=== PATIENT | female | born 1945 ===

== ENCOUNTER 2020-02-02 | Outpatient (REF) | payer MEDICARE, SELFPAY ==
[2020-02-05 09:29] LABS: OBS1 NEG (NEG); OBS2 NEG (NEG); OBS3 NEG (NEG)
[2020-02-05 09:30] LABS: OBS Int Ctl Valid YES
== END 2020-02-02 00:01 | disposition home or self-care (01) ==
LOC: HO.LNP
DX: D64.9 Anemia, unspecified (principal)
CPT/HCPCS: 82270

== ENCOUNTER 2020-05-31 14:15 | Outpatient (REF) | payer MEDICARE, SELFPAY | END 2020-05-31 14:16 | disposition home or self-care (01) | LOC: HO.LAB 14:15 | PROVIDERS: Visit Provider Internal Medicine | DX: Z20.822 Contact with and (suspected) exposure to COVID-19 (principal) | CPT/HCPCS: 36415; C9803; U0003 ==

== ENCOUNTER 2020-06-26 15:20 | Outpatient (REF) | payer MEDICARE, SELFPAY | END 2020-06-26 15:21 | disposition home or self-care (01) | LOC: HO.LAB 15:20 | PROVIDERS: PCP Internal Medicine; Visit Provider Internal Medicine | DX: Z20.822 Contact with and (suspected) exposure to COVID-19 (principal) | CPT/HCPCS: 36415; C9803; U0003; U0005 ==

== ENCOUNTER 2020-07-17 13:27 | Outpatient (REF) | payer MEDICARE, SELFPAY ==
--- NOTE | ~2020-07-17 | XR_ITS ---
EXAMINATION: XR CHEST CLINICAL INFORMATION: R22.2 - Localized swelling, mass and lump, trunk COMPARISON: Chest radiographs 10/26/2017, 03/14/2013 TECHNIQUE: 2 views of the chest were obtained. FINDINGS: The lungs are clear. There is no airspace consolidation or effusion. The vascularity is normal. The heart is normal in size. Diaphragmatic contours are similar to prior studies. There is mild mamillation posterior left diaphragm versus small smooth Bochdalek hernia. The hilar and mediastinal contours are normal. There are mild degenerative changes thoracic spine. XR/XR chest 2V IMPRESSION: No acute intrathoracic disease.
== END 2020-07-17 13:28 | disposition home or self-care (01) ==
LOC: HO.XRAY 13:27
PROVIDERS: PCP Internal Medicine; Visit Provider Internal Medicine
DX: R22.2 Localized swelling, mass and lump, trunk (principal)
CPT/HCPCS: 71046

== ENCOUNTER 2020-07-18 08:58 | Emergency (ER) | payer MEDICARE, SELFPAY ==
--- NOTE | ~2020-07-18 | CT_ITS ---
EXAMINATION: CT CHEST WITHOUT CONTRAST AND CT CERVICAL SPINE WITHOUT CONTRAST. CLINICAL INFORMATION: Left neck pain/swelling in the left anterior chest. COMPARISON: None TECHNIQUE: 3 mm thin axial and reformatted 2 mm thin sagittal and coronal images of cervical spine were obtained. Axial 5 mm thin and reformatted 3 mm thin sagittal and coronal images of chest were obtained without contrast. DLP 964. FINDINGS: Cervical spine: There is mild straightening of cervical lordosis. The vertebral heights and alignment is normal. There is loss of C6-C7 disc height with mild ventral and posterior spondylosis. Rest the disc heights are normal. There are hypertrophic bony changes at the C1-C2 disc level. There is no visible acute fracture, dislocation or subluxation. There is mild spondylosis/bulge complex at C2-C3, C3-C4 disc levels. There is mild left C3-C4, moderate C4-C5 and C5-C6 facet joint arthropathy and hypertrophy. There is no spinal canal stenosis. The neural foramina appear patent bilaterally at all disc levels the prevertebral and paravertebral soft tissues are normal. The airway is widely patent. Lung apices are clear. No abnormal neck mass or lymphadenopathy seen. CHEST: Both lungs are well-expanded and clear of acute pneumonic process. There is a 1 mm calcified nodule right upper lobe axial image 99/17, 1 mm calcified nodule left lower lobe superior segment subpleural location axial image 148/0 17, noncalcified 5 minute nodule right upper lobe axial image 187/17, a few calcified nodules in the left lower lobe largest measuring 5 mm axial image 186/17 The thyroid lobes are symmetrical. The central trachea and bronchi are widely patent. Heart size and the great vessels are normal caliber. There are coronary artery calcifications present. There is no pericardial effusion. No abnormal mediastinal hilar lymph nodes seen. There is no pleural effusion or pleural thickening. Imaging through the axilla reveals small shotty lymph nodes in the left axilla with central lucency the largest benign-appearing lymph node is 1. Measures 1.3 cm. There is no pleural effusion or pleural thickening. Visualized liver, spleen, pancreas and adrenal glands and kidneys is unremarkable. Bone windows reveal mild ventral spondylosis dorsal spine. No lytic or sclerotic process. CT/CT cervical spine wo con IMPRESSION: Mild straightening of cervical lordosis likely spasm. There is disc bulge/osteophyte complex at C2-C3 and C3-C4 disc level. There are hypertrophic bony changes at the C1-C2 alignment. No visible acute fracture, dislocation subluxation seen. There is no acute intrathoracic abnormality. There are several calcified and noncalcified pulmonary nodules. Based on clinical risk factors a follow-up in one year can be performed. There is no neck mass or abnormal appearing thyroid gland at this time.
[2020-07-18 09:15] VITALS: BP 185/77; PULSE 95; RESP 16; TEMP 36.2; O2SAT 97; BMI 31.8
[2020-07-18] MEDS: Ibuprofen 600 MG TABLET PO (10:15)
[2020-07-18] MEDS: Cyclobenzaprine HCl 10 MG TABLET PO (10:16)
--- NOTE | 2020-07-18 10:56 | ED.NECK ---
HPI - Neck Pain/Injury General Chief Complaint: Neck Pain/Injury Stated Complaint: neck pain Time Seen by Provider: 07/18/20 09:18 Source: patient Mode of arrival: ambulatory Limitations: no limitations History of Present Illness HPI Narrative: 74-year-old female with a past medical history of diabetes, hypertension hyperlipidemia presenting to the ED with complaints of atraumatic left-sided lateral/anterior neck pain with soft tissue swelling for the past 2-3 days worse today. She reports it is worse when she moves her neck to the left side although no pain with movement to the right side/looking toward the ceiling or touching her chin to her chest. She reports she was seen by her PCP yesterday and had a chest x-ray was negative for any acute processes per patient. She denies any fevers, chills, headaches, dizziness, sore throat, ear pain, nausea/vomiting, chest pain, shortness of breath, paresthesias, extremity edema, any symptoms or any other symptoms complaints or concerns at this time. MD complaint: neck pain Onset (ago): day(s) (2-3 days worse today) Place: home (While watching TV on the couch she notices started) Radiation: left lateral (/anterior) Severity: moderate and constant Quality: aching and spasming Duration: constant Relieving factors: none Exacerbating factors: movement of neck Associated symptoms: none Treatments prior to arrival: other (She reports she took [id number] medication no symptomatic relief) Related Data Home Medications Medication Instructions Recorded Confirmed blood sugar diagnostic #10 ea 06/19/20 06/19/20 glipizide 5 mg tablet 10 mg PO BID 06/19/20 06/19/20 lancets 30 gauge #100 ea 06/19/20 06/19/20 losartan 100 mg tablet 100 mg PO DAILY 06/19/20 06/19/20 montelukast 10 mg tablet 10 mg PO DAILY 06/19/20 06/19/20 naproxen 500 mg tablet mg PO 06/19/20 06/19/20 omeprazole 20 mg capsule,delayed 20 mg PO BID 06/19/20 06/19/20 release Previous Rx's Medication Instructions Recorded ezetimibe 10 mg tablet 10 mg PO DAILY #30 tab 06/27/20 meclizine 25 mg tablet 25 mg PO TID #90 tab 06/27/20 cyclobenzaprine 10 mg PO Q8H #10 tab 07/18/20 ibuprofen 400 mg PO Q6H PRN #10 tab 07/18/20 lidocaine HCl [Aspercreme 1 appl TOPICAL BID PRN #120 g 07/18/20 (lidocaine HCl)] oxycodone 5 mg PO BID PRN #10 tab 07/18/20 Allergies Allergy/AdvReac Type Severity Reaction Status Date / Time aspirin [ASPIRIN] Allergy Intermediate chest Verified 07/17/20 13:04 tightness codeine [CODEINE] Allergy Unknown SWELLING Verified 07/17/20 13:04 Erythromycin Allergy Unknown Unknown Verified 07/17/20 13:04 erythromycin base Allergy Unknown SWELLING Verified 07/17/20 13:04 [ERYTHROMYCIN BASE] lisinopril [LISINOPRIL] Allergy Unknown COUGH Verified 07/17/20 13:04 morphine [MORPHINE] Allergy Unknown ANAPHYLAXIS Verified 07/17/20 13:04 penicillin V Allergy Unknown Unknown Verified 07/17/20 13:04 simvastatin Allergy Unknown Unknown Verified 07/17/20 13:04 [employer] Saline Allergy Unknown Unknown Uncoded 06/19/20 13:36 Codeine Phosphate Allergy Unknown Unknown Uncoded 06/19/20 13:36 ZYVA Allergy Unknown NERVE Uncoded 01/18/20 15:04 INFLAMMATION Review of Systems Review of Systems: Constitutional : No trauma, No Weight loss, No Fever, No Chills, ENT/Mouth : No Hearing loss, No Ear Pain, No Nasal Congestion, No Sinus Pain, No Hoarseness, No sore throat, No Rhinorrhea, No Swallowing Difficulty Cardiovascular : No Chest Pain, No SOB Respiratory : No Cough, No Dyspnea Gastrointestinal : No Nausea, No Vomiting, No Diarrhea, No abdominal Pain, No Hematochezia, No Melena Genitourinary : No Dysuria, No Urinary Frequency, No Hematuria, No Urinary or Bowel Incontinence/retention Musculoskeletal : + Neck pain, No Back pain, No joint stiffness, No joint swelling Skin : No Skin Lesions, No rash or signs of infection Neuro : + Tingling to b/l arms, No Weakness, No radiation, No Numbness, No headache, no loss of bowel or bladder incontinence, no saddle anesthesia Denies history of IV drug usage. Yes all other systems are reviewed and are negative PMFSH Past Medical History Attestation statement: The following information was validated with the patient. Medical History Diabetes mellitus High cholesterol HTN (hypertension) Surgical History History of tonsillectomy History of tubal ligation History of umbilical hernia repair Family History Family History Father No problems noted. Mother No problems noted. Social History Social History Alcohol intake: current Alcohol intake frequency: holidays/special occasions only Smoking Status: Never smoker Smoked in Last 30 Days: No Use of substances other than those prescribed or required for medical reasons: No Advance Directives: No Advance Directives Information Provided: No Physical Exam Vital Signs: Vital Signs: Last Vital Signs Temp 97.1 F 07/18/20 09:15 Pulse 95 07/18/20 09:15 Resp 16 07/18/20 09:15 BP 185/77 H 07/18/20 09:15 Pulse Ox 97 07/18/20 09:15 Body Mass Index 31.8 vital signs have been reviewed as normal and appeared to be correct. Blood pressure hypertensive. Heart rate normal. Respiration rate normal. Temperature normal. Oxygen saturation normal. Appearance: Alert. Oriented X3. No acute distress. Head: Normal external exam. Normocephalic. Atraumatic. Eyes: PERRLA. EOMI. Conjunctiva and sclera normal. Eyelids normal. ENT: Pharynx normal. Uvula midline. Moist mucous membranes. No trismus noted. No drooling noted. No muffled voice noted. Neck: Normal inspection. Neck supple. FROM. No adenopathy. Thyroid Normal. Trachea midline. No meningeal signs. No neck mass noted. Tender to palpation of left lateral/anterior cervical musculature with muscle spasm noted. No mid spinal cervical tenderness noted. No step-offs or deformities noted. Patient neuro intact bilaterally and distally on all 4 extremities. Reflexes intact bilaterally and distally in all 4 extremities. No rashes/lesion/induration/fluctuance or signs of infection noted. No edema noted. CVS: Normal heart rate and rhythm. Heart sound normal. No murmurs noted. Pulses normal throughout. Respiratory: No respiratory distress. Painless inspiration. Breath sounds normal. No wheezes/rales/rhonchi noted. Chest nontender. No accessory muscle usage noted or decreased air movement noted. Back: Full range of motion noted. No obvious deformities, or edema. Full ROM in back and lower extremities. Skin: Skin warm and dry. Normal skin color. Normal skin turgor. No rashes/lesions/lacerations noted. Extremities: Extremities exhibit normal range of motion. Extremities nontender. Neuro: Oriented X 3. No motor deficit. No sensory deficit. Reflexes normal. Normal steady gait. Course Course Course Narrative: Pt c likely muscular pain, but could be herniated disc. Neuro exam shows no deficits. Not c/w vascular etiology, perivertebral / other soft tissue neck / airway infection, or spinal fx / process. CT scan of cervical spine and of chest obtained and revealed chronic changes and pulmonary nodules therefore I printed out the results and given to the patient instructed her that she needs to have repeat imaging within a year for her pulmonary nodules by her PCP otherwise no other acute processes. Will DC c meds and f/u patient understands agrees with this plan. MDM - Neck Pain/Injury Differential Diagnosis Differential diagnosis: Likely disc disorder of cervical region, closed subluxation of cervical spine, fracture of cervical spine without lesion of spinal cord, cervical radiculopathy, torticollis, cervical spondylosis and strain of neck muscle Medical Records Attestation: I reviewed the patient's medical records. Imaging Data CT scan cervical spine without contrast and CT scan chest without contrast: Attestation: I personally reviewed and interpreted this imaging study as follows: Radiologist's impression: FINDINGS: Cervical spine: There is mild straightening of cervical lordosis. The vertebral heights and alignment is normal. There is loss of C6-C7 disc height with mild ventral and posterior spondylosis. Rest the disc heights are normal. There are hypertrophic bony changes at the C1-C2 disc level. There is no visible acute fracture, dislocation or subluxation. There is mild spondylosis/bulge complex at C2-C3, C3-C4 disc levels. There is mild left C3-C4, moderate C4-C5 and C5-C6 facet joint arthropathy and hypertrophy. There is no spinal canal stenosis. The neural foramina appear patent bilaterally at all disc levels the prevertebral and paravertebral soft tissues are normal. The airway is widely patent. Lung apices are clear. No abnormal neck mass or lymphadenopathy seen. CHEST: Both lungs are well-expanded and clear of acute pneumonic process. There is a 1 mm calcified nodule right upper lobe axial image 99/17, 1 mm calcified nodule left lower lobe superior segment subpleural location axial image 148/0 17, noncalcified 5 minute nodule right upper lobe axial image 187/17, a few calcified nodules in the left lower lobe largest measuring 5 mm axial image 186/17 The thyroid lobes are symmetrical. The central trachea and bronchi are widely patent. Heart size and the great vessels are normal caliber. There are coronary artery calcifications present. There is no pericardial effusion. No abnormal mediastinal hilar lymph nodes seen. There is no pleural effusion or pleural thickening. Imaging through the axilla reveals small shotty lymph nodes in the left axilla with central lucency the largest benign-appearing lymph node is 1. Measures 1.3 cm. There is no pleural effusion or pleural thickening. Visualized liver, spleen, pancreas and adrenal glands and kidneys is unremarkable. Bone windows reveal mild ventral spondylosis dorsal spine. No lytic or sclerotic process. CT/CT cervical spine wo con IMPRESSION: Mild straightening of cervical lordosis likely spasm. There is disc bulge/osteophyte complex at C2-C3 and C3-C4 disc level. There are hypertrophic bony changes at the C1-C2 alignment. No visible acute fracture, dislocation subluxation seen. There is no acute intrathoracic abnormality. There are several calcified and noncalcified pulmonary nodules. Based on clinical risk factors a follow-up in one year can be performed. There is no neck mass or abnormal appearing thyroid gland at this time. Discharge Plan Discharge Clinical Impression: Neck muscle spasm, Incidental pulmonary nodule Patient Disposition: Home, Self-Care Instructions: Spasmodic Torticollis (ED), Muscle Spasm (ED) Prescriptions: New lidocaine HCl [Aspercreme (lidocaine HCl)] 4 % cream 1 appl topical BID PRN (Reason: pain) Qty: 120 RF: 0 cyclobenzaprine 10 mg tablet 10 mg PO Q8H Qty: 10 RF: 0 ibuprofen 400 mg tablet 400 mg PO Q6H PRN (Reason: pain) Qty: 10 RF: 0 oxycodone 5 mg tablet 5 mg PO BID PRN (Reason: pain) Qty: 10 RF: 0 No Action ezetimibe 10 mg tablet 10 mg PO DAILY Qty: 30 RF: 1 meclizine 25 mg tablet 25 mg PO TID Qty: 90 RF: 0 naproxen 500 mg tablet PO RF: 0 losartan 100 mg tablet 100 mg PO DAILY RF: 0 montelukast 10 mg tablet 10 mg PO DAILY RF: 0 glipizide 5 mg tablet 10 mg PO BID RF: 0 omeprazole 20 mg capsule,delayed release(DR/EC) 20 mg PO BID RF: 0 (DME) OneTouch Verio test strips Strip See Rx Instructions ea Not Applicable DAILY Qty: 10 RF: 0 (DME) lancets 30 gauge misc See Rx Instructions ea .ROUTE DAILY Qty: 100 RF: 0 Referrals: Hans Oswald MD [Primary Care Provider] - 2 days Stand Alone Forms: Work/School Release Interventions: ED Discharge Assessment Last Done: 07/18/20 11:30 Discharge Date/Time: 07/18/20 11:31 Print Language: Danish
--- NOTE | 2020-07-18 11:30 | PC.NURSE ---
pain 5/10 at time of dc
== END 2020-07-18 11:31 | disposition home or self-care (01) ==
PROVIDERS: Emergency Provider Emergency Medicine Emergency Medical Services; PCP Internal Medicine
DX: G24.3 Spasmodic torticollis (principal); R91.8 Other nonspecific abnormal finding of lung field; E11.9 Type 2 diabetes mellitus without complications; I10 Essential (primary) hypertension; Z79.899 Other long term (current) drug therapy
CPT/HCPCS: 71250; 72125; 99283; 99284

== ENCOUNTER → 2020-08-02 09:20 | Outpatient (BNVA) | payer MEDICARE, SELFPAY | PROVIDERS: PCP Internal Medicine; Visit Provider Hospitalist | DX: R91.1 Solitary pulmonary nodule (principal); J45.20 Mild intermittent asthma, uncomplicated; R59.1 Generalized enlarged lymph nodes | CPT/HCPCS: 99202 ==

== ENCOUNTER 2020-08-15 10:51 | Outpatient (REF) | payer MEDICARE, SELFPAY ==
[2020-08-15 11:27] LABS: COVID-19 Test Negative (Negative)
== END 2020-08-15 10:52 | disposition home or self-care (01) ==
LOC: HO.LAB 10:51
PROVIDERS: Visit Provider Internal Medicine
DX: Z20.822 Contact with and (suspected) exposure to COVID-19 (principal)
CPT/HCPCS: 36415; 87635; C9803

== ENCOUNTER 2020-08-28 15:00 | Outpatient (RCR) | payer MEDICARE, SELFPAY ==
[2020-08-06 14:13] VITALS: BP 132/78
--- NOTE | 2020-08-07 11:23 | MHC.PT.EP ---
[facility] [place] Office [place] Office [place] Office [address] Janice Cox [address] [phone] F: [phone] F: [phone] F: [phone] F: [phone] Physical Therapy Plan of Care Date of Evaluation: 08/06/20 Date of Surgery: N/A Diagnosis: Cervicalgia Assessment: Jocelyn is a 74-year-old female presenting to physical therapy with a diagnosis of cervicalgia. She presents with deficits in global cervical ROM and strength, impaired UE strength and impaired posture. She would benefit from skilled physical therapy to address the aforementioned impairments and increase her tolerance to lifting and carrying items, rotating her head side to side, and reaching overhead as needed for ADLs and work duties. Jocelyn is motivated to participate in physical therapy so she can continue working without being limited by pain and return to her PLOF. Frequency and Duration: The patient will be seen 2 visits per week for 5 weeks. Short Term Goals: -Pt will report <2/10 pain at rest to allow her to be able sleep comfortably through the night within 3 weeks. -Pt will demonstrate cervical rotation ROM WNL in order to be able to safely check blind spots when driving within 3 weeks. Usp Goals: -Pt will be independent with HEP for symptom management and maintenance following discharge within 5 weeks. -Pt will be able to work her usual 5 -hour shift with <2/10 pain within 5 weeks. Treatment Plan: Modalities to reduce pain, spasms and effusion. Manual therapy to restore motion and function. Therapeutic exercise to improve strength and flexibility. Neuromuscular re-education for posture and balance. Therapeutic activities to return to functional activities of daily living. Electronically signed by: Roopa Berg, PT, DPT Please sign and return to therapist. Thank you for your referral.
--- NOTE | 2020-09-25 15:28 | MHC.PT.DC ---
[facility] [place] Office [place] Office [place] Office [address] Janice Cox [address] [phone] F: [phone] F: [phone] F: [phone] F: [phone] Physical Therapy Discharge Report Diagnosis: Cervicalgia Date of Surgery: N/A Date of Evaluation: 08/06/20 Date of Discharge: 08/30/20 Treatments to Date: 4 Cancellations to Date: 6 No Shows to Date: 0 Discharge Status: Visit Non-compliance Discharge Summary: Pt has been discharged from therapy for non compliance. She has missed 6 PT appointments. Electronically signed by: Roopa Berg PT, DPT Please sign and return to therapist. Thank you for your referral.
== END 2020-09-25 15:28 | disposition other institution (70) ==
LOC: HO.PT 15:00
PROVIDERS: PCP Internal Medicine; Visit Provider Internal Medicine
DX: M54.2 Cervicalgia (principal)
CPT/HCPCS: 97110; 97140; 97161

== ENCOUNTER 2020-09-02 15:41 | Outpatient (REF) | payer MEDICARE, SELFPAY | END 2020-09-02 15:42 | disposition home or self-care (01) | LOC: HO.LAB 15:41 | PROVIDERS: Visit Provider Internal Medicine | DX: Z20.822 Contact with and (suspected) exposure to COVID-19 (principal) | CPT/HCPCS: C9803; U0003; U0005 ==

== ENCOUNTER 2020-09-04 10:49 | Outpatient (REF) | payer MEDICARE, SELFPAY ==
--- NOTE | ~2020-09-04 | MM_ITS ---
EXAMINATION: MM DIAGNOSTIC DIGITAL BREAST TOMOSYNTHESIS, BILATERAL US DIAGNOSTIC ULTRASOUND BREAST, LEFT CLINICAL INFORMATION: 74-year-old with recent palpable concern 1:00 left breast and left axilla, subsequently resolved. No discharge. No known family history breast cancer. The lifetime risk of breast cancer based on the Tyrer-Cuzick Model is 3%. COMPARISON: Mammography: 10/08/2015; CT cervical spine and chest noncontrast 07/18/2020. TECHNIQUE: Digital breast tomosynthesis is performed in both the craniocaudal and mediolateral oblique views along with computer-aided detection (CAD). Synthesized 2D images are generated from the tomosynthesis. Additional exaggerated left CC view is provided. Ultrasound left breast is targeted to the upper breast in area of recent symptoms as well as the left axilla. Grayscale imaging and color Doppler are performed without and with harmonics. FINDINGS: There are scattered areas of fibroglandular density (ACR BI-RADS breast composition Category b). Parenchymal pattern is similar to prior exam 2016. There is no interval mass or architectural abnormality or abnormal calcifications. The axillary nodes are stable. The skin contours are smooth. There is no coarsening of the Scooby's ligaments. No significant changes. Ultrasound demonstrates no cystic or solid mass or architectural abnormality. No focal duct ectasia. No lymphadenopathy. No skin thickening or edema tracking in the soft tissue planes. Results are discussed with the patient at time of visit. MM/MM tomosynthesis diagnostic BI IMPRESSION: No mammographic evidence of malignancy. No significant changes from prior exam 2016. Unremarkable targeted left breast/axillary ultrasound. ASSESSMENT: BI-RADS 1: Negative RECOMMENDATION: 1. Patient should be managed based on the clinical impression. If clinically indicated, further evaluation may be considered with surgical consult. Decision to proceed with biopsy should be based on clinical grounds and degree of clinical concern. 2. Otherwise, routine annual screening mammography. This patient's information was entered into a reminder system with a target due date for their next mammogram.
== END 2020-09-04 10:50 | disposition home or self-care (01) ==
LOC: HO.MAMMO 10:49
PROVIDERS: Visit Provider Internal Medicine
DX: N63.21 Unspecified lump in the left breast, upper outer quadrant (principal); R59.0 Localized enlarged lymph nodes
CPT/HCPCS: 76642; 77062; 77066

== ENCOUNTER 2020-09-23 08:43 | Outpatient (REF) | payer MEDICARE, SELFPAY ==
[2020-09-23 09:07] LABS: MANUAL DIFF FLAG NO
[2020-09-23 09:20] LABS: Basophils Percent Auto 0.4 % (0-2); Eosinophils Absolute Auto 0.6 X10*3/uL (0.0-0.4); Eosinophils Percent Auto 7.7 % (0-4); Hematocrit 31.7 % (37-47); Hemoglobin 10.1 g/dl (12.0-16.0); Imm Gran Abs Auto 0.03 X10*3/uL (0.00-0.03); Imm Gran Pct Auto 0.4 % (0.0-0.4); Lymphocytes Absolute Auto 2.4 X10*3/uL (1.2-4.9); Lymphocytes Percent Auto 32.7 % (20-40); Mean Corpuscular HGB Conc 31.9 g/dl (31.0-35.0); Mean Corpuscular Hemoglobin 29.2 pg (27.0-33.0); Mean Corpuscular Volume 91.6 fL (80-98); Mean Platelet Volume 9.5 fL (9.4-12.3); Monocytes Absolute Auto 0.5 X10*3/uL (0.1-1.2); Neutrophils Absolute Auto 3.9 X10*3/uL (2.0-8.3); Neutrophils Percent Auto 51.8 % (45-73); Platelet Count 187 X10*3/uL (160-400); Red Blood Count 3.46 X10*6/uL (4.20-5.50); Red Cell Distribution Width 12.8 % (11.0-16.0); White Blood Count 7.4 X10*3/uL (4.8-10.8)
[2020-09-23 09:36] LABS: Alanine Aminotransferase 21 U/L (0-31); Alkaline Phosphatase 77 U/L (39-117); Anion Gap 11 (12-20); Aspartate Amino Transferase 22 U/L (5-31); Bilirubin Total 0.8 mg/dL (0.0-1.0); Blood Urea Nitrogen 21 mg/dL (9-16); Calcium 8.8 mg/dL (8.4-10.2); Carbon Dioxide 25 mmol/L (22-29); Chloride 108 mmol/L (96-108); Cholesterol 162 mg/dL; Estimated Glomerular Filt Rate > 60; Glucose Fasting 167 mg/dL (60-99); HDL Cholesterol 50 mg/dL; LDL Cholesterol Calculated 95 mg/dl; Potassium 4.1 mmol/L (3.3-5.1); Sodium 140 mmol/L (135-145); Total Protein 6.4 g/dL (6.5-8.0); Triglycerides 85 mg/dL
[2020-09-23 09:56] LABS: Thyroid Stimulating Hormone 1.19 uIU/mL (0.32-4.0)
[2020-09-23 15:53] LABS: Creatinine Urine 109.12 mg/dL; Microalbum/Creatinine Ratio Ur 26.5 ug/mg cr
[2020-09-27 14:02] LABS: Vitamin D 25-OH, D2 <4 ng/mL; Vitamin D 25-OH, D3 14 ng/mL; Vitamin D 25-OH, Total 14 ng/mL (30-100)
== END 2020-09-23 08:44 | disposition home or self-care (01) ==
LOC: HO.LAB 08:43
PROVIDERS: Internal Medicine; PCP Internal Medicine; Visit Provider Internal Medicine
DX: Z00.00 Encounter for general adult medical examination without abnormal findings (principal); E11.9 Type 2 diabetes mellitus without complications; E03.9 Hypothyroidism, unspecified; E55.9 Vitamin D deficiency, unspecified
CPT/HCPCS: 36415; 80053; 80061; 82043; 82306; 84443; 85025

== ENCOUNTER 2020-11-14 10:45 | Emergency (ER) | payer OTHER, MEDICARE, SELFPAY ==
[2020-11-14 10:47] VITALS: BP 193/71; PULSE 90; RESP 16; TEMP 36.8; O2SAT 99
--- NOTE | 2020-11-14 11:33 | PC.NURSE ---
Cleaned and applied dressing to pts forearm per PA order.
--- NOTE | 2020-11-14 11:37 | ED_ITS ---
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 Small abrasion to the left forearm. Patient has a longstanding history of hypertension. Patient has been fully vaccinated for COVID-19. Patient also complaining of left lateral neck pain. Patient has a chronic history of left lateral neck pain. Patient denies headache loss of consciousness or other complaints at this time. Symptoms are mild to moderate. Pain 10/10. Related Data Home Medications Medication Instructions Recorded Confirmed blood sugar diagnostic #10 ea 06/19/20 10/15/20 lancets 30 gauge #100 ea 06/19/20 10/15/20 omeprazole 20 mg capsule,delayed 20 mg PO BID 06/19/20 10/15/20 release Previous Rx's Medication Instructions Recorded ibuprofen 400 mg PO Q6H PRN #10 tab 07/18/20 lidocaine HCl [Aspercreme 1 appl TOPICAL BID PRN #120 g 07/18/20 (lidocaine HCl)] albuterol sulfate 90 mcg/actuation 2 inh INHALATION Q6H PRN 30 Days 08/02/20 aerosol inhaler #18 g meclizine 25 mg tablet 25 mg PO TID #90 tab 08/14/20 ezetimibe 10 mg tablet 10 mg PO DAILY #30 tab 08/20/20 losartan 100 mg tablet 100 mg PO DAILY 90 Days #90 tab 09/04/20 metformin 500 mg tablet 500 mg PO BID 90 Days #180 tab 09/25/20 glipizide 5 mg tablet 10 mg PO BID #120 tab 10/21/20 naproxen 500 mg tablet 500 mg PO DAILY #30 tab 10/27/20 montelukast 10 mg tablet 10 mg PO DAILY #90 tab 11/07/20 methocarbamol 750 mg PO TID PRN #30 tab 11/14/20 Allergies Allergy/AdvReac Type Severity Reaction Status Date / Time codeine [CODEINE] Allergy Severe SWELLING Verified 09/25/20 15:47 erythromycin base Allergy Severe SWELLING Verified 09/25/20 15:47 [ERYTHROMYCIN BASE] morphine [MORPHINE] Allergy Severe ANAPHYLAXIS Verified 09/25/20 15:47 penicillin V Allergy Severe Swelling Verified 09/25/20 15:47 Eyes simvastatin Allergy Severe Nerve Verified 09/25/20 15:47 Inflammation aspirin [ASPIRIN] Allergy Intermediate chest Verified 09/25/20 15:47 tightness lisinopril [LISINOPRIL] Allergy Intermediate COUGH Verified 09/25/20 15:47 cyclobenzaprine AdvReac Intermediate SOB, dry Verified 09/25/20 15:47 mouth/ throat [employer] Saline Allergy Severe Redness Uncoded 09/25/20 15:47 ZYVA Allergy Severe NERVE Uncoded 09/25/20 15:47 INFLAMMATION Review of Systems Constitutional: Constitutional: Denies chills, Denies fever(s) and Denies headache(s) Eyes: Eyes: Denies blurry vision and Denies loss of vision ENT: Denies headache(s) Cardiovascular: Cardiovascular: Denies chest pain and Denies dyspnea Respiratory: Respiratory: Denies cough and Denies dyspnea Gastrointestinal: Gastrointestinal: Denies diarrhea, Denies nausea and Denies vomiting Musculoskeletal: Comments: Left forearm pain left lateral neck pain Neurologic: Denies headache(s), Denies loss of vision and Denies paresthesias Endocrine: Endocrine: Reports no additional endocrine complaints Hematologic/Lymphatic: Hematologic/Lymphatic: Reports no additional hematologic/lymphatic complaints [facility] Past Medical History Attestation statement: The following information was validated with the patient. Medical History Anemia Asthma Axillary lymphadenopathy Breast mass Diabetes mellitus Dyslipidemia Essential hypertension High cholesterol HTN (hypertension) Lymphadenopathy Surgical History History of tonsillectomy History of tubal ligation History of umbilical hernia repair Family History Family History Father No problems noted. Mother No problems noted. Social History Social History Alcohol intake: current Alcohol intake frequency: holidays/special occasions only Alcohol type: hard liquor Patient Tobacco Use Status: Never used Tobacco Second Hand Smoke Exposure: No Advance Directives: No Advance Directives Information Provided: No Physical Exam Vital Signs: Vital Signs: Last Vital Signs Temp 98.3 F 11/14/20 10:47 Pulse 90 11/14/20 10:47 Resp 16 11/14/20 10:47 BP 193/71 H 11/14/20 10:47 Pulse Ox 99 11/14/20 10:47 Body Mass Index 2.7 vital signs have been reviewed as normal and appeared to be correct. Blood pressure normal. Heart rate normal. Respiration rate normal. Temperature normal. Oxygen saturation normal. Appearance: Alert. Oriented X3. No acute distress. Head: Normal external exam. Normocephalic. Atraumatic. No Burden signs noted. No raccoon eyes noted Eyes: PERRLA. EOMI. ENT: Pharynx normal. Uvula midline. Moist mucous membranes. No trismus noted. No drooling noted. No muffled voice noted. Neck: Soft full range of motion, left lateral paraspinal muscle tenderness no midline tenderness CVS: Heart regular rate and rhythm no murmurs and rubs Respiratory: Breath sounds are clear to auscultation bilaterally. No accessory muscle use noted. Back: No CVA tenderness. Full range of motion noted. Skin: abrasion noted to the left forearm well-approximated Extremities: left elbow medial lateral epicondyle nontender full range of motion. Neuro: Oriented X 3. No motor deficit. No sensory deficit. No ataxia ambulatory Course Course Course Narrative: Left-sided cervical strain Left forearm abrasion Left forearm contusion left forearm wound dressed 50 mg tramadol p.o. 0.5 mL Tdap IM symptoms consistent with musculoskeletal pain no midline tenderness of the cervical spine and no x-ray at this time. Discharge Plan Discharge Clinical Impression: Cervical strain, Abrasion Patient Disposition: Home, Self-Care Instructions: Cervical Strain (ED) Additional Instructions: rest ice medications as directed Prescriptions: New methocarbamol 750 mg tablet 750 mg PO TID PRN (Reason: muscle spasm) Qty: 30 RF: 0 No Action meclizine 25 mg tablet 25 mg PO TID Qty: 90 RF: 8 ezetimibe 10 mg tablet 10 mg PO DAILY Qty: 30 RF: 8 losartan 100 mg tablet 100 mg PO DAILY 90 Days Qty: 90 RF: 3 glipizide 5 mg tablet 10 mg PO BID Qty: 120 RF: 6 naproxen 500 mg tablet 500 mg PO DAILY Qty: 30 RF: 1 montelukast 10 mg tablet 10 mg PO DAILY Qty: 90 RF: 8 lidocaine HCl [Aspercreme (lidocaine HCl)] 4 % cream 1 appl topical BID PRN (Reason: pain) Qty: 120 RF: 0 ibuprofen 400 mg tablet 400 mg PO Q6H PRN (Reason: pain) Qty: 10 RF: 0 omeprazole 20 mg capsule,delayed release(DR/EC) 20 mg PO BID RF: 0 (DME) OneTouch Verio test strips Strip See Rx Instructions ea Not Applicable DAILY Qty: 10 RF: 0 (DME) lancets 30 gauge misc See Rx Instructions ea .ROUTE DAILY Qty: 100 RF: 0 metformin 500 mg tablet 500 mg PO BID 90 Days Qty: 180 RF: 1 albuterol sulfate 90 mcg/actuation HFA aerosol inhaler 2 inh inhalation Q6H PRN (Reason: shortness of breath or wheezing) 30 Days Qty: 18 RF: 12 Stand Alone Forms: Work/School Release
[2020-11-14] MEDS: traMADoL HCL 50 MG TABLET PO (11:39)
[2020-11-14] MEDS: Diphth,Pertus(ACell),Tet Adult 0.5 ML SYRINGE IM (11:40)
== END 2020-11-14 12:08 | disposition home or self-care (01) ==
PROVIDERS: Emergency Provider Emergency Medicine; PCP Internal Medicine
DX: S16.1XXA Strain of muscle, fascia and tendon at neck level, initial encounter (principal); S50.812A Abrasion of left forearm, initial encounter; I10 Essential (primary) hypertension; E11.9 Type 2 diabetes mellitus without complications; Z79.84 Long term (current) use of oral hypoglycemic drugs; Z79.899 Other long term (current) drug therapy; W03.XXXA Other fall on same level due to collision with another person, initial encounter; Y93.9 Activity, unspecified; Y92.210 Daycare center as the place of occurrence of the external cause; Y99.0 Civilian activity done for income or pay
CPT/HCPCS: 90471; 90715; 99283; 99284

== ENCOUNTER 2020-12-04 14:26 | Outpatient (REF) | payer MEDICARE, SELFPAY | END 2020-12-04 14:27 | disposition home or self-care (01) | LOC: HO.LAB 14:26 | PROVIDERS: PCP Internal Medicine; Visit Provider Internal Medicine | DX: Z20.822 Contact with and (suspected) exposure to COVID-19 (principal) | CPT/HCPCS: C9803; U0003; U0005 ==

== ENCOUNTER 2020-12-10 10:10 | Outpatient (REF) | payer MEDICARE, SELFPAY ==
[2020-12-10 12:01] LABS: Alanine Aminotransferase 17 U/L (0-31); Alkaline Phosphatase 69 U/L (39-117); Anion Gap 12 (12-20); Aspartate Amino Transferase 18 U/L (5-31); Bilirubin Total 0.3 mg/dL (0.0-1.0); Blood Urea Nitrogen 20 mg/dL (9-16); Calcium 9.1 mg/dL (8.4-10.2); Carbon Dioxide 26 mmol/L (22-29); Chloride 108 mmol/L (96-108); Cholesterol 173 mg/dL; Estimated Glomerular Filt Rate 53; Glucose Fasting 122 mg/dL (60-99); HDL Cholesterol 44 mg/dL; Iron 72 mcg/dL (30-160); LDL Cholesterol Calculated 108 mg/dl; Percent Iron Saturation 26 % (15-50); Potassium 4.6 mmol/L (3.3-5.1); Sodium 141 mmol/L (135-145); Total Iron Binding Capacity 280 mcg/dL (228-428); Total Protein 6.4 g/dL (6.5-8.0); Triglycerides 106 mg/dL; Unsaturated Iron Binding 208 ug/dL
[2020-12-10 12:20] LABS: Folate 11.7 ng/mL (> or = 4.0); Vitamin B12 292 pg/mL (200-900)
[2020-12-10 13:07] LABS: Creatinine Urine 181.61 mg/dL; Microalbum/Creatinine Ratio Ur 20.9 ug/mg cr
[2020-12-14 14:51] LABS: Vitamin D 25-OH, D2 <4 ng/mL; Vitamin D 25-OH, D3 11 ng/mL; Vitamin D 25-OH, Total 11 ng/mL (30-100)
== END 2020-12-10 10:11 | disposition home or self-care (01) ==
LOC: HO.LAB 10:10
PROVIDERS: PCP Internal Medicine; Visit Provider Internal Medicine
DX: E55.9 Vitamin D deficiency, unspecified (principal); E11.65 Type 2 diabetes mellitus with hyperglycemia; D64.9 Anemia, unspecified; E78.5 Hyperlipidemia, unspecified
CPT/HCPCS: 36415; 80053; 80061; 82043; 82306; 82607; 82746; 83540

== ENCOUNTER 2020-12-10 10:12 | Outpatient (REF) | payer MEDICARE, SELFPAY | END 2020-12-10 10:13 | disposition home or self-care (01) | LOC: HO.LAB 10:12 | PROVIDERS: PCP Internal Medicine; Visit Provider Internal Medicine | DX: Z20.822 Contact with and (suspected) exposure to COVID-19 (principal) | CPT/HCPCS: C9803; U0003; U0005 ==

== ENCOUNTER 2021-01-23 13:04 | Outpatient (REF) | payer MEDICARE, SELFPAY | END 2021-01-23 13:05 | disposition home or self-care (01) | LOC: HO.LAB 13:04 | PROVIDERS: PCP Internal Medicine; Visit Provider Internal Medicine | DX: Z20.822 Contact with and (suspected) exposure to COVID-19 (principal) | CPT/HCPCS: C9803; U0003; U0005 ==

== ENCOUNTER 2021-01-29 08:57 | Outpatient (REF) | payer MEDICARE, SELFPAY ==
--- NOTE | ~2021-01-29 | CT_ITS ---
EXAMINATION: CT CHEST WITHOUT CONTRAST CLINICAL INFORMATION: Follow-up pulmonary nodules COMPARISON: Previous chest CT July 2020 TECHNIQUE: Multidetector volumetric CT imaging of the chest was done. Axial MIP volume rendering provided. Sagittal and coronal reformatted images were obtained. This CT examination was performed using dose optimization techniques as appropriate, variously including the following: *Automated exposure control *Adjustment of mA and/or kV according to patient size (this includes techniques or standardized protocols for targeted exams where dose is matched to indication/reason for exam; i.e. extremities or head) *Use of iterative reconstruction technique DLP: 91 mGy-cm FINDINGS: LUNGS: There is biapical pleural parenchymal scarring that is stable. The small predominantly calcified pulmonary nodules are stable. Largest pulmonary nodule is a 5 mm calcified left lower lobe nodule axial image 205 series 4. MEDIASTINUM: There is mild coronary artery calcification. The mediastinum is otherwise normal. PLEURA: There is no pleural effusion. No pleural mass or thickening. There is a small right posterior diaphragmatic hernia containing fat. There is a eventration of the posterior left hemidiaphragm. AXILLA: There are small bilateral axillary lymph nodes. No enlarged axillary lymph nodes are seen. No chest wall mass is seen.. UPPER ABDOMEN: The gallbladder has been removed. OSSEOUS STRUCTURES: There are degenerative changes of the spine and left shoulder. There are degenerative changes at the sternum manubrial joints. CT/CT chest wo con IMPRESSION: Stable pulmonary nodules.
--- NOTE | ~2021-01-29 | XR_ITS ---
EXAMINATION: XR KNEE, RIGHT CLINICAL INFORMATION: Pain COMPARISON: Previous x-ray May 2016. TECHNIQUE: Three views of the right knee. FINDINGS: Bone alignment is normal. No fracture or dislocation is seen. There is medial and lateral degenerative meniscal calcification. There is mild arthritis at the medial femoral tibial and patellofemoral joints with small osteophytes. There is a small joint effusion. There is posterior soft tissue calcification or ossification that is increased. XR/XR knee RT 3V IMPRESSION: Arthritis, joint effusion and soft tissue calcification or ossification increased from May 2016.
== END 2021-01-29 08:58 | disposition home or self-care (01) ==
LOC: HO.CT 08:57
PROVIDERS: Absent Provider Internal Medicine; PCP Internal Medicine; Visit Provider Hospitalist
DX: R91.1 Solitary pulmonary nodule (principal); R59.1 Generalized enlarged lymph nodes; M25.561 Pain in right knee
CPT/HCPCS: 71250; 73562

== ENCOUNTER → 2021-02-04 13:59 | Outpatient (BNVA) | payer MEDICARE, MEDICAID, SELFPAY | PROVIDERS: PCP Internal Medicine; Visit Provider Hospitalist | DX: R91.1 Solitary pulmonary nodule (principal); J45.20 Mild intermittent asthma, uncomplicated; R09.89 Other specified symptoms and signs involving the circulatory and respiratory systems | CPT/HCPCS: 99212 ==

== ENCOUNTER → 2021-02-25 09:57 | Outpatient (BNVA) | payer MEDICARE, MEDICAID, SELFPAY | PROVIDERS: PCP Internal Medicine; Visit Provider Physician Assistant | DX: M17.11 Unilateral primary osteoarthritis, right knee (principal) | CPT/HCPCS: 20610; 99202; J1040 ==

== ENCOUNTER 2021-05-07 14:30 | Outpatient (REF) | payer MEDICARE, MEDICAID, SELFPAY ==
--- NOTE | ~2021-05-07 | US_ITS ---
EXAMINATION: US EXTRACRANIAL CAROTID DUPLEX, BILATERAL CLINICAL INFORMATION: Carotid bruit COMPARISON: None TECHNIQUE: Real-time ultrasound and Doppler techniques (integrating B-mode 2-D vascular images, Doppler spectral analysis and color-flow Doppler imaging) were utilized to interrogate the extracranial carotid arteries, the vertebral arteries and proximal subclavian arteries bilaterally. The degree of stenosis is determined by criteria similar to NASCET. FINDINGS: Right Side: 1. There is mild atherosclerotic plaque seen in the bifurcation/proximal ICA region. 2. The common carotid artery PSV proximally is 99 cm/s and distally 90 cm/s. 3. The proximal internal carotid artery velocities are 67 cm/s systolic and 15 cm/s diastolic. 4. The proximal external carotid artery PSV is 55 cm/s. 5. The vertebral artery shows antegrade flow. 6. The subclavian artery waveforms are normal. Left Side: 1. There is no atherosclerotic plaque seen in the bifurcation/proximal ICA region. 2. The common carotid artery PSV proximally is 82 cm/s and distally 61 cm/s. 3. The proximal internal carotid artery velocities are 75 cm/s systolic and 15 cm/s diastolic. 4. The proximal external carotid artery PSV is 73 cm/s. 5. The vertebral artery shows antegrade flow. 6. The subclavian artery waveforms are normal. US/US carotid duplex BI IMPRESSION: 1. RIGHT: Minimal, non-hemodynamically significant stenosis of the proximal right internal carotid artery corresponding to a 0-49% stenosis by velocity criteria. 2. LEFT: Normal left internal carotid artery without atherosclerotic plaque or hemodynamically significant stenosis.
== END 2021-05-07 14:31 | disposition home or self-care (01) ==
LOC: HO.US 14:30
PROVIDERS: Visit Provider Hospitalist
DX: R09.89 Other specified symptoms and signs involving the circulatory and respiratory systems (principal)
CPT/HCPCS: 93880

== ENCOUNTER 2021-09-04 09:47 | Outpatient (REF) | payer OTHER, SELFPAY ==
[2021-09-04 10:10] LABS: MANUAL DIFF FLAG NO
[2021-09-04 10:25] LABS: Basophils Percent Auto 0.3 % (0-2); Eosinophils Absolute Auto 0.5 X10*3/uL (0.0-0.4); Eosinophils Percent Auto 5.8 % (0-4); Hematocrit 31.9 % (37.0-47.0); Hemoglobin 10.2 g/dl (12.0-16.0); Imm Gran Abs Auto 0.03 X10*3/uL (0.00-0.03); Imm Gran Pct Auto 0.4 % (0.0-0.4); Lymphocytes Absolute Auto 2.3 X10*3/uL (1.2-4.9); Lymphocytes Percent Auto 30.1 % (20-40); Mean Corpuscular Volume 90.6 fL (80.0-98.0); Mean Platelet Volume 9.6 fL (9.4-12.3); Monocytes Absolute Auto 0.6 X10*3/uL (0.1-1.2); Monocytes Percent Auto 7.4 % (2-11); Neutrophils Absolute Auto 4.3 x10*3/uL (2.0-8.3); Platelet Count 191 X10*3/uL (160-400); Red Blood Count 3.52 X10*6/uL (4.20-5.50); Red Cell Distribution Width 12.5 % (11.0-16.0); White Blood Count 7.7 X10*3/uL (4.8-10.8)
[2021-09-04 10:54] LABS: Alanine Aminotransferase 15 U/L (0-31); Albumin Level 4.1 g/dL (3.5-5.0); Alkaline Phosphatase 74 U/L (39-117); Anion Gap 13 (12-20); Aspartate Amino Transferase 18 U/L (5-31); Bilirubin Total 0.4 mg/dL (0.0-1.0); Blood Urea Nitrogen 15 mg/dL (9-16); Calcium 9.5 mg/dL (8.4-10.2); Carbon Dioxide 27 mmol/L (22-29); Chloride 105 mmol/L (96-108); Cholesterol 191 mg/dL; Estimated Glomerular Filt Rate 53; Glucose Random 170 mg/dL (60-115); HDL Cholesterol 54 mg/dL; Iron 63 mcg/dL (30-160); LDL Cholesterol Calculated 115 mg/dl; Percent Iron Saturation 21 % (15-50); Potassium 4.6 mmol/L (3.3-5.1); Sodium 140 mmol/L (135-145); Total Iron Binding Capacity 300 mcg/dL (228-428); Total Protein 6.7 g/dL (6.5-8.0); Triglycerides 111 mg/dL; Unsaturated Iron Binding 237 ug/dL
[2021-09-04 11:48] LABS: Creatinine Urine 141.61 mg/dL
[2021-09-12 16:32] LABS: Vitamin D 25-OH, D2 22 ng/mL; Vitamin D 25-OH, D3 6 ng/mL; Vitamin D 25-OH, Total 28 ng/mL (30-100)
== END 2021-09-04 09:48 | disposition home or self-care (01) ==
LOC: HO.LAB 09:47
PROVIDERS: PCP Internal Medicine; Visit Provider Internal Medicine
DX: E55.9 Vitamin D deficiency, unspecified (principal); E11.9 Type 2 diabetes mellitus without complications; E78.5 Hyperlipidemia, unspecified; D64.9 Anemia, unspecified; M17.11 Unilateral primary osteoarthritis, right knee
CPT/HCPCS: 36415; 80053; 80061; 82043; 82306; 83540; 85025

== ENCOUNTER 2021-09-08 12:03 | Outpatient (REF) | payer MEDICARE, MEDICAID, SELFPAY ==
--- NOTE | ~2021-09-08 | MM_ITS ---
EXAMINATION: MM SCREENING DIGITAL BREAST TOMOSYNTHESIS, BILATERAL CLINICAL INFORMATION: Screening. Asymptomatic. The lifetime risk of breast cancer based on the Tyrer-Cuzick Model is 3%. COMPARISON: Mammography: 09/04/2020, 10/08/2015 TECHNIQUE: Digital breast tomosynthesis is performed in both the craniocaudal and mediolateral oblique views along with computer-aided detection (CAD). Synthesized 2D images are generated from the tomosynthesis. Additional exaggerated left CC view is provided. FINDINGS: There are scattered areas of fibroglandular density (ACR BI-RADS breast composition Category b). There are no significant masses, abnormal calcifications, or other abnormalities. Parenchymal pattern is similar to prior studies. No developing density or architectural abnormality. Axillary nodes are stable. Skin contours are smooth. MM/MM tomosynthesis screening BI IMPRESSION: No mammographic evidence of malignancy. ASSESSMENT: BI-RADS 2: Benign RECOMMENDATION: Routine annual mammography screening. This patient's information was entered into a reminder system with a target due date for their next mammogram.
== END 2021-09-08 12:04 | disposition home or self-care (01) ==
LOC: HO.MAMMO 12:03
PROVIDERS: PCP Internal Medicine; Visit Provider Internal Medicine
DX: Z12.31 Encounter for screening mammogram for malignant neoplasm of breast (principal)
CPT/HCPCS: 77063; 77067

== ENCOUNTER 2021-09-17 10:21 | Outpatient (REF) | payer MEDICARE, MEDICAID, SELFPAY ==
[2021-09-17 11:35] LABS: Alanine Aminotransferase 21 U/L (0-31); Albumin Level 4.1 g/dL (3.5-5.0); Alkaline Phosphatase 72 U/L (39-117); Anion Gap 12 (12-20); Aspartate Amino Transferase 21 U/L (5-31); Bilirubin Total 0.6 mg/dL (0.0-1.0); Blood Urea Nitrogen 18 mg/dL (9-16); Calcium 9.2 mg/dL (8.4-10.2); Carbon Dioxide 26 mmol/L (22-29); Chloride 106 mmol/L (96-108); Cholesterol 178 mg/dL; Estimated Glomerular Filt Rate 51; Glucose Fasting 168 mg/dL (60-99); HDL Cholesterol 50 mg/dL; LDL Cholesterol Calculated 111 mg/dl; Potassium 4.6 mmol/L (3.3-5.1); Sodium 139 mmol/L (135-145); Total Protein 6.7 g/dL (6.5-8.0); Triglycerides 89 mg/dL
[2021-09-21 12:12] LABS: Vitamin D 25-OH, D2 20 ng/mL; Vitamin D 25-OH, D3 8 ng/mL; Vitamin D 25-OH, Total 28 ng/mL (30-100)
== END 2021-09-17 10:22 | disposition home or self-care (01) ==
LOC: HO.LAB 10:21
PROVIDERS: PCP Internal Medicine; Visit Provider Internal Medicine
DX: I10 Essential (primary) hypertension (principal); E78.5 Hyperlipidemia, unspecified; E55.9 Vitamin D deficiency, unspecified
CPT/HCPCS: 36415; 80053; 80061; 82306

== ENCOUNTER 2021-09-22 10:04 | Outpatient (REF) | payer MEDICARE, MEDICAID, SELFPAY ==
[2021-09-22 10:39] LABS: COVID-19 Test Negative (Negative)
== END 2021-09-22 10:05 | disposition home or self-care (01) ==
LOC: HO.LAB 10:04
PROVIDERS: Visit Provider Internal Medicine
DX: Z20.822 Contact with and (suspected) exposure to COVID-19 (principal)
CPT/HCPCS: 87635; C9803

== ENCOUNTER 2021-10-21 10:07 | Outpatient (REF) | payer MEDICARE, MEDICAID, SELFPAY ==
--- NOTE | ~2021-10-21 | MM_ITS ---
EXAMINATION: BONE DENSITOMETRY CLINICAL INDICATION: Asymptomatic menopausal state. COMPARISON: Previous BD dated 10/08/2015 and baseline BD dated 07/10/2008. TECHNIQUE: Using a [employer] DXA System (software version: 13.1) manufactured by [employer], dual-energy x-ray absorptiometry was performed of the lumbar spine and left hip. The images are of good technical quality. Summary results are attached. FINDINGS: AP SPINE L1-L4: Current: BMD 1.058 g/cm2, Z-score 0.4, T-score -1.0, normal, 1.3% increase from previous, 2.8% decrease from baseline (<5% change is not significant). Prior: BMD 1.044 g/cm2. Baseline: BMD 1.089 g/cm2. LEFT FEMUR, NECK: Current: BMD 0.873 g/cm2, Z-score 0.6, T-score -1.2, osteopenia. Prior: BMD 0.927 g/cm2. Baseline: BMD 1.025 g/cm2. LEFT FEMUR, TOTAL: Current: BMD 1.066 g/cm2, Z-score 2.0, T-score 0.5, normal, 0.4% decrease from previous, 9.9% decrease from baseline (<5% change is not significant). Prior: BMD 1.070 g/cm2. Baseline: BMD 1.183 g/cm2. IDENTIFIED RISK FACTORS: Menopause, glucocorticoids (chronic). HISTORY OF FRACTURE: None listed. MEDICATIONS: Calcium supplements or multivitamin, vitamin D. MM/XR DEXA axial skeleton IMPRESSION: 1. DIAGNOSIS: Osteopenia based on the lowest T-score value of -1.2 in the femoral neck applying World Health Organization criteria. 2. 10-YEAR FRACTURE RISK PREDICTION, FRAX: Major osteoporotic fracture (clinical spine, forearm, hip or shoulder) 8.9%. Hip fracture 1.7%. 3. Treatment Recommendations: NOF guidelines recommend consideration for treatment in postmenopausal women and men age 50 and older presenting with the following: -A hip or vertebral (clinical or morphometric) fracture. -T-score less than or equal to -2.5 at the femoral neck or spine after appropriate evaluation to exclude secondary causes. -Low bone mass at the hip or spine and a 10-year fracture probability by FRAX of greater than or equal to 3% for hip fracture or greater than or equal to 20% for major osteoporotic fracture based on the [place] adapted WHO algorithm. 4. Other Recommendations: All treatment decisions require clinical judgment and consideration of individual patient factors, including patient preferences, comorbidities, previous drug use, risk factors not captured in the FRAX model (e.g. frailty, falls, vitamin D deficiency, increased bone turnover, interval significant decline in bone density) and possible under or overestimation of fracture risk by FRAX. Additional medical evaluation for secondary cause of low bone mineral density may be appropriate. FUTURE SCAN RECOMMENDATION: People with diagnosed cases of osteoporosis or at high risk for fracture should have regular bone mineral density tests. For patients eligible for Medicare, routine testing is allowed once every 2 years. The testing frequency can be increased to one year for patients who have rapidly progressing disease, those who are receiving or discontinuing medical therapy to restore bone mass, or have additional risk factors.
== END 2021-10-21 10:08 | disposition home or self-care (01) ==
LOC: HO.MAMMO 10:07
PROVIDERS: PCP Internal Medicine; Visit Provider Internal Medicine
DX: Z13.820 Encounter for screening for osteoporosis (principal); Z78.0 Asymptomatic menopausal state; M85.80 Other specified disorders of bone density and structure, unspecified site
CPT/HCPCS: 77080

== ENCOUNTER 2022-02-12 11:11 | Outpatient (REF) | payer MEDICARE, MEDICAID, SELFPAY ==
--- NOTE | ~2022-02-12 | XR_ITS ---
EXAMINATION: XR SHOULDER, RIGHT CLINICAL INFORMATION: M25.511 - Pain in right shoulder COMPARISON: None TECHNIQUE: Right shoulder is imaged in 4 views. FINDINGS: No fracture, dislocation, destructive process. There is extensive chondrocalcinosis superior rotator cuff at least 2 cm in length with mineralization also seen along the mid to inferior glenoid rim. No erosive change. The acromioclavicular alignment is normal. There are degenerative changes acromioclavicular joint with mineralization/ossification superior side. XR/XR shoulder RT min 2V IMPRESSION: 1. Extensive chondrocalcinosis superior rotator cuff and mineralization glenoid rim. 2. Degenerative changes acromioclavicular joint. 3. No fracture, dislocation, or erosive changes.
== END 2022-02-12 11:12 | disposition home or self-care (01) ==
LOC: HO.XRAY 11:11
PROVIDERS: PCP Internal Medicine; Visit Provider Internal Medicine
DX: M25.511 Pain in right shoulder (principal)
CPT/HCPCS: 73030

== ENCOUNTER 2022-02-24 09:08 | Outpatient (REF) | payer MEDICARE, MEDICAID, SELFPAY ==
[2022-02-24 09:30] LABS: MANUAL DIFF FLAG NO
[2022-02-24 09:50] LABS: Basophils Percent Auto 0.3 % (0-2); Eosinophils Absolute Auto 0.5 X10*3/uL (0.0-0.4); Eosinophils Percent Auto 7.1 % (0-4); Hematocrit 30.3 % (37.0-47.0); Hemoglobin 10.2 g/dl (12.0-16.0); Imm Gran Abs Auto 0.02 X10*3/uL (0.00-0.03); Imm Gran Pct Auto 0.3 % (0.0-0.4); Lymphocytes Absolute Auto 2.4 X10*3/uL (1.2-4.9); Lymphocytes Percent Auto 33.6 % (20-40); Mean Corpuscular HGB Conc 33.7 g/dl (31.0-35.0); Mean Corpuscular Hemoglobin 31.1 pg (27.0-33.0); Mean Corpuscular Volume 92.4 fL (80.0-98.0); Mean Platelet Volume 9.6 fL (9.4-12.3); Monocytes Absolute Auto 0.5 X10*3/uL (0.1-1.2); Monocytes Percent Auto 6.8 % (2-11); Neutrophils Absolute Auto 3.7 x10*3/uL (2.0-8.3); Neutrophils Percent Auto 51.9 % (45-73); Platelet Count 177 X10*3/uL (160-400); Red Blood Count 3.28 X10*6/uL (4.20-5.50); Red Cell Distribution Width 12.6 % (11.0-16.0); White Blood Count 7.2 X10*3/uL (4.8-10.8)
[2022-02-24 10:15] LABS: Albumin Level 4.1 g/dL (3.5-5.0); Anion Gap 15 (12-20); Blood Urea Nitrogen 15 mg/dL (9-16); Calcium 9.4 mg/dL (8.4-10.2); Carbon Dioxide 26 mmol/L (22-29); Chloride 106 mmol/L (96-108); Estimated Glomerular Filt Rate 53; Phosphorus 4.2 mg/dL (2.7-4.5); Potassium 4.4 mmol/L (3.3-5.1); Sodium 143 mmol/L (135-145)
[2022-02-24 10:21] LABS: Alanine Aminotransferase 16 U/L (0-31); Albumin Level 4.2 g/dL (3.5-5.0); Alkaline Phosphatase 64 U/L (39-117); Anion Gap 14 (12-20); Aspartate Amino Transferase 19 U/L (5-31); Bilirubin Total 0.5 mg/dL (0.0-1.0); Blood Urea Nitrogen 15 mg/dL (9-16); Calcium 9.2 mg/dL (8.4-10.2); Carbon Dioxide 26 mmol/L (22-29); Chloride 106 mmol/L (96-108); Cholesterol 194 mg/dL; Estimated Glomerular Filt Rate 52; Glucose Fasting 157 mg/dL (60-99); HDL Cholesterol 46 mg/dL; LDL Cholesterol Calculated 122 mg/dl; Potassium 4.3 mmol/L (3.3-5.1); Sodium 142 mmol/L (135-145); Total Protein 6.7 g/dL (6.5-8.0); Triglycerides 130 mg/dL
[2022-02-24 10:40] LABS: Vitamin D 25-OH Total 11.8 ng/mL (>30)
[2022-02-24 10:42] LABS: Vitamin D 25-OH Total 12.1 ng/mL (>30)
[2022-02-26 14:27] LABS: Calcium (PTHI) 9.2 mg/dL (8.6-10.4); PTHI 53 pg/mL (16-77)
== END 2022-02-24 09:09 | disposition home or self-care (01) ==
LOC: HO.LAB 09:08
PROVIDERS: PCP Internal Medicine; Visit Provider Internal Medicine Nephrology
DX: I12.9 Hypertensive chronic kidney disease with stage 1 through stage 4 chronic kidney disease, or unspecified chronic kidney disease (principal); E11.22 Type 2 diabetes mellitus with diabetic chronic kidney disease; N18.31 Chronic kidney disease, stage 3a; E78.5 Hyperlipidemia, unspecified; E55.9 Vitamin D deficiency, unspecified
CPT/HCPCS: 36415; 80051; 80053; 80061; 82040; 82306; 82310; 82565; 83735; 83970; 84100; 84520; 85025

== ENCOUNTER 2022-02-26 11:21 | Outpatient (REF) | payer MEDICARE, MEDICAID, SELFPAY ==
[2022-02-26 13:08] LABS: Creatinine Urine 40.26 mg/dL; Microalbum/Creatinine Ratio Ur 19.8 ug/mg cr
== END 2022-02-26 11:22 | disposition home or self-care (01) ==
LOC: HO.LNP 11:21
PROVIDERS: Visit Provider Internal Medicine
DX: E11.9 Type 2 diabetes mellitus without complications (principal)
CPT/HCPCS: 82043

== ENCOUNTER 2022-04-17 08:24 | Emergency (ER) | payer OTHER, MEDICAID, SELFPAY ==
--- NOTE | ~2022-04-17 | XR_ITS ---
EXAMINATION: XR CHEST CLINICAL INFORMATION: Chest pain. COMPARISON: July 17, 2020. TECHNIQUE: 2 views of the chest were obtained. FINDINGS: No significant abnormality is noted involving the heart, lungs, mediastinum, bony thorax or soft tissues. Mild mamillation of the left hemidiaphragm posteriorly. Mildly atherosclerotic aorta. Mild degenerative changes of the spine. Calcified left upper lobe granuloma, unchanged. Status post cholecystectomy. XR/XR chest 2V IMPRESSION: Unremarkable examination.
--- NOTE | 2022-04-17 08:30 | ECG_ITS ---
Test Reason : chest pain Blood Pressure : / mmHG Vent. Rate : 093 BPM Atrial Rate : 093 BPM P-R Int : 120 ms QRS Dur : 082 ms QT Int : 362 ms P-R-T Axes : 078 070 066 degrees QTc Int : 450 ms Normal sinus rhythm Normal ECG When compared with ECG of 26-OCT-2017 08:09, No significant change was found Referred By: Generic ED Physician Electronically Signed By:FRANDY LIM
[2022-04-17 08:35] VITALS: BP 194/74; PULSE 88; RESP 16; TEMP 36.9; O2SAT 98; BMI 29.2
--- NOTE | 2022-04-17 08:42 | ED.ABDPAIN ---
HPI - Abdominal Pain General Chief Complaint: Chest Pain Stated Complaint: Chest Pain Time Seen by Provider: 04/17/22 08:34 Source: patient Mode of arrival: ambulatory Limitations: no limitations History of Present Illness HPI narrative: 76-year-old female presents emergency department with chief complaint of chest pain she states she has pain to her epigastric area it does radiate to her right side as well. She still has her gallbladder. She states she has diabetes and high blood pressure and takes medications for both she denies any falls or injuries she denies fevers or chills denies any cough. For patient states she is healthy she is vaccinated for COVID and flu. She denies any falls or injuries patient has never had a heart attack. MD elicited complaint: abdominal pain Related Data Home Medications Medication Instructions Recorded Confirmed dapagliflozin 10 mg tablet 10 mg PO DAILY 02/12/22 02/12/22 (Farxiga) Previous Rx's Medication Instructions Recorded lidocaine HCl 4 % topical cream 1 appl topical BID PRN pain #120 07/18/20 (Aspercreme (lidocaine HCl)) grams albuterol sulfate 90 mcg/actuation 2 inh inhalation Q6H PRN shortness 08/02/20 aerosol inhaler of breath or wheezing 30 days #18 grams lancets 30 gauge (OneTouch Delica 30 gauge miscellaneous DAILY 90 12/12/20 Plus Lancet) days #100 caps triamcinolone acetonide 0.1 % 1 appl topical DAILY 14 days #15 05/22/21 topical cream grams losartan 100 mg tablet 100 mg PO DAILY 90 days #90 tabs 08/23/21 blood sugar diagnostic (OneTouch 1 strip miscellaneous DAILY 90 10/07/21 Verio test strips) days #100 strips ezetimibe 10 mg tablet 10 mg PO DAILY #30 tabs 10/07/21 cholecalciferol (vitamin D3) 50 50 mcg PO DAILY 90 days #90 caps 01/31/22 mcg (2,000 unit) capsule montelukast 10 mg tablet 10 mg PO DAILY #90 tabs 02/09/22 glipizide 5 mg tablet 10 mg PO BID #120 tabs 03/05/22 guaifenesin 600 mg tablet, 600 mg PO BID 5 days #10 tabs 03/16/22 extended release 12 hr (Mucinex) omeprazole 20 mg capsule,delayed 20 mg PO BID 30 days #60 caps 03/30/22 release rosuvastatin 20 mg tablet 20 mg PO DAILY 90 days #90 tabs 03/30/22 meclizine 25 mg tablet 25 mg PO TID #90 tabs 03/31/22 amlodipine 10 mg tablet 10 mg PO DAILY 90 days #90 tabs 04/03/22 dicyclomine 10 mg capsule 10 mg PO QID PRN abdominal 04/17/22 discomfort #60 caps famotidine 20 mg tablet (Pepcid) 20 mg PO BID PRN abdominal pain 04/17/22 #60 tabs Allergies Allergy/AdvReac Type Severity Reaction Status Date / Time codeine [CODEINE] Allergy Severe SWELLING Verified 02/12/22 10:50 erythromycin base Allergy Severe SWELLING Verified 02/12/22 10:50 [ERYTHROMYCIN BASE] morphine [MORPHINE] Allergy Severe ANAPHYLAXIS Verified 02/12/22 10:50 penicillin V Allergy Severe Swelling Verified 02/12/22 10:50 Eyes simvastatin Allergy Severe Nerve Verified 02/12/22 10:50 Inflammation aspirin [ASPIRIN] Allergy Intermediate chest Verified 02/12/22 10:50 tightness lisinopril [LISINOPRIL] Allergy Intermediate COUGH Verified 02/12/22 10:50 cyclobenzaprine AdvReac Intermediate SOB, dry Verified 02/12/22 10:50 mouth/ throat [employer] Saline Allergy Severe Redness Uncoded 02/12/22 10:50 ZYVA Allergy Severe NERVE Uncoded 02/12/22 10:50 INFLAMMATION Review of Systems Review of Systems Review of systems: General: Patient denies any fever chills recent illness or falls Musculoskeletal: Denies back pain or body aches or other injuries HEENT: denies headache, runny nose, ear pain Respiratory: denies shortness of breath, cough Cardiovascular: no chest pain or palpitations : denies dysuria, frequency Abdomen: no nausea vomiting denies abdominal pain Extremities: no swelling, no pain Skin: no diaphoresis Yes all other systems are reviewed and are negative PMFSH Past Medical History Medical History Anemia Asthma Axillary lymphadenopathy Breast mass Diabetes mellitus Dyslipidemia Effusion, right knee Essential hypertension GERD (gastroesophageal reflux disease) High cholesterol HTN (hypertension) Lymphadenopathy Microalbuminuria Postmenopausal Pure hypercholesterolemia Right knee pain Surgical History History of tonsillectomy History of tubal ligation History of umbilical hernia repair Family History Family History Father No problems noted. Mother No problems noted. Social History Social History Housing: Apartment Alcohol intake: current Alcohol intake frequency: holidays/special occasions only Alcohol type: hard liquor Patient Tobacco Use Status: Never used Tobacco e-Cigarette/Vaping Use: Never Used Second Hand Smoke Exposure: No Advance Directives: No Advance Directives Information Provided: Yes service: No Current occupational status: disabled Cognitive needs: No Hearing needs: No Vision needs: Yes (Glasses) Physical Exam ED Vital Signs: Vital Signs - 24 hr 04/17/22 08:35 04/17/22 09:25 04/17/22 11:26 Temperature 98.4 F 98.2 F Pulse Rate 88 74 79 Respiratory Rate 16 12 14 Blood Pressure 194/74 H 192/72 H 194/72 H Pulse Oximetry 98 99 99 Oxygen Delivery Method Room Air Room Air Room Air 04/17/22 11:34 Temperature Pulse Rate Respiratory Rate Blood Pressure 178/72 H Pulse Oximetry Oxygen Delivery Method BMI result Body Mass Index 29.2 General: Well-appearing well-nourished in no signs of distress HEENT: Normocephalic atraumatic Neck: No signs of JVD, no masses no tenderness or lymphadenopathy Cardiovascular: Regular rate and rhythm Respiratory: Clear to auscultation bilaterally Abdomen: Soft non tender no masses Extremities: Normal pedal pulses no signs of edema Skin: Dry warm no rashes Back: No tenderness full ROM Medical Decision Making Medical Decision Making MDM Narrative: Patient will will check labs again a cardiac workup including troponin but also of these lipase pain appears to be in epigastric area she does not have Huang sign give patient fluids Maalox and Pepcid and reassess. 1035 Pain initially resolved but now coming back 2 hours later I will give some more maalox, sucrulfate, bentyl and liquid benadryl for pain at this time. 1151 Repeat troponin still normal. Patient looks much more comfortable I will send home with pepcid maalox and sucrulfate and bentyl. Differential Diagnosis Differential Diagnoses: The differential diagnosis associated with the presentation includes Coronary disease pancreatitis gastritis cholecystitis less likely pneumonia Lab Data Result Diagrams: 04/17/22 08:47 04/17/22 08:47 Labs: Lab Results 04/17/22 04/17/22 04/17/22 Range/Units 08:47 08:47 08:47 WBC 6.7 (4.8-10.8) X10*3/uL RBC 3.80 L (4.20-5.50) X10*6/uL Hgb 11.4 L (12.0-16.0) g/dl Hct 33.8 L (37.0-47.0) % MCV 88.9 (80.0-98.0) fL MCH 30.0 (27.0-33.0) pg MCHC 33.7 (31.0-35.0) g/dl RDW 11.8 (11.0-16.0) % Plt Count 179 (160-400) X10*3/uL MPV 9.2 L (9.4-12.3) fL Immature Gran % (Auto) 0.1 (0.0-0.4) % Neut % (Auto) 47.8 (45-73) % Lymph % (Auto) 39.8 (20-40) % [place] % (Auto) 5.8 (2-11) % Eos % (Auto) 6.1 H (0-4) % Baso % (Auto) 0.4 (0-2) % Lymph # (Auto) 2.7 (1.2-4.9) X10*3/uL [place] # (Auto) 0.4 (0.1-1.2) X10*3/uL Eos # (Auto) 0.4 (0.0-0.4) X10*3/uL Baso # (Auto) 0.0 (0.0-0.2) X10*3/uL Abs Immat Gran (auto) 0.01 (0.00-0.03) X10*3/uL Absolute Neuts (auto) 3.2 (2.0-8.3) x10*3/uL Absolute Nucleated RBC 0.000 (0.0-0.012) X10*3/uL Nucleated RBC % (auto) 0.0 (0.0-0.2) /100WBC Sodium 139 (135-145) mmol/L Potassium 4.0 (3.3-5.1) mmol/L Chloride 105 (96-108) mmol/L Carbon Dioxide 25 (22-29) mmol/L Anion Gap 13 (12-20) BUN 12 (9-16) mg/dL Creatinine 1.15 (0.5-1.4) mg/dL Estim Creat Clear Calc 34.3 Estimated GFR 46 Random Glucose 263 H (60-115) mg/dL Calcium 9.3 (8.4-10.2) mg/dL Total Bilirubin 0.7 (0.0-1.0) mg/dL Direct Bilirubin 0.3 (0.0-0.5) mg/dL AST 16 (5-31) U/L ALT 13 (0-31) U/L Alkaline Phosphatase 73 (39-117) U/L Troponin I High Sens 4.3 (<3.5-17.0) ng/L Total Protein 6.9 (6.5-8.0) g/dL Albumin 4.4 (3.5-5.0) g/dL Lipase 23 (8-78) U/L 12/16/22 Range/Units 10:45 WBC (4.8-10.8) X10*3/uL RBC (4.20-5.50) X10*6/uL Hgb (12.0-16.0) g/dl Hct (37.0-47.0) % MCV (80.0-98.0) fL MCH (27.0-33.0) pg MCHC (31.0-35.0) g/dl RDW (11.0-16.0) % Plt Count (160-400) X10*3/uL MPV (9.4-12.3) fL Immature Gran % (Auto) (0.0-0.4) % Neut % (Auto) (45-73) % Lymph % (Auto) (20-40) % [place] % (Auto) (2-11) % Eos % (Auto) (0-4) % Baso % (Auto) (0-2) % Lymph # (Auto) (1.2-4.9) X10*3/uL [place] # (Auto) (0.1-1.2) X10*3/uL Eos # (Auto) (0.0-0.4) X10*3/uL Baso # (Auto) (0.0-0.2) X10*3/uL Abs Immat Gran (auto) (0.00-0.03) X10*3/uL Absolute Neuts (auto) (2.0-8.3) x10*3/uL Absolute Nucleated RBC (0.0-0.012) X10*3/uL Nucleated RBC % (auto) (0.0-0.2) /100WBC Sodium (135-145) mmol/L Potassium (3.3-5.1) mmol/L Chloride (96-108) mmol/L Carbon Dioxide (22-29) mmol/L Anion Gap (12-20) BUN (9-16) mg/dL Creatinine (0.5-1.4) mg/dL Estim Creat Clear Calc Estimated GFR Random Glucose (60-115) mg/dL Calcium (8.4-10.2) mg/dL Total Bilirubin (0.0-1.0) mg/dL Direct Bilirubin (0.0-0.5) mg/dL AST (5-31) U/L ALT (0-31) U/L Alkaline Phosphatase (39-117) U/L Troponin I High Sens 4.0 (<3.5-17.0) ng/L Total Protein (6.5-8.0) g/dL Albumin (3.5-5.0) g/dL Lipase (8-78) U/L Independent Interpretation I performed an independent interpretation of an: EKG Interpretation: RAte 93 nsr normal intervals no signs of ischemia Medications Administered Discontinued Medications Generic Name Dose Route Start Last Admin Trade Name Freq PRN Reason Stop Dose Admin Al Hydroxide/Mg Hydroxide 30 ml 04/17/22 08:37 04/17/22 08:54 Magnesium Hydrox/Alum Hydrox 30 Ml Oral.Susp PO 04/17/22 08:38 30 ml ONCE ONE Administration Al Hydroxide/Mg Hydroxide 30 ml 04/17/22 10:33 04/17/22 11:01 Magnesium Hydrox/Alum Hydrox 30 Ml Oral.Susp PO 04/17/22 10:34 30 ml ONCE ONE Administration Dicyclomine HCl 10 mg 04/17/22 10:33 04/17/22 11:01 Dicyclomine Hcl 10 Mg Capsule PO 04/17/22 10:34 10 mg ONCE ONE Administration Diphenhydramine HCl 12.5 mg 04/17/22 10:33 04/17/22 11:00 Diphenhydramine Hcl 12.5 Mg/5 Ml Liquid PO 04/17/22 10:34 12.5 mg ONCE ONE Administration Famotidine 20 mg 04/17/22 08:37 04/17/22 08:54 Famotidine 20 Mg Tablet PO 04/17/22 08:38 20 mg ONCE ONE Administration Sodium Chloride 1,000 mls @ 999 mls/hr 04/17/22 08:45 04/17/22 11:02 Ns IV 04/17/22 09:45 Infused .Q1H1M YANA Infusion Sucralfate 1 gm 04/17/22 10:33 04/17/22 11:00 Sucralfate Oral Suspension 1 Gm/10 Ml Oral.Susp PO 04/17/22 10:34 1 gm ONCE ONE Administration Discharge Plan Discharge Clinical Impression: GERD (gastroesophageal reflux disease), Chest pain Patient Disposition: Home, Self-Care Instructions: Chest Pain (DC), Diet for Stomach Ulcers and Gastritis (ED), Indigestion (ED) Additional Instructions: Please start a bland low fat diet until your symptoms improve. You can try maalox, pepcid and bentyl as needed for pain. If you have any other concerns please return to the ED. Prescriptions: New famotidine [Pepcid] 20 mg tablet 20 mg PO BID PRN (Reason: abdominal pain) Qty: 60 0RF dicyclomine 10 mg capsule 10 mg PO QID PRN (Reason: abdominal discomfort) Qty: 60 0RF No Action lancets [OneTouch Delica Plus Lancet] 30 gauge misc 30 gauge miscellaneous DAILY 90 Days Qty: 100 3RF losartan 100 mg tablet 100 mg PO DAILY 90 Days Qty: 90 3RF ezetimibe 10 mg tablet 10 mg PO DAILY Qty: 30 8RF OneTouch Verio test strips Strip 1 strip miscellaneous DAILY 90 Days Qty: 100 3RF cholecalciferol (vitamin D3) 50 mcg (2,000 unit) capsule 50 mcg PO DAILY 90 Days Qty: 90 1RF montelukast 10 mg tablet 10 mg PO DAILY Qty: 90 3RF glipizide 5 mg tablet 10 mg PO BID Qty: 120 3RF guaifenesin [Mucinex] 600 mg tablet extended release 12hr 600 mg PO BID 5 Days Qty: 10 0RF omeprazole 20 mg capsule,delayed release(DR/EC) 20 mg PO BID 30 Days Qty: 60 3RF rosuvastatin 20 mg tablet 20 mg PO DAILY 90 Days Qty: 90 1RF meclizine 25 mg tablet 25 mg PO TID Qty: 90 8RF amlodipine 10 mg tablet 10 mg PO DAILY 90 Days Qty: 90 1RF lidocaine HCl [Aspercreme (lidocaine HCl)] 4 % cream 1 appl topical BID PRN (Reason: pain) Qty: 120 0RF Farxiga 10 mg tablet 10 mg PO DAILY triamcinolone acetonide 0.1 % cream 1 appl topical DAILY 14 Days Qty: 15 0RF albuterol sulfate 90 mcg/actuation HFA aerosol inhaler 2 inh inhalation Q6H PRN (Reason: shortness of breath or wheezing) 30 Days Qty: 18 12RF
[2022-04-17 08:53] LABS: MANUAL DIFF FLAG NO
[2022-04-17 08:54] LABS: Basophils Percent Auto 0.4 % (0-2); Eosinophils Absolute Auto 0.4 X10*3/uL (0.0-0.4); Eosinophils Percent Auto 6.1 % (0-4); Hematocrit 33.8 % (37.0-47.0); Hemoglobin 11.4 g/dl (12.0-16.0); Imm Gran Abs Auto 0.01 X10*3/uL (0.00-0.03); Imm Gran Pct Auto 0.1 % (0.0-0.4); Lymphocytes Absolute Auto 2.7 X10*3/uL (1.2-4.9); Lymphocytes Percent Auto 39.8 % (20-40); Mean Corpuscular HGB Conc 33.7 g/dl (31.0-35.0); Mean Corpuscular Volume 88.9 fL (80.0-98.0); Mean Platelet Volume 9.2 fL (9.4-12.3); Monocytes Absolute Auto 0.4 X10*3/uL (0.1-1.2); Monocytes Percent Auto 5.8 % (2-11); Neutrophils Absolute Auto 3.2 x10*3/uL (2.0-8.3); Neutrophils Percent Auto 47.8 % (45-73); Platelet Count 179 X10*3/uL (160-400); Red Cell Distribution Width 11.8 % (11.0-16.0); White Blood Count 6.7 X10*3/uL (4.8-10.8)
[2022-04-17] MEDS: Magnesium Hydrox/Alum Hydrox 30 ML ORAL.SUSP PO ×2 (08:54→11:01)
[2022-04-17] MEDS: Famotidine 20 MG TABLET PO (08:54)
[2022-04-17] MEDS: 0.9 % Sodium Chloride 1,000 ML 999 ML IV (08:54)
[2022-04-17 09:09] LABS: Alanine Aminotransferase 13 U/L (0-31); Albumin Level 4.4 g/dL (3.5-5.0); Alkaline Phosphatase 73 U/L (39-117); Anion Gap 13 (12-20); Aspartate Amino Transferase 16 U/L (5-31); Bilirubin Direct 0.3 mg/dL (0.0-0.5); Bilirubin Total 0.7 mg/dL (0.0-1.0); Blood Urea Nitrogen 12 mg/dL (9-16); Calcium 9.3 mg/dL (8.4-10.2); Carbon Dioxide 25 mmol/L (22-29); Chloride 105 mmol/L (96-108); Creatinine Clr Calc Pharmacy 34.3; Estimated Glomerular Filt Rate 46; Glucose Random 263 mg/dL (60-115); Lipase 23 U/L (8-78); Sodium 139 mmol/L (135-145); Total Protein 6.9 g/dL (6.5-8.0)
[2022-04-17 09:16] LABS: Troponin-I High Sensitivity 4.3 ng/L (<3.5-17.0)
[2022-04-17 09:25] VITALS: BP 192/72; PULSE 74; RESP 12; TEMP 36.8; O2SAT 99
[2022-04-17] MEDS: Sucralfate Oral Suspension 1 GM/10 ML ORAL.SUSP PO (11:00)
[2022-04-17] MEDS: diphenhydrAMINE HCl 12.5 MG/5 ML LIQUID PO (11:00)
[2022-04-17] MEDS: Dicyclomine HCl 10 MG CAPSULE PO (11:01)
[2022-04-17 11:26] VITALS: BP 194/72; PULSE 79; RESP 14; O2SAT 99
[2022-04-17 11:34] VITALS: BP 178/72
== END 2022-04-17 12:14 | disposition home or self-care (01) ==
PROVIDERS: Emergency Provider Student in an Organized Health Care Education/Training Program; PCP Internal Medicine
DX: R07.9 Chest pain, unspecified (principal); K21.9 Gastro-esophageal reflux disease without esophagitis; R10.13 Epigastric pain; E11.9 Type 2 diabetes mellitus without complications; I10 Essential (primary) hypertension; E78.5 Hyperlipidemia, unspecified; Z79.899 Other long term (current) drug therapy; Z79.02 Long term (current) use of antithrombotics/antiplatelets
CPT/HCPCS: 36415; 71046; 80048; 80076; 83690; 84484; 85025; 93005; 96360; 96361; 99285

== ENCOUNTER 2022-04-23 11:32 | Emergency (ER) | payer OTHER, MEDICAID, SELFPAY ==
--- NOTE | ~2022-04-23 | XR_ITS ---
EXAMINATION: XR ANKLE, LEFT XR FOOT, LEFT XR ANKLE, RIGHT XR FOOT, RIGHT CLINICAL INFORMATION: Fracture. Ankle pain. Foot pain. COMPARISON: None TECHNIQUE: 3 views of each foot. 2 additional views of each ankle. FINDINGS: Left ankle: No fracture or dislocation. The ankle mortise is congruent. Mild circumferential soft tissue swelling. Ankle joint effusion noted. Prominent calcifications along the Achilles tendon. Left foot: No fracture or dislocation. Alignment maintained. Small osteophytes at the first metatarsophalangeal joint. The soft tissues are unremarkable. Right ankle: No fracture or dislocation. The ankle mortise is congruent. Medial soft tissue swelling. No ankle joint effusion. Achilles heel spur. Right foot: No fracture or dislocation. There is a short fourth metatarsal, not acute. The soft tissues are unremarkable. XR/XR foot LT 2V IMPRESSION: 1. Soft tissue swelling at both ankles. No acute fracture or malalignment. 2. Mild degenerative change at the left first metatarsophalangeal joint. 3. Achilles heel spur on the right.
--- NOTE | ~2022-04-23 | XR_ITS ---
EXAMINATION: XR ANKLE, LEFT XR FOOT, LEFT XR ANKLE, RIGHT XR FOOT, RIGHT CLINICAL INFORMATION: Fracture. Ankle pain. Foot pain. COMPARISON: None TECHNIQUE: 3 views of each foot. 2 additional views of each ankle. FINDINGS: Left ankle: No fracture or dislocation. The ankle mortise is congruent. Mild circumferential soft tissue swelling. Ankle joint effusion noted. Prominent calcifications along the Achilles tendon. Left foot: No fracture or dislocation. Alignment maintained. Small osteophytes at the first metatarsophalangeal joint. The soft tissues are unremarkable. Right ankle: No fracture or dislocation. The ankle mortise is congruent. Medial soft tissue swelling. No ankle joint effusion. Achilles heel spur. Right foot: No fracture or dislocation. There is a short fourth metatarsal, not acute. The soft tissues are unremarkable. XR/XR foot RT 2V IMPRESSION: 1. Soft tissue swelling at both ankles. No acute fracture or malalignment. 2. Mild degenerative change at the left first metatarsophalangeal joint. 3. Achilles heel spur on the right.
--- NOTE | ~2022-04-23 | XR_ITS ---
EXAMINATION: XR CHEST CLINICAL INFORMATION: Chest pain COMPARISON: 04/17/2022 TECHNIQUE: 2 views of the chest were obtained. FINDINGS: The lungs are well expanded. There is no focal consolidation, edema, or effusion. No pneumothorax. The cardiomediastinal silhouette is within normal limits. No acute osseous abnormality. Mild degenerative changes in the spine. XR/XR chest 2V IMPRESSION: Clear lungs.
--- NOTE | ~2022-04-23 | XR_ITS ---
EXAMINATION: XR ANKLE, LEFT XR FOOT, LEFT XR ANKLE, RIGHT XR FOOT, RIGHT CLINICAL INFORMATION: Fracture. Ankle pain. Foot pain. COMPARISON: None TECHNIQUE: 3 views of each foot. 2 additional views of each ankle. FINDINGS: Left ankle: No fracture or dislocation. The ankle mortise is congruent. Mild circumferential soft tissue swelling. Ankle joint effusion noted. Prominent calcifications along the Achilles tendon. Left foot: No fracture or dislocation. Alignment maintained. Small osteophytes at the first metatarsophalangeal joint. The soft tissues are unremarkable. Right ankle: No fracture or dislocation. The ankle mortise is congruent. Medial soft tissue swelling. No ankle joint effusion. Achilles heel spur. Right foot: No fracture or dislocation. There is a short fourth metatarsal, not acute. The soft tissues are unremarkable. XR/XR ankle RT min 3V IMPRESSION: 1. Soft tissue swelling at both ankles. No acute fracture or malalignment. 2. Mild degenerative change at the left first metatarsophalangeal joint. 3. Achilles heel spur on the right.
--- NOTE | ~2022-04-23 | XR_ITS ---
EXAMINATION: XR ANKLE, LEFT XR FOOT, LEFT XR ANKLE, RIGHT XR FOOT, RIGHT CLINICAL INFORMATION: Fracture. Ankle pain. Foot pain. COMPARISON: None TECHNIQUE: 3 views of each foot. 2 additional views of each ankle. FINDINGS: Left ankle: No fracture or dislocation. The ankle mortise is congruent. Mild circumferential soft tissue swelling. Ankle joint effusion noted. Prominent calcifications along the Achilles tendon. Left foot: No fracture or dislocation. Alignment maintained. Small osteophytes at the first metatarsophalangeal joint. The soft tissues are unremarkable. Right ankle: No fracture or dislocation. The ankle mortise is congruent. Medial soft tissue swelling. No ankle joint effusion. Achilles heel spur. Right foot: No fracture or dislocation. There is a short fourth metatarsal, not acute. The soft tissues are unremarkable. XR/XR ankle LT min 3V IMPRESSION: 1. Soft tissue swelling at both ankles. No acute fracture or malalignment. 2. Mild degenerative change at the left first metatarsophalangeal joint. 3. Achilles heel spur on the right.
[2022-04-23 11:54] VITALS: BP 156/53; PULSE 78; RESP 20; TEMP 36.7; O2SAT 99; BMI 29.5
--- NOTE | 2022-04-23 12:00 | ED_ITS ---
HPI - General Adult General Chief complaint: Extremity Problem <LAWRENCE Tobin Last Filed: 04/27/22 11:55> Stated complaint: cant move, pain in both ankles going up legs <LAWRENCE Tobin Last Filed: 04/27/22 11:55> Time Seen by Provider: 04/23/22 12:25 <LAWRENCE Tobin - Last Filed: 04/27/22 11:55> Source: patient <LAWRENCE Medina Last Filed: 04/23/22 18:15> Mode of arrival: ambulatory <LAWRENCE Medina Last Filed: 04/23/22 18:15> Limitations: no limitations <LAWRENCE Medina Last Filed: 04/23/22 18:15> History of Present Illness HPI narrative: 76-year-old female with a past medical history of HTN, HLD, diabetes type 2, GERD, asthma and anemia who is presenting to the ED with complaints of a few days of right ankle at the medial aspect/foot pain with redness atraumatic. Although when I went into examine the patient she reports that she developed some chest pain that was radiating to her right arm and she reported the pain as tightness in sensation not actual pain. Otherwise she denied any dizziness, changes in vision, headaches, jaw pain, nausea / vomiting, dyspnea on exertion, orthopnea, palpitations, paresthesias, cough, sore throat, nasal congestion, abdominal pain, diarrhea, lower extremity edema or calf tenderness, recent travel or sick contacts, recent immobilization surgery, history of DVT or PE, any estrogen usage, history of gout, IV drug use, recent falls or trauma or any other symptoms complaints or concerns at this time. <LAWRENCE Medina - Last Filed: 04/23/22 18:15> MD complaint: right ankle & foot pain/redness <LAWRENCE Medina Last Filed: 04/23/22 18:15> Onset (ago): day(s) ( for the past few days worse today) <LAWRENCE Medina Last Filed: 04/23/22 18:15> Related Data Home medications: Home Medications Medication Instructions Recorded Confirmed dapagliflozin 10 mg tablet 10 mg PO DAILY 02/12/22 04/21/22 ([facility]) Previous Rx's Medication Instructions Recorded lidocaine HCl 4 % topical cream 1 appl topical BID PRN pain #120 07/18/20 (Aspercreme (lidocaine HCl)) grams albuterol sulfate 90 mcg/actuation 2 inh inhalation Q6H PRN shortness 08/02/20 aerosol inhaler of breath or wheezing 30 days #18 grams lancets 30 gauge (OneTouch Delica 30 gauge miscellaneous DAILY 90 12/12/20 Plus Lancet) days #100 caps triamcinolone acetonide 0.1 % 1 appl topical DAILY 14 days #15 05/22/21 topical cream grams losartan 100 mg tablet 100 mg PO DAILY 90 days #90 tabs 08/23/21 blood sugar diagnostic (OneTouch 1 strip miscellaneous DAILY 90 10/07/21 Verio test strips) days #100 strips ezetimibe 10 mg tablet 10 mg PO DAILY #30 tabs 10/07/21 cholecalciferol (vitamin D3) 50 50 mcg PO DAILY 90 days #90 caps 01/31/22 mcg (2,000 unit) capsule montelukast 10 mg tablet 10 mg PO DAILY #90 tabs 02/09/22 glipizide 5 mg tablet 10 mg PO BID #120 tabs 03/05/22 omeprazole 20 mg capsule,delayed 20 mg PO BID 30 days #60 caps 03/30/22 release rosuvastatin 20 mg tablet 20 mg PO DAILY 90 days #90 tabs 03/30/22 meclizine 25 mg tablet 25 mg PO TID #90 tabs 03/31/22 amlodipine 10 mg tablet 10 mg PO DAILY 90 days #90 tabs 04/03/22 dicyclomine 10 mg capsule 10 mg PO QID PRN abdominal 04/17/22 discomfort #60 caps famotidine 20 mg tablet (Pepcid) 20 mg PO BID PRN abdominal pain 04/17/22 #60 tabs hydralazine 10 mg tablet 10 mg PO TID 30 days #90 tabs 04/21/22 cephalexin 500 mg capsule 500 mg PO Q6H 10 days #40 caps 04/23/22 doxycycline monohydrate 100 mg 100 mg PO BID 10 days #20 tabs 04/23/22 tablet oxycodone 5 mg tablet 5 mg PO Q6H PRN pain #14 tabs 04/23/22 gabapentin 300 mg capsule 300 mg PO BID #20 caps 04/24/22 prednisone 20 mg tablet 40 mg PO DAILY #10 tabs 04/24/22 valacyclovir 1 gram tablet 1,000 mg PO TID #20 tabs 04/24/22 (Valtrex) <LAWRENCE Tobin - Last Filed: 04/27/22 11:55> Allergies/adverse reactions: Allergies Allergy/AdvReac Type Severity Reaction Status Date / Time codeine [CODEINE] Allergy Severe SWELLING Verified 04/21/22 09:21 erythromycin base Allergy Severe SWELLING Verified 04/21/22 09:21 [ERYTHROMYCIN BASE] morphine [MORPHINE] Allergy Severe ANAPHYLAXIS Verified 04/21/22 09:21 penicillin V Allergy Severe Swelling Verified 04/21/22 09:21 Eyes simvastatin Allergy Severe Nerve Verified 04/21/22 09:21 Inflammation aspirin [ASPIRIN] Allergy Intermediate chest Verified 04/21/22 09:21 tightness lisinopril [LISINOPRIL] Allergy Intermediate COUGH Verified 04/21/22 09:21 cyclobenzaprine AdvReac Intermediate SOB, dry Verified 04/21/22 09:21 mouth/ throat [employer] Saline Allergy Severe Redness Uncoded 04/21/22 09:21 ZYVA Allergy Severe NERVE Uncoded 04/21/22 09:21 INFLAMMATION <LAWRENCE Tobin - Last Filed: 04/27/22 11:55> Review of Systems Review of Systems: Constitutional : No Weight loss, No Fever, No Chills, No Night Sweats, No Fatigue, No Malaise ENT/Mouth : No Hearing loss, No Ear Pain, No Nasal Congestion, No Sinus Pain, No Hoarseness, No sore throat, No Rhinorrhea, No Swallowing Difficulty Eyes: No Eye Pain, No Swelling, No Redness, No Foreign Body, No Discharge, No Vision Changes Cardiovascular : + Chest Pain, No SOB, No Dyspnea on Exertion, No Orthopnea, No Edema, No Palpitations Respiratory : No Cough, No Sputum, No Wheezing, No Smoke Exposure, No Dyspnea Gastrointestinal : No Nausea, No Vomiting, No Diarrhea, No Constipation, No abdominal Pain, No Hematochezia, No Melena Genitourinary : no irregular bleeding, No Dysuria, No Urinary Frequency, No Hematuria, No Urinary Incontinence, No Urgency, No Flank Pain, No Urinary Flow Changes, No Hesitancy Musculoskeletal : + right medial aspect foot/ankle pain/redness and joint pain, No Myalgias, No Joint Swelling Skin : No Skin Lesions, No rash Neuro : No Weakness, No Numbness, No Paresthesias, No Loss of Consciousness, No Dizziness, No Headache Psych : No Anxiety/Panic, No Depression, No SI/HI/AH/VH, No Social Issues, Heme/Lymph: No Bruising, No Bleeding,No Lymphadenopathy Endocrine : No Polyuria, No Polydipsia, No Temperature Intolerance <LAWRENCE Medina - Last Filed: 04/23/22 18:15> Yes all other systems are reviewed and are negative <LAWRENCE Medina - Last Filed: 04/23/22 18:15> [facility]LY [facility] Past Medical History Attestation statement: The following information was validated with the patient. <LAWRENCE Medina - Last Filed: 04/23/22 18:15> Source: old records reviewed and nursing notes reviewed <LAWRENCE Medina - Last Filed: 04/23/22 18:15> Medical History: Medical History Anemia Asthma Axillary lymphadenopathy Breast mass Diabetes mellitus Dyslipidemia Effusion, right knee Essential hypertension GERD (gastroesophageal reflux disease) High cholesterol HTN (hypertension) Lymphadenopathy Microalbuminuria Postmenopausal Pure hypercholesterolemia Right knee pain <LAWRENCE Tobin - Last Filed: 04/27/22 11:55> Surgical History: Surgical History History of tonsillectomy History of tubal ligation History of umbilical hernia repair <LAWRENCE Tobin - Last Filed: 04/27/22 11:55> Family History Family History: Family History Father No problems noted. Mother No problems noted. <LAWRENCE Tobin - Last Filed: 04/27/22 11:55> Social History Social History: Social History Housing: Apartment Alcohol intake: current Alcohol intake frequency: holidays/special occasions only Alcohol type: hard liquor Patient Tobacco Use Status: Never used Tobacco e-Cigarette/Vaping Use: Never Used Second Hand Smoke Exposure: No service: No Current occupational status: disabled Cognitive needs: No Hearing needs: No Vision needs: Yes (Glasses) <LAWRENCE Tobin - Last Filed: 04/27/22 11:55> Physical Exam ED Vital Signs: Vital Signs - 24 hr 04/23/22 11:54 04/23/22 14:00 04/23/22 14:13 Temperature 98.0 F Pulse Rate 78 81 77 Respiratory Rate 20 16 15 Blood Pressure 156/53 H 180/69 H 149/56 H Pulse Oximetry 99 100 99 Oxygen Delivery Method Room Air Room Air Room Air BMI result Body Mass Index 29.5 <LAWRENCE Tobin - Last Filed: 04/27/22 11:55> Vital Signs - 24 hr 04/23/22 11:54 04/23/22 14:00 04/23/22 14:13 Temperature 98.0 F Pulse Rate 78 81 77 Respiratory Rate 20 16 15 Blood Pressure 156/53 H 180/69 H 149/56 H Pulse Oximetry 99 100 99 Oxygen Delivery Method Room Air Room Air Room Air BMI result Body Mass Index 29.5 vital signs have been reviewed as normal and appeared to be correct. Blood pressure 156/53. Heart rate normal. Respiration rate normal. Temperature normal. Oxygen saturation normal. <LAWRENCE Medina - Last Filed: 04/23/22 18:15> Appearance: Alert. Oriented X3. No acute distress. Head: Normal external exam. Normocephalic. Atraumatic. Eyes: PERRLA. EOMI. Conjunctiva and sclera normal. Eyelids normal. ENT: Pharynx normal. Uvula midline. Moist mucous membranes. Normal voice. No trismus noted. No drooling noted. No muffled voice noted. Neck: Normal inspection. Neck supple. FROM. No adenopathy. Thyroid Normal. No tracheal deviation noted. No crepitus is noted. No meningeal signs. CVS: Normal heart rate and rhythm. Heart sound normal. Pulses normal throughout. No murmurs/rales/gallops. Respiratory: No respiratory distress. Painless inspiration. Breath sounds normal. No wheezes/rales/rhonchi noted. Chest nontender. No accessory muscle usage noted or decreased air movement noted. Abdomen: Soft and nontender. Bowel sounds normal in all 4 quadrants. No distention noted. No organomegaly noted. No visible injury noted. Back: No CVA tenderness. Full range of motion noted. Nontender. No signs of trauma. Patient neuro intact bilaterally and distally on all 4 extremities. Patient's reflexes intact bilaterally and distally on all 4 extremities. No rashes/lesion/induration/fluctuance or signs of infection noted. Skin: Skin warm and dry. Normal skin color. Normal skin turgor. No rashes/lesions/lacerations noted. Extremities: patient with moderate tenderness palpation with light touch to the right ankle at the medial aspect with mild erythema. No streaking is noted. She has full range of motion of all toes/right foot and ankle joint no obvious ligamentous or tendon injury noted. No calf tenderness noted. No lower extremity edema noted. Not consistent with septic joint. otherwise all other extremities are nontender with full range of motion. Neuro: Oriented X 3. No motor deficit. No sensory deficit. Reflexes normal. Normal steady gait. No focal neuro deficits noted. CN's II-XII intact bilaterally? Vascular: + radial pulses/+ 2 distal pedal pulses/+2 dorsalis pedis b/l. Normal cap refill. No cyanosis noted to upper extremity nails and lower extremity toes nails. <LAWRENCE Medina - Last Filed: 04/23/22 18:15> Course Course Course Narrative: RME: Patient presents to the ED for right ankle/foot pain without and trauma. Bilateral lower extremity negative for swelling, pain edema, calf t enderness, erythema, ulcers, open wounds, ecchymosis, or deformity. Positive for right ankle/foot tenderness on palpation. Physical exam does not indicate DVT, artery blood clot, cellulitis, necrotizing fasciitis, or compartment syndrome <LAWRENCE Tobin - Last Filed: 04/27/22 11:55> Reevaluation(s) Reevaluation #1: Patient presenting with right ankle pain /foot pain and redness for the past few days worse today. She also developed chest pain while she was in emergency department. Otherwise she denied any other symptoms complaints or concerns. She denies recent falls or trauma. She does not have any lower extremity edema or calf tenderness. No shortness of breath. Therefore patient had labs and appear that the patient noted to be anemia with an H&H of 9.8/29.8 which is decreased when compared to prior a few days ago she reports she is on iron supplements. Stool occult was negative. Platelet count 157. BUN 17. Random glucose 204. She had 2 negative troponins. Chest x-ray normal. EKG was normal sinus rhythm no acute ischemic changes were noted. Bi lateral foot and ankle x-rays reveal soft tissue swelling at both ankles no fractures. Mild degenerative changes. Achilles heel spur on the right. I did also obtain a uric acid for possible gout although was negative. I explained to the patient she develops any streaking or lower extremity more calf tenderness she will need to return otherwise will DC home with antibiotics and symptomatic treatment instructions return if any new or worsening symptoms to follow up with primary care provider. Patient and daughter over the phone understand and agree with this plan. <LAWRENCE Medina - Last Filed: 04/23/22 18:15> Time: 18:12 <LAWRENCE Medina - Last Filed: 04/23/22 18:15> Medications Administered Discontinued Medications Generic Name Dose Route Start Last Admin Trade Name Freq PRN Reason Stop Dose Admin Aspirin 324 mg 04/23/22 13:50 04/23/22 13:57 Aspirin 81 Mg Tab.Chew PO 04/23/22 13:51 324 mg ONCE ONE Administration <LAWRENCE Tobin - Last Filed: 04/27/22 11:55> Medications Administered Discontinued Medications Generic Name Dose Route Start Last Admin Trade Name Freq PRN Reason Stop Dose Admin Aspirin 324 mg 04/23/22 13:50 04/23/22 13:57 Aspirin 81 Mg Tab.Chew PO 04/23/22 13:51 324 mg ONCE ONE Administration <LAWRENCE Medina - Last Filed: 04/23/22 18:15> Medical Decision Making Lab Data [facility] Lab Attestation statement: I reviewed the patient's lab results. <LAWRENCE Medina - Last Filed: 04/23/22 18:15> Result Diagrams: : 04/23/22 13:50 04/23/22 13:50 <LAWRENCE Tobin - Last Filed: 04/27/22 11:55> Labs: Lab Results 04/23/22 04/23/22 04/23/22 Range/Units 13:50 13:50 13:50 WBC 7.4 (4.8-10.8) X10*3/uL RBC 3.28 L (4.20-5.50) X10*6/uL Hgb 9.8 L (12.0-16.0) g/dl Hct 29.8 L (37.0-47.0) % MCV 90.9 (80.0-98.0) fL MCH 29.9 (27.0-33.0) pg MCHC 32.9 (31.0-35.0) g/dl RDW 11.8 (11.0-16.0) % Plt Count 157 L (160-400) X10*3/uL MPV 9.7 (9.4-12.3) fL Immature Gran % (Auto) 0.3 (0.0-0.4) % Neut % (Auto) 65.7 (45-73) % Lymph % (Auto) 21.3 (20-40) % [place] % (Auto) 8.2 (2-11) % Eos % (Auto) 4.2 H (0-4) % Baso % (Auto) 0.3 (0-2) % Lymph # (Auto) 1.6 (1.2-4.9) X10*3/uL [place] # (Auto) 0.6 (0.1-1.2) X10*3/uL Eos # (Auto) 0.3 (0.0-0.4) X10*3/uL Baso # (Auto) 0.0 (0.0-0.2) X10*3/uL Abs Immat Gran (auto) 0.02 (0.00-0.03) X10*3/uL Absolute Neuts (auto) 4.9 (2.0-8.3) x10*3/uL Absolute Nucleated RBC 0.000 (0.0-0.012) X10*3/uL Nucleated RBC % (auto) 0.0 (0.0-0.2) /100WBC PT 13.8 H (10.0-13.1) SEC INR 1.2 H (0.9-1.1) Sodium 141 (135-145) mmol/L Potassium 4.5 (3.3-5.1) mmol/L Chloride 106 (96-108) mmol/L Carbon Dioxide 27 (22-29) mmol/L Anion Gap 13 (12-20) BUN 17 H (9-16) mg/dL Creatinine 1.13 (0.5-1.4) mg/dL Estim Creat Clear Calc 35.0 Estimated GFR 47 Random Glucose 204 H (60-115) mg/dL Uric Acid (2.4-5.7) mg/dL Calcium 9.1 (8.4-10.2) mg/dL Magnesium 2.0 (1.6-2.6) mg/dL Total Bilirubin 0.6 (0.0-1.0) mg/dL AST 17 (5-31) U/L ALT 13 (0-31) U/L Alkaline Phosphatase 65 (39-117) U/L Troponin I High Sens (<3.5-17.0) ng/L Total Protein 6.4 L (6.5-8.0) g/dL Albumin 3.9 (3.5-5.0) g/dL Lipase 15 (8-78) U/L Stool Occult Blood (NEGATIVE) 04/23/22 04/23/22 04/23/22 Range/Units 13:50 13:50 15:29 WBC (4.8-10.8) X10*3/uL RBC (4.20-5.50) X10*6/uL Hgb (12.0-16.0) g/dl Hct (37.0-47.0) % MCV (80.0-98.0) fL MCH (27.0-33.0) pg MCHC (31.0-35.0) g/dl RDW (11.0-16.0) % Plt Count (160-400) X10*3/uL MPV (9.4-12.3) fL Immature Gran % (Auto) (0.0-0.4) % Neut % (Auto) (45-73) % Lymph % (Auto) (20-40) % [place] % (Auto) (2-11) % Eos % (Auto) (0-4) % Baso % (Auto) (0-2) % Lymph # (Auto) (1.2-4.9) X10*3/uL [place] # (Auto) (0.1-1.2) X10*3/uL Eos # (Auto) (0.0-0.4) X10*3/uL Baso # (Auto) (0.0-0.2) X10*3/uL Abs Immat Gran (auto) (0.00-0.03) X10*3/uL Absolute Neuts (auto) (2.0-8.3) x10*3/uL Absolute Nucleated RBC (0.0-0.012) X10*3/uL Nucleated RBC % (auto) (0.0-0.2) /100WBC PT (10.0-13.1) SEC INR (0.9-1.1) Sodium (135-145) mmol/L Potassium (3.3-5.1) mmol/L Chloride (96-108) mmol/L Carbon Dioxide (22-29) mmol/L Anion Gap (12-20) BUN (9-16) mg/dL Creatinine (0.5-1.4) mg/dL Estim Creat Clear Calc Estimated GFR Random Glucose (60-115) mg/dL Uric Acid 3.5 (2.4-5.7) mg/dL Calcium (8.4-10.2) mg/dL Magnesium (1.6-2.6) mg/dL Total Bilirubin (0.0-1.0) mg/dL AST (5-31) U/L ALT (0-31) U/L Alkaline Phosphatase (39-117) U/L Troponin I High Sens 3.8 4.0 (<3.5-17.0) ng/L Total Protein (6.5-8.0) g/dL Albumin (3.5-5.0) g/dL Lipase (8-78) U/L Stool Occult Blood (NEGATIVE) 04/23/22 Range/Units 16:52 WBC (4.8-10.8) X10*3/uL RBC (4.20-5.50) X10*6/uL Hgb (12.0-16.0) g/dl Hct (37.0-47.0) % MCV (80.0-98.0) fL MCH (27.0-33.0) pg MCHC (31.0-35.0) g/dl RDW (11.0-16.0) % Plt Count (160-400) X10*3/uL MPV (9.4-12.3) fL Immature Gran % (Auto) (0.0-0.4) % Neut % (Auto) (45-73) % Lymph % (Auto) (20-40) % [place] % (Auto) (2-11) % Eos % (Auto) (0-4) % Baso % (Auto) (0-2) % Lymph # (Auto) (1.2-4.9) X10*3/uL [place] # (Auto) (0.1-1.2) X10*3/uL Eos # (Auto) (0.0-0.4) X10*3/uL Baso # (Auto) (0.0-0.2) X10*3/uL Abs Immat Gran (auto) (0.00-0.03) X10*3/uL Absolute Neuts (auto) (2.0-8.3) x10*3/uL Absolute Nucleated RBC (0.0-0.012) X10*3/uL Nucleated RBC % (auto) (0.0-0.2) /100WBC PT (10.0-13.1) SEC INR (0.9-1.1) Sodium (135-145) mmol/L Potassium (3.3-5.1) mmol/L Chloride (96-108) mmol/L Carbon Dioxide (22-29) mmol/L Anion Gap (12-20) BUN (9-16) mg/dL Creatinine (0.5-1.4) mg/dL Estim Creat Clear Calc Estimated GFR Random Glucose (60-115) mg/dL Uric Acid (2.4-5.7) mg/dL Calcium (8.4-10.2) mg/dL Magnesium (1.6-2.6) mg/dL Total Bilirubin (0.0-1.0) mg/dL AST (5-31) U/L ALT (0-31) U/L Alkaline Phosphatase (39-117) U/L Troponin I High Sens (<3.5-17.0) ng/L Total Protein (6.5-8.0) g/dL Albumin (3.5-5.0) g/dL Lipase (8-78) U/L Stool Occult Blood NEGATIVE (NEGATIVE) <LAWRENCE Tobin - Last Filed: 04/27/22 11:55> Lab Results 04/23/22 04/23/22 04/23/22 Range/Units 13:50 13:50 13:50 WBC 7.4 (4.8-10.8) X10*3/uL RBC 3.28 L (4.20-5.50) X10*6/uL Hgb 9.8 L (12.0-16.0) g/dl Hct 29.8 L (37.0-47.0) % MCV 90.9 (80.0-98.0) fL MCH 29.9 (27.0-33.0) pg MCHC 32.9 (31.0-35.0) g/dl RDW 11.8 (11.0-16.0) % Plt Count 157 L (160-400) X10*3/uL MPV 9.7 (9.4-12.3) fL Immature Gran % (Auto) 0.3 (0.0-0.4) % Neut % (Auto) 65.7 (45-73) % Lymph % (Auto) 21.3 (20-40) % [place] % (Auto) 8.2 (2-11) % Eos % (Auto) 4.2 H (0-4) % Baso % (Auto) 0.3 (0-2) % Lymph # (Auto) 1.6 (1.2-4.9) X10*3/uL [place] # (Auto) 0.6 (0.1-1.2) X10*3/uL Eos # (Auto) 0.3 (0.0-0.4) X10*3/uL Baso # (Auto) 0.0 (0.0-0.2) X10*3/uL Abs Immat Gran (auto) 0.02 (0.00-0.03) X10*3/uL Absolute Neuts (auto) 4.9 (2.0-8.3) x10*3/uL Absolute Nucleated RBC 0.000 (0.0-0.012) X10*3/uL Nucleated RBC % (auto) 0.0 (0.0-0.2) /100WBC PT 13.8 H (10.0-13.1) SEC INR 1.2 H (0.9-1.1) Sodium 141 (135-145) mmol/L Potassium 4.5 (3.3-5.1) mmol/L Chloride 106 (96-108) mmol/L Carbon Dioxide 27 (22-29) mmol/L Anion Gap 13 (12-20) BUN 17 H (9-16) mg/dL Creatinine 1.13 (0.5-1.4) mg/dL Estim Creat Clear Calc 35.0 Estimated GFR 47 Random Glucose 204 H (60-115) mg/dL Uric Acid (2.4-5.7) mg/dL Calcium 9.1 (8.4-10.2) mg/dL Magnesium 2.0 (1.6-2.6) mg/dL Total Bilirubin 0.6 (0.0-1.0) mg/dL AST 17 (5-31) U/L ALT 13 (0-31) U/L Alkaline Phosphatase 65 (39-117) U/L Troponin I High Sens (<3.5-17.0) ng/L Total Protein 6.4 L (6.5-8.0) g/dL Albumin 3.9 (3.5-5.0) g/dL Lipase 15 (8-78) U/L Stool Occult Blood (NEGATIVE) 04/23/22 04/23/22 04/23/22 Range/Units 13:50 13:50 15:29 WBC (4.8-10.8) X10*3/uL RBC (4.20-5.50) X10*6/uL Hgb (12.0-16.0) g/dl Hct (37.0-47.0) % MCV (80.0-98.0) fL MCH (27.0-33.0) pg MCHC (31.0-35.0) g/dl RDW (11.0-16.0) % Plt Count (160-400) X10*3/uL MPV (9.4-12.3) fL Immature Gran % (Auto) (0.0-0.4) % Neut % (Auto) (45-73) % Lymph % (Auto) (20-40) % [place] % (Auto) (2-11) % Eos % (Auto) (0-4) % Baso % (Auto) (0-2) % Lymph # (Auto) (1.2-4.9) X10*3/uL [place] # (Auto) (0.1-1.2) X10*3/uL Eos # (Auto) (0.0-0.4) X10*3/uL Baso # (Auto) (0.0-0.2) X10*3/uL Abs Immat Gran (auto) (0.00-0.03) X10*3/uL Absolute Neuts (auto) (2.0-8.3) x10*3/uL Absolute Nucleated RBC (0.0-0.012) X10*3/uL Nucleated RBC % (auto) (0.0-0.2) /100WBC PT (10.0-13.1) SEC INR (0.9-1.1) Sodium (135-145) mmol/L Potassium (3.3-5.1) mmol/L Chloride (96-108) mmol/L Carbon Dioxide (22-29) mmol/L Anion Gap (12-20) BUN (9-16) mg/dL Creatinine (0.5-1.4) mg/dL Estim Creat Clear Calc Estimated GFR Random Glucose (60-115) mg/dL Uric Acid 3.5 (2.4-5.7) mg/dL Calcium (8.4-10.2) mg/dL Magnesium (1.6-2.6) mg/dL Total Bilirubin (0.0-1.0) mg/dL AST (5-31) U/L ALT (0-31) U/L Alkaline Phosphatase (39-117) U/L Troponin I High Sens 3.8 4.0 (<3.5-17.0) ng/L Total Protein (6.5-8.0) g/dL Albumin (3.5-5.0) g/dL Lipase (8-78) U/L Stool Occult Blood (NEGATIVE) 04/23/22 Range/Units 16:52 WBC (4.8-10.8) X10*3/uL RBC (4.20-5.50) X10*6/uL Hgb (12.0-16.0) g/dl Hct (37.0-47.0) % MCV (80.0-98.0) fL MCH (27.0-33.0) pg MCHC (31.0-35.0) g/dl RDW (11.0-16.0) % Plt Count (160-400) X10*3/uL MPV (9.4-12.3) fL Immature Gran % (Auto) (0.0-0.4) % Neut % (Auto) (45-73) % Lymph % (Auto) (20-40) % [place] % (Auto) (2-11) % Eos % (Auto) (0-4) % Baso % (Auto) (0-2) % Lymph # (Auto) (1.2-4.9) X10*3/uL [place] # (Auto) (0.1-1.2) X10*3/uL Eos # (Auto) (0.0-0.4) X10*3/uL Baso # (Auto) (0.0-0.2) X10*3/uL Abs Immat Gran (auto) (0.00-0.03) X10*3/uL Absolute Neuts (auto) (2.0-8.3) x10*3/uL Absolute Nucleated RBC (0.0-0.012) X10*3/uL Nucleated RBC % (auto) (0.0-0.2) /100WBC PT (10.0-13.1) SEC INR (0.9-1.1) Sodium (135-145) mmol/L Potassium (3.3-5.1) mmol/L Chloride (96-108) mmol/L Carbon Dioxide (22-29) mmol/L Anion Gap (12-20) BUN (9-16) mg/dL Creatinine (0.5-1.4) mg/dL Estim Creat Clear Calc Estimated GFR Random Glucose (60-115) mg/dL Uric Acid (2.4-5.7) mg/dL Calcium (8.4-10.2) mg/dL Magnesium (1.6-2.6) mg/dL Total Bilirubin (0.0-1.0) mg/dL AST (5-31) U/L ALT (0-31) U/L Alkaline Phosphatase (39-117) U/L Troponin I High Sens (<3.5-17.0) ng/L Total Protein (6.5-8.0) g/dL Albumin (3.5-5.0) g/dL Lipase (8-78) U/L Stool Occult Blood NEGATIVE (NEGATIVE) <LAWRENCE Medina Last Filed: 04/23/22 18:15> Independent Interpretation I performed an independent interpretation of an: EKG and Plain X-Ray <LAWRENCE Medina - Last Filed: 04/23/22 18:15> Radiology Impression Discussion of test interpretation with radiology: I have reviewed the radiologist's reading. <LAWRENCE Medina - Last Filed: 04/23/22 18:15> Independent Historian Clinical information obtained from an independent historian. 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) <LAWRENCE Medina Last Filed: 04/23/22 18:15> External Record Review External record reviewed: Inpatient record, Office record, Outpatient record, Prior outpatient labs, Prior outpatient radiology, Primary care record and Outside ED record <LAWRENCE Medina - Last Filed: 04/23/22 18:15> Critical Care Time Critical Care Time Critical Care Time: Yes <LAWRENCE Medina - Last Filed: 04/23/22 18:15> Total Critical Care Time: 60 <LAWRENCE Medina - Last Filed: 04/23/22 18:15> Attestation: I personally attest to this time spent taking care of the patient <LAWRENCE Medina - Last Filed: 04/23/22 18:15> Discharge Plan Discharge Clinical Impression: Cellulitis, Anemia, Atypical chest pain, Arthritis of foot, Bone spur <LAWRENCE Tobin Last Filed: 04/27/22 11:55> Patient Disposition: Home, Self-Care <LAWRENCE Tobin Last Filed: 04/27/22 11:55> Instructions: Cellulitis (ED), Anemia (ED) <LAWRENCE Tobin Last Filed: 04/27/22 11:55> Prescriptions: New doxycycline monohydrate 100 mg tablet 100 mg PO BID 10 Days Qty: 20 0RF cephalexin 500 mg capsule 500 mg PO Q6H 10 Days Qty: 40 0RF oxycodone 5 mg tablet 5 mg PO Q6H PRN (Reason: pain) Qty: 14 0RF Rx Instructions: Partial Fill upon patient request. No Action lancets [OneTouch Delica Plus Lancet] 30 gauge misc 30 gauge miscellaneous DAILY 90 Days Qty: 100 3RF losartan 100 mg tablet 100 mg PO DAILY 90 Days Qty: 90 3RF ezetimibe 10 mg tablet 10 mg PO DAILY Qty: 30 8RF OneTouch Verio test strips Strip 1 strip miscellaneous DAILY 90 Days Qty: 100 3RF cholecalciferol (vitamin D3) 50 mcg (2,000 unit) capsule 50 mcg PO DAILY 90 Days Qty: 90 1RF montelukast 10 mg tablet 10 mg PO DAILY Qty: 90 3RF glipizide 5 mg tablet 10 mg PO BID Qty: 120 3RF omeprazole 20 mg capsule,delayed release(DR/EC) 20 mg PO BID 30 Days Qty: 60 3RF rosuvastatin 20 mg tablet 20 mg PO DAILY 90 Days Qty: 90 1RF meclizine 25 mg tablet 25 mg PO TID Qty: 90 8RF amlodipine 10 mg tablet 10 mg PO DAILY 90 Days Qty: 90 1RF lidocaine HCl [Aspercreme (lidocaine HCl)] 4 % cream 1 appl topical BID PRN (Reason: pain) Qty: 120 0RF famotidine [Pepcid] 20 mg tablet 20 mg PO BID PRN (Reason: abdominal pain) Qty: 60 0RF dicyclomine 10 mg capsule 10 mg PO QID PRN (Reason: abdominal discomfort) Qty: 60 0RF valacyclovir [Valtrex] 1 gram tablet 1,000 mg PO TID Qty: 20 0RF prednisone 20 mg tablet 40 mg PO DAILY Qty: 10 0RF gabapentin 300 mg capsule 300 mg PO BID Qty: 20 0RF Farxiga 10 mg tablet 10 mg PO DAILY hydralazine 10 mg tablet 10 mg PO TID 30 Days Qty: 90 0RF triamcinolone acetonide 0.1 % cream 1 appl topical DAILY 14 Days Qty: 15 0RF albuterol sulfate 90 mcg/actuation HFA aerosol inhaler 2 inh inhalation Q6H PRN (Reason: shortness of breath or wheezing) 30 Days Qty: 18 12RF <LAWRENCE Tobin - Last Filed: 04/27/22 11:55> Referrals: Lita Ahmadi MD [Primary Care Provider] - 1 day <LAWRENCE Tobin - Last Filed: 04/27/22 11:55> Interventions: ED Discharge Assessment Last Done: 04/23/22 17:20 <LAWRENCE Tobin - Last Filed: 04/27/22 11:55> Discharge Date/Time: 04/23/22 17:21 <LAWRENCE Tobin - Last Filed: 04/27/22 11:55>
--- NOTE | 2022-04-23 13:21 | ECG_ITS ---
Test Reason : cp Blood Pressure : / mmHG Vent. Rate : 081 BPM Atrial Rate : 081 BPM P-R Int : 116 ms QRS Dur : 086 ms QT Int : 374 ms P-R-T Axes : 066 058 058 degrees QTc Int : 434 ms Normal sinus rhythm Normal ECG When compared with ECG of 17-APR-2022 08:27, No significant change was found Referred By: Anne Starks Electronically Signed By:Tal Cuellar
[2022-04-23 13:55] LABS: MANUAL DIFF FLAG NO
[2022-04-23] MEDS: Aspirin 81 MG TAB.CHEW 324 MG PO (13:57)
[2022-04-23 13:59] LABS: Basophils Percent Auto 0.3 % (0-2); Eosinophils Absolute Auto 0.3 X10*3/uL (0.0-0.4); Eosinophils Percent Auto 4.2 % (0-4); Hematocrit 29.8 % (37.0-47.0); Hemoglobin 9.8 g/dl (12.0-16.0); Imm Gran Abs Auto 0.02 X10*3/uL (0.00-0.03); Imm Gran Pct Auto 0.3 % (0.0-0.4); Lymphocytes Absolute Auto 1.6 X10*3/uL (1.2-4.9); Lymphocytes Percent Auto 21.3 % (20-40); Mean Corpuscular HGB Conc 32.9 g/dl (31.0-35.0); Mean Corpuscular Hemoglobin 29.9 pg (27.0-33.0); Mean Corpuscular Volume 90.9 fL (80.0-98.0); Mean Platelet Volume 9.7 fL (9.4-12.3); Monocytes Absolute Auto 0.6 X10*3/uL (0.1-1.2); Monocytes Percent Auto 8.2 % (2-11); Neutrophils Absolute Auto 4.9 x10*3/uL (2.0-8.3); Neutrophils Percent Auto 65.7 % (45-73); Platelet Count 157 X10*3/uL (160-400); Red Blood Count 3.28 X10*6/uL (4.20-5.50); Red Cell Distribution Width 11.8 % (11.0-16.0); White Blood Count 7.4 X10*3/uL (4.8-10.8)
[2022-04-23 14:00] VITALS: BP 180/69; PULSE 81; RESP 16; O2SAT 100
[2022-04-23 14:02] LABS: INTERNATIONAL NORM RATIO 1.2 (0.9-1.1); Prothrombin Time 13.8 SEC (10.0-13.1)
[2022-04-23 14:12] LABS: Alanine Aminotransferase 13 U/L (0-31); Albumin Level 3.9 g/dL (3.5-5.0); Alkaline Phosphatase 65 U/L (39-117); Anion Gap 13 (12-20); Aspartate Amino Transferase 17 U/L (5-31); Bilirubin Total 0.6 mg/dL (0.0-1.0); Blood Urea Nitrogen 17 mg/dL (9-16); Calcium 9.1 mg/dL (8.4-10.2); Carbon Dioxide 27 mmol/L (22-29); Chloride 106 mmol/L (96-108); Estimated Glomerular Filt Rate 47; Glucose Random 204 mg/dL (60-115); Lipase 15 U/L (8-78); Potassium 4.5 mmol/L (3.3-5.1); Sodium 141 mmol/L (135-145); Total Protein 6.4 g/dL (6.5-8.0)
[2022-04-23 14:13] VITALS: BP 149/56; PULSE 77; RESP 15; O2SAT 99
[2022-04-23 14:13] LABS: Uric Acid 3.5 mg/dL (2.4-5.7)
[2022-04-23 14:19] LABS: Troponin-I High Sensitivity 3.8 ng/L (<3.5-17.0)
[2022-04-23 17:00] LABS: OBS Int Ctl Valid YES; OBS1 NEGATIVE (NEGATIVE)
== END 2022-04-23 17:21 | disposition home or self-care (01) ==
PROVIDERS: Physician Assistant Medical; Emergency Provider Emergency Medicine Emergency Medical Services; PCP Internal Medicine
DX: R07.89 Other chest pain (principal); L03.115 Cellulitis of right lower limb; L03.116 Cellulitis of left lower limb; M77.51 Other enthesopathy of right foot and ankle; M19.071 Primary osteoarthritis, right ankle and foot; D64.9 Anemia, unspecified; M25.571 Pain in right ankle and joints of right foot; E11.9 Type 2 diabetes mellitus without complications; I10 Essential (primary) hypertension; E78.5 Hyperlipidemia, unspecified; Z79.02 Long term (current) use of antithrombotics/antiplatelets; Z79.899 Other long term (current) drug therapy
CPT/HCPCS: 36415; 71046; 73610; 73620; 80053; 82272; 83690; 83735; 84484; 84550; 85025; 85610; 93005; 99284

== ENCOUNTER 2022-04-23 20:53 | Emergency (ER) | payer OTHER, MEDICAID, SELFPAY ==
[2022-04-23 21:17] VITALS: BP 167/53; PULSE 83; RESP 16; TEMP 36.9; O2SAT 97; BMI 29.5
--- NOTE | 2022-04-24 01:12 | ED.ALLEREA ---
HPI - Allergic Reaction General Chief complaint: Allergic Reaction Stated complaint: seen here today now states rash on abd Time Seen by Provider: 04/24/22 01:03 Source: patient Mode of arrival: ambulatory Limitations: no limitations History of Present Illness HPI narrative: Patient was seen here earlier for right ankle pain diagnosed as cellulitis went home noticed a rash on the right lower thorax area starting from the back to the front. Patient did complain of pain without rash for last few days now she has a burning sensation in that area no history of shingles in the past no history of chickenpox Related Data Home Medications Medication Instructions Recorded Confirmed dapagliflozin 10 mg tablet 10 mg PO DAILY 02/12/22 04/21/22 (Farxiga) Previous Rx's Medication Instructions Recorded lidocaine HCl 4 % topical cream 1 appl topical BID PRN pain #120 07/18/20 (Aspercreme (lidocaine HCl)) grams albuterol sulfate 90 mcg/actuation 2 inh inhalation Q6H PRN shortness 08/02/20 aerosol inhaler of breath or wheezing 30 days #18 grams lancets 30 gauge (OneTouch Delica 30 gauge miscellaneous DAILY 90 12/12/20 Plus Lancet) days #100 caps triamcinolone acetonide 0.1 % 1 appl topical DAILY 14 days #15 05/22/21 topical cream grams losartan 100 mg tablet 100 mg PO DAILY 90 days #90 tabs 08/23/21 blood sugar diagnostic (OneTouch 1 strip miscellaneous DAILY 90 10/07/21 Verio test strips) days #100 strips ezetimibe 10 mg tablet 10 mg PO DAILY #30 tabs 10/07/21 cholecalciferol (vitamin D3) 50 50 mcg PO DAILY 90 days #90 caps 01/31/22 mcg (2,000 unit) capsule montelukast 10 mg tablet 10 mg PO DAILY #90 tabs 02/09/22 glipizide 5 mg tablet 10 mg PO BID #120 tabs 03/05/22 omeprazole 20 mg capsule,delayed 20 mg PO BID 30 days #60 caps 03/30/22 release rosuvastatin 20 mg tablet 20 mg PO DAILY 90 days #90 tabs 03/30/22 meclizine 25 mg tablet 25 mg PO TID #90 tabs 03/31/22 amlodipine 10 mg tablet 10 mg PO DAILY 90 days #90 tabs 04/03/22 dicyclomine 10 mg capsule 10 mg PO QID PRN abdominal 04/17/22 discomfort #60 caps famotidine 20 mg tablet (Pepcid) 20 mg PO BID PRN abdominal pain 04/17/22 #60 tabs hydralazine 10 mg tablet 10 mg PO TID 30 days #90 tabs 04/21/22 cephalexin 500 mg capsule 500 mg PO Q6H 10 days #40 caps 04/23/22 doxycycline monohydrate 100 mg 100 mg PO BID 10 days #20 tabs 04/23/22 tablet oxycodone 5 mg tablet 5 mg PO Q6H PRN pain #14 tabs 04/23/22 gabapentin 300 mg capsule 300 mg PO BID #20 caps 04/24/22 prednisone 20 mg tablet 40 mg PO DAILY #10 tabs 04/24/22 valacyclovir 1 gram tablet 1,000 mg PO TID #20 tabs 04/24/22 (Valtrex) Allergies Allergy/AdvReac Type Severity Reaction Status Date / Time codeine [CODEINE] Allergy Severe SWELLING Verified 04/21/22 09:21 erythromycin base Allergy Severe SWELLING Verified 04/21/22 09:21 [ERYTHROMYCIN BASE] morphine [MORPHINE] Allergy Severe ANAPHYLAXIS Verified 04/21/22 09:21 penicillin V Allergy Severe Swelling Verified 04/21/22 09:21 Eyes simvastatin Allergy Severe Nerve Verified 04/21/22 09:21 Inflammation aspirin [ASPIRIN] Allergy Intermediate chest Verified 04/21/22 09:21 tightness lisinopril [LISINOPRIL] Allergy Intermediate COUGH Verified 04/21/22 09:21 cyclobenzaprine AdvReac Intermediate SOB, dry Verified 04/21/22 09:21 mouth/ throat [employer] Saline Allergy Severe Redness Uncoded 04/21/22 09:21 ZYVA Allergy Severe NERVE Uncoded 04/21/22 09:21 INFLAMMATION Review of Systems Review of Systems: Yes all other systems are reviewed and are negative PMF Past Medical History Medical History Anemia Asthma Axillary lymphadenopathy Breast mass Diabetes mellitus Dyslipidemia Effusion, right knee Essential hypertension GERD (gastroesophageal reflux disease) High cholesterol HTN (hypertension) Lymphadenopathy Microalbuminuria Postmenopausal Pure hypercholesterolemia Right knee pain Surgical History History of tonsillectomy History of tubal ligation History of umbilical hernia repair Family History Family History Father No problems noted. Mother No problems noted. Social History Social History Housing: Apartment Alcohol intake: current Alcohol intake frequency: holidays/special occasions only Alcohol type: hard liquor Patient Tobacco Use Status: Never used Tobacco e-Cigarette/Vaping Use: Never Used Second Hand Smoke Exposure: No Advance Directives: No Advance Directives Information Provided: Yes service: No Current occupational status: disabled Cognitive needs: No Hearing needs: No Vision needs: Yes (Glasses) Physical Exam ED Vital Signs: Vital Signs - 24 hr 04/23/22 21:17 04/24/22 01:41 04/24/22 01:42 Temperature 98.4 F 98.0 F Pulse Rate 83 91 83 Respiratory Rate 16 Blood Pressure 167/53 H 196/66 H 182/64 H Pulse Oximetry 97 99 98 Oxygen Delivery Method Room Air Room Air Room Air 04/24/22 02:08 Temperature Pulse Rate 78 Respiratory Rate Blood Pressure 176/69 H Pulse Oximetry 97 Oxygen Delivery Method Room Air BMI result Body Mass Index 29.5 Appearance: Alert. Oriented X3. No acute distress. ENT: Pharynx normal. Oral Mucosa moist Neck: Normal inspection. Neck supple. CVS: Normal heart rate and rhythm. Pulses normal. Respiratory: No respiratory distress. Equal air entry bilateral, no wheezing/rales/rhonchi Abdomen: Soft and nontender. Bowel sounds are present, no mass palpable, no CVA tenderness Skin: Skin warm and dry. Herpetic rash right T10-T11 dermatome starting from the spine to the mid abdomen on the right side Extremities: No lower extremity edema. No calf tenderness right ankles erythema, with warmth without any skin breakdown Neuro: Oriented X 3. Medications Administered Discontinued Medications Generic Name Dose Route Start Last Admin Trade Name Freq PRN Reason Stop Dose Admin Gabapentin 300 mg 04/24/22 01:12 04/24/22 01:32 Gabapentin 300 Mg Capsule PO 04/24/22 01:13 300 mg ONCE ONE Administration Prednisone 60 mg 04/24/22 01:16 04/24/22 01:32 Prednisone 20 Mg Tablet PO 04/24/22 01:17 60 mg ONCE ONE Administration Valacyclovir HCl 1,000 mg 04/24/22 01:12 04/24/22 01:32 Valacyclovir Hcl 1,000 Mg Tablet PO 04/24/22 01:13 1,000 mg ONCE ONE Administration Medical Decision Making Medical Decision Making [facility] Narrative: Patient has shingles rash on the right the 10 T11 dermatomal area. Patient also has right ankle pain clinically gout although uric acid level is normal but it is during the acute flare up. Patient received prednisone and felt much better in the pain will discharge patient home on prednisone Valtrex and gabapentin. Patient advised to continue doxycycline as prescribed earlier Discharge Plan Discharge Clinical Impression: Herpes zoster, Gouty arthritis of right ankle Patient Disposition: Home, Self-Care Instructions: Shingles (ED), Gout (ED) Additional Instructions: Take medication as prescribed for shingles Course of prednisone for possible gout Follow with PCP Prescriptions: New valacyclovir [Valtrex] 1 gram tablet 1,000 mg PO TID Qty: 20 0RF prednisone 20 mg tablet 40 mg PO DAILY Qty: 10 0RF gabapentin 300 mg capsule 300 mg PO BID Qty: 20 0RF No Action lancets [OneTouch Delica Plus Lancet] 30 gauge misc 30 gauge miscellaneous DAILY 90 Days Qty: 100 3RF losartan 100 mg tablet 100 mg PO DAILY 90 Days Qty: 90 3RF ezetimibe 10 mg tablet 10 mg PO DAILY Qty: 30 8RF OneTouch Verio test strips Strip 1 strip miscellaneous DAILY 90 Days Qty: 100 3RF cholecalciferol (vitamin D3) 50 mcg (2,000 unit) capsule 50 mcg PO DAILY 90 Days Qty: 90 1RF montelukast 10 mg tablet 10 mg PO DAILY Qty: 90 3RF glipizide 5 mg tablet 10 mg PO BID Qty: 120 3RF omeprazole 20 mg capsule,delayed release(DR/EC) 20 mg PO BID 30 Days Qty: 60 3RF rosuvastatin 20 mg tablet 20 mg PO DAILY 90 Days Qty: 90 1RF meclizine 25 mg tablet 25 mg PO TID Qty: 90 8RF amlodipine 10 mg tablet 10 mg PO DAILY 90 Days Qty: 90 1RF lidocaine HCl [Aspercreme (lidocaine HCl)] 4 % cream 1 appl topical BID PRN (Reason: pain) Qty: 120 0RF famotidine [Pepcid] 20 mg tablet 20 mg PO BID PRN (Reason: abdominal pain) Qty: 60 0RF dicyclomine 10 mg capsule 10 mg PO QID PRN (Reason: abdominal discomfort) Qty: 60 0RF doxycycline monohydrate 100 mg tablet 100 mg PO BID 10 Days Qty: 20 0RF cephalexin 500 mg capsule 500 mg PO Q6H 10 Days Qty: 40 0RF oxycodone 5 mg tablet 5 mg PO Q6H PRN (Reason: pain) Qty: 14 0RF Rx Instructions: Partial Fill upon patient request. Farxiga 10 mg tablet 10 mg PO DAILY hydralazine 10 mg tablet 10 mg PO TID 30 Days Qty: 90 0RF triamcinolone acetonide 0.1 % cream 1 appl topical DAILY 14 Days Qty: 15 0RF albuterol sulfate 90 mcg/actuation HFA aerosol inhaler 2 inh inhalation Q6H PRN (Reason: shortness of breath or wheezing) 30 Days Qty: 18 12RF
[2022-04-24] MEDS: predniSONE 20 MG TABLET 60 MG PO (01:32)
[2022-04-24] MEDS: valACYclovir HCL 1,000 MG TABLET 1000 MG PO (01:32)
[2022-04-24] MEDS: Gabapentin 300 MG CAPSULE PO (01:32)
[2022-04-24 01:41] VITALS: BP 196/66; PULSE 91; TEMP 36.7; O2SAT 99
[2022-04-24 01:42] VITALS: BP 182/64; PULSE 83; O2SAT 98
[2022-04-24 02:08] VITALS: BP 176/69; PULSE 78; O2SAT 97
== END 2022-04-24 02:52 | disposition home or self-care (01) ==
PROVIDERS: Emergency Provider Internal Medicine; PCP Internal Medicine
DX: B02.9 Zoster without complications (principal); M1A.0710 Idiopathic chronic gout, right ankle and foot, without tophus (tophi); Z79.899 Other long term (current) drug therapy
CPT/HCPCS: 99283

== ENCOUNTER → 2022-05-19 09:45 | Outpatient (REF) | payer OTHER, MEDICAID, SELFPAY ==
--- NOTE | ~2022-05-19 | NM_ITS ---
Lexiscan Myocardial perfusion study Indication: Chest pain, assess for coronary disease and ischemia Technique: The patient was brought in for a Lexiscan perfusion study on 05/19/2022 and was injected 0.4 mg of Lexiscan intravenously. Within a minute of this injection 25 mCi of sestamibi was given intravenously. Images were obtained using the SPECT gamma camera interlaced with the gating device. Images were obtained in supine position. Resting perfusion study was performed on 05/20/2022. Patient was administered 25 mCi of sestamibi intravenously at rest. Images were then obtained in supine position. Total DLP 83mGy-cm. Images were processed with the software and compared side to side in short axis, horizontal long axis and vertical long axis views. Findings: Raw acquisition reviewed. The stress perfusion study showed no significant perfusion abnormality. Both uncorrected as well as CT attenuation corrected images were reviewed. The gated study shows normal LV systolic function with calculated LVEF of 58%. LV cavity is normal in size. The gated study shows normal wall thickening and contraction of segments. Resting study shows no significant perfusion abnormality. Gating at rest reveals normal wall motion with ejection fraction at 58%. The findings are consistent with no reversible or fixed perfusion abnormality. NM/NM cardiolite stress test Impression: 1. Myocardial perfusion imaging study shows normal myocardial perfusion. 2. Gated LVEF is 58% during stress and rest. 3. Transient ischemic dilatation not present. EKG component of the test reported separately.
--- NOTE | 2022-05-19 09:51 | CA_ITS ---
Acquisition Time: 2022-05-19 10:26:54 Total Exercise Time: 00:02:00 Test Indications: CHEST PAIN Medications: LISINOPRIL ASA SIMVASTATIN Protocol: LEXISCAN Max HR: 108 BPM 75% of Pred: 144 BPM Max BP: 140/080 mmHG Max Work Load: 1.0 METS Pharmacological stress test with Lexiscan injection, while sitting and kicking her legs, with report of mild chest tightness in recovery, without arrythmia, with normotensive response to injection, with nondiagnostic EKG for ischemia. In recovery she was treated with with Aminophylline 75mg IVP to reverse Lexiscan. Nuclear images pending. Test reviewed with Dr Ruelas Referred By: Lita Flores Overread By: OCTAVIO VILLALOBOS
== END ==
LOC: HO.CARD 09:45
PROVIDERS: PCP Internal Medicine; Visit Provider Internal Medicine
DX: R07.9 Chest pain, unspecified (principal)
CPT/HCPCS: 78452; 93017; A9500; J0280; J2785

== ENCOUNTER 2022-06-15 08:47 | Outpatient (REF) | payer OTHER, MEDICAID, SELFPAY ==
--- NOTE | ~2022-06-15 | FL_ITS ---
EXAMINATION: FL GI SERIES CLINICAL INFORMATION: Gastroesophageal reflux disease. COMPARISON: None TECHNIQUE: Upper GI was performed using thin and thick barium and effervescent granules. FINDINGS: Esophageal motility appears normal with the patient upright. There is abnormal esophageal motility seen with the patient in the prone/WELDON drinking position. There is gastroesophageal reflux. There is a small sliding-type hiatal hernia. The stomach and duodenum are normal-appearing. No fold thickening, mass, ulcer or stricture. FLUOROSCOPY TIME: 0.9 minutes DOSE AREA PRODUCT: 5.7 Gy-cm2 FLUOROSCOPIC IMAGES: 32 saved fluoroscopic images. FL/FL upper GI series IMPRESSION: Abnormal esophageal motility with the patient in the prone/WELDON position. Gastroesophageal reflux. Small sliding-type hiatal hernia.
== END 2022-06-15 08:48 | disposition home or self-care (01) ==
LOC: HO.XRAY 08:47
PROVIDERS: PCP Internal Medicine; Visit Provider Internal Medicine
DX: K21.9 Gastro-esophageal reflux disease without esophagitis (principal)
CPT/HCPCS: 74240

== ENCOUNTER 2022-06-25 08:31 | Outpatient (REF) | payer OTHER, MEDICAID, SELFPAY ==
[2022-06-25 09:44] LABS: MANUAL DIFF FLAG NO
[2022-06-25 10:30] LABS: Basophils Percent Auto 0.3 % (0-2); Eosinophils Absolute Auto 0.5 X10*3/uL (0.0-0.4); Eosinophils Percent Auto 7.2 % (0-4); Hematocrit 31.6 % (37.0-47.0); Hemoglobin 10.3 g/dl (12.0-16.0); Imm Gran Abs Auto 0.02 X10*3/uL (0.00-0.03); Imm Gran Pct Auto 0.3 % (0.0-0.4); Lymphocytes Absolute Auto 2.2 X10*3/uL (1.2-4.9); Lymphocytes Percent Auto 31.7 % (20-40); Mean Corpuscular HGB Conc 32.6 g/dl (31.0-35.0); Mean Corpuscular Hemoglobin 29.8 pg (27.0-33.0); Mean Corpuscular Volume 91.3 fL (80.0-98.0); Mean Platelet Volume 9.8 fL (9.4-12.3); Monocytes Absolute Auto 0.5 X10*3/uL (0.1-1.2); Monocytes Percent Auto 7.5 % (2-11); Neutrophils Absolute Auto 3.6 x10*3/uL (2.0-8.3); Platelet Count 169 X10*3/uL (160-400); Red Blood Count 3.46 X10*6/uL (4.20-5.50); Red Cell Distribution Width 12.8 % (11.0-16.0); White Blood Count 6.8 X10*3/uL (4.8-10.8)
[2022-06-25 11:07] LABS: Creatinine Urine 111.08 mg/dL; Microalbum/Creatinine Ratio Ur 17.1 ug/mg cr
[2022-06-25 11:10] LABS: Alanine Aminotransferase 11 U/L (0-31); Albumin Level 3.9 g/dL (3.5-5.0); Alkaline Phosphatase 57 U/L (39-117); Anion Gap 14 (12-20); Aspartate Amino Transferase 18 U/L (5-31); Bilirubin Total 0.7 mg/dL (0.0-1.0); Blood Urea Nitrogen 17 mg/dL (9-16); Calcium 9.2 mg/dL (8.4-10.2); Carbon Dioxide 27 mmol/L (22-29); Chloride 106 mmol/L (96-108); Cholesterol 145 mg/dL; Estimated Glomerular Filt Rate 47; Glucose Fasting 274 mg/dL (60-99); HDL Cholesterol 44 mg/dL; Iron 82 mcg/dL (30-160); LDL Cholesterol Calculated 73 mg/dl; Percent Iron Saturation 32 % (15-50); Potassium 4.5 mmol/L (3.3-5.1); Sodium 142 mmol/L (135-145); Total Iron Binding Capacity 258 mcg/dL (228-428); Total Protein 5.9 g/dL (6.5-8.0); Triglycerides 142 mg/dL; Unsaturated Iron Binding 176 ug/dL
[2022-06-25 11:20] LABS: Vitamin D 25-OH Total 28.8 ng/mL (>30)
[2022-06-25 11:40] LABS: Ferritin 116 ng/mL (10-250); Thyroid Stimulating Hormone 1.37 uIU/mL (0.32-4.0); Vitamin B12 303 pg/mL (200-900)
[2022-06-26 21:49] LABS: Transglutaminase IgA <1.0 U/mL
[2022-06-30 14:43] LABS: Endomysial IgA Antibody Negative (Negative)
== END 2022-06-25 08:32 | disposition home or self-care (01) ==
LOC: HO.LAB 08:31
PROVIDERS: PCP Internal Medicine; Visit Provider Physician Assistant
DX: K21.9 Gastro-esophageal reflux disease without esophagitis (principal); K52.9 Noninfective gastroenteritis and colitis, unspecified; E78.00 Pure hypercholesterolemia, unspecified; E78.5 Hyperlipidemia, unspecified; E11.9 Type 2 diabetes mellitus without complications; E55.9 Vitamin D deficiency, unspecified; D64.9 Anemia, unspecified; Z86.010 Personal history of colon polyps; Z79.899 Other long term (current) drug therapy
CPT/HCPCS: 36415; 80053; 80061; 82043; 82306; 82607; 82728; 82746; 83540; 84443; 85025; 86231; 86364; 99202

== ENCOUNTER → 2022-07-23 09:07 | Outpatient (BNVA) | payer OTHER, MEDICAID, SELFPAY | PROVIDERS: PCP Internal Medicine; Referring Provider Internal Medicine; Visit Provider Physician Assistant | DX: K21.9 Gastro-esophageal reflux disease without esophagitis (principal); I10 Essential (primary) hypertension | CPT/HCPCS: 99212 ==

== ENCOUNTER 2022-09-02 09:24 | Day surgery (SDC) | payer OTHER, MEDICAID, SELFPAY ==
[2022-08-31 09:58] VITALS: BMI 28.3
--- NOTE | 2022-09-01 09:03 | P.CONAN_ITS ---
Documented by User: Herlinda South NP 09/01/22 09:05 HPI - Anesthesia Eval Consult details Narrative: 76yo Upper Endoscopy and Colonoscopy PMFSH Active Problems Active Problems: All Active Problems (Updated 08/31/22 @ 11:13 by Monica Jeffries RN) Chest mass (Acute) Pulmonary nodule (Acute) Neck pain (Acute) Carotid bruit (Acute) Osteoarthritis of right knee (Acute) Pre-operative clearance (Acute) Skin tag (Acute) Skin lesion (Acute) Right shoulder pain (Acute) Chest pain (Acute) Acid reflux (Acute) History of adenomatous polyp of colon (Acute) Physical exam (Acute) Uncontrolled hypertension (Acute) Pure hypercholesterolemia (Acute) Postmenopausal (Acute) Microalbuminuria (Acute) Effusion, right knee (Acute) GERD (gastroesophageal reflux disease) (Acute) Right knee pain (Acute) Anemia (Acute) Axillary lymphadenopathy (Acute) Breast mass (Acute) Essential hypertension (Acute) Dyslipidemia (Acute) Lymphadenopathy (Acute) Asthma (Acute) Diabetes mellitus (Acute) Past Medical History Medical History (Updated 08/31/22 @ 11:13 by Monica Jeffries RN) Anemia Asthma Axillary lymphadenopathy Breast mass CKD (chronic kidney disease) Diabetes mellitus Dyslipidemia Effusion, right knee Essential hypertension GERD (gastroesophageal reflux disease) High cholesterol HTN (hypertension) Lymphadenopathy Microalbuminuria Muscle tear Postmenopausal Pure hypercholesterolemia Right knee pain Family History Family History Father No problems noted. Mother No problems noted. Surgical History Surgical History History of tonsillectomy History of tubal ligation History of umbilical hernia repair Social History Social History Housing: Apartment Are you a primary client care coordinator to a significant other at home: No Do you presently have visiting nurse or other home services: No Alcohol intake: never Patient Tobacco Use Status: Never used Tobacco e-Cigarette/Vaping Use: Never Used Second Hand Smoke Exposure: No Use of substances other than those prescribed or required for medical reasons: No Have you been hit, kicked, punched, or otherwise hurt by someone within the past year? If so, by whom?: No Advance Directives: No Advance Directives Information Provided: Yes Advance Directives on File: No Recently lost weight without trying: No Eating poorly because of decreased appetite: No Nutrition Risks: No Nutritional Risk Patient : No : No Poor oral hygiene: No service: No Current occupational status: disabled Cognitive needs: No Hearing needs: No Vision needs: Yes (Glasses) Meds Allergies Allergy/AdvReac Type Severity Reaction Status Date / Time codeine [CODEINE] Allergy Severe SWELLING Verified 07/23/22 09:13 erythromycin base Allergy Severe SWELLING Verified 07/23/22 09:13 [ERYTHROMYCIN BASE] morphine [MORPHINE] Allergy Severe ANAPHYLAXIS Verified 07/23/22 09:13 penicillin V Allergy Severe Swelling Verified 07/23/22 09:13 Eyes simvastatin Allergy Severe Nerve Verified 07/23/22 09:13 Inflammation aspirin [ASPIRIN] Allergy Intermediate chest Verified 07/23/22 09:13 tightness lisinopril [LISINOPRIL] Allergy Intermediate COUGH Verified 07/23/22 09:13 cyclobenzaprine AdvReac Intermediate SOB, dry Verified 07/23/22 09:13 mouth/ throat [employer] Saline Allergy Severe Redness Uncoded 07/07/22 13:05 ZYVA Allergy Severe NERVE Uncoded 07/07/22 13:05 INFLAMMATION Home Medications Medication Instructions Recorded Confirmed Last Taken Type acetaminophen 500 mg tablet 500 mg PO BID PRN Pain 08/31/22 08/31/22 Unknown History famotidine 20 mg tablet 20 mg PO BID PRN abdominal pain 08/31/22 08/31/22 Unknown History meclizine 25 mg tablet 25 mg PO TID PRN Dizziness 08/31/22 08/31/22 Unknown History Exam Exam Date and Time: September 01, 2022902 Height,Weight and Vital Signs: Height 4 ft 11 in Weight 63.503 kg Pertinent Lab Results Pertinent Lab Results: Laboratory Tests 06/25/22 06/25/22 09:43 09:43 WBC 6.8 Hgb 10.3 L Hct 31.6 L Plt Count 169 Sodium 142 Potassium 4.5 Chloride 106 Carbon Dioxide 27 BUN 17 H Creatinine 1.12 Narrative Narrative: EKG 04/2022 Vent. Rate : 081 BPM ? ? Atrial Rate : 081 BPM ?? P-R Int : 116 ms? QRS Dur : 086 ms ? ? QT Int : 374 ms ? ? ? P-R-T Axes : 066 058 058 degrees ?? QTc Int : 434 ms ? Normal sinus rhythm Normal ECG When compared with ECG of 17-APR-2022 08:27, No significant change was found NM cardiolite stress test 04/2022 Impression: ? 1.? Myocardial perfusion imaging study shows normal myocardial perfusion. 2.? Gated LVEF is 58% during stress and rest. 3. Transient ischemic dilatation not present. ? EKG component of the test reported separately. Assessment and Plan Assessment Anesthesia Assessment: Chart Reviewed Documented by User: Mari Goldsmith MD 09/02/22 10:11 [facility] Past Medical History Medical History (Updated 08/31/22 @ 11:13 by Monica Jeffries RN) Anemia Asthma Axillary lymphadenopathy Breast mass CKD (chronic kidney disease) Diabetes mellitus Dyslipidemia Effusion, right knee Essential hypertension GERD (gastroesophageal reflux disease) High cholesterol HTN (hypertension) Lymphadenopathy Microalbuminuria Muscle tear Postmenopausal Pure hypercholesterolemia Right knee pain Family History Family History Father No problems noted. Mother No problems noted. Family history of problems with anesthesia: No Surgical History Surgical History History of tonsillectomy History of tubal ligation History of umbilical hernia repair History of Problems with Anesthesia: No Social History Social History Housing: Apartment Are you a primary client care coordinator to a significant other at home: No Do you presently have visiting nurse or other home services: No Alcohol intake: never Patient Tobacco Use Status: Never used Tobacco e-Cigarette/Vaping Use: Never Used Second Hand Smoke Exposure: No Use of substances other than those prescribed or required for medical reasons: No Have you been hit, kicked, punched, or otherwise hurt by someone within the past year? If so, by whom?: No Advance Directives: No Advance Directives Information Provided: Yes Advance Directives on File: No Recently lost weight without trying: No Eating poorly because of decreased appetite: No Nutrition Risks: No Nutritional Risk Patient : No : No Poor oral hygiene: No service: No Current occupational status: disabled Cognitive needs: No Hearing needs: No Vision needs: Yes (Glasses) Meds Allergies Allergy/AdvReac Type Severity Reaction Status Date / Time codeine [CODEINE] Allergy Severe SWELLING Verified 07/23/22 09:13 erythromycin base Allergy Severe SWELLING Verified 07/23/22 09:13 [ERYTHROMYCIN BASE] morphine [MORPHINE] Allergy Severe ANAPHYLAXIS Verified 07/23/22 09:13 penicillin V Allergy Severe Swelling Verified 07/23/22 09:13 Eyes simvastatin Allergy Severe Nerve Verified 07/23/22 09:13 Inflammation aspirin [ASPIRIN] Allergy Intermediate chest Verified 07/23/22 09:13 tightness lisinopril [LISINOPRIL] Allergy Intermediate COUGH Verified 07/23/22 09:13 cyclobenzaprine AdvReac Intermediate SOB, dry Verified 07/23/22 09:13 mouth/ throat [employer] Saline Allergy Severe Redness Uncoded 07/07/22 13:05 ZYVA Allergy Severe NERVE Uncoded 07/07/22 13:05 INFLAMMATION Home Medications Medication Instructions Recorded Confirmed Last Taken Type acetaminophen 500 mg tablet 500 mg PO BID PRN Pain 08/31/22 08/31/22 Unknown History famotidine 20 mg tablet 20 mg PO BID PRN abdominal pain 08/31/22 08/31/22 Unknown History meclizine 25 mg tablet 25 mg PO TID PRN Dizziness 08/31/22 08/31/22 Unknown History Exam Airway Mallampati Class: II TM Dist: >3cm Neck ROM: Full Heart: rrr Lungs: cta Assessment and Plan Assessment Anesthesia Assessment: Anesthesia Plan Discussed Final Anesthetic Review Family History of Problems with Anesthesia: No History of Problems with Anesthesia: No NPO: Yes ASA Class: III Final Preanesthetic Review: No Changes in Pt Med Stat, Meds/Allgs Chart Reviewed and Consent Obtained/Reviewed Patient Risk: Intermediate Procedure Risk: Intermediate Anesthetic Plan Anesthetic Plan: MAC: Disposition: Standard PACU
[2022-09-02 09:43] LABS: Glucose, Whole Blood 116 mg/dL (60-115)
[2022-09-02 09:47] VITALS: BMI 28.3
[2022-09-02 09:48] VITALS: BP 153/48; PULSE 90; RESP 18; TEMP 36.6; O2SAT 97
--- NOTE | 2022-09-02 09:50 | P.HPSUR_ITS ---
Pre-Procedural Eval Section A Date of Service: 09/02/22 Section B Chief Complaint: Unspecified abdominal pain Details of Present Illness: GERD, polyps in the past Relevant Family History (Specify if Yes): No Relevant Social History: None Present Medications: see Short Stay Collaborative assessment Medical History: Significant History (Anemia Asthma Axillary lymphadenopathy Breast mass CKD (chronic kidney disease) Diabetes mellitus Dyslipidemia Effusion, right knee Essential hypertension GERD (gastroesophageal reflux disease) High cholesterol HTN (hypertension) Lymphadenopathy Microalbuminuria Muscle tear Postmenopausal Pure hyper) History of Previous Operations: Relevant previous surgery/procedure and date(s) (History of tonsillectomy History of tubal ligation History of umbilical hernia repair) Allergies: Allergies Allergy/AdvReac Type Severity Reaction Status Date / Time codeine [CODEINE] Allergy Severe SWELLING Verified 07/23/22 09:13 erythromycin base Allergy Severe SWELLING Verified 07/23/22 09:13 [ERYTHROMYCIN BASE] morphine [MORPHINE] Allergy Severe ANAPHYLAXIS Verified 07/23/22 09:13 penicillin V Allergy Severe Swelling Verified 07/23/22 09:13 Eyes simvastatin Allergy Severe Nerve Verified 07/23/22 09:13 Inflammation aspirin [ASPIRIN] Allergy Intermediate chest Verified 07/23/22 09:13 tightness lisinopril [LISINOPRIL] Allergy Intermediate COUGH Verified 07/23/22 09:13 cyclobenzaprine AdvReac Intermediate SOB, dry Verified 07/23/22 09:13 mouth/ throat [employer] Saline Allergy Severe Redness Uncoded 07/07/22 13:05 ZYVA Allergy Severe NERVE Uncoded 07/07/22 13:05 INFLAMMATION Review of Systems Sugical H&P ROS: Negative: Constitution, Cardiovascular, Respiratory, Neurological, Psychiatric, Hem-Onc, Allergic/Immunologic, Gastrointestinal, Gen itourinary, Musculoskeletal, Integumentary, Endocrine and Eyes/Ears/Nose/Throat Exam Surgical H&P Exam: Normal: HEENT, Normal: Heart, Normal: Lungs, Normal: Extremities, Normal: Abdomen, Normal: Skin and Normal: Neurological Plan Diagnosis/Plan: Unchanged I have reviewed the history and physical and performed a pertinent physical examination on my patient. No changes have occurred unless specified. Time Spent With Patient Time: Total time managing care of this patient today ____ minutes.
[2022-09-02] MEDS: Sodium Phosphate,Mono-Dibasic 133 ML ENEMA PR (10:16)
--- NOTE | 2022-09-02 10:33 | W.PM.OPN ---
Operative Note Operative Note Date of Service: 09/02/22 Narrative: Operative Information Procedure Description: EGD, Colonoscopy Indication: GERD and hx of polyps Anesthesia: MAC FLEXIBLE TRANSORAL UPPER GASTROINTESTINAL ENDOSCOPY AND COLONOSCOPY PROCEDURE NOTE UPPER ENDOSCOPY Consent: Indications for the procedure and potential complications of bleeding, perforation, reaction to medications and missed diagnosis were discussed with the patient and informed consent was obtained. Instrument: Olympus GIF H 190 J mid size upper endoscope Monitoring: Vital signs and clinical assessment, continuous EKG monitoring, Pulse oximetry, Carbon Dioxide monitoring and blood pressure monitoring were done throughout the procedure. Procedure: The patient was placed in the left lateral decubitis position and pre-procedure medications were administered and a bite block was placed. The endoscope was inserted into the mouth and advanced under direct vision to the third part of duodenum. A careful inspection was made as the upper endoscope was withdrawn including a retroflexed examination of the proximal stomach; Findings and interventions are described below. Findings: Larynx:normal Esophagus: GE junction at 35 cm, diaphragm hiatus at 37 cm, consistent with 2 cm sliding hiatal hernia, schatzki ring noted with few small islands of salmon pink tissue, bx taken Stomach: Patchy erythema. Biopsies were obtained. Grade 2 flap valve on retroflexed examination of the cardia. Duodenum: Normal bulb and descending duodenum, Intervention: Biopsies as noted above COLONOSCOPY Instrument: Olympus variable stiffness pediatric scope 190L Colonoscopy Monitoring: Vital signs and clinical assessment, continuous EKG monitoring, Pulse oximetry, Carbon Dioxide monitoring and blood pressure monitoring were done throughout the procedure. Colon withdrawal time was 11 minutes. Procedure: The patient was placed in the left lateral decubitis position and pre-procedure medications were administered. After a digital rectal examination of the ano-rectum, the video colonoscope was inserted into the rectum and advanced through the colon to the cecum/TI. The colonoscope was slowly withdrawn in a retrograde panoramic fashion and the colon mucosa was carefully examined including a retroflexed view of the rectum. Findings and interventions are described below. Procedure Difficulty:medium due to looping Findings: Terminal Ileum-not intubated Cecum: 11-12 mm sessile polyp removed with cold snare Ascending Colon: x 2 sessile polyps 8-10 mm removed with cold snare Transverse Colon -normal Descending Colon:normal Sigmoid Colon: mild to moderate diverticulosis Rectum: Retroflexion with small internal hemorrhoids, grade I Anorectum - normal Colon preparation: [place] Bowel Preparation Scale Right colon; 2 Transverse colon: 2 Left colon; 2 (0 = Unprepared colon segment with mucosa not seen due to solid stool that cannot be cleared. 1 = Portion of mucosa of the colon segment seen, but other areas of the colon segment not well seen due to staining, residual stool and/or opaque liquid. 2 = Minor amount of residual staining, small fragments of stool and/or opaque liquid, but mucosa of colon segment seen well. 3 = Entire mucosa of colon segment seen well with no residual staining, small fragments of stool or opaque liquid) Impression and Post Procedure Diagnosis: Endoscopy Findings: schatzki ring gastritis possible barretts hiatal hernia Colonoscopy Findings: polyps internal hemorrhoids diverticular disease Plan: Await Pathology results Repeat Colonoscopy in 3 years due to polyps or earlier if clinically indicated High fiber diet leaflet avoid straining at stool, epsom salts and sitz bath, anusol supps or cream if h pylori pos treat Above findings were reviewed with the patient and relevant handouts were provided if indicated.
[2022-09-02] MEDS: Lactated Ringers 1,000 ML 100 ML IVCONT (10:39)
[2022-09-02 11:35] VITALS: BP 109/37; PULSE 102; RESP 16; TEMP 36.7; O2SAT 98
[2022-09-02 11:52] VITALS: BP 116/61; PULSE 98; RESP 16; O2SAT 100
--- NOTE | 2022-09-02 11:59 | PC.NURSE ---
POC AT [id number]
[2022-09-02 12:00] LABS: Glucose, Whole Blood 125 mg/dL (60-115)
[2022-09-02 12:32] VITALS: BP 162/51; PULSE 90; RESP 16; TEMP 37.2; O2SAT 82
== END 2022-09-02 13:10 | disposition home or self-care (01) ==
PROVIDERS: PCP Internal Medicine; Visit Provider Internal Medicine Gastroenterology
PROC: (CPT 45385; principal; 2022-09-02 10:50)
DX: Z12.11 Encounter for screening for malignant neoplasm of colon (principal); D12.0 Benign neoplasm of cecum; D12.2 Benign neoplasm of ascending colon; K57.30 Diverticulosis of large intestine without perforation or abscess without bleeding; K64.0 First degree hemorrhoids; K56.2 Volvulus; Z86.010 Personal history of colon polyps; K22.2 Esophageal obstruction; K29.50 Unspecified chronic gastritis without bleeding; B96.81 Helicobacter pylori [H. pylori] as the cause of diseases classified elsewhere; K44.9 Diaphragmatic hernia without obstruction or gangrene; K21.9 Gastro-esophageal reflux disease without esophagitis; D64.9 Anemia, unspecified; E11.9 Type 2 diabetes mellitus without complications; I10 Essential (primary) hypertension; J45.909 Unspecified asthma, uncomplicated; Z79.899 Other long term (current) drug therapy
CPT/HCPCS: 45385; 43239; 82947; 88305; 88342

== ENCOUNTER → 2022-09-17 10:47 | Outpatient (BNVA) | payer OTHER, MEDICAID, SELFPAY | PROVIDERS: PCP Internal Medicine; Referring Provider Internal Medicine; Visit Provider Physician Assistant | DX: A04.8 Other specified bacterial intestinal infections (principal); Z86.010 Personal history of colon polyps | CPT/HCPCS: 99212 ==

== ENCOUNTER 2022-10-20 11:15 | Outpatient (REF) | payer OTHER, SELFPAY ==
--- NOTE | ~2022-10-20 | MM_ITS ---
EXAMINATION: MM SCREENING DIGITAL BREAST TOMOSYNTHESIS, BILATERAL CLINICAL INFORMATION: Screening. Asymptomatic. The lifetime risk of breast cancer based on the Tyrer-Cuzick Model is 2.8%. COMPARISON: Mammography: September 08, 2021 and studies dating back to October 05, 2014 TECHNIQUE: Digital breast tomosynthesis is performed in both the craniocaudal and mediolateral oblique views along with computer-aided detection (CAD). Synthesized 2D images are generated from the tomosynthesis. FINDINGS: There are scattered areas of fibroglandular density (ACR BI-RADS breast composition Category b). There are no significant masses, abnormal calcifications, or other abnormalities. MM/MM tomosynthesis screening BI IMPRESSION: No significant changes from prior exam. ASSESSMENT: BI-RADS 1: Negative RECOMMENDATION: Routine annual mammography screening. This patient's information was entered into a reminder system with a target due date for their next mammogram.
== END 2022-10-20 11:16 | disposition home or self-care (01) ==
LOC: HO.MAMMO 11:15
PROVIDERS: PCP Internal Medicine; Visit Provider Internal Medicine
DX: Z12.31 Encounter for screening mammogram for malignant neoplasm of breast (principal)
CPT/HCPCS: 77063; 77067

== ENCOUNTER 2022-11-16 09:29 | Outpatient (REF) | payer OTHER, SELFPAY ==
[2022-11-16 10:47] LABS: Alanine Aminotransferase 15 U/L (0-31); Alkaline Phosphatase 55 U/L (39-117); Anion Gap 13 (12-20); Aspartate Amino Transferase 19 U/L (5-31); Bilirubin Total 0.6 mg/dL (0.0-1.0); Blood Urea Nitrogen 18 mg/dL (9-16); Calcium 9.3 mg/dL (8.4-10.2); Carbon Dioxide 26 mmol/L (22-29); Chloride 107 mmol/L (96-108); Cholesterol 187 mg/dL; Estimated Glomerular Filt Rate 52; Glucose Fasting 115 mg/dL (60-99); HDL Cholesterol 51 mg/dL; LDL Cholesterol Calculated 114 mg/dl; Potassium 4.4 mmol/L (3.3-5.1); Sodium 142 mmol/L (135-145); Total Protein 6.7 g/dL (6.5-8.0); Triglycerides 113 mg/dL
[2022-11-16 10:51] LABS: Vitamin D 25-OH Total 40.2 ng/mL (>30)
== END 2022-11-16 09:30 | disposition home or self-care (01) ==
LOC: HO.LAB 09:29
PROVIDERS: PCP Internal Medicine; Visit Provider Internal Medicine
DX: Z00.00 Encounter for general adult medical examination without abnormal findings (principal); E78.5 Hyperlipidemia, unspecified; E55.9 Vitamin D deficiency, unspecified
CPT/HCPCS: 36415; 80053; 80061; 82306

== ENCOUNTER 2022-11-17 | Outpatient (REF) | payer OTHER, SELFPAY ==
[2022-11-23 15:46] LABS: Creatinine Urine 96.63 mg/dL; Microalbum/Creatinine Ratio Ur 11.3 ug/mg cr
== END 2022-11-17 00:01 | disposition home or self-care (01) ==
LOC: HO.LNP
PROVIDERS: Visit Provider Internal Medicine
DX: E11.9 Type 2 diabetes mellitus without complications (principal)
CPT/HCPCS: 82043

== ENCOUNTER 2022-11-19 11:05 | Outpatient (AMB) | payer OTHER, MEDICAID, SELFPAY ==
--- NOTE | 2022-11-19 11:14 | MHC.PC.OV ---
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 Accompanied by: Self / Same As Patient Allergies codeine [CODEINE] Allergy (Severe, Verified 11/19/22 11:25) SWELLING doxycycline Allergy (Severe, Verified 11/19/22 11:25) nauseas erythromycin base [ERYTHROMYCIN BASE] Allergy (Severe, Verified 11/19/22 11:25) SWELLING morphine [MORPHINE] Allergy (Severe, Verified 11/19/22 11:25) ANAPHYLAXIS penicillin V Allergy (Severe, Verified 11/19/22 11:25) Swelling Eyes simvastatin Allergy (Severe, Verified 11/19/22 11:25) Nerve Inflammation aspirin [ASPIRIN] Allergy (Intermediate, Verified 11/19/22 11:25) chest tightness lisinopril [LISINOPRIL] Allergy (Intermediate, Verified 11/19/22 11:25) COUGH cyclobenzaprine Adverse Reaction (Intermediate, Verified 11/19/22 11:25) SOB, dry mouth/ throat [employer] Saline Allergy (Severe, Uncoded 11/19/22 11:25) Redness ZYVA Allergy (Severe, Uncoded 11/19/22 11:25) NERVE INFLAMMATION Medication List - Last Reconciled 11/19/22 by Lita Flores MD acetaminophen 500 mg PO BID PRN 30 days albuterol sulfate 90 mcg/actuation 2 inhalations inhalation Q6H PRN 30 days amlodipine 10 mg PO DAILY 90 days blood sugar diagnostic ([facility] Verio test strips) 1 strip miscellaneous DAILY 90 days cholecalciferol (vitamin D3) 50 mcg PO DAILY 90 days ezetimibe 10 mg PO DAILY famotidine 20 mg PO BID PRN gabapentin 300 mg PO BID glipizide 10 mg (2 x 5 mg) PO BID hydralazine 25 mg PO TID 90 days lancets (Integrated [employer] Delica Plus Lancet) 30 gauge miscellaneous DAILY 90 days lidocaine HCl 4% (Aspercreme (lidocaine HCl)) 1 appl topical BID PRN meclizine 25 mg PO TID PRN montelukast 10 mg PO DAILY multivitamin (Daily Multi-Vitamin tablet) 1 tab PO QAM 30 days omeprazole 20 mg PO BID 30 days rosuvastatin 20 mg PO DAILY 90 days Tobacco use date assessed: 07/07/22 Fall risk assessment: No Falls in past year Last assessed Fall Risk: 11/19/22 Dental Screening Dental Screen Date: 11/19/22 Did you have a dental visit in the last 12 months?: No Did you have a dental problem in the last 6 months where you did not have access to dental care?: No Was dental information given to patient?: No HPI HPI Comments History of Present Illness Details This is 76-year-old female with hypertension, diabetes mellitus type 2, dyslipidemia and GERD that comes today for follow-up on her conditions. Blood pressure elevated but she has not been taking amlodipine. I told her to restart amlodipine and blood pressure will be recheck in 3 weeks by nurse navigator. A1c within goal. LDL not on goal and I will increase rosuvastatin from 20 mg to 40 mg. GERD stable with famotidine and PPI. Denies any chest pain or shortness of breath. Complains of vaginal burning like pain and wants to see OBGYN. [facility] Medical History (Updated 11/19/22 @ 11:33 by Lita Flores MD) Anemia Asthma Axillary lymphadenopathy Breast mass CKD (chronic kidney disease) Diabetes mellitus Dyslipidemia Effusion, right knee Essential hypertension GERD (gastroesophageal reflux disease) High cholesterol HTN (hypertension) Lymphadenopathy Microalbuminuria Muscle tear Postmenopausal Pure hypercholesterolemia Right knee pain Surgical History History of esophagogastroduodenoscopy (EGD) History of tonsillectomy History of tubal ligation History of umbilical hernia repair Hx of colonoscopy Family History Father No problems noted. Mother No problems noted. Social History Housing: Apartment Are you a primary healthcare financial analyst to a significant other at home: No Do you presently have visiting nurse or other home services: No Alcohol intake: never Patient Tobacco Use Status: Never used Tobacco e-Cigarette/Vaping Use: Never Used Second Hand Smoke Exposure: No service: No Current occupational status: disabled Cognitive needs: No Hearing needs: No Vision needs: Yes (Glasses) Questionnaire Thrive Questionnaire Date Thrive assessed: 05/11/22 VU-7 AMB Questionnaire VU-7 Date VU - 7 assessed: 07/07/22 Source: Developed by Drs. Ezequiel Diaz, Gaby Hwang, Antoine Guerrero and colleagues, with an educational mildred from [employer]. Review of Systems Const All systems reviewed & are unremarkable except as noted in HPI and below Eyes Reports no additional complaints, Denies change in vision and Denies other visual disturbances Card Denies chest pain at rest, Denies chest pain with activity, Denies edema, Denies irregular heart rhythm, Denies claudication, Denies dyspnea, Denies dyspnea on exertion, Denies orthopnea, Denies paroxysmal nocturnal dyspnea and Denies slow heart rate Resp Denies cough, Denies dyspnea and Denies dyspnea on exertion GI Denies abdominal pain, Denies change in bowel habits, Denies excessive flatus, Denies nausea and Denies vomiting Denies urinary incontinence, Denies urinary hesitancy and Denies urinary urgency Musc Denies abnormal gait, Denies atrophy, Denies deformity and Denies limited range of motion Skin/Breast Denies bleeding lesions, Denies changing lesions and Denies rash Neuro Denies abnormal gait and Denies lack of coordination Physical exam (Primary Care) Vital Signs: Last Vital Signs BP 184/80 H 11/19/22 11:21 BMI result Body Mass Index 29.9 Tobacco/Smoking Status: Tobacco use Status Tobacco use date assessed 07/07/22 11/19/22 11:16 Patient Tobacco Use Status Never used Tobacco 11/19/22 11:16 e-Cigarette/Vaping Use Never Used 11/19/22 11:16 Thrive Assessment: Date of Thrive Assessment Date Thrive assessed 05/11/22 11/19/22 11:16 Const Orientation/consciousness: patient oriented x3 Eyes General: appearance normal, both eyes and all related structures Eyelids: Yes eyelids normal Conjunctivae: conjunctivae normal Neck Neck: Yes normal visual inspection and Yes supple Resp Effort & Inspection: normal respiratory effort Auscultation: clear to auscultation bilaterally Cardio Jugular venous distension: no JVD Rate: regular rate Rhythm: regular rhythm Heart sounds: S1 normal heart sound present and S2 normal heart sound present Neuro General: patient oriented x3 and no focal motor deficits Extrem General: Yes full ROM Results AMB Hemoglobin A1c AMB Hemoglobin A1c 6.3 % Last Edit by CASTRO Oneill on 11/19/22 11:26 Assessment and Plan Assessment & Plan (1) Diabetes mellitus: Code(s): E11.9 - Type 2 diabetes mellitus without complications Qualifiers: Diabetes mellitus type: type 2 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 A1c goal is equal or less than 7%. (2) Essential hypertension: Code(s): I10 - Essential (primary) hypertension Plan: Continue losartan and hydralazine. Start amlodipine. Recheck blood pressure with nurse navigator in 3 weeks. Blood pressure goal is equal or less than 130/80. (3) Dyslipidemia: Code(s): E78.5 - Hyperlipidemia, unspecified Plan: Continue Zetia. Increase rosuvastatin from 20 mg to 40 mg. LDL goal is less than 70. (4) GERD (gastroesophageal reflux disease): Code(s): K21.9 - Gastro-esophageal reflux disease without esophagitis Plan: Continue famotidine and omeprazole. Orders: Orders Complete Blood Count Auto Diff 4 Months D64.9 - Anemia, unspecified IRON PROFILE 4 Months D64.9 - Anemia, unspecified Lipid Panel 4 Months E78.5 - Hyperlipidemia, unspecified Vitamin D 25-OH Total 4 Months E55.9 - Vitamin D deficiency, unspecified Comprehensive [place]. Panel Fast 4 Months E11.65 - Type 2 diabetes mellitus with hyperglycemia AMB Hemoglobin A1c Today E11.9 - Type 2 diabetes mellitus without complications Referrals [facility] Referral R10.2 - Pelvic and perineal pain Medications: New rosuvastatin 40 mg PO DAILY 90 days 90 tabs 0RF Refilled amlodipine 10 mg PO DAILY 90 days 90 tabs 1RF E11.65 - Type 2 diabetes mellitus with hyperglycemia Discontinued rosuvastatin Discontinued Reason: Patient Completed Course 20 mg PO DAILY 90 days 90 tabs 1RF E78.00 - Pure hypercholesterolemia, unspecified meclizine 25 mg PO TID 90 tabs 8RF Coding Level of Care Code Est Pt Level 4 (33084) Diagnoses Diabetes mellitus E11.65 Diabetes mellitus type: type 2 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
[2022-11-19 11:21] VITALS: BP 184/80; BMI 29.9
[2022-11-19 11:54] VITALS: BP 180/80
== END 2022-11-19 11:36 | disposition home or self-care (01) ==
PROVIDERS: Visit Provider Internal Medicine
DX: E11.65 Type 2 diabetes mellitus with hyperglycemia (principal); I10 Essential (primary) hypertension; E78.5 Hyperlipidemia, unspecified; K21.9 Gastro-esophageal reflux disease without esophagitis; E11.9 Type 2 diabetes mellitus without complications
CPT/HCPCS: 83036; 99214

== ENCOUNTER 2023-01-19 10:18 | Outpatient (AMB) | payer OTHER, SELFPAY ==
--- NOTE | 2023-01-19 10:25 | MHC.OFFVIS ---
Intake Vital Signs 01/19/23 10:28 Height 4 ft 11 in Weight 143 lb BMI 28.9 BP 132/60 Blood Pressure Location Lt brachial Position Sitting Pulse 83 Pulse Source Pulse Oximeter Pulse Oximetry (%) 97 Oxygen Delivery Method Room Air Intake Visit Reasons: COPD Bolt Labeler Required: No Allergies codeine [CODEINE] Allergy (Severe, Verified 01/19/23 10:31) SWELLING doxycycline Allergy (Severe, Verified 01/19/23 10:31) nauseas erythromycin base [ERYTHROMYCIN BASE] Allergy (Severe, Verified 01/19/23 10:31) SWELLING morphine [MORPHINE] Allergy (Severe, Verified 01/19/23 10:31) ANAPHYLAXIS penicillin V Allergy (Severe, Verified 01/19/23 10:31) Swelling Eyes simvastatin Allergy (Severe, Verified 01/19/23 10:31) Nerve Inflammation aspirin [ASPIRIN] Allergy (Intermediate, Verified 01/19/23 10:31) chest tightness lisinopril [LISINOPRIL] Allergy (Intermediate, Verified 01/19/23 10:31) COUGH cyclobenzaprine Adverse Reaction (Intermediate, Verified 01/19/23 10:31) SOB, dry mouth/ throat [employer] Saline Allergy (Severe, Uncoded 01/19/23 10:31) Redness ZYVA Allergy (Severe, Uncoded 01/19/23 10:31) NERVE INFLAMMATION HPI HPI Comments History of Present Illness Details The patient is a 77-year-old woman with a known history of asthma who apparently started developing significant neck pain. She initially went to her primary care doctor and ultimately had to go to the ER because the neck pain became so severe. She did undergo a CT scan of the neck while at the ER. Demonstrates significant degenerative disc disease in addition to significant neck spasms. She was given medications and she was set up with physical therapy. In the meantime she also had a CT scan of the chest that demonstrated multiple pulmonary nodules measuring from 1 mm to 5 mm in size. Some are calcified and some noncalcified. In addition to that she did have some axillary lymph nodes. I did ask her about mammograms and she has had abnormalities before requiring ultrasounds of her breast. Never had cancer. She was supposed to have a mammogram sometime back in the spring because of the pandemic it never happened. At this point will try to set her up to get back to her original plan to get a mammogram specially because of the lymphadenopathy. Patient also has asthma. She does take Singulair with good effect. Usually the change of seasons around spring and winter she started developing more symptoms. I will make sure she has a rescue inhaler available. 01/19/2023 the patient is here for a pulmonary follow-up visit. He has been a while since we last spoke. The patient had been under fairly well and that she developed COVID beginning of the year. After that she started developing a cough. The cough is nonproductive in nature moderate severe. Has not improved. Denies any chest tightness or wheezing. She denies any weight loss or night sweats. She denies any hemoptysis. She her allergies seem to be well controlled with Singulair. She also has a rescue inhaler. She has not had to use it. She also has a nebulizer that she has not used. The patient did have a CT scan of the chest back in 2020 demonstrating pulmonary nodules. The patient should indeed have a repeat CT scan to ensure the stability of the pulmonary nodules for least [address] scan does not show any evidence of any progression then she is down with any more serial CT scans. The patient will trial the Tessalon Perles. She understands that the not covered by the insurance but I will give her good Rx card and we did look at different pharmacies that would provide her with a prescription for low cost. She did take a prescription issue [facility]. If the patient's cough is not better she can always call the office for further evaluation. Otherwise follow-up in 6 months. However, her CT scan is abnormal I will call her to come in at earlier time. [facility] Medical History (Updated 01/19/23 @ 22:34 by Manuel Love MD) Chronic cough Muscle tear CKD (chronic kidney disease) Pure hypercholesterolemia Postmenopausal Microalbuminuria Effusion, right knee GERD (gastroesophageal reflux disease) Right knee pain Anemia Axillary lymphadenopathy Breast mass Essential hypertension Dyslipidemia Lymphadenopathy Asthma High cholesterol HTN (hypertension) Diabetes mellitus Surgical History History of esophagogastroduodenoscopy (EGD) Hx of colonoscopy History of tubal ligation History of umbilical hernia repair History of tonsillectomy Family History Father No problems noted. Mother No problems noted. Social History Housing: Apartment Are you a primary career advisor to a significant other at home: No Do you presently have visiting nurse or other home services: No Alcohol intake: never Patient Tobacco Use Status: Never used Tobacco e-Cigarette/Vaping Use: Never Used Second Hand Smoke Exposure: No service: No Current occupational status: disabled Cognitive needs: No Hearing needs: No Vision needs: Yes (Glasses) Review of Systems Const Reports daytime sleepiness and Denies night sweats ENT Denies change in voice, Denies lip swelling, Denies mouth pain, Reports nasal congestion, Reports nasal discharge and Denies tongue swelling Card Denies chest pain Resp Reports cough GI Denies abdominal pain Musc Reports arthralgias, Reports joint swelling and Reports limited range of motion Neuro Denies Neuro-related abnormal movements Psych Denies no additional complaints Gilberto/Lymph Denies easy bleeding and Denies lymphadenopathy Aller/Immun Denies lip swelling and Denies tongue swelling Physical Exam Vital Signs: Last Vital Signs Pulse 83 01/19/23 10:28 BP 132/60 01/19/23 10:28 Pulse Ox 97 01/19/23 10:28 Oxygen Delivery Method Room Air 01/19/23 10:28 BMI result Body Mass Index 28.9 Const General: alert Neck Neck: Yes normal visual inspection, Yes full ROM and Yes no lymphadenopathy Chest Chest palpation & inspection: normal inspection of the chest Resp Auscultation: diminished lung sounds Cardio Rate: regular rate Rhythm: regular rhythm Heart sounds: S1 normal heart sound present and S2 normal heart sound present GI Palpation (GI): Soft to palpation and nontender Auscultation: normal bowel sounds Skin General skin exam: rashes and/or lesions noted Assessment & Plan Assessment & Plan (1) Pulmonary nodule: Code(s): R91.1 - Solitary pulmonary nodule (2) Asthma: Code(s): J45.909 - Unspecified asthma, uncomplicated Qualifiers: Asthma complication type: uncomplicated Asthma persistence: intermittent Asthma severity: mild Qualified Code(s): J45.20 - Mild intermittent asthma, uncomplicated (3) Chronic cough: Comment: Aggravated by covid 19 Code(s): R05.3 - Chronic cough Plan Continue RIAN as needed continue singulair Start Benzonate as needed for cough, provided GoodRx card CT chest F/U 6 months Orders: Orders CT chest wo IV con Today R91.1 - Solitary pulmonary nodule Medications: New benzonatate 200 mg PO BID PRN 30 caps 6RF cough 30 days benzonatate 200 mg PO BID 30 days PRN 30 caps 6RF cough Coding Level of Care Code Est Pt Level 4 (65723) Diagnoses Pulmonary nodule R91.1 Mild intermittent asthma without complication J45.20 Asthma complication type: uncomplicated Asthma persistence: intermittent Asthma severity: mild Chronic cough R05.3 Time Spent (min) 18
[2023-01-19 10:28] VITALS: BP 132/60; PULSE 83; O2SAT 97; BMI 28.9
== END 2023-01-19 10:50 | disposition home or self-care (01) ==
PROVIDERS: PCP Internal Medicine; Visit Provider Hospitalist
DX: R91.1 Solitary pulmonary nodule (principal); J45.20 Mild intermittent asthma, uncomplicated; R05.3 Chronic cough
CPT/HCPCS: 99214

== ENCOUNTER → 2023-01-19 10:18 | Outpatient (BNVA) | payer OTHER, SELFPAY | PROVIDERS: PCP Internal Medicine; Visit Provider Hospitalist | DX: J45.20 Mild intermittent asthma, uncomplicated (principal); R91.1 Solitary pulmonary nodule; R05.3 Chronic cough | CPT/HCPCS: 99212 ==

== ENCOUNTER 2023-01-20 08:50 | Outpatient (AMB) | payer OTHER, MEDICAID, SELFPAY ==
--- NOTE | 2023-01-20 08:56 | MHC.OFFVIS ---
Intake Vital Signs 01/20/23 08:58 Height 4 ft 11 in Weight 141 lb 1.533 oz BMI 28.5 BP 138/72 Intake Visit Reasons: Vulvar burning Intake Note: c/o of vaginal burning Commodity Industry Analyst Required: No Information Interpreted: non-clinical & clinical Digital Sales Executive: Digital Sales Executive Present (Shereen Meng CASTRO) Accompanied by: Self / Same As Patient Allergies codeine [CODEINE] Allergy (Severe, Verified 01/20/23 09:03) SWELLING doxycycline Allergy (Severe, Verified 01/20/23 09:03) nauseas erythromycin base [ERYTHROMYCIN BASE] Allergy (Severe, Verified 01/20/23 09:03) SWELLING morphine [MORPHINE] Allergy (Severe, Verified 01/20/23 09:03) ANAPHYLAXIS penicillin V Allergy (Severe, Verified 01/20/23 09:03) Swelling Eyes simvastatin Allergy (Severe, Verified 01/20/23 09:03) Nerve Inflammation aspirin [ASPIRIN] Allergy (Intermediate, Verified 01/20/23 09:03) chest tightness lisinopril [LISINOPRIL] Allergy (Intermediate, Verified 01/20/23 09:03) COUGH cyclobenzaprine Adverse Reaction (Intermediate, Verified 01/20/23 09:03) SOB, dry mouth/ throat [employer] Saline Allergy (Severe, Uncoded 01/20/23 09:03) Redness ZYVA Allergy (Severe, Uncoded 01/20/23 09:03) NERVE INFLAMMATION Post menopausal: Yes HPI HPI Comments History of Present Illness Details The patient is presenting referred from her PCP regarding bilateral vulvar burning over the last few weeks no associated vaginal discharge or odor PFSH Medical History Chronic cough Muscle tear CKD (chronic kidney disease) Pure hypercholesterolemia Postmenopausal Microalbuminuria Effusion, right knee GERD (gastroesophageal reflux disease) Right knee pain Anemia Axillary lymphadenopathy Breast mass Essential hypertension Dyslipidemia Lymphadenopathy Asthma High cholesterol HTN (hypertension) Diabetes mellitus Surgical History History of esophagogastroduodenoscopy (EGD) Hx of colonoscopy History of tubal ligation History of umbilical hernia repair History of tonsillectomy Family History Father No problems noted. Mother No problems noted. Social History Housing: Apartment Are you a primary pharmacist critical care to a significant other at home: No Do you presently have visiting nurse or other home services: No Alcohol intake: never Patient Tobacco Use Status: Never used Tobacco e-Cigarette/Vaping Use: Never Used Second Hand Smoke Exposure: No service: No Current occupational status: disabled Cognitive needs: No Hearing needs: No Vision needs: Yes (Glasses) Review of Systems Const All systems reviewed & are unremarkable except as noted in HPI and below Physical Exam Vital Signs: Last Vital Signs BP 138/72 01/20/23 08:58 BMI result Body Mass Index 28.5 General: Yes no CVA tenderness External Female Exam: normal external appearance and normal appearance of the urethra Speculum Exam - Vagina: normal appearance of the vagina, normal palpation, no lesions and no masses Speculum Exam - Cervix: normal appearance of the cervix, normal palpation, no lesions, no masses and nontender Bimanual exam- vagina & uterus: normal bimanual exam, normal palpation, uterine size normal, normal palpation, uterine shape normal, No Cervical tenderness present and non-tender Bimanual Exam- Adnexa, other: normal adnexae Back/Spine/Pelvis Back: no CVA tenderness Assessment & Plan Assessment & Plan (1) Burning sensation of vulva: Code(s): N94.89 - Other specified conditions associated with female genital organs and menstrual cycle Plan Discussed with the patient the findings on pelvic exam showing no evidence of vulvar skin changes, atrophic vagina otherwise unremarkable. Differential diagnosis discussed with the patient included but not limited to atrophic vaginitis, candidal vulvovaginitis since the patient is diabetic given the patient's external vulvar skin inspection is within normal with no evidence of leukoplakia or other skin inflammatory or non inflammatory disorders. GC/CT with BV panel collected will treat with Terazol 0.8% q.h.s. for 3 days with Lotrisone cream b.i.d. for 5 days and follow-up in 1 week if the patient does not improve by then will consider counseling the patient regarding estrogen vaginal cream for possible atrophic vaginitis. All questions answered, the patient verbalized understanding and agreed with the plan Orders: Orders CT NG by PCR Today R10.2 - Pelvic and perineal pain Bacterial Vaginosis Panel Today R10.2 - Pelvic and perineal pain Medications: New terconazole 0.8% 1 appful vaginal BEDTIME 20 grams 0RF 3 days clotrimazole-betamethasone 1-0.05 % 1 appl topical BID 45 grams 0RF 5 days Coding Level of Care Code New Pt Level 3 (08310) Diagnoses Burning sensation of vulva N94.89
[2023-01-20 08:58] VITALS: BP 138/72; BMI 28.5
== END 2023-01-20 09:30 | disposition home or self-care (01) ==
PROVIDERS: PCP Internal Medicine; Visit Provider Obstetrics & Gynecology
DX: N94.89 Other specified conditions associated with female genital organs and menstrual cycle (principal)
CPT/HCPCS: 99203

== ENCOUNTER 2023-01-20 08:50 | Outpatient (REF) | payer OTHER, SELFPAY ==
[2023-01-20 16:44] LABS: CT PCR NOT DETECTED (Not Detect.); NG PCR NOT DETECTED (Not Detect.)
[2023-01-21 14:29] LABS: BV Int Neg Control Negative (Negative); BV Int Pos Control Positive (Positive)
== END 2023-01-20 08:51 | disposition home or self-care (01) ==
LOC: HO.LNP 08:50
PROVIDERS: PCP Internal Medicine; Visit Provider Obstetrics & Gynecology
DX: R10.2 Pelvic and perineal pain (principal); N94.89 Other specified conditions associated with female genital organs and menstrual cycle
CPT/HCPCS: 0353U; 87480; 87510; 87660

== ENCOUNTER 2023-01-27 08:39 | Outpatient (AMB) | payer OTHER, SELFPAY ==
--- NOTE | 2023-01-27 08:53 | MHC.OFFVIS ---
Intake Vital Signs 01/27/23 08:54 Height 4 ft 11 in Weight 141 lb BMI 28.5 BP 130/80 Intake Visit Reasons: Follow vaginal itch Mason Apprentice Required: No Information Interpreted: non-clinical & clinical Retail Training Manager: Retail Training Manager Present (Aidyn) Allergies codeine [CODEINE] Allergy (Severe, Verified 01/27/23 08:55) SWELLING doxycycline Allergy (Severe, Verified 01/27/23 08:55) nauseas erythromycin base [ERYTHROMYCIN BASE] Allergy (Severe, Verified 01/27/23 08:55) SWELLING morphine [MORPHINE] Allergy (Severe, Verified 01/27/23 08:55) ANAPHYLAXIS penicillin V Allergy (Severe, Verified 01/27/23 08:55) Swelling Eyes simvastatin Allergy (Severe, Verified 01/27/23 08:55) Nerve Inflammation aspirin [ASPIRIN] Allergy (Intermediate, Verified 01/27/23 08:55) chest tightness lisinopril [LISINOPRIL] Allergy (Intermediate, Verified 01/27/23 08:55) COUGH cyclobenzaprine Adverse Reaction (Intermediate, Verified 01/27/23 08:55) SOB, dry mouth/ throat [employer] Saline Allergy (Severe, Uncoded 01/27/23 08:55) Redness ZYVA Allergy (Severe, Uncoded 01/27/23 08:55) NERVE INFLAMMATION Is last menstrual period known: No Post menopausal: Yes Patient : No HPI HPI Comments History of Present Illness Details Presenting for follow-up vulvovaginal itching of the patient took Terazol 0.8% q.h.s. with Lotrisone cream for 3 days and has improved markedly and all her symptoms has resolved PFSH Medical History Chronic cough Muscle tear CKD (chronic kidney disease) Pure hypercholesterolemia Postmenopausal Microalbuminuria Effusion, right knee GERD (gastroesophageal reflux disease) Right knee pain Anemia Axillary lymphadenopathy Breast mass Essential hypertension Dyslipidemia Lymphadenopathy Asthma High cholesterol HTN (hypertension) Diabetes mellitus Surgical History History of esophagogastroduodenoscopy (EGD) Hx of colonoscopy History of tubal ligation History of umbilical hernia repair History of tonsillectomy Family History Father No problems noted. Mother No problems noted. Social History Housing: Apartment Are you a primary day care assistant to a significant other at home: No Do you presently have visiting nurse or other home services: No Alcohol intake: never Patient Tobacco Use Status: Never used Tobacco e-Cigarette/Vaping Use: Never Used Second Hand Smoke Exposure: No Patient : No service: No Current occupational status: disabled Cognitive needs: No Hearing needs: No Vision needs: Yes (Glasses) Female Reproductive History Menstrual control method: permanent sterilization Review of Systems Const All systems reviewed & are unremarkable except as noted in HPI and below Physical Exam Vital Signs: Last Vital Signs BP 130/80 01/27/23 08:54 BMI result Body Mass Index 28.5 General: Yes no CVA tenderness External Female Exam: normal external appearance and normal appearance of the urethra Speculum Exam - Vagina: normal appearance of the vagina, normal palpation, no lesions and no masses Speculum Exam - Cervix: normal appearance of the cervix, normal palpation, no lesions, no masses and nontender Bimanual exam- vagina & uterus: normal bimanual exam, normal palpation, uterine size normal, normal palpation, uterine shape normal, No Cervical tenderness present and non-tender Bimanual Exam- Adnexa, other: normal adnexae Back/Spine/Pelvis Back: no CVA tenderness Assessment & Plan Assessment & Plan (1) Burning sensation of vulva: Code(s): N94.89 - Other specified conditions associated with female genital organs and menstrual cycle Plan: Resolved Plan Discussed the patient the normal finding on pelvic exam, , the patient was reassured. Instruction given to patient to call in case symptoms recur. All questions answered, the patient verbalized understanding. Coding Level of Care Code Est Pt Level 3 (99150) Diagnoses Burning sensation of vulva N94.89
[2023-01-27 08:54] VITALS: BP 130/80; BMI 28.5
== END 2023-01-27 09:16 | disposition home or self-care (01) ==
PROVIDERS: PCP Internal Medicine; Visit Provider Obstetrics & Gynecology
DX: N94.89 Other specified conditions associated with female genital organs and menstrual cycle (principal)
CPT/HCPCS: 99213

== ENCOUNTER → 2023-01-27 08:39 | Outpatient (BNVA) | payer OTHER, SELFPAY | PROVIDERS: PCP Internal Medicine; Visit Provider Obstetrics & Gynecology | DX: N94.89 Other specified conditions associated with female genital organs and menstrual cycle (principal) | CPT/HCPCS: 99212 ==

== ENCOUNTER 2023-02-16 10:17 | Outpatient (REF) | payer OTHER, SELFPAY ==
--- NOTE | ~2023-02-16 | CT_ITS ---
EXAMINATION: CT CHEST WITHOUT CONTRAST CLINICAL INFORMATION: Solitary pulmonary nodule. COMPARISON: CT chest dated 01/20/2021 and 07/18/2020.. TECHNIQUE: Multidetector volumetric CT imaging of the chest was done. Axial MIP volume rendering provided. Sagittal and coronal reformatted images were obtained. This CT examination was performed using dose optimization techniques as appropriate, variously including the following: *Automated exposure control *Adjustment of mA and/or kV according to patient size (this includes techniques or standardized protocols for targeted exams where dose is matched to indication/reason for exam; i.e. extremities or head) *Use of iterative reconstruction technique DLP: 148 mGy-cm FINDINGS: HAND EDGER: The lungs are symmetrically well-expanded and grossly clear. LUNGS: There are scattered bilateral benign, calcified granulomas. At the medial right apex (5:92 and 150), 2 mm and 3 mm noncalcified nodules are seen. Within the posterior segment of the right upper lobe (5:218), a 4 mm ovoid noncalcified nodule is seen. Within the anterior segment of the right upper lobe (5:54), a 2 mm noncalcified nodule seen. These nodules are all stable from 07/20/2020, and they are considered benign. No new nodule is seen. No mass, infiltrate or groundglass opacity seen. There is no generalized increase in peripheral septal markings. No bleb or bullous formation is seen. There is no small airway thickening. The central airways appear patent. MEDIASTINUM: The thyroid is unremarkable. There is no thoracic aortic aneurysm. There are atherosclerotic calcifications of the great vessel origins and thoracic aorta. No mediastinal or hilar lymphadenopathy is seen. . CORONARY ARTERY CALCIFICATION: Moderate. PLEURA: There is no pleural effusion. No pleural mass or thickening. AXILLA: No lymphadenopathy. UPPER ABDOMEN: The gallbladder is surgically absent. The adrenal glands are unremarkable. OSSEOUS STRUCTURES: There is multi-level mild lower cervical and thoracic spondylosis. No acute or aggressive osseous abnormality is seen CT/CT chest wo IV con IMPRESSION: Benign, stable examination. There are stable noncalcified and calcified pulmonary nodules. No new nodule, mass, infiltrate or groundglass opacity is seen. There is no generalized increase in peripheral interlobular septal markings. No new mediastinal or lymphadenopathy is seen. There are mild degenerative changes of the spine, without aggressive osseous lesion seen. Fleischner guidelines were followed.
== END 2023-02-16 10:18 | disposition home or self-care (01) ==
LOC: HO.CT 10:17
PROVIDERS: PCP Internal Medicine; Visit Provider Hospitalist
DX: R91.1 Solitary pulmonary nodule (principal)
CPT/HCPCS: 71250

== ENCOUNTER 2023-03-22 10:45 | Outpatient (AMB) | payer OTHER, SELFPAY ==
[2023-03-22 10:50] VITALS: BP 146/60; BMI 29.7
--- NOTE | 2023-03-22 10:50 | A.OFFPC_ITS ---
Vital Signs 03/22/23 10:50 03/22/23 11:39 Height 4 ft 11 in Weight 147 lb BMI 29.7 BP 146/60 H 140/60 H Blood Pressure Location Lt brachial Lt brachial Position Sitting Sitting Intake Visit Reasons: dm Intake Note: Patient here for a follow up DM Accreditation Manager Required: No Accompanied by: Self / Same As Patient Allergies codeine [CODEINE] Allergy (Severe, Verified 03/22/23 11:01) SWELLING doxycycline Allergy (Severe, Verified 03/22/23 11:01) nauseas erythromycin base [ERYTHROMYCIN BASE] Allergy (Severe, Verified 03/22/23 11:01) SWELLING morphine [MORPHINE] Allergy (Severe, Verified 03/22/23 11:01) ANAPHYLAXIS penicillin V Allergy (Severe, Verified 03/22/23 11:01) Swelling Eyes simvastatin Allergy (Severe, Verified 03/22/23 11:01) Nerve Inflammation aspirin [ASPIRIN] Allergy (Intermediate, Verified 03/22/23 11:01) chest tightness lisinopril [LISINOPRIL] Allergy (Intermediate, Verified 03/22/23 11:01) COUGH cyclobenzaprine Adverse Reaction (Intermediate, Verified 03/22/23 11:01) SOB, dry mouth/ throat [employer] Saline Allergy (Severe, Uncoded 03/22/23 11:01) Redness ZYVA Allergy (Severe, Uncoded 03/22/23 11:01) NERVE INFLAMMATION Medication List - Last Reconciled 03/22/23 by Lita Flores MD acetaminophen 500 mg PO BID PRN 30 days albuterol sulfate 90 mcg/actuation 2 inhalations inhalation Q6H PRN 30 days amlodipine 10 mg PO DAILY 90 days benzonatate 200 mg PO BID PRN 30 days blood sugar diagnostic ([employer] Verio test strips) 1 strip miscellaneous DAILY 90 days cholecalciferol (vitamin D3) 50 mcg PO DAILY 90 days clotrimazole-betamethasone 1-0.05 % 1 appl topical BID 5 days ezetimibe 10 mg PO DAILY famotidine 20 mg PO BID PRN gabapentin 300 mg PO BID glipizide 10 mg (2 x 5 mg) PO BID hydralazine 25 mg PO TID 90 days lancets ([employer] Delica Plus Lancet) 30 gauge miscellaneous DAILY 90 days lidocaine HCl 4% (Aspercreme (lidocaine HCl)) 1 appl topical BID PRN meclizine 25 mg PO TID PRN montelukast 10 mg PO DAILY multivitamin (Daily Multi-Vitamin tablet) 1 tab PO QAM 30 days omeprazole 20 mg PO BID 30 days rosuvastatin 40 mg PO DAILY 90 days terconazole 0.8% 1 appful vaginal BEDTIME 3 days Tobacco use date assessed: 07/07/22 Fall risk assessment: No Falls in past year Last assessed Fall Risk: 03/22/23 Dental Screening Dental Screen Date: 03/22/23 Did you have a dental visit in the last 12 months?: Yes Did you have a dental problem in the last 6 months where you did not have access to dental care?: No Was dental information given to patient?: Patient has dentist HPI HPI Comments History of Present Illness Details This is a 77-year-old female with diabetes mellitus type 2, hypertension, dyslipidemia and GERD that comes today for follow-up on her condi tions. A1c within goal. Blood pressure borderline normal to elevated. Blood pressure goal is less than 130/80. Last LDL was elevated and dietary changes were advised. GERD stable with PPIs as needed. Complains of macular skin lesions in the right arm and back that started to be itchy 2 months ago. Will be referred to dermatology. [facility] Medical History Chronic cough Muscle tear CKD (chronic kidney disease) Pure hypercholesterolemia Postmenopausal Microalbuminuria Effusion, right knee GERD (gastroesophageal reflux disease) Right knee pain Anemia Axillary lymphadenopathy Breast mass Essential hypertension Dyslipidemia Lymphadenopathy Asthma High cholesterol HTN (hypertension) Diabetes mellitus Surgical History History of esophagogastroduodenoscopy (EGD) Hx of colonoscopy History of tubal ligation History of umbilical hernia repair History of tonsillectomy Family History Father No problems noted. Mother No problems noted. Social History Housing: Apartment Are you a primary senior care specialist to a significant other at home: No Do you presently have visiting nurse or other home services: No Alcohol intake: never Patient Tobacco Use Status: Never used Tobacco e-Cigarette/Vaping Use: Never Used Second Hand Smoke Exposure: No service: No Current occupational status: disabled Cognitive needs: No Hearing needs: No Vision needs: Yes (Glasses) Questionnaire Thrive Questionnaire Date Thrive assessed: 05/11/22 UV-7 AMB Questionnaire VU-7 Date VU - 7 assessed: 07/07/22 Source: Developed by Drs. Ezequiel Diaz, Gaby Hwang, Antoine Guerrero and colleagues, with an educational mildred from [employer]. Review of Systems Const All systems reviewed & are unremarkable except as noted in HPI and below Eyes Reports no additional complaints, Denies change in vision and Denies other visual disturbances Card Denies chest pain at rest, Denies chest pain with activity, Denies edema, Denies irregular heart rhythm, Denies claudication, Denies dyspnea, Denies dyspnea on exertion, Denies orthopnea, Denies paroxysmal nocturnal dyspnea and Denies slow heart rate Resp Denies cough, Denies dyspnea and Denies dyspnea on exertion GI Denies abdominal pain, Denies change in bowel habits, Denies excessive flatus, Denies nausea and Denies vomiting Denies urinary incontinence, Denies urinary hesitancy and Denies urinary urgency Musc Denies atrophy, Denies deformity and Denies limited range of motion Skin/Breast Reports changing lesions and Denies rash Physical exam (Primary Care) Vital Signs: Last Vital Signs BP 146/60 H 03/22/23 10:50 BMI result Body Mass Index 29.7 Tobacco/Smoking Status: Tobacco use Status Tobacco use date assessed 07/07/22 03/22/23 10:50 Patient Tobacco Use Status Never used Tobacco 03/22/23 10:50 e-Cigarette/Vaping Use Never Used 03/22/23 10:50 Thrive Assessment: Date of Thrive Assessment Date Thrive assessed 05/11/22 03/22/23 10:50 Eyes General: appearance normal, both eyes and all related structures Eyelids: Yes eyelids normal Conjunctivae: conjunctivae normal Neck Neck: Yes normal visual inspection and Yes supple Resp Effort & Inspection: normal respiratory effort Auscultation: clear to auscultation bilaterally Cardio Jugular venous distension: no JVD Rate: regular rate Rhythm: regular rhythm Heart sounds: S1 normal heart sound present and S2 normal heart sound present Skin Other: macular sanford lesions that are pruritic in right arm and back Extrem General: Yes full ROM Office Procedures Flu Questionnaire Does the patient have a severe egg allergy?: No Results AMB Hemoglobin A1c AMB Hemoglobin A1c 6.8 % Last Edit by CASTRO Oneill on 03/22/23 11:0 0 Immunizations flu vacc [id number] 6mos up(PF) 60 mcg(15 mcgx4)/0.5 mL IM syringe Performing Provider: Lita Flores MD [facility] Documented (not given) by: CASTRO Oneill on 03/22/23 10:50 Reason Not Given: Patient Refused Results Reviewed Results Reviewed: Laboratory Last Values Hgb A1c (Clinic) 6.8 % (4.0-6.0) H 03/22/23 10:49 Assessment and Plan Assessment & Plan (1) Diabetes mellitus: Code(s): E11.9 - Type 2 diabetes mellitus without complications Qualifiers: Diabetes mellitus type: type 2 Diabetes mellitus tank terminal gauger insulin use: without tank terminal gauger use Diabetes mellitus complication status: with hyperglycemia Qualified Code(s): E11.65 - Type 2 diabetes mellitus with hyperglycemia Plan: Continue glipizide. A1c goal is equal or less than 7%. (2) Dyslipidemia: Code(s): E78.5 - Hyperlipidemia, unspecified Plan: Continue statins and Zetia. Started low-cholesterol diet. LDL goal is less than 70. (3) Essential hypertension: Code(s): I10 - Essential (primary) hypertension Plan: Continue hydralazine and amlodipine. Blood pressure goal is equal or less than 130/80. (4) GERD (gastroesophageal reflux disease): Code(s): K21.9 - Gastro-esophageal reflux disease without esophagitis Plan: Continue PPIs as needed. Orders: Orders AMB Hemoglobin A1c Today E11.9 - Type 2 diabetes mellitus without complications Lipid Panel 4 Months E78.5 - Hyperlipidemia, unspecified Complete Blood Count Auto Diff 4 Months D64.9 - Anemia, unspecified IRON PROFILE 4 Months D64.9 - Anemia, unspecified Vitamin D 25-OH Total 4 Months E55.9 - Vitamin D deficiency, unspecified Lipoprotein A Today E78.00 - Pure hypercholesterolemia, unspecified Apolipoprotein B Today E78.00 - Pure hypercholesterolemia, unspecified Influenza [id number] Immunization Today Z23 - Encounter for immunization Comprehensive [place]. Panel Fast 4 Months E78.00 - Pure hypercholesterolemia, unspecified Lipoprotein Asso Phospholip A2 Today E78.00 - Pure hypercholesterolemia, unspecified Referrals Dermatology Referral L98.9 - Disorder of the skin and subcutaneous tissue, unspecified Coding Level of Care Code Est Pt Level 4 (72892) Diagnoses Type 2 diabetes mellitus with hyperglycemia, without long-term current use of insulin E11.65 Diabetes mellitus type: type 2 Diabetes mellitus prison insulin use: without tank terminal gauger use Diabetes mellitus complication status: with hyperglycemia Dyslipidemia E78.5 Essential hypertension I10 Gastroesophageal reflux disease, unspecified whether esophagitis present K21.9 Time Spent (min) 24
[2023-03-22 11:39] VITALS: BP 140/60
== END 2023-03-22 11:08 | disposition home or self-care (01) ==
PROVIDERS: PCP Internal Medicine; Visit Provider Internal Medicine
DX: E11.65 Type 2 diabetes mellitus with hyperglycemia (principal); E78.5 Hyperlipidemia, unspecified; I10 Essential (primary) hypertension; K21.9 Gastro-esophageal reflux disease without esophagitis
CPT/HCPCS: 83036; 99214

== ENCOUNTER 2023-07-15 10:00 | Outpatient (AMB) | payer OTHER, MEDICAID, SELFPAY ==
[2023-07-15 10:19] VITALS: BP 142/64; BMI 29.7
--- NOTE | 2023-07-15 10:19 | A.OFFPC_ITS ---
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: No Accompanied by: Self / Same As Patient Allergies codeine [CODEINE] Allergy (Severe, Verified 07/15/23 10:38) SWELLING doxycycline Allergy (Severe, Verified 07/15/23 10:38) nauseas erythromycin base [ERYTHROMYCIN BASE] Allergy (Severe, Verified 07/15/23 10:38) SWELLING morphine [MORPHINE] Allergy (Severe, Verified 07/15/23 10:38) ANAPHYLAXIS penicillin V Allergy (Severe, Verified 07/15/23 10:38) Swelling Eyes simvastatin Allergy (Severe, Verified 07/15/23 10:38) Nerve Inflammation aspirin [ASPIRIN] Allergy (Intermediate, Verified 07/15/23 10:38) chest tightness lisinopril [LISINOPRIL] Allergy (Intermediate, Verified 07/15/23 10:38) COUGH cyclobenzaprine Adverse Reaction (Intermediate, Verified 07/15/23 10:38) SOB, dry mouth/ throat [employer] Saline Allergy (Severe, Uncoded 07/15/23 10:38) Redness ZYVA Allergy (Severe, Uncoded 07/15/23 10:38) NERVE INFLAMMATION Medication List - Last Reconciled 07/15/23 by Lita Flores MD acetaminophen 500 mg PO BID PRN 30 days albuterol sulfate 90 mcg/actuation 2 inhalations inhalation Q6H PRN 30 days amlodipine 10 mg PO DAILY 90 days benzonatate 200 mg PO BID PRN 30 days blood sugar diagnostic ([email or web address] Verio test strips) 1 strip miscellaneous DAILY 90 days cholecalciferol (vitamin D3) 50 mcg PO DAILY 90 days clotrimazole-betamethasone 1-0.05 % 1 appl topical BID 5 days ezetimibe 10 mg PO DAILY famotidine 20 mg PO BID PRN gabapentin 300 mg PO BID glipizide 10 mg (2 x 5 mg) PO BID hydralazine 25 mg PO TID 90 days lancets ([employer] Delica Plus Lancet) 30 gauge miscellaneous DAILY 90 days lidocaine HCl 4% (Aspercreme (lidocaine HCl)) 1 appl topical BID PRN meclizine 25 mg PO TID PRN 30 days montelukast 10 mg PO DAILY multivitamin (Daily Multi-Vitamin tablet) 1 tab PO QAM 30 days omeprazole 20 mg PO BID 30 days prednisone 10 mg PO DIRECTED 8 days rosuvastatin 40 mg PO DAILY 90 days terconazole 0.8% 1 appful vaginal BEDTIME 3 days Tobacco use date assessed: 07/15/23 Fall risk assessment: No Falls in past year Last assessed Fall Risk: 07/15/23 Dental Screening Dental Screen Date: 07/15/23 Did you have a dental visit in the last 12 months?: No Did you have a dental problem in the last 6 months where you did not have access to dental care?: No Was dental information given to patient?: Patient has dentist HPI HPI Comments History of Present Illness Details This is a 77-year-old female with diabetes mellitus type 2 that comes for her physical exam. A1c slightly elevated today and I will add Actos. 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 Mammogram was done less than a year ago. Colonoscopy done 2022. No chest pain or shortness of breath. Blood pressure borderline normal to elevated and will be recheck in 3 weeks by nurse navigator. [facility] Medical History Chronic cough Muscle tear CKD (chronic kidney disease) Pure hypercholesterolemia Postmenopausal Microalbuminuria Effusion, right knee GERD (gastroesophageal reflux disease) Right knee pain Anemia Axillary lymphadenopathy Breast mass Essential hypertension Dyslipidemia Lymphadenopathy Asthma High cholesterol HTN (hypertension) Diabetes mellitus Surgical History History of esophagogastroduodenoscopy (EGD) Hx of colonoscopy History of tubal ligation History of umbilical hernia repair History of tonsillectomy Family History Father No problems noted. Mother No problems noted. Social History Housing: Apartment Are you a primary child care education coordinator to a significant other at home: No Do you presently have visiting nurse or other home services: No Alcohol intake: never Patient Tobacco Use Status: Never used Tobacco e-Cigarette/Vaping Use: Never Used Second Hand Smoke Exposure: No service: No Current occupational status: disabled Cognitive needs: No Hearing needs: No Vision needs: Yes (Glasses) Questionnaire PHQ-9 Over the last 2 weeks, how often have you been bothered by any of the following problems? 1. Little interest or pleasure in doing things: not at all 2. Feeling down, depressed, or hopeless: several days 3. Trouble falling or staying asleep, or sleeping too much: not at all 4. Feeling tired or having little energy: not at all 5. Poor appetite or overeating: not at all 6. Feeling bad about yourself - or that you are a failure or have let yourself or your family down: not at all 7. Trouble concentrating on things, such as reading the newspaper or watching television: not at all 8. Moving or speaking so slowly that other people could have noticed. Or the opposite - being so fidgety or restless that you have been moving around a lot more than usual: not at all 9. Thoughts that you would be better off or of hurting yourself in some w ay: not at all Total score: 1 Depression Screening Interpretation: Negative Depression Screening Done: Yes 55746 - PHQ-9 Billing: Yes Source: Developed by Drs. Ezequiel Diaz, Gaby Hwang, Antoine Guerrero and colleagues, with an educational mildred from [employer]. Thrive Questionnaire Date Thrive assessed: 07/15/23 I am a: Patient What is your living situation today?: I have a steady place to live Within the past 12 months, did the food you bought not last and you didn't have the money to get more?: Never true Within the past 12 months, did you worry whether your food would run out before you got money to buy more?: Never true Do you have trouble paying for medicines?: No Do you have trouble getting transportation to medical appointments?: No Do you have trouble paying your heating and electricity bill?: No Do you have trouble taking care of your child, family member or friend?: No Do you have trouble with day-to-day activities such as bathing, preparing meals, shopping, managing finances, etc.?: No Are you currently unemployed and looking for a job?: No Are you interested in more education?: No Please select the resources that you would like help with: None Currently or been in a relationship where the following occur: no concerns reported THRIVE Score: 0 AUDIT C Alcohol Use Questionnaire (AUDIT-C) 1. How often do you have a drink containing alcohol?: Never Total Score: 0 VU-7 AMB Questionnaire VU-7 Date VU - 7 assessed: 07/15/23 Feeling nervous, anxious, or on edge: 1 = Several days Not being able to stop or control worryin = Not at all Worrying too much about different things: 1 = Several days Trouble relaxin = Not at all Being so restless that it is hard to sit still: 0 = Not at all Becoming easily annoyed or irritable: 0 = Not at all Feeling afraid as if something awful might happen: 0 = Not at all Total VU-7 score (0-4 normal; 5-9 mild; 10-14 moderate; 15-21 severe): 2 Source: Developed by Drs. Ezequiel Diaz, Gaby Hwang, Antoine Guerrero and colleagues, with an educational mildred from [employer]. VU-7 Assessment Billing VU-7 Assessment Tool: VU-7 Assessment 01519 Review of Systems Const All systems reviewed & are unremarkable except as noted in HPI and below Eyes Reports no additional complaints, Denies change in vision and Denies other visual disturbances Card Denies chest pain at rest, Denies chest pain with activity, Denies edema, Denies irregular heart rhythm, Denies claudication, Denies dyspnea, Denies dyspnea on exertion, Denies orthopnea, Denies paroxysmal nocturnal dyspnea and Denies slow heart rate Resp Denies cough, Denies dyspnea and Denies dyspnea on exertion GI Denies abdominal pain, Denies change in bowel habits, Denies excessive flatus, Denies nausea and Denies vomiting Denies urinary incontinence, Denies urinary hesitancy and Denies urinary urgency Physical exam (Primary Care) Vital Signs: Last Vital Signs BP 142/64 H 07/15/23 10:19 BMI result Body Mass Index 29.7 Tobacco/Smoking Status: Tobacco use Status Tobacco use date assessed 07/15/23 07/15/23 10:28 Patient Tobacco Use Status Never used Tobacco 07/15/23 10:28 e-Cigarette/Vaping Use Never Used 07/15/23 10:28 PHQ-9: PHQ-9 Score PHQ-9: Total score 1 07/15/23 10:51 Depression Screening Interpretation: Negative Thrive Assessment: Date of Thrive Assessment Date Thrive assessed 07/15/23 07/15/23 10:28 Currently or been in a relationship where the following occur: no concerns reported Const Orientation/consciousness: patient oriented x3 HENMT Head: Yes normal to inspection, Yes normocephalic and Yes atraumatic Ears: external ears normal Eyes General: appearance normal, both eyes and all related structures Eyelids: Yes eyelids normal Conjunctivae: conjunctivae normal Neck Neck: Yes normal visual inspection and Yes supple Resp Effort & Inspection: normal respiratory effort Auscultation: clear to auscultation bilaterally Cardio Jugular venous distension: no JVD Rate: regular rate Rhythm: regular rhythm Heart sounds: S1 normal heart sound present and S2 normal heart sound present GI Inspection: Yes normal to inspection Palpation (GI): Soft to palpation and nontender Auscultation: normal bowel sounds Skin General skin exam: no rashes or lesions noted Neuro General: patient oriented x3 and no focal motor deficits Extrem General: Yes full ROM Psych Appearance: grossly normal Results AMB Hemoglobin A1c AMB Hemoglobin A1c 7.2 % Last Edit by CASTRO Oneill on 07/15/23 10:2 9 Results Reviewed Results Reviewed: Laboratory Last Values Hgb A1c (Clinic) 7.2 % (4.0-6.0) H 07/15/23 10:28 Assessment and Plan Assessment & Plan (1) Physical exam: Code(s): Z00.00 - Encounter for general adult medical examination without abnormal findings Plan: Repeat in a year. (2) Diabetes mellitus: Code(s): E11.9 - Type 2 diabetes mellitus without complications Qualifiers: Diabetes mellitus complication status: with hyperglycemia Diabetes mellitus fpc insulin use: without termite helper use Diabetes mellitus type: type 2 Qualified Code(s): E11.65 - Type 2 diabetes mellitus with hyperglycemia Plan: Continue glipizide. Start Actos. A1c goal is equal or less than 7%. Orders: Orders AMB Hemoglobin A1c Today E11.9 - Type 2 diabetes mellitus without complications Lipid Panel Today E78.5 - Hyperlipidemia, unspecified Microalbumin, Random (w Creat) Today E11.9 - Type 2 diabetes mellitus without complications Vitamin D 25-OH Total Today E55.9 - Vitamin D deficiency, unspecified Comprehensive [place]. Panel Fast Today Z00.00 - Encounter for general adult medical examination without abnormal findings Medications: New pioglitazone 15 mg PO DAILY 90 tabs 1RF 90 days E11.9 - Type 2 diabetes mellitus without complications Coding Level of Care Code Est Pt Prev Care >65y(53795) Diagnoses Physical exam Z00.00 Type 2 diabetes mellitus with hyperglycemia, without long-term current use of insulin E11.65 Diabetes mellitus complication status: with hyperglycemia Diabetes mellitus termite helper insulin use: without fpc use Diabetes mellitus type: type 2 Additional Codes VU-7 Assessment Billing - VU-7 Assessment Tool: VU-7 Assessment [id number] ([id number]) Time Spent (min) 34
== END 2023-07-15 10:48 | disposition home or self-care (01) ==
PROVIDERS: Visit Provider Internal Medicine
DX: Z00.00 Encounter for general adult medical examination without abnormal findings (principal); E11.65 Type 2 diabetes mellitus with hyperglycemia; E11.9 Type 2 diabetes mellitus without complications
CPT/HCPCS: 83036; 99397

== ENCOUNTER 2023-07-19 10:47 | Outpatient (AMB) | payer OTHER, SELFPAY ==
--- NOTE | 2023-07-19 11:09 | MHC.OFFVIS ---
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 Allergies codeine [CODEINE] Allergy (Severe, Verified 07/19/23 11:11) SWELLING doxycycline Allergy (Severe, Verified 07/19/23 11:11) nauseas erythromycin base [ERYTHROMYCIN BASE] Allergy (Severe, Verified 07/19/23 11:11) SWELLING morphine [MORPHINE] Allergy (Severe, Verified 07/19/23 11:11) ANAPHYLAXIS penicillin V Allergy (Severe, Verified 07/19/23 11:11) Swelling Eyes simvastatin Allergy (Severe, Verified 07/19/23 11:11) Nerve Inflammation aspirin [ASPIRIN] Allergy (Intermediate, Verified 07/19/23 11:11) chest tightness lisinopril [LISINOPRIL] Allergy (Intermediate, Verified 07/19/23 11:11) COUGH cyclobenzaprine Adverse Reaction (Intermediate, Verified 07/19/23 11:11) SOB, dry mouth/ throat [employer] Saline Allergy (Severe, Uncoded 07/19/23 11:11) Redness ZYVA Allergy (Severe, Uncoded 07/19/23 11:11) NERVE INFLAMMATION HPI HPI Comments History of Present Illness Details The patient is a 77-year-old woman with a known history of asthma who apparently started developing significant neck pain. She initially went to her primary care doctor and ultimately had to go to the ER because the neck pain became so severe. She did undergo a CT scan of the neck while at the ER. Demonstrates significant degenerative disc disease in addition to significant neck spasms. She was given medications and she was set up with physical therapy. In the meantime she also had a CT scan of the chest that demonstrated multiple pulmonary nodules measuring from 1 mm to 5 mm in size. Some are calcified and some noncalcified. In addition to that she did have some axillary lymph nodes. I did ask her about mammograms and she has had abnormalities before requiring ultrasounds of her breast. Never had cancer. She was supposed to have a mammogram sometime back in the spring because of the pandemic it never happened. At this point will try to set her up to get back to her original plan to get a mammogram specially because of the lymphadenopathy. Patient also has asthma. She does take Singulair with good effect. Usually the change of seasons around spring and winter she started developing more symptoms. I will make sure she has a rescue inhaler available. 01/19/2023 the patient is here for a pulmonary follow-up visit. He has been a while since we last spoke. The patient had been under fairly well and that she developed COVID beginning of the year. After that she started developing a cough. The cough is nonproductive in nature moderate severe. Has not improved. Denies any chest tightness or wheezing. She denies any weight loss or night sweats. She denies any hemoptysis. She her allergies seem to be well controlled with Singulair. She also has a rescue inhaler. She has not had to use it. She also has a nebulizer that she has not used. The patient did have a CT scan of the chest back in 2020 demonstrating pulmonary nodules. The patient should indeed have a repeat CT scan to ensure the stability of the pulmonary nodules for least [address] scan does not show any evidence of any progression then she is down with any more serial CT scans. The patient will trial the Tessalon Perles. She understands that the not covered by the insurance but I will give her good Rx card and we did look at different pharmacies that would provide her with a prescription for low cost. She did take a [facility] issue [facility] If the patient's cough is not better she can always call the office for further evaluation. Otherwise follow-up in 6 months. However, her CT scan is abnormal I will call her to come in at earlier time. 07/19/2023 the patient is here for pulmonary follow-up visit. Overall the patient has been doing better. Her cough is overall better. She responded well to the singular and also the benzonates as needed. Her last CT scan of the chest was back in January 2023 which I personally reviewed. It appears that her pulmonary nodules have been stable now for some time and therefore does not need an additional testing at this time. The patient has had to use any respiratory therapy. She does have an albuterol inhaler as needed. Therefore, will go ahead and continue with the Tessalon Perles and she can take the Singulair seasonally specially now going to the spring season. She has any worsening issues she will call the office otherwise will follow-up in a year's time. [facility] Medical History (Updated 07/19/23 @ 22:34 by Manuel Love MD) Coronary artery calcification seen on CAT scan Chronic cough Muscle tear CKD (chronic kidney disease) Pure hypercholesterolemia Postmenopausal Microalbuminuria Effusion, right knee GERD (gastroesophageal reflux disease) Right knee pain Anemia Axillary lymphadenopathy Breast mass Essential hypertension Dyslipidemia Lymphadenopathy Asthma High cholesterol HTN (hypertension) Diabetes mellitus Surgical History History of esophagogastroduodenoscopy (EGD) Hx of colonoscopy History of tubal ligation History of umbilical hernia repair History of tonsillectomy Family History Father No problems noted. Mother No problems noted. Social History Housing: Apartment Are you a primary vehicle care specialist to a significant other at home: No Do you presently have visiting nurse or other home services: No Alcohol intake: never Patient Tobacco Use Status: Never used Tobacco e-Cigarette/Vaping Use: Never Used Second Hand Smoke Exposure: No service: No Current occupational status: disabled Cognitive needs: No Hearing needs: No Vision needs: Yes (Glasses) Review of Systems Const Reports daytime sleepiness and Denies night sweats ENT Denies change in voice, Denies lip swelling, Denies mouth pain, Reports nasal congestion, Reports nasal discharge and Denies tongue swelling Card Denies chest pain Resp Reports cough GI Denies abdominal pain Musc Reports arthralgias, Reports joint swelling and Reports limited range of motion Neuro Denies Neuro-related abnormal movements Psych Denies no additional complaints Gilberto/Lymph Denies easy bleeding and Denies lymphadenopathy Aller/Immun Denies lip swelling and Denies tongue swelling Physical Exam Vital Signs: Last Vital Signs Pulse 82 07/19/23 11:10 Pulse Ox 99 07/19/23 11:10 Oxygen Delivery Method Room Air 07/19/23 11:10 BMI result Body Mass Index 29.7 Const General: alert Neck Neck: Yes normal visual inspection, Yes full ROM and Yes no lymphadenopathy Chest Chest palpation & inspection: normal inspection of the chest Resp Auscultation: diminished lung sounds Cardio Rate: regular rate Rhythm: regular rhythm Heart sounds: S1 normal heart sound present and S2 normal heart sound present GI Palpation (GI): Soft to palpation and nontender Auscultation: normal bowel sounds Skin General skin exam: rashes and/or lesions noted Results Reviewed Results Reviewed: [address] [address] [address] Scan Report Signed Patient: Jocelyn Guevara MR#: [id number] : 1945 Acct:[id number] Age/Sex: 77 / F ADM Date: 02/16/23 Loc: HO.CT Attending Dr: Manuel Love MD Ordering Physician: Manuel Love MD Date of Service: 02/16/23 Procedure(s): CT chest wo IV con Accession Number(s): [id number] cc: Lita Ahmadi MD; Manuel Love MD~ EXAMINATION: CT CHEST WITHOUT CONTRAST CLINICAL INFORMATION: Solitary pulmonary nodule. COMPARISON: CT chest dated 01/20/2021 and 07/18/2020.. TECHNIQUE: Multidetector volumetric CT imaging of the chest was done. Axial MIP volume rendering provided. Sagittal and coronal reformatted images were obtained. This CT examination was performed using dose optimization techniques as appropriate, variously including the following: *Automated exposure control *Adjustment of mA and/or kV according to patient size (this includes techniques or standardized protocols for targeted exams where dose is matched to indication/reason for exam; i.e. extremities or head) *Use of iterative reconstruction technique DLP: 148 mGy-cm FINDINGS: REIMBURSEMENT SPEC: The lungs are symmetrically well-expanded and grossly clear. LUNGS: There are scattered bilateral benign, calcified granulomas. At the medial right apex (5:92 and 150), 2 mm and 3 mm noncalcified nodules are seen. Within the posterior segment of the right upper lobe (5:218), a 4 mm ovoid noncalcified nodule is seen. Within the anterior segment of the right upper lobe (5:54), a 2 mm noncalcified nodule seen. These nodules are all stable from 07/20/2020, and they are considered benign. No new nodule is seen. No mass, infiltrate or groundglass opacity seen. There is no generalized increase in peripheral septal markings. No bleb or bullous formation is seen. There is no small airway thickening. The central airways appear patent. MEDIASTINUM: The thyroid is unremarkable. There is no thoracic aortic aneurysm. There are atherosclerotic calcifications of the great vessel origins and thoracic aorta. No mediastinal or hilar lymphadenopathy is seen. . CORONARY ARTERY CALCIFICATION: Moderate. PLEURA: There is no pleural effusion. No pleural mass or thickening. AXILLA: No lymphadenopathy. UPPER ABDOMEN: The gallbladder is surgically absent. The adrenal glands are unremarkable. OSSEOUS STRUCTURES: There is multi-level mild lower cervical and thoracic spondylosis. No acute or aggressive osseous abnormality is seen CT/CT chest wo IV con IMPRESSION: Benign, stable examination. There are stable noncalcified and calcified pulmonary nodules. No new nodule, mass, infiltrate or groundglass opacity is seen. There is no generalized increase in peripheral interlobular septal markings. No new mediastinal or lymphadenopathy is seen. There are mild degenerative changes of the spine, without aggressive osseous lesion seen. Fleischner guidelines were followed. 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 Assessment & Plan Assessment & Plan (1) Pulmonary nodule: Code(s): R91.1 - Solitary pulmonary nodule (2) Asthma: Code(s): J45.909 - Unspecified asthma, uncomplicated Qualifiers: Asthma complication type: uncomplicated Asthma persistence: intermittent Asthma severity: mild Qualified Code(s): J45.20 - Mild intermittent asthma, uncomplicated (3) Chronic cough: Comment: Aggravated by covid 19 Code(s): R05.3 - Chronic cough (4) Coronary artery calcification seen on CAT scan: Code(s): I25.10 - Atherosclerotic heart disease of [place] coronary artery without angina pectoris Plan Continue RIAN as needed continue singulair Benzonate as needed for cough, provided GoodRx card CT chest stable nodules, no further serial F/U F/U with PCP re: Coronary artery atherosclerotic disease F/U 12 months Medications: New albuterol sulfate 90 mcg/actuation 2 inhalations inhalation Q6H PRN 18 grams 12RF shortness of breath or wheezing 30 days J44.9 - Chronic obstructive pulmonary disease, unspecified Refilled montelukast 10 mg PO DAILY 90 tabs 3RF benzonatate 200 mg PO BID PRN 30 caps 6RF cough 30 days Coding Level of Care Code Est Pt Level 4 (64116) Diagnoses Pulmonary nodule R91.1 Mild intermittent asthma without complication J45.20 Asthma complication type: uncomplicated Asthma persistence: intermittent Asthma severity: mild Chronic cough R05.3 Coronary artery calcification seen on CAT scan I25.10 Time Spent (min) 17
[2023-07-19 11:10] VITALS: PULSE 82; O2SAT 99; BMI 29.7
== END 2023-07-19 11:29 | disposition home or self-care (01) ==
PROVIDERS: PCP Internal Medicine; Visit Provider Hospitalist
DX: R91.1 Solitary pulmonary nodule (principal); J45.20 Mild intermittent asthma, uncomplicated; R05.3 Chronic cough; I25.10 Atherosclerotic heart disease of native coronary artery without angina pectoris
CPT/HCPCS: 99214

== ENCOUNTER → 2023-07-19 11:05 | Outpatient (BNVA) | payer OTHER, SELFPAY | PROVIDERS: PCP Internal Medicine; Visit Provider Hospitalist | DX: J45.20 Mild intermittent asthma, uncomplicated (principal); R05.3 Chronic cough; I25.10 Atherosclerotic heart disease of native coronary artery without angina pectoris | CPT/HCPCS: 99212 ==

== ENCOUNTER 2023-07-28 10:59 | Outpatient (REF) | payer OTHER, SELFPAY ==
[2023-07-28 13:02] LABS: Estimated Average Glucose 146 mg/dL; Hemoglobin A1c % 6.7 % (<6.0)
[2023-07-28 13:26] LABS: Anion Gap 10 (12-20); Blood Urea Nitrogen 16 mg/dL (9-16); Calcium 9.1 mg/dL (8.4-10.2); Carbon Dioxide 30 mmol/L (22-29); Chloride 108 mmol/L (96-108); Estimated Glomerular Filt Rate 48; Potassium 3.8 mmol/L (3.3-5.1); Sodium 144 mmol/L (135-145); Uric Acid 3.2 mg/dL (2.4-5.7)
[2023-07-28 15:07] LABS: Protein/Creatinine Ratio, Ur 0.09 (<0.2); Total Protein Urine Random 19 mg/dL (<12)
== END 2023-07-28 11:00 | disposition home or self-care (01) ==
LOC: HO.LAB 10:59
PROVIDERS: PCP Internal Medicine; Visit Provider Internal Medicine Nephrology
DX: I10 Essential (primary) hypertension (principal); E11.9 Type 2 diabetes mellitus without complications; N18.31 Chronic kidney disease, stage 3a; Z79.1 Long term (current) use of non-steroidal anti-inflammatories (NSAID)
CPT/HCPCS: 36415; 80051; 82310; 82565; 82570; 83036; 84156; 84520; 84550; 99212

== ENCOUNTER 2023-07-28 10:59 | Outpatient (AMB) | payer OTHER, SELFPAY ==
[2023-07-28 11:15] VITALS: BP 130/54; PULSE 83; O2SAT 97; BMI 30.3
--- NOTE | 2023-07-28 11:15 | HO.NEPHOV_ITS ---
HPI HPI Comments History of Present Illness Details I had the privilege of seeing Jocelyn in the office in follow-up of her chronic kidney disease on a backdrop of diabetes mellitus, hypertension and history of excess nonsteroidal anti-inflammatory medication use. She feels well. Her blood pressure has been well controlled. Her A1c has been less than 7. She does not have any chest pain, shortness of breath, hypoglycemia, pedal edema, hematuria, flank pain or orthostatic symptoms. She has mild arthritic pains but avoids NSAIDs. She tries to maintain good hydration. [facility] Medical History (Updated 07/28/23 @ 13:05 by Chao Gary MD) HTN (hypertension) Coronary artery calcification seen on CAT scan Chronic cough Muscle tear CKD (chronic kidney disease) Pure hypercholesterolemia Postmenopausal Microalbuminuria Effusion, right knee GERD (gastroesophageal reflux disease) Right knee pain Anemia Axillary lymphadenopathy Breast mass Essential hypertension Dyslipidemia Lymphadenopathy Asthma High cholesterol Diabetes mellitus Surgical History History of esophagogastroduodenoscopy (EGD) Hx of colonoscopy History of tubal ligation History of umbilical hernia repair History of tonsillectomy Family History Father No problems noted. Mother No problems noted. Social History Housing: Apartment Are you a primary rn wound care to a significant other at home: No Do you presently have visiting nurse or other home services: No Alcohol intake: never Patient Tobacco Use Status: Never used Tobacco e-Cigarette/Vaping Use: Never Used Second Hand Smoke Exposure: No service: No Current occupational status: disabled Cognitive needs: No Hearing needs: No Vision needs: Yes (Glasses) Vital Signs 07/28/23 11:15 Height 4 ft 11 in Weight 150 lb BMI 30.3 BP 130/54 L Blood Pressure Location Rt brachial Position Sitting Pulse 83 Pulse Source Pulse Oximeter Pulse Oximetry (%) 97 Oxygen Delivery Method Room Air Physical Exam Vital Signs: Last Vital Signs Pulse 83 07/28/23 11:15 BP 130/54 L 07/28/23 11:15 Pulse Ox 97 07/28/23 11:15 Oxygen Delivery Method Room Air 07/28/23 11:15 BMI result Body Mass Index 30.3 Const General: comfortable and no acute distress Orientation/consciousness: patient oriented x3 HEENT Head: Yes normocephalic Mouth: Normal oral and palatal mucosa present Eyes EOM: EOMs intact bilaterally Neck Neck: Yes supple Resp Auscultation: clear to auscultation bilaterally Cardio Jugular venous distension: no JVD Rate: regular rate GI Palpation (GI): Soft to palpation Auscultation: normal bowel sounds General: Yes no CVA tenderness Back/Spine/Pelvis Back: no CVA tenderness Skin General skin exam: no rashes or lesions noted Neuro General: patient oriented x3 and moves all extremities Extrem General: Yes no pedal edema Assessment & Plan Assessment & Plan (1) CKD (chronic kidney disease) stage 3, GFR 30-59 ml/min: Code(s): N18.30 - Chronic kidney disease, stage 3 unspecified Qualifiers: Chronic kidney disease stage 3 subtype: stage 3a (GFR 45-59) Qualified Code(s): N18.31 - Chronic kidney disease, stage 3a (2) HTN (hypertension): Code(s): I10 - Essential (primary) hypertension Qualifiers: Hypertension type: primary hypertension Qualified Code(s): I10 - Essential (primary) hypertension Plan 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 Blood work ordered for today. Answered all questions. Further management is pending evolving data. Orders: Orders Uric Acid Today I10 - Essential (primary) hypertension, N18.30 - Chronic kidney disease, stage 3 unspecified Creatinine Today I10 - Essential (primary) hypertension, N18.30 - Chronic kidney disease, stage 3 unspecified Electrolytes Today I10 - Essential (primary) hypertension, N18.30 - Chronic kidney disease, stage 3 unspecified Calcium Today I10 - Essential (primary) hypertension, N18.30 - Chronic kidney disease, stage 3 unspecified Blood Urea Nitrogen Today I10 - Essential (primary) hypertension, N18.30 - Chronic kidney disease, stage 3 unspecified Protein Creatinine Ratio, Ur Today I10 - Essential (primary) hypertension, N18.30 - Chronic kidney disease, stage 3 unspecified Hemoglobin A1c Today I10 - Essential (primary) hypertension, N18.30 - Chronic kidney disease, stage 3 unspecified Coding Level of Care Code Est Pt Level 4 (35456) Diagnoses Stage 3a chronic kidney disease N18.31 Chronic kidney disease stage 3 subtype: stage 3a (GFR 45-59) Primary hypertension I10 Hypertension type: primary hypertension
== END 2023-07-28 11:43 | disposition home or self-care (01) ==
PROVIDERS: PCP Internal Medicine; Visit Provider Internal Medicine Nephrology
DX: N18.31 Chronic kidney disease, stage 3a (principal); I10 Essential (primary) hypertension
CPT/HCPCS: 99214

== ENCOUNTER 2023-11-03 10:44 | Outpatient (REF) | payer OTHER, SELFPAY ==
--- NOTE | ~2023-11-03 | MM_ITS ---
EXAMINATION: MM SCREENING DIGITAL BREAST TOMOSYNTHESIS, BILATERAL CLINICAL INFORMATION: Screening. Asymptomatic. COMPARISON: Mammography: This study is compared with prior exams dating back to 2016. TECHNIQUE: Digital breast tomosynthesis is performed in both the craniocaudal and mediolateral oblique views along with computer-aided detection (CAD). Synthesized 2D images are generated from the tomosynthesis. FINDINGS: There are scattered areas of fibroglandular density (ACR BI-RADS breast composition Category b). There are no significant masses, abnormal calcifications, or other abnormalities. MM/MM tomosynthesis screening BI IMPRESSION: No mammographic evidence of malignancy. ASSESSMENT: BI-RADS BI-RADS 1 - Negative RECOMMENDATION: Routine annual mammography screening. 1 year F/U This examination should not preclude the clinical evaluation of a suspicious palpable abnormality. This patient's information was entered into a reminder system with a target due date for their next mammogram.
== END 2023-11-03 10:45 | disposition home or self-care (01) ==
LOC: HO.MAMMO 10:44
PROVIDERS: PCP Internal Medicine; Visit Provider Internal Medicine
DX: Z12.31 Encounter for screening mammogram for malignant neoplasm of breast (principal)
CPT/HCPCS: 77063; 77067

== ENCOUNTER → 2023-11-03 11:00 | Outpatient (BNV) | payer OTHER, SELFPAY | PROVIDERS: PCP Internal Medicine; Visit Provider Radiology Diagnostic Radiology | DX: Z12.31 Encounter for screening mammogram for malignant neoplasm of breast (principal) | CPT/HCPCS: 77063; 77067 ==

== ENCOUNTER 2023-11-09 09:32 | Emergency (ER) | payer OTHER, SELFPAY ==
--- NOTE | ~2023-11-09 | XR_ITS ---
EXAMINATION: XR CHEST CLINICAL INFORMATION: Chest pain, shortness of breath, chest tightness and left arm pain COMPARISON: 02/16/[address] TECHNIQUE: 2 views of the chest were obtained. FINDINGS: Heart, mediastinum and vascularity within normal limits. Aortic calcifications. Left upper lobe granuloma again seen. Left Bochdalek hernia with left base atelectasis. No consolidations or effusions. Bony structures are intact. XR/XR chest 2V IMPRESSION: Left base atelectasis. No failure or consolidations.
--- NOTE | 2023-11-09 09:34 | ECG_ITS ---
Test Reason : chest pain Blood Pressure : / mmHG Vent. Rate : 082 BPM Atrial Rate : 082 BPM P-R Int : 124 ms QRS Dur : 088 ms QT Int : 380 ms P-R-T Axes : 066 056 069 degrees QTc Int : 443 ms Normal sinus rhythm Normal ECG When compared with ECG of 23-APR-2022 13:39, No significant change was found Referred By: Generic ED Physician Electronically Signed By:Tal Cuellar
[2023-11-09 10:24] VITALS: BP 122/71; PULSE 80; RESP 18; TEMP 37; O2SAT 98; BMI 34.4
[2023-11-09 11:02] LABS: MANUAL DIFF FLAG NO
[2023-11-09 11:11] LABS: Basophils Percent Auto 0.2 % (0-2); Eosinophils Absolute Auto 0.4 X10*3/uL (0.0-0.4); Eosinophils Percent Auto 6.1 % (0-4); Hematocrit 30.6 % (37.0-47.0); Hemoglobin 10.1 g/dl (12.0-16.0); Imm Gran Abs Auto 0.02 X10*3/uL (0.00-0.03); Imm Gran Pct Auto 0.3 % (0.0-0.4); Lymphocytes Absolute Auto 2.1 X10*3/uL (1.2-4.9); Lymphocytes Percent Auto 32.9 % (20-40); Mean Corpuscular Volume 90.8 fL (80.0-98.0); Mean Platelet Volume 9.6 fL (9.4-12.3); Monocytes Absolute Auto 0.4 X10*3/uL (0.1-1.2); Monocytes Percent Auto 6.8 % (2-11); Neutrophils Absolute Auto 3.5 x10*3/uL (2.0-8.3); Neutrophils Percent Auto 53.7 % (45-73); Platelet Count 142 X10*3/uL (160-400); Red Blood Count 3.37 X10*6/uL (4.20-5.50); Red Cell Distribution Width 12.6 % (11.0-16.0); White Blood Count 6.4 X10*3/uL (4.8-10.8)
[2023-11-09 11:21] LABS: Anion Gap 12 (12-20); Blood Urea Nitrogen 16 mg/dL (9-16); Calcium 9.3 mg/dL (8.4-10.2); Carbon Dioxide 27 mmol/L (22-29); Chloride 108 mmol/L (96-108); Creatinine Clr Calc Pharmacy 33.7; Estimated Glomerular Filt Rate 51; Glucose Random 147 mg/dL (60-115); Potassium 3.8 mmol/L (3.3-5.1); Sodium 143 mmol/L (135-145)
[2023-11-09 11:26] LABS: Troponin-I High Sensitivity < 2.7 ng/L (<3.5-17.0)
[2023-11-09 11:35] LABS: Prothrombin Time 12.1 SEC (11.1-13.3)
[2023-11-09 11:37] LABS: D Dimer High Sensitivity 198 NG/ML; Partial Thromboplastin Time 26.3 SEC (26.0-36.8)
[2023-11-09 14:19] VITALS: BP 178/56; PULSE 78; RESP 16; TEMP 36.7; O2SAT 100
--- NOTE | 2023-11-09 14:33 | ED_ITS ---
HPI - Chest Pain General Chief Complaint: Chest Pain Stated Complaint: CP Time Seen by Provider: 11/09/23 14:33 History of Present Illness ED Provider: Ameya POWERS narrative: Patient is a 77-year-old woman who says that she woke up this morning at around 06:00 with a sense of discomfort in her chest and also in her left arm. The pains are worse with deep breaths. No definite shortness of breath. No fever, sweats, chills. No cough or sputum. No nausea or vomiting. Abdominal pain. No pain or swelling in her legs. Related Data Home Medications ?Medication ?Instructions ?Recorded ?Confirmed famotidine 20 mg tablet 20 mg PO BID PRN abdominal pain 08/31/22 07/15/23 Previous Rx's ?Medication ?Instructions ?Recorded lidocaine HCl 4 % topical cream 1 appl topical BID PRN pain #120 07/18/20 (Aspercreme (lidocaine HCl)) grams albuterol sulfate 90 mcg/actuation 2 inh inhalation Q6H PRN shortness 08/02/20 aerosol inhaler of breath or wheezing 30 days #18 grams gabapentin 300 mg capsule 300 mg PO BID #20 caps 07/29/22 cholecalciferol (vitamin D3) 50 50 mcg PO DAILY 90 days #90 caps 09/02/22 mcg (2,000 unit) capsule acetaminophen 500 mg tablet 500 mg PO BID PRN Pain 30 days #60 10/20/22 tabs blood sugar diagnostic (OneTouch 1 strip miscellaneous DAILY 10/31/22 Verio test strips) days #100 strips lancets 30 gauge (OneTouch Delica 30 gauge miscellaneous DAILY 11/04/22 Plus Lancet) days #100 caps clotrimazole-betamethasone 1 1 appl topical BID 5 days #45 grams 01/20/23 %-0.05 % topical cream terconazole 0.8 % vaginal cream 1 appful vaginal BEDTIME 3 days 01/20/23 #20 grams prednisone 10 mg tablet 10 mg PO DIRECTED 8 days #20 07/10/23 tabs albuterol sulfate 90 mcg/actuation 2 inh inhalation Q6H PRN shortness 07/19/23 aerosol inhaler of breath or wheezing 30 days #18 grams benzonatate 200 mg capsule 200 mg PO BID PRN cough 30 days 07/19/23 #30 caps montelukast 10 mg tablet 10 mg PO DAILY #90 tabs 07/19/23 amlodipine 10 mg tablet 10 mg PO DAILY 90 days #90 tabs 08/05/23 hydralazine 25 mg tablet 25 mg PO TID 90 days #270 tabs 08/05/23 meclizine 25 mg tablet 25 mg PO TID PRN Dizziness 30 days 08/31/23 #90 tabs multivitamin (Daily Multi-Vitamin 1 tab PO QAM 30 days #30 tabs 08/31/23 tablet) omeprazole 20 mg capsule,delayed 20 mg PO BID 30 days #60 caps 08/31/23 release rosuvastatin 40 mg tablet 40 mg PO DAILY 90 days #90 tabs 08/31/23 ezetimibe 10 mg tablet 10 mg PO DAILY #30 tabs 11/07/23 glipizide 5 mg tablet 10 mg (2 x 5 mg) PO BID #120 tabs 11/07/23 Allergies Allergy/AdvReac Type Severity Reaction Status Date / Time codeine [CODEINE] Allergy Severe SWELLING Verified 11/09/23 10:27 doxycycline Allergy Severe nauseas Verified 11/09/23 10:27 erythromycin base Allergy Severe SWELLING Verified 11/09/23 10:27 [ERYTHROMYCIN BASE] morphine [MORPHINE] Allergy Severe ANAPHYLAXIS Verified 11/09/23 10:27 penicillin V Allergy Severe Swelling Verified 11/09/23 10:27 Eyes simvastatin Allergy Severe Nerve Verified 11/09/23 10:27 Inflammation aspirin [ASPIRIN] Allergy Intermediate chest Verified 11/09/23 10:27 tightness lisinopril [LISINOPRIL] Allergy Intermediate COUGH Verified 11/09/23 10:27 cyclobenzaprine AdvReac Intermediate SOB, dry Verified 11/09/23 10:27 mouth/ throat [employer] Saline Allergy Severe Redness Uncoded 07/19/23 11:11 ZYVA Allergy Severe NERVE Uncoded 07/19/23 11:11 INFLAMMATION PMFSH Past Medical History Medical History (Updated 11/09/23 @ 15:05 by Jaspreet Hou MD) HTN (hypertension) Coronary artery calcification seen on CAT scan Chronic cough Muscle tear CKD (chronic kidney disease) Pure hypercholesterolemia Postmenopausal Microalbuminuria Effusion, right knee GERD (gastroesophageal reflux disease) Right knee pain Anemia Axillary lymphadenopathy Breast mass Essential hypertension Dyslipidemia Lymphadenopathy Asthma High cholesterol Diabetes mellitus Surgical History History of esophagogastroduodenoscopy (EGD) Hx of colonoscopy History of tubal ligation History of umbilical hernia repair History of tonsillectomy Family History Family History Father No problems noted. Mother No problems noted. Social History Social History Housing: Apartment Are you a primary rn wound care to a significant other at home: No Do you presently have visiting nurse or other home services: No Alcohol intake: never Patient Tobacco Use Status: Never used Tobacco Smoked in Last 30 Days: No e-Cigarette/Vaping Use: Never Used Second Hand Smoke Exposure: No Use of substances other than those prescribed or required for medical reasons: No Advance Directives: Yes Advance Directives Information Provided: Yes Advance Directives on File: No service: No Current occupational status: disabled Cognitive needs: No Hearing needs: No Vision needs: Yes (Glasses) Physical Exam 2 Vital Signs: Vital Signs: Last Vital Signs Temp 98.0 F 11/09/23 14:19 Pulse 78 11/09/23 14:19 Resp 16 11/09/23 14:19 BP 178/56 H 11/09/23 14:19 Pulse Ox 100 11/09/23 14:19 O2 Del Method Room Air 11/09/23 14:19 BMI result Body Mass Index 34.4 Const: Other: Patient is a 77-year-old woman who looks as though she is somewhat chronically ill but not obviously acutely ill. She is pleasant cooperative. She does not appear in acute distress. HEENT: Other: Face is symmetrical. Mucous membranes are moist. Eyes: Other: Pupils are round equal, conjunctivae are clear Neck: Other: No JVD Chest: Other: There is left-sided chest wall tenderness Resp: Effort & Inspection: normal respiratory effort Auscultation: clear to auscultation bilaterally Cardio: Rate: regular rate Rhythm: regular rhythm Heart sounds: S1 normal heart sound present and S2 normal heart sound present GI: Other: Abdomen is soft and nontender Skin: Other: Skin is dry and unremarkable Neuro: Other: The patient is awake and alert with a normal mental status. Cranial nerves are grossly intact. She moves her extremities normally. Extrem: Other: No calf swelling or tenderness, no peripheral edema, no asymmetry. Good dorsalis pedis pulses in both feet. The patient is diffusely tender with palpation of the muscles of the left upper arm. No deformity to the arm. Medical Decision Making Medical Decision Making [facility] Narrative: The patient is a 77-year-old woman who presents with chest pain and left arm pain. She has a normal EKG. Her troponins are normal. A D-dimer is normal. Chest x-ray shows left-sided atelectasis but no other definite acute findings. Overall I do not think patient has a acutely dangerous process at work as a cause of her left-sided chest and arm pain. I suspect this is probably musculoskeletal pain. She is advised to use acetaminophen as needed for pain and to follow up with her PCP. Lab Data 11/09/23 10:58 11/09/23 10:58 Labs: Lab Results 11/09/23 11/09/23 Range/Units 10:58 14:18 WBC 6.4 (4.8-10.8) X10*3/uL RBC 3.37 L (4.20-5.50) X10*6/uL Hgb 10.1 L (12.0-16.0) g/dl Hct 30.6 L (37.0-47.0) % MCV 90.8 (80.0-98.0) fL MCH 30.0 (27.0-33.0) pg MCHC 33.0 (31.0-35.0) g/dl RDW 12.6 (11.0-16.0) % Plt Count 142 L (160-400) X10*3/uL MPV 9.6 (9.4-12.3) fL Immature Gran % (Auto) 0.3 (0.0-0.4) % Neut % (Auto) 53.7 (45-73) % Lymph % (Auto) 32.9 (20-40) % Becker % (Auto) 6.8 (2-11) % Eos % (Auto) 6.1 H (0-4) % Baso % (Auto) 0.2 (0-2) % Lymph # (Auto) 2.1 (1.2-4.9) X10*3/uL Becker # (Auto) 0.4 (0.1-1.2) X10*3/uL Eos # (Auto) 0.4 (0.0-0.4) X10*3/uL Baso # (Auto) 0.0 (0.0-0.2) X10*3/uL Abs Immat Gran (auto) 0.02 (0.00-0.03) X10*3/uL Absolute Neuts (auto) 3.5 (2.0-8.3) x10*3/uL Absolute Nucleated RBC 0.000 (0.0-0.012) X10*3/uL Nucleated RBC % (auto) 0.0 (0.0-0.2) /100WBC PT 12.1 (11.1-13.3) SEC INR 1.0 (0.9-1.1) APTT 26.3 (26.0-36.8) SEC D-Dimer High Sensitivty 198 NG/ML Sodium 143 (135-145) mmol/L Potassium 3.8 (3.3-5.1) mmol/L Chloride 108 (96-108) mmol/L Carbon Dioxide 27 (22-29) mmol/L Anion Gap 12 (12-20) BUN 16 (9-16) mg/dL Creatinine 1.04 (0.5-1.4) mg/dL Estim Creat Clear Calc 33.7 Estimated GFR 51 Random Glucose 147 H (60-115) mg/dL Calcium 9.3 (8.4-10.2) mg/dL Troponin I High Sens < 2.7 3.1 (<3.5-17.0) ng/L Independent Interpretation I performed an independent interpretation of an: EKG Interpretation: EKG at 09:36 shows normal sinus rhythm at 82 beats per minute. It is a normal EKG. Discharge Plan Discharge Clinical Impression: Chest pain, Left arm pain Patient Disposition: Home, Self-Care Additional Instructions: Your testing today is very reassuring from the point of view of any acutely dangerous process. There is no sign of a heart attack. There is no sign of a blood clot in your lungs. I think your pains may be muscular pains. You may continue to use acetaminophen as needed for pain. You may take 2 extra- strength acetaminophen up to 3 times a day. Please follow up soon with your regular doctor to discuss these symptoms further. Return to the emergency room if significantly worse. Prescriptions: No Action gabapentin 300 mg capsule 300 mg PO BID Qty: 20 0RF cholecalciferol (vitamin D3) 50 mcg (2,000 unit) capsule 50 mcg PO DAILY 90 Days Qty: 90 1RF acetaminophen 500 mg tablet 500 mg PO BID PRN (Reason: Pain) 30 Days Qty: 60 1RF OneTouch Verio test strips Strip 1 strip miscellaneous DAILY 90 Days Qty: 100 3RF lancets [OneTouch Delica Plus Lancet] 30 gauge misc 30 gauge miscellaneous DAILY 90 Days Qty: 100 3RF prednisone 10 mg tablet 10 mg PO DIRECTED 8 Days Qty: 20 0RF Rx Instructions: Take 4 tabs for 2 days, then 3 tabs for 2 days, then 2 tabs for 2 days, then 1 tab for 2 days amlodipine 10 mg tablet 10 mg PO DAILY 90 Days Qty: 90 1RF hydralazine 25 mg tablet 25 mg PO TID 90 Days Qty: 270 1RF multivitamin [Daily Multi-Vitamin] Tablet 1 tab PO QAM 30 Days Qty: 30 3RF meclizine 25 mg tablet 25 mg PO TID PRN (Reason: Dizziness) 30 Days Qty: 90 1RF rosuvastatin 40 mg tablet 40 mg PO DAILY 90 Days Qty: 90 0RF omeprazole 20 mg capsule,delayed release(DR/EC) 20 mg PO BID 30 Days Qty: 60 1RF ezetimibe 10 mg tablet 10 mg PO DAILY Qty: 30 2RF glipizide 5 mg tablet 10 mg PO BID Qty: 120 1RF lidocaine HCl [Aspercreme (lidocaine HCl)] 4 % cream 1 appl topical BID PRN (Reason: pain) Qty: 120 0RF famotidine 20 mg tablet 20 mg PO BID PRN (Reason: abdominal pain) albuterol sulfate 90 mcg/actuation HFA aerosol inhaler 2 inh inhalation Q6H PRN (Reason: shortness of breath or wheezing) 30 Days Qty: 18 12RF benzonatate 200 mg capsule 200 mg PO BID PRN (Reason: cough) 30 Days Qty: 30 6RF albuterol sulfate 90 mcg/actuation HFA aerosol inhaler 2 inh inhalation Q6H PRN (Reason: shortness of breath or wheezing) 30 Days Qty: 18 12RF montelukast 10 mg tablet 10 mg PO DAILY Qty: 90 3RF terconazole 0.8 % cream 1 appful vaginal BEDTIME 3 Days Qty: 20 0RF clotrimazole-betamethasone 1-0.05 % cream 1 appl topical BID 5 Days Qty: 45 0RF Referrals: Lita Ahmadi MD [Primary Care Provider] - (Chest pain, left arm pain) Print Language: Norwegian
[2023-11-09 14:54] LABS: Troponin-I High Sensitivity 3.1 ng/L (<3.5-17.0)
[2023-11-09 15:23] VITALS: BP 178/56; PULSE 78; RESP 16; TEMP 36.7; O2SAT 100
== END 2023-11-09 15:23 | disposition home or self-care (01) ==
PROVIDERS: Emergency Provider Emergency Medicine; PCP Internal Medicine
DX: R07.9 Chest pain, unspecified (principal); M79.602 Pain in left arm; R06.02 Shortness of breath; I12.9 Hypertensive chronic kidney disease with stage 1 through stage 4 chronic kidney disease, or unspecified chronic kidney disease; E11.22 Type 2 diabetes mellitus with diabetic chronic kidney disease; N18.9 Chronic kidney disease, unspecified; Z79.899 Other long term (current) drug therapy
CPT/HCPCS: 36415; 71046; 80048; 84484; 85025; 85379; 85610; 85730; 93005; 99283; 99285

== ENCOUNTER → 2023-11-09 09:34 | Outpatient (BNV) | payer OTHER, SELFPAY | PROVIDERS: Emergency Provider Emergency Medicine; PCP Internal Medicine; Visit Provider Internal Medicine Cardiovascular Disease | DX: R07.9 Chest pain, unspecified (principal) | CPT/HCPCS: 93010 ==

== ENCOUNTER 2023-11-15 09:11 | Outpatient (AMB) | payer OTHER, SELFPAY ==
[2023-11-15 09:20] VITALS: BP 160/60; PULSE 80; O2SAT 99; BMI 33.5
--- NOTE | 2023-11-15 09:20 | MHC.PC.OV ---
Vital Signs 11/15/23 09:20 11/15/23 12:00 Height 4 ft 7 in Weight 144 lb 4 oz BMI 33.5 BP 160/60 H 160/60 H Blood Pressure Location Lt brachial Lt brachial Position Sitting Sitting Pulse 80 Pulse Source Pulse Oximeter Pulse Oximetry (%) 99 Oxygen Delivery Method Room Air Intake Visit Reasons[place] [facility] [place], Back pain Intake Note: Patient is here to follow-up after a visit the [place] department [place] [facility] [place]. Sqe Required: No Accompanied by: Daughter Allergies codeine [CODEINE] Allergy (Severe, Verified 11/15/23 09:36) SWELLING doxycycline Allergy (Severe, Verified 11/15/23 09:36) nauseas erythromycin base [ERYTHROMYCIN BASE] Allergy (Severe, Verified 11/15/23 09:36) SWELLING morphine [MORPHINE] Allergy (Severe, Verified 11/15/23 09:36) ANAPHYLAXIS penicillin V Allergy (Severe, Verified 11/15/23 09:36) Swelling Eyes simvastatin Allergy (Severe, Verified 11/15/23 09:36) Nerve Inflammation aspirin [ASPIRIN] Allergy (Intermediate, Verified 11/15/23 09:36) chest tightness lisinopril [LISINOPRIL] Allergy (Intermediate, Verified 11/15/23 09:36) COUGH cyclobenzaprine Adverse Reaction (Intermediate, Verified 11/15/23 09:36) SOB, dry mouth/ throat [employer] Saline Allergy (Severe, Uncoded 11/15/23 09:36) Redness ZYVA Allergy (Severe, Uncoded 11/15/23 09:36) NERVE INFLAMMATION Medication List - Last Reconciled 11/15/23 by Lita Flores MD acetaminophen 500 mg PO BID PRN 30 days albuterol sulfate 90 mcg/actuation 2 inhalations inhalation Q6H PRN 30 days albuterol sulfate 90 mcg/actuation 2 inhalations inhalation Q6H PRN 30 days amlodipine 10 mg PO DAILY 90 days benzonatate 200 mg PO BID PRN 30 days blood sugar diagnostic ([employer] Verio test strips) 1 strip miscellaneous DAILY 90 days cholecalciferol (vitamin D3) 50 mcg PO DAILY 90 days clotrimazole-betamethasone 1-0.05 % 1 appl topical BID 5 days ezetimibe 10 mg PO DAILY famotidine 20 mg PO BID PRN gabapentin 300 mg PO BID glipizide 10 mg (2 x 5 mg) PO BID hydralazine 25 mg PO TID 90 days lancets (OneTouch Delica Plus Lancet) 30 gauge miscellaneous DAILY 90 days lidocaine HCl 4% (Aspercreme (lidocaine HCl)) 1 appl topical BID PRN meclizine 25 mg PO TID PRN 30 days montelukast 10 mg PO DAILY multivitamin (Daily Multi-Vitamin tablet) 1 tab PO QAM 30 days omeprazole 20 mg PO BID 30 days prednisone 10 mg PO DIRECTED 8 days rosuvastatin 40 mg PO DAILY 90 days terconazole 0.8% 1 appful vaginal BEDTIME 3 days Tobacco use date assessed: 07/15/23 Dental Screening Dental Screen Date: 07/15/23 HPI HPI Comments History of Present Illness Details This is a 77-year-old female with hypertension, diabetes mellitus type 2 and chronic kidney disease stage 3 that comes today accompanied by daughter complaining of left upper back pain that started few days ago. She went to the ER due to this matter and EKG showed no significant abnormality and chest x-ray shows left basilar atelectasis. No fever. Scapula is tender to palpation. Will give her a muscle relaxer. A1c within goal. Blood pressure elevated and will be recheck in 3 weeks by nurse navigator. Recent GFR was 51 and chronic kidney disease has been stable. Was told to avoid NSAIDs. [facility] Medical History (Updated 11/15/23 @ 12:02 by Lita Flores MD) HTN (hypertension) Coronary artery calcification seen on CAT scan Chronic cough Muscle tear CKD (chronic kidney disease) Pure hypercholesterolemia Postmenopausal Microalbuminuria Effusion, right knee GERD (gastroesophageal reflux disease) Right knee pain Anemia Axillary lymphadenopathy Breast mass Essential hypertension Dyslipidemia Lymphadenopathy Asthma High cholesterol Diabetes mellitus Surgical History History of esophagogastroduodenoscopy (EGD) Hx of colonoscopy History of tubal ligation History of umbilical hernia repair History of tonsillectomy Family History Father No problems noted. Mother No problems noted. Social History Housing: Apartment Are you a primary career placement services counselor to a significant other at home: No Do you presently have visiting nurse or other home services: No Alcohol intake: never Patient Tobacco Use Status: Never used Tobacco e-Cigarette/Vaping Use: Never Used Second Hand Smoke Exposure: No service: No Current occupational status: disabled Cognitive needs: No Hearing needs: No Vision needs: Yes (Glasses) Questionnaire Thrive Questionnaire Date Thrive assessed: 07/15/23 VU-7 AMB Questionnaire VU-7 Date VU - 7 assessed: 07/15/23 Source: Developed by Drs. Ezequiel Diaz, Gaby Hwang, Antoine Guerrero and colleagues, with an educational mildred from [employer]. Review of Systems Const All systems reviewed & are unremarkable except as noted in HPI and below Card Denies chest pain at rest, Denies chest pain with activity, Denies edema, Denies irregular heart rhythm, Denies claudication, Denies dyspnea, Denies dyspnea on exertion, Denies orthopnea, Denies paroxysmal nocturnal dyspnea and Denies slow heart rate Resp Denies cough, Denies dyspnea and Denies dyspnea on exertion Musc Reports back pain Physical exam (Primary Care) Vital Signs: Last Vital Signs Pulse 80 11/15/23 09:20 BP 160/60 H 11/15/23 09:20 Pulse Ox 99 11/15/23 09:20 Oxygen Delivery Method Room Air 11/15/23 09:20 BMI result Body Mass Index 33.5 BMI Assessment/Plan discussion: High BMI High, discussed plan: lifestyle, weight reduction, dietary and physical activity Tobacco/Smoking Status: Tobacco use Status Tobacco use date assessed 07/15/23 11/15/23 09:20 Patient Tobacco Use Status Never used Tobacco 11/15/23 09:20 e-Cigarette/Vaping Use Never Used 11/15/23 09:20 Thrive Assessment: Date of Thrive Assessment Date Thrive assessed 07/15/23 11/15/23 09:20 Neck Neck: Yes normal visual inspection and Yes supple Resp Effort & Inspection: normal respiratory effort Auscultation: clear to auscultation bilaterally Cardio Jugular venous distension: no JVD Rate: regular rate Rhythm: regular rhythm Heart sounds: S1 normal heart sound present and S2 normal heart sound present Extrem Other: TENDER LEFT SCAPULA General: Yes full ROM Results AMB Hemoglobin A1c AMB Hemoglobin A1c 6.7 % Last Edit by ABELARDO Ayon on 11/15/23 09:38 Results Reviewed Results Reviewed: Laboratory Last Values Hgb A1c (Clinic) 6.7 % (4.0-6.0) H 11/15/23 09:21 Assessment and Plan Assessment & Plan (1) Pain of left scapula: Code(s): M89.8X1 - Other specified disorders of bone, shoulder Plan: Start baclofen. (2) HTN (hypertension): Code(s): I10 - Essential (primary) hypertension Qualifiers: Hypertension type: primary hypertension Qualified Code(s): I10 - Essential (primary) hypertension Plan: Continue amlodipine and hydralazine. Blood pressure goal is equal or less than 130/80. (3) CKD (chronic kidney disease) stage 3, GFR 30-59 ml/min: Code(s): N18.30 - Chronic kidney disease, stage 3 unspecified Qualifiers: Chronic kidney disease stage 3 subtype: stage 3a (GFR 45-59) Qualified Code(s): N18.31 - Chronic kidney disease, stage 3a Plan: Avoid NSAIDs. Blood pressure goal is equal or less than 130/80. (4) Diabetes mellitus: Code(s): E11.9 - Type 2 diabetes mellitus without complications Qualifiers: Diabetes mellitus type: type 2 Diabetes mellitus [facility] insulin use: without long term care social worker use Diabetes mellitus complication status: with hyperglycemia Qualified Code(s): E11.65 - Type 2 diabetes mellitus with hyperglycemia Plan: Continue glipizide. A1c goal is equal or less than 7%. Orders: Orders AMB Hemoglobin A1c Today E11.65 - Type 2 diabetes mellitus with hyperglycemia Medications: New baclofen 10 mg PO TID 5 days 15 tabs 0RF lidocaine 5% 1 appl topical BEDTIME 2 weeks PRN 30 grams 1RF pain Coding Level of Care Code Est Pt Level 4 (07717) Complex EM visit Add On G2211 Diagnoses Pain of left scapula M89.8X1 Primary hypertension I10 Hypertension type: primary hypertension Stage 3a chronic kidney disease N18.31 Chronic kidney disease stage 3 subtype: stage 3a (GFR 45-59) Type 2 diabetes mellitus with hyperglycemia, without long-term current use of insulin E11.65 Diabetes mellitus type: type 2 Diabetes mellitus long term care social worker insulin use: without [facility] use Diabetes mellitus complication status: with hyperglycemia Time Spent (min) 23
[2023-11-15 12:00] VITALS: BP 160/60
== END 2023-11-15 09:45 | disposition home or self-care (01) ==
PROVIDERS: PCP Internal Medicine; Visit Provider Internal Medicine
DX: M89.8X1 Other specified disorders of bone, shoulder (principal); I12.9 Hypertensive chronic kidney disease with stage 1 through stage 4 chronic kidney disease, or unspecified chronic kidney disease; N18.31 Chronic kidney disease, stage 3a; E11.65 Type 2 diabetes mellitus with hyperglycemia
CPT/HCPCS: 83036; 99214; G2211

== ENCOUNTER 2023-11-24 10:40 | Outpatient (AMB) | payer OTHER, SELFPAY ==
--- NOTE | 2023-11-24 10:46 | HO.NEPHOV ---
Vital Signs 11/24/23 10:49 Height 4 ft 7 in Weight 144 lb 8 oz BMI 33.6 BP 140/60 H Blood Pressure Location Rt brachial Position Sitting Pulse 84 Pulse Source Pulse Oximeter Pulse Oximetry (%) 100 Oxygen Delivery Method Room Air Intake Visit Reasons: 4 Months/ Conf w/daughter Rand Tacker Required: No Accompanied by: Self / Same As Patient Allergies codeine [CODEINE] Allergy (Severe, Verified 11/24/23 10:50) SWELLING doxycycline Allergy (Severe, Verified 11/24/23 10:50) nauseas erythromycin base [ERYTHROMYCIN BASE] Allergy (Severe, Verified 11/24/23 10:50) SWELLING morphine [MORPHINE] Allergy (Severe, Verified 11/24/23 10:50) ANAPHYLAXIS penicillin V Allergy (Severe, Verified 11/24/23 10:50) Swelling Eyes simvastatin Allergy (Severe, Verified 11/24/23 10:50) Nerve Inflammation aspirin [ASPIRIN] Allergy (Intermediate, Verified 11/24/23 10:50) chest tightness lisinopril [LISINOPRIL] Allergy (Intermediate, Verified 11/24/23 10:50) COUGH cyclobenzaprine Adverse Reaction (Intermediate, Verified 11/24/23 10:50) SOB, dry mouth/ throat [employer] Saline Allergy (Severe, Uncoded 11/15/23 09:36) Redness ZYVA Allergy (Severe, Uncoded 11/15/23 09:36) NERVE INFLAMMATION HPI Comments Details: I had the privilege of seeing Jocelyn in the office in follow-up of her chronic kidney disease on a backdrop of diabetes mellitus, hypertension and history of excess nonsteroidal anti-inflammatory medication use. She feels well. Her blood pressure has been well controlled. Her A1c has been less than 7. She does not have any chest pain, shortness of breath, hypoglycemia, pedal edema, hematuria, flank pain or orthostatic symptoms. She has mild arthritic pains but avoids NSAIDs. She tries to maintain good hydration [facility] Medical History HTN (hypertension) Coronary artery calcification seen on CAT scan Chronic cough Muscle tear CKD (chronic kidney disease) Pure hypercholesterolemia Postmenopausal Microalbuminuria Effusion, right knee GERD (gastroesophageal reflux disease) Right knee pain Anemia Axillary lymphadenopathy Breast mass Essential hypertension Dyslipidemia Lymphadenopathy Asthma High cholesterol Diabetes mellitus Surgical History History of esophagogastroduodenoscopy (EGD) Hx of colonoscopy History of tubal ligation History of umbilical hernia repair History of tonsillectomy Family History Father No problems noted. Mother No problems noted. Social History Housing: Apartment Are you a primary director of healthcare systems to a significant other at home: No Do you presently have visiting nurse or other home services: No Alcohol intake: never Patient Tobacco Use Status: Never used Tobacco e-Cigarette/Vaping Use: Never Used Second Hand Smoke Exposure: No service: No Current occupational status: disabled Cognitive needs: No Hearing needs: No Vision needs: Yes (Glasses) Physical Exam Const General: comfortable and no acute distress Orientation/consciousness: patient oriented x3 HEENT Head: Yes normocephalic Mouth: Normal oral and palatal mucosa present Eyes EOM: EOMs intact bilaterally Neck Neck: Yes supple Resp Auscultation: clear to auscultation bilaterally Cardio Jugular venous distension: no JVD Rate: regular rate GI Palpation (GI): Soft to palpation Auscultation: normal bowel sounds General: Yes no CVA tenderness Back/Spine/Pelvis Back: no CVA tenderness Skin General skin exam: no rashes or lesions noted Neuro General: patient oriented x3 and moves all extremities Extrem General: Yes no pedal edema Results Reviewed Nephrology Results: Hgb 10.1 g/dl (12.0-16.0) L 11/09/23 WBC 6.4 X10*3/uL (4.8-10.8) 11/09/23 Plt Count 142 X10*3/uL (160-400) L 11/09/23 Sodium 143 mmol/L (135-145) 11/09/23 Potassium 3.8 mmol/L (3.3-5.1) 11/09/23 Chloride 108 mmol/L (96-108) 11/09/23 Carbon Dioxide 27 mmol/L (22-29) 11/09/23 BUN 16 mg/dL (9-16) 11/09/23 Creatinine 1.04 mg/dL (0.5-1.4) 11/09/23 Calcium 9.3 mg/dL (8.4-10.2) 11/09/23 Urine Creatinine 218.60 mg/dL 07/28/23 Protein/Creatinin Ratio 0.09 (<0.2) 07/28/23 Assessment & Plan Assessment & Plan (1) HTN (hypertension): Code(s): I10 - Essential (primary) hypertension Category: Medical Qualifiers: Hypertension type: primary hypertension Qualified Code(s): I10 - Essential (primary) hypertension (2) CKD (chronic kidney disease) stage 3, GFR 30-59 ml/min: Code(s): N18.30 - Chronic kidney disease, stage 3 unspecified Category: Medical Qualifiers: Chronic kidney disease stage 3 subtype: stage 3a (GFR 45-59) Qualified Code(s): N18.31 - Chronic kidney disease, stage 3a Gege Banks has 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 Blood work ordered for follow up. Answered all questions. Further management is pending evolving data Orders: Orders Creatinine Today I10 - Essential (primary) hypertension, N18.31 - Chronic kidney disease, stage 3a Blood Urea Nitrogen Today I10 - Essential (primary) hypertension, N18.31 - Chronic kidney disease, stage 3a Electrolytes Today I10 - Essential (primary) hypertension, N18.31 - Chronic kidney disease, stage 3a Coding Level of Care Code Est Pt Level 4 (46896) Diagnoses Primary hypertension I10 Hypertension type: primary hypertension Stage 3a chronic kidney disease N18.31 Chronic kidney disease stage 3 subtype: stage 3a (GFR 45-59)
[2023-11-24 10:49] VITALS: BP 140/60; PULSE 84; O2SAT 100; BMI 33.6
== END 2023-11-24 10:59 | disposition home or self-care (01) ==
PROVIDERS: PCP Internal Medicine; Visit Provider Internal Medicine Nephrology
DX: I10 Essential (primary) hypertension (principal); N18.31 Chronic kidney disease, stage 3a
CPT/HCPCS: 99214

== ENCOUNTER → 2023-11-24 10:40 | Outpatient (BNVA) | payer OTHER, SELFPAY | PROVIDERS: PCP Internal Medicine; Visit Provider Internal Medicine Nephrology | DX: E11.22 Type 2 diabetes mellitus with diabetic chronic kidney disease (principal); I12.9 Hypertensive chronic kidney disease with stage 1 through stage 4 chronic kidney disease, or unspecified chronic kidney disease; N18.31 Chronic kidney disease, stage 3a | CPT/HCPCS: 99212 ==

== ENCOUNTER 2023-11-29 11:22 | Outpatient (REF) | payer OTHER, SELFPAY ==
--- NOTE | ~2023-11-29 | XR_ITS ---
EXAMINATION: XR SHOULDER, LEFT CLINICAL INFORMATION: Pain in shoulder. COMPARISON: None available. TECHNIQUE: AP external rotation, Grashey, scapular Y, and axillary views of the left shoulder. FINDINGS: Glenohumeral joint: There is extensive calcification throughout the glenohumeral joint involving the rotator cuff tendon superiorly. 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 Additional mild arthrosis of the acromioclavicular joint with chondrocalcinosis. Surrounding bone and soft tissues are unremarkable. XR/XR shoulder LT min 2V IMPRESSION: Findings compatible with chondrocalcinosis/hydroxyapatite deposition disease involving the glenohumeral joint, acromioclavicular joint and rotator cuff tendons.
== END 2023-11-29 11:23 | disposition home or self-care (01) ==
LOC: HO.HOSX 11:22
PROVIDERS: PCP Internal Medicine; Visit Provider Physician Assistant
DX: M75.32 Calcific tendinitis of left shoulder (principal); N18.31 Chronic kidney disease, stage 3a
CPT/HCPCS: 73030; 99212

== ENCOUNTER 2023-11-29 11:22 | Outpatient (AMB) | payer OTHER, SELFPAY ==
--- NOTE | 2023-11-29 11:23 | A.OFFVIS_ITS ---
Vital Signs 11/29/23 11:38 Height 4 ft 7 in Weight 144 lb BMI 33.5 Intake Visit Reasons: New Prob- Left shoulder pain, no known injury Intake Note: Jocelyn is a 78 year old female who presents today for a evaluation of her left shoulder pain that began approximately 10/10/23. Patient reports she went to bed the night before and woke up with the pain. She went to the ED thinking she was having a heart attack. She states the pain feels like tingling, radiating down the left arm to left 3rd and 4th digits. She is currently taking Tylenol for pain with minimal relief. She was prescribed baclofen at ED but she is no longer taking this. Jocelyn reports pain is waking her up at night. Denies prior surgeries or injuries to the left shoulder. 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 Allergies codeine [CODEINE] Allergy (Severe, Verified 11/29/23 11:37) SWELLING doxycycline Allergy (Severe, Verified 11/29/23 11:37) nauseas erythromycin base [ERYTHROMYCIN BASE] Allergy (Severe, Verified 11/29/23 11:37) SWELLING morphine [MORPHINE] Allergy (Severe, Verified 11/29/23 11:37) ANAPHYLAXIS penicillin V Allergy (Severe, Verified 11/29/23 11:37) Swelling Eyes simvastatin Allergy (Severe, Verified 11/29/23 11:37) Nerve Inflammation aspirin [ASPIRIN] Allergy (Intermediate, Verified 11/29/23 11:37) chest tightness lisinopril [LISINOPRIL] Allergy (Intermediate, Verified 11/29/23 11:37) COUGH cyclobenzaprine Adverse Reaction (Intermediate, Verified 11/29/23 11:37) SOB, dry mouth/ throat [employer] Saline Allergy (Severe, Uncoded 11/29/23 11:37) Redness ZYVA Allergy (Severe, Uncoded 11/29/23 11:37) NERVE INFLAMMATION HPI HPI New Prob- Left shoulder pain, no known injury: Details: 78-year-old female who presents in the office today for an evaluation of left shoulder pain. The patient was seen by her PCP on 11/15/23 with a complaint of left upper back pain beginning a few days prior. She was prescribed baclofen 10 mg PO TID for 5 days and lidocaine 5% topical at Bedtime for two weeks. ? ? While in the office today, the patient reports the pain in her left shoulder began around 10/10/23 when she woke up with the pain. She states she presented to the ED due to a concern for a heart attack accompanied by tingling radiating down her left upper extremity to her left third and fourth digits. She states she was prescribed baclofen in the ED and is no longer taking this. She claims to have pain waking her up at night. She confirms taking Tylenol for pain with minimal relief. The patient denies any prior surgeries or injury to the left shoulder. ? ? Patient has a significant medical history of diabetes mellitus and chronic kidney disease stage 3.? [facility] Medical History HTN (hypertension) Coronary artery calcification seen on CAT scan Chronic cough Muscle tear CKD (chronic kidney disease) Pure hypercholesterolemia Postmenopausal Microalbuminuria Effusion, right knee GERD (gastroesophageal reflux disease) Right knee pain Anemia Axillary lymphadenopathy Breast mass Essential hypertension Dyslipidemia Lymphadenopathy Asthma High cholesterol Diabetes mellitus Surgical History History of esophagogastroduodenoscopy (EGD) Hx of colonoscopy History of tubal ligation History of umbilical hernia repair History of tonsillectomy Family History Father No problems noted. Mother No problems noted. Social History (Updated 11/29/23 @ 11:46 by CASTRO Ball) Housing: Apartment Are you a primary customer care professional to a significant other at home: No Do you presently have visiting nurse or other home services: No Alcohol intake: never Patient Tobacco Use Status: Never used Tobacco e-Cigarette/Vaping Use: Never Used Second Hand Smoke Exposure: No service: No Current occupational status: disabled Current occupation: rt handed Cognitive needs: No Hearing needs: No Vision needs: Yes (Glasses) Review of Systems Const All systems reviewed & are unremarkable except as noted in HPI and below Physical Exam Vital Signs: BMI result Body Mass Index 33.5 Const General: cooperative and no acute distress Orientation/consciousness: patient oriented x3 Resp Effort & Inspection: normal respiratory effort and able to speak in complete sentences Cardio Peripheral pulses: Peripheral pulses 2+ throughout Skin General skin exam: no rashes or lesions noted Neuro General: patient oriented x3 Extrem Other: Left shoulder: Forward flexion and abduction to 90 degrees. External rotation to end range. Able to reach T-12. Pain with cross-body reach. Unable to assess empty can or drop arm due to ROM restrictions and pain. NVI.? Assessment & Plan Assessment & Plan (1) Calcific tendonitis of left shoulder: Code(s): M75.32 - Calcific tendinitis of left shoulder Category: Medical (2) CKD (chronic kidney disease) stage 3, GFR 30-59 ml/min: Code(s): N18.30 - Chronic kidney disease, stage 3 unspecified Category: Medical Qualifiers: Chronic kidney disease stage 3 subtype: stage 3a (GFR 45-59) Qualified Code(s): N18.31 - Chronic kidney disease, stage 3a Plan Ms. Guevara is a 78-year-old female who presents in the office today for an evaluation of left shoulder pain. The patient was seen by her PCP on 11/15/23 with a complaint of left upper back pain beginning a few days prior. She was prescribed baclofen 10 mg PO TID for 5 days and lidocaine 5% topical at Bedtime for two weeks. ? ? While in the office today, the patient reports the pain in her left shoulder began around 10/10/23 when she woke up with the pain. She states she presented to the ED due to a concern for a heart attack accompanied by tingling radiating down her left upper extremity to her left third and fourth digits. She states she was prescribed baclofen in the ED and is no longer taking this. She claims to have pain waking her up at night. She confirms taking Tylenol for pain with minimal relief. The patient denies any prior surgeries or injury to the left shoulder. ? ? Patient has a significant medical history of diabetes mellitus and chronic kidney disease stage 3.? ? We discussed the role of cortisone injections; however, she has elected to hold off at this time. She states she had them in her knee and this made her pain worse. Therefore, she is hesitant to move forward with this in the left shoulder. A referral for physical therapy was made in the office today, as well as a prescription for lidocaine patches was sent to the pharmacy. Patient cannot take NSAIDs due to CKD3. Follow-up will be PRN, or sooner if needed. ? ? X-rays of the left shoulder which were obtained while in the office today and were reviewed by , Dasha Miles PA-C, revealed significant calcific tendonitis. ? Orders: Orders XR shoulder LT min 2V Today M25.519 - Pain in unspecified shoulder Patient Instructions: Scribed by Raiza Levin medical program specialist, for Dasha Miles PA-C on 11/29/2023 at 11:24 am, EST.? Coding Level of Care Code New Pt Level 4 (37032) Diagnoses Calcific tendonitis of left shoulder M75.32 Stage 3a chronic kidney disease N18.31 Chronic kidney disease stage 3 subtype: stage 3a (GFR 45-59)
[2023-11-29 11:38] VITALS: BMI 33.5
== END 2023-11-29 12:04 | disposition home or self-care (01) ==
PROVIDERS: PCP Internal Medicine; Visit Provider Physician Assistant
DX: M75.32 Calcific tendinitis of left shoulder (principal); N18.31 Chronic kidney disease, stage 3a
CPT/HCPCS: 99214

== ENCOUNTER 2023-12-03 10:41 | Outpatient (AMB) | payer OTHER, SELFPAY ==
--- NOTE | 2023-12-03 10:50 | A.OFFVIS_ITS ---
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 Accompanied by: Self / Same As Patient Allergies codeine [CODEINE] Allergy (Severe, Verified 12/03/23 10:55) SWELLING doxycycline Allergy (Severe, Verified 12/03/23 10:55) nauseas erythromycin base [ERYTHROMYCIN BASE] Allergy (Severe, Verified 12/03/23 10:55) SWELLING morphine [MORPHINE] Allergy (Severe, Verified 12/03/23 10:55) ANAPHYLAXIS penicillin V Allergy (Severe, Verified 12/03/23 10:55) Swelling Eyes simvastatin Allergy (Severe, Verified 12/03/23 10:55) Nerve Inflammation aspirin [ASPIRIN] Allergy (Intermediate, Verified 12/03/23 10:55) chest tightness lisinopril [LISINOPRIL] Allergy (Intermediate, Verified 12/03/23 10:55) COUGH cyclobenzaprine Adverse Reaction (Intermediate, Verified 12/03/23 10:55) SOB, dry mouth/ throat [employer] Saline Allergy (Severe, Uncoded 11/29/23 11:37) Redness ZYVA Allergy (Severe, Uncoded 11/29/23 11:37) NERVE INFLAMMATION HPI HPI Pain in unspecified joint: Details: Patient is a pleasant 78-year-old female presents today for initial evaluation of left shoulder and left forearm pain.Right-hand dominant. Denies any recent trauma, injury, or falls. Patient was evaluated in our ER on 11/09/23 after she woke up with chest pain with radiating left arm pain and had normal cardiac work up. Pain is localized to lateral and posterior aspects of the left shoulder with radiation down into her left forearm with paresthesias into the 4th and 5th fingers. Patient has difficulties with overhead reaching activities or reaching backside pocket or lifting objects. Reports increase left arm pain with repetitive movements, especially with crocheting. Patient has reproduction of numbness and tingling with unpleasant sensation when she rests her left forearm and elbow on handlebar. This is consistent with ulnar neuropathy. She completed shoulder x-ray few days ago and starting PT for left calcific tendonitis per Orthopedic evaluation on 11/29/23. She has mild lower cervical and thoracic spondylosis. Denies previous shoulder or spine surgery or injections. Patient is diabetic with most recent A1C=6.7. She avoids NSAIDs due to CKD but will take low dose Motrin for severe pain. Patient reports gabapentin 300 mg BID with partial relief. Denies any chills, fever, dizziness, chest pain, shortness of breath, neck or back pain, gait disturbance, bladder or bowel dysfunction or saddle anesthesia. Reports intermittent left upper extremity weakness and numbness. Location: Left shoulder with radiation into left forearm and left 4th-5th fingers Duration: Woke with pain on 11/09/23, went to ER for chest pain Characteristics of symptom or complaint: Aching, tingling, numbness, burning, shooting, sharp Aggravating or associated factors: Lifting, sleeping on left side, crocheting, ADLs, resting on handlebar Relieving factors: Tylenol, Motrin (rarely), gabapentin, rest, elevate, activity modification Treatment: Starts PT on 12/17/23 [facility] Medical History HTN (hypertension) Coronary artery calcification seen on CAT scan Chronic cough Muscle tear CKD (chronic kidney disease) Pure hypercholesterolemia Postmenopausal Microalbuminuria Effusion, right knee GERD (gastroesophageal reflux disease) Right knee pain Anemia Axillary lymphadenopathy Breast mass Essential hypertension Dyslipidemia Lymphadenopathy Asthma High cholesterol Diabetes mellitus Surgical History History of esophagogastroduodenoscopy (EGD) Hx of colonoscopy History of tubal ligation History of umbilical hernia repair History of tonsillectomy Family History Father No problems noted. Mother No problems noted. Social History (Updated 11/29/23 @ 11:46 by CASTRO Ball) Housing: Apartment Are you a primary auto care center manager to a significant other at home: No Do you presently have visiting nurse or other home services: No Alcohol intake: never Patient Tobacco Use Status: Never used Tobacco e-Cigarette/Vaping Use: Never Used Second Hand Smoke Exposure: No service: No Current occupational status: disabled Current occupation: rt handed Cognitive needs: No Hearing needs: No Vision needs: Yes (Glasses) Review of Systems Const All systems reviewed & are unremarkable except as noted in HPI and below Neuro Denies Abnormal speech present Physical Exam Vital Signs: Last Vital Signs Pulse 79 12/03/23 10:56 BP 191/79 H 12/03/23 10:56 Pulse Ox 98 12/03/23 10:56 Oxygen Delivery Method Room Air 12/03/23 10:56 BMI result Body Mass Index 33.8 General: Appears afebrile. Alert and oriented. Mood and affect appropriate. Follows and participates in conversation appropriately. Respiratory effort is unlabored. No cough. Able to transition from sit to stand unassisted. Ambulates with bilaterally normal heel strike and toe off. Neck Neck: Yes full ROM, Yes no lymphadenopathy, Yes no meningeal signs, Yes supple, No anterior neck swelling, Yes no JVD and Yes prominent dorsocervical fat pad Back/Spine/Pelvis Cervical Spine: cervical ROM normal, cervical muscular tenderness (left), No pain with cervical ROM and No Cervical spine tenderness Neuro General: moves all extremities, Normal light touch and pain sensation, no meningeal signs, no focal motor deficits and CN's II-XI intact bilaterally Cognition (Neuro): normal cognition Speech: No Abnormal speech present Gait exam (Neuro): Normal gait present Motor exam (neuro): 5/5 motor strength present throughout (4/5 LUE), no tremor noted and Abnormal motor strength present (weak grasp, able to make fist but with pain) Sensory Exam: sensory level loss detected (Paresthesias into the 4th and 5th fingers with +Tinel and +Phalen signs) Extrem General: Yes capillary refill normal, Yes no clubbing, cyanosis or edema and Yes no calf tenderness Left upper extremity: shoulder/upper arm (Limited IR/ER ROM due to pain) Details: tenderness Location: over the subacromial bursa; no ecchymosis, no crepitus and no unsual warmth Results Reviewed Results Reviewed: CT chest wo IV con 02/16/23 SSEOUS STRUCTURES: There is multi-level mild lower cervical and thoracic spondylosis. No acute or aggressive osseous abnormality is seen. Assessment & Plan Assessment & Plan (1) Numbness and tingling of left upper extremity: Code(s): R20.0 - Anesthesia of skin; R20.2 - Paresthesia of skin Category: Medical (2) Cubital tunnel syndrome on left: Code(s): G56.22 - Lesion of ulnar nerve, left upper limb Category: Medical (3) Calcific tendonitis of left shoulder: Code(s): M75.32 - Calcific tendinitis of left shoulder Category: Medical (4) Left shoulder pain: Code(s): M25.512 - Pain in left shoulder Category: Medical Plan Patient is being followed by Orthopedic with recent evaluation on 11/29/23 and will start PT for left shoulder pain. Her left upper extremity numbess and tingling and pain with ADLs, lifting, hobbies, etc is consistent with ulnar neuropathy. Will obtain EMG and NVC studies to confirm this. Patient declined left elbow/wrist brace script due to claustrophobia but may try wrap her left elbow with a towel at night to limit flexion. She will use soft cushioning elbow pad if resting her left arm on handle bars or other hard surfaces. She is aware to avoid pain producing activities, heavy lifting, avoid excessive or prolonged elbow flexion. Recommend PT, script provided. Continue gabapentin, refill send with gabapentin 300 mg BID to TID. Reviewed side effects and precautions with patient. All questions and concerns have been answered and patient agreed with the plan. Follow up for EMG/NVC results and sooner as needed. Orders: Orders NE nerve conduction velocity Today G56.22 - Lesion of ulnar nerve, left upper limb, R20.0 - Anesthesia of skin, R20.2 - Paresthesia of skin NE electromyogram (EMG) Today G56.22 - Lesion of ulnar nerve, left upper limb, R20.0 - Anesthesia of skin, R20.2 - Paresthesia of skin PT Evaluation and Treatment Today G56.22 - Lesion of ulnar nerve, left upper limb, R20.0 - Anesthesia of skin, R20.2 - Paresthesia of skin Medications: Changed From gabapentin 300 mg PO BID 20 caps 0RF G56.22 - Lesion of ulnar nerve, left upper limb, R20.0 - Anesthesia of skin, R20.2 - Paresthesia of skin To gabapentin 300 mg PO Q8H 30 days 90 caps 0RF pain G56.22 - Lesion of ulnar nerve, left upper limb, R20.0 - Anesthesia of skin, R20.2 - Paresthesia of skin Coding Level of Care Code New Pt Level 4 (76138) Diagnoses Numbness and tingling of left upper extremity R20.0; R20.2 Cubital tunnel syndrome on left G56.22 Calcific tendonitis of left shoulder M75.32 Left shoulder pain M25.512
[2023-12-03 10:56] VITALS: BP 191/79; PULSE 79; O2SAT 98; BMI 33.8
== END 2023-12-03 11:27 | disposition home or self-care (01) ==
PROVIDERS: PCP Internal Medicine; Referring Provider Internal Medicine; Visit Provider Nurse Practitioner Family
DX: R20.0 Anesthesia of skin (principal); R20.2 Paresthesia of skin; G56.22 Lesion of ulnar nerve, left upper limb; M75.32 Calcific tendinitis of left shoulder; M25.512 Pain in left shoulder
CPT/HCPCS: 99204

== ENCOUNTER → 2023-12-03 10:41 | Outpatient (BNVA) | payer OTHER, SELFPAY | PROVIDERS: PCP Internal Medicine; Referring Provider Internal Medicine; Visit Provider Nurse Practitioner Family | DX: M75.32 Calcific tendinitis of left shoulder (principal); M25.512 Pain in left shoulder; R20.0 Anesthesia of skin; R20.2 Paresthesia of skin; G56.22 Lesion of ulnar nerve, left upper limb | CPT/HCPCS: 99202 ==

== ENCOUNTER 2023-12-30 08:53 | Outpatient (AMB) | payer OTHER, SELFPAY ==
--- NOTE | 2023-12-30 09:00 | MHC.PC.OV ---
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 Accompanied by: Self / Same As Patient Allergies codeine [CODEINE] Allergy (Severe, Verified 12/30/23 09:32) SWELLING doxycycline Allergy (Severe, Verified 12/30/23 09:32) nauseas erythromycin base [ERYTHROMYCIN BASE] Allergy (Severe, Verified 12/30/23 09:32) SWELLING morphine [MORPHINE] Allergy (Severe, Verified 12/30/23 09:32) ANAPHYLAXIS penicillin V Allergy (Severe, Verified 12/30/23 09:32) Swelling Eyes simvastatin Allergy (Severe, Verified 12/30/23 09:32) Nerve Inflammation aspirin [ASPIRIN] Allergy (Intermediate, Verified 12/30/23 09:32) chest tightness lisinopril [LISINOPRIL] Allergy (Intermediate, Verified 12/30/23 09:32) COUGH cyclobenzaprine Adverse Reaction (Intermediate, Verified 12/30/23 09:32) SOB, dry mouth/ throat [employer] Saline Allergy (Severe, Uncoded 12/30/23 09:32) Redness ZYVA Allergy (Severe, Uncoded 12/30/23 09:32) NERVE INFLAMMATION Medication List - Last Reconciled 12/30/23 by Lita Flores MD acetaminophen 500 mg PO BID PRN 30 days albuterol sulfate 90 mcg/actuation 2 inhalations inhalation Q6H PRN 30 days amlodipine 10 mg PO DAILY 90 days benzonatate 200 mg PO BID PRN 30 days blood sugar diagnostic ([employer] Verio test strips) 1 strip miscellaneous DAILY 90 days cholecalciferol (vitamin D3) 50 mcg PO DAILY 90 days clotrimazole-betamethasone 1-0.05 % 1 appl topical BID 5 days ezetimibe 10 mg PO DAILY famotidine 20 mg PO BID PRN gabapentin 300 mg PO Q8H 30 days glipizide 10 mg (2 x 5 mg) PO BID hydralazine 25 mg PO TID 90 days lancets ([employer] Delica Plus Lancet) 30 gauge miscellaneous DAILY 90 days lidocaine 5% 1 appl topical BEDTIME PRN 2 weeks lidocaine HCl 4% (Aspercreme (lidocaine HCl)) 1 appl topical BID PRN meclizine 25 mg PO TID PRN 30 days montelukast 10 mg PO DAILY multivitamin (Daily Multi-Vitamin tablet) 1 tab PO QAM 30 days multivitamin with folic acid 400 mcg (Daily-Yulissa (with folic acid)) 1 tab PO DAILY omeprazole 20 mg PO BID 30 days rosuvastatin 40 mg PO DAILY 90 days terconazole 0.8% 1 appful vaginal BEDTIME 3 days Tobacco use date assessed: 07/15/23 Fall risk assessment: No Falls in past year Last assessed Fall Risk: 12/30/23 Dental Screening Dental Screen Date: 12/30/23 Did you have a dental visit in the last 12 months?: No Did you have a dental problem in the last 6 months where you did not have access to dental care?: No Was dental information given to patient?: Patient has dentist HPI HPI Comments History of Present Illness Details This is a 78-year-old female with hypertension, GERD and dyslipidemia that comes today complaining of bilateral hand pain and trigger finger of left thumb. This started few months ago. Associated with weakness. She also has some numbness in both hands. Will order x-rays and referred to Ortho. Blood pressure elevated and she is compliant with medications. I will add losartan and blood pressure will be recheck in 3 weeks by nurse navigator. GERD stable with PPIs. On statins for her elevated cholesterol. [facility] Medical History (Updated 12/30/23 @ 09:39 by Lita Flores MD) HTN (hypertension) Coronary artery calcification seen on CAT scan Chronic cough Muscle tear CKD (chronic kidney disease) Pure hypercholesterolemia Postmenopausal Microalbuminuria Effusion, right knee GERD (gastroesophageal reflux disease) Right knee pain Anemia Axillary lymphadenopathy Breast mass Essential hypertension Dyslipidemia Lymphadenopathy Asthma High cholesterol Diabetes mellitus Surgical History History of esophagogastroduodenoscopy (EGD) Hx of colonoscopy History of tubal ligation History of umbilical hernia repair History of tonsillectomy Family History Father No problems noted. Mother No problems noted. Social History Housing: Apartment Are you a primary respite care provider to a significant other at home: No Do you presently have visiting nurse or other home services: No Alcohol intake: never Patient Tobacco Use Status: Never used Tobacco e-Cigarette/Vaping Use: Never Used Second Hand Smoke Exposure: No service: No Current occupational status: disabled Current occupation: rt handed Cognitive needs: No Hearing needs: No Vision needs: Yes (Glasses) Questionnaire Thrive Questionnaire Date Thrive assessed: 07/15/23 VU-7 AMB Questionnaire VU-7 Date VU - 7 assessed: 07/15/23 Source: Developed by Drs. Ezequiel Diaz, Gaby Hwang, Antoine Guerrero and colleagues, with an educational mildred from [employer]. Review of Systems Const All systems reviewed & are unremarkable except as noted in HPI and below Card Denies chest pain at rest, Denies chest pain with activity, Denies edema, Denies irregular heart rhythm, Denies claudication, Denies dyspnea, Denies dyspnea on exertion, Denies orthopnea, Denies paroxysmal nocturnal dyspnea and Denies slow heart rate Resp Denies cough, Denies dyspnea and Denies dyspnea on exertion GI Denies abdominal pain, Denies change in bowel habits, Denies excessive flatus, Denies nausea and Denies vomiting Neuro Denies behavioral changes and Denies lack of coordination Psych Denies behavioral changes Physical exam (Primary Care) Vital Signs: Last Vital Signs BP 150/60 H 12/30/23 09:01 BMI result Body Mass Index 34.2 BMI Assessment/Plan discussion: High BMI High, discussed plan: lifestyle, weight reduction, dietary and physical activity Tobacco/Smoking Status: Tobacco use Status Tobacco use date assessed 07/15/23 12/30/23 09:06 Patient Tobacco Use Status Never used Tobacco 12/30/23 09:06 e-Cigarette/Vaping Use Never Used 12/30/23 09:06 Thrive Assessment: Date of Thrive Assessment Date Thrive assessed 07/15/23 12/30/23 09:06 Resp Effort & Inspection: normal respiratory effort Auscultation: clear to auscultation bilaterally Cardio Jugular venous distension: no JVD Rate: regular rate Rhythm: regular rhythm Heart sounds: S1 normal heart sound present and S2 normal heart sound present Extrem General: Yes full ROM Assessment and Plan Assessment & Plan (1) Essential hypertension: Code(s): I10 - Essential (primary) hypertension Plan: Continue amlodipine and hydralazine. Start losartan. Blood pressure goal is equal or less than 130/80. Recheck blood pressure with nurse navigator in 3 weeks. (2) Dyslipidemia: Code(s): E78.5 - Hyperlipidemia, unspecified Plan: Continue statins. (3) GERD (gastroesophageal reflux disease): Code(s): K21.9 - Gastro-esophageal reflux disease without esophagitis Plan: Continue PPIs. (4) Hand pain, right: Code(s): M79.641 - Pain in right hand Plan: X-ray ordered. (5) Hand pain, left: Code(s): M79.642 - Pain in left hand Plan: X-ray ordered. (6) Trigger finger of left thumb: Code(s): M65.312 - Trigger thumb, left thumb Plan: Referred to Ortho. Orders: Orders XR hand LT 2V Today M79.642 - Pain in left hand XR hand RT 2V Today M79.641 - Pain in right hand Referrals Orthopedics Referral M65.312 - Trigger thumb, left thumb, M79.641 - Pain in right hand, M79.642 - Pain in left hand Medications: New losartan 25 mg PO DAILY 90 tabs 1RF 90 days Refilled gabapentin 300 mg PO Q8H 90 caps 1RF pain 30 days G56.22 - Lesion of ulnar nerve, left upper limb, R20.0 - Anesthesia of skin, R20.2 - Paresthesia of skin Coding Level of Care Code Est Pt Level 4 (43991) Complex EM visit Add On G2211 Diagnoses Essential hypertension I10 Dyslipidemia E78.5 Gastroesophageal reflux disease, unspecified whether esophagitis present K21.9 Hand pain, right M79.641 Hand pain, left M79.642 Trigger finger of left thumb M65.312 Time Spent (min) 24
[2023-12-30 09:01] VITALS: BP 150/60; BMI 34.2
[2023-12-30 12:17] VITALS: BP 150/70
== END 2023-12-30 09:58 | disposition home or self-care (01) ==
PROVIDERS: PCP Internal Medicine; Visit Provider Internal Medicine
DX: I10 Essential (primary) hypertension (principal); E78.5 Hyperlipidemia, unspecified; K21.9 Gastro-esophageal reflux disease without esophagitis; M79.641 Pain in right hand; M79.642 Pain in left hand; M65.312 Trigger thumb, left thumb
CPT/HCPCS: 99214; G2211

== ENCOUNTER 2023-12-31 12:03 | Outpatient (REF) | payer OTHER, SELFPAY ==
--- NOTE | ~2023-12-31 | XR_ITS ---
EXAMINATION: X-RAY BILATERAL HANDS CLINICAL INFORMATION: Pain in bilateral hands. COMPARISON: None available. TECHNIQUE: 3 views of each hand. FINDINGS: Left hand: Narrowing of the radiocarpal space. Amorphous calcifications in the triangular fibrocartilage. Moderate degenerative changes in the first carpometacarpal joint with joint space narrowing and hypertrophic change. Punctate calcification in the soft tissues adjacent to the base of the second digit proximal phalanx. Deformity of the distal tuft of the fifth digit of indeterminate etiology, possibly related to prior trauma. Degenerative changes in scattered IP joints, most notable in the second and third digit DIP joints with hypertrophic change and joint space narrowing. Right hand: Narrowing of the radiocarpal space. Amorphous calcifications in the triangular fibrocartilage. Moderate degenerative changes in the first carpometacarpal joint with joint space narrowing and hypertrophic change. Amorphous calcifications adjacent to the third metacarpophalangeal joint. Mild degenerative changes in the second and third metacarpophalangeal joints. Advanced degenerative changes in the first metacarpophalangeal joint. Degenerative changes in scattered IP joints, most notable in the second DIP joint with hypertrophic change and joint space narrowing. XR/XR hand RT 2V IMPRESSION: 1. Degenerative changes in the bilateral hands as detailed above. 2. Deformity of the distal tuft of the left fifth digit of indeterminate etiology, possibly related to prior trauma. Correlation with clinical history and exam recommended to determine further management. Electronically signed by: Katy Koo MD 01/19/2024 01:46 PM EDT
--- NOTE | ~2023-12-31 | XR_ITS ---
EXAMINATION: X-RAY BILATERAL HANDS CLINICAL INFORMATION: Pain in bilateral hands. COMPARISON: None available. TECHNIQUE: 3 views of each hand. FINDINGS: Left hand: Narrowing of the radiocarpal space. Amorphous calcifications in the triangular fibrocartilage. Moderate degenerative changes in the first carpometacarpal joint with joint space narrowing and hypertrophic change. Punctate calcification in the soft tissues adjacent to the base of the second digit proximal phalanx. Deformity of the distal tuft of the fifth digit of indeterminate etiology, possibly related to prior trauma. Degenerative changes in scattered IP joints, most notable in the second and third digit DIP joints with hypertrophic change and joint space narrowing. Right hand: Narrowing of the radiocarpal space. Amorphous calcifications in the triangular fibrocartilage. Moderate degenerative changes in the first carpometacarpal joint with joint space narrowing and hypertrophic change. Amorphous calcifications adjacent to the third metacarpophalangeal joint. Mild degenerative changes in the second and third metacarpophalangeal joints. Advanced degenerative changes in the first metacarpophalangeal joint. Degenerative changes in scattered IP joints, most notable in the second DIP joint with hypertrophic change and joint space narrowing. XR/XR hand LT 2V IMPRESSION: 1. Degenerative changes in the bilateral hands as detailed above. 2. Deformity of the distal tuft of the left fifth digit of indeterminate etiology, possibly related to prior trauma. Correlation with clinical history and exam recommended to determine further management. Electronically signed by: Katy Koo MD 01/19/2024 01:46 PM EDT
== END 2023-12-31 12:04 | disposition home or self-care (01) ==
LOC: HO.XRAY 12:03
PROVIDERS: PCP Internal Medicine; Visit Provider Internal Medicine
DX: M79.641 Pain in right hand (principal); M79.642 Pain in left hand
CPT/HCPCS: 73120

== ENCOUNTER → 2024-01-06 15:01 | Outpatient (RCR) | payer MEDICARE, SELFPAY ==
[2020-10-15 09:30] VITALS: BP 152/65; PULSE 80; RESP 12; TEMP 36.5; O2SAT 97; BMI 34.2
--- NOTE | 2020-10-15 10:24 | P.CNHO_ITS ---
Subjective - Subjective Chief complaint: Low blood counts Patient: new to practice Consult date: 10/15/20 Primary Care Provider: Lita Flores MD Medical Summary: Diagnosis: Normocytic anemia Normal iron studies, vitamin B12 and folic acid levels in 2019. No chronic kidney disease or liver problems noted. No evidence of hemolysis. HPI - Consult Narrative Reason for consult: Anemia Narrative: Jocelyn Guevara is a 74 year old female referred for evaluation of anemia. She has been recently told of this. This was detected on routine blood work. She has no symptoms such as fatigue, loss of appetite or weight loss. No fever or chills. No headache or dizziness. No changes to her medications. No recent infections to report. She has had a colonoscopy in the remote past. He has had no heartburn or reflux symptoms. No hematochezia melena, no changes in her bowel habits. [facility] Medical History: Medical History (Last Updated 09/25/20 @ 15:50 by Lita Flores MD) Anemia Asthma Axillary lymphadenopathy Breast mass Diabetes mellitus Dyslipidemia Essential hypertension High cholesterol HTN (hypertension) Lymphadenopathy Family History: Family History (Last Reviewed 08/19/20 @ 08:24 by Lita Flores MD) Father No problems noted. Mother No problems noted. Surgical History: Surgical History (Last Reviewed 08/19/20 @ 08:23 by Lita Flores MD) History of tonsillectomy History of tubal ligation History of umbilical hernia repair Social History: Social History (Last Updated 10/15/20 @ 09:34 by Mari Monge) Alcohol History: Alcohol intake: current Alcohol History Details: Alcohol intake frequency: holiday/special occasion Alcohol type: hard liquor Tobacco History: Patient Tobacco Use Status: Never used Tobacco Second Hand Smoke Exposure: No Substance Use History: Use of substances other than those prescribed or required for medical reasons : No Home Medications and Allergies Home Medications Medication Instructions Recorded Confirmed Type blood sugar diagnostic #10 ea 06/19/20 10/15/20 History glipizide 5 mg tablet 10 mg PO BID 06/19/20 10/15/20 History lancets 30 gauge #100 ea 06/19/20 10/15/20 History naproxen 500 mg tablet 500 mg PO DAILY 06/19/20 10/15/20 History omeprazole 20 mg capsule,delayed 20 mg PO BID 06/19/20 10/15/20 History release Allergies Allergy/AdvReac Type Severity Reaction Status Date / Time codeine [CODEINE] Allergy Severe SWELLING Verified 09/25/20 15:47 erythromycin base Allergy Severe SWELLING Verified 09/25/20 15:47 [ERYTHROMYCIN BASE] morphine [MORPHINE] Allergy Severe ANAPHYLAXIS Verified 09/25/20 15:47 penicillin V Allergy Severe Swelling Verified 09/25/20 15:47 Eyes simvastatin Allergy Severe Nerve Verified 09/25/20 15:47 Inflammation aspirin [ASPIRIN] Allergy Intermediate chest Verified 09/25/20 15:47 tightness lisinopril [LISINOPRIL] Allergy Intermediate COUGH Verified 09/25/20 15:47 cyclobenzaprine AdvReac Intermediate SOB, dry Verified 09/25/20 15:47 mouth/ throat [employer] Saline Allergy Severe Redness Uncoded 09/25/20 15:47 ZYVA Allergy Severe NERVE Uncoded 09/25/20 15:47 INFLAMMATION Physical Exam Vital signs: Vital Signs Temp 97.7 F 10/15/20 09:30 Pulse 80 10/15/20 09:30 Resp 12 10/15/20 09:30 BP 152/65 H 10/15/20 09:30 Pulse Ox 97 10/15/20 09:30 Intake & Output 10/14/20 10/15/20 10/15/20 18:59 06:59 18:59 Other: Weight 71.9 kg [place] Weight in Grams [id number] Weight 71.9 kg Assessment and Plan (1) Anemia Status: Acute Qualifiers: Anemia type: unspecified type Qualified Code(s): D64.9 - Anemia, unspecified 1. This is a 74-year-old woman with chronic normocytic anemia. This has gradually been worsening since 2019. No evidence of hematinic deficiencies, kidney disease, liver disease or hemolysis. She is not on any medications that can cause anemia. Blood work has been ordered today including serum protein electrophoresis and immunofixation. If no cause can be found on blood tests and she has further progression of her anemia, bone marrow aspiration and biopsy will be discussed with the patient. She was also advised to go for screening colonoscopy which she has not had last year because of COVID-19. Follow-up in 1 month. I thank you very much for this consultation.
--- NOTE | 2020-10-15 10:41 | MHC.HEMONCMA ---
Patient came in for a consult, states that she is doing well. Clinical summary was reviewed and updated. Patient had labs and will return in 1 month for a follow up.
[2020-10-15 11:22] LABS: MANUAL DIFF FLAG NO
[2020-10-15 11:51] LABS: Basophils Percent Auto 0.3 % (0-2); Eosinophils Absolute Auto 0.5 X10*3/uL (0.0-0.4); Eosinophils Percent Auto 7.1 % (0-4); Hematocrit 32.6 % (37-47); Hemoglobin 10.5 g/dl (12.0-16.0); Imm Gran Abs Auto 0.04 X10*3/uL (0.00-0.03); Imm Gran Pct Auto 0.6 % (0.0-0.4); Immature Retic Fraction 11.1 % (3.0-15.9); Lymphocytes Absolute Auto 1.9 X10*3/uL (1.2-4.9); Lymphocytes Percent Auto 29.6 % (20-40); Mean Corpuscular HGB Conc 32.2 g/dl (31.0-35.0); Mean Corpuscular Hemoglobin 29.9 pg (27.0-33.0); Mean Corpuscular Volume 92.9 fL (80-98); Mean Platelet Volume 10.1 fL (9.4-12.3); Monocytes Absolute Auto 0.4 X10*3/uL (0.1-1.2); Monocytes Percent Auto 6.1 % (2-11); Neutrophils Absolute Auto 3.6 X10*3/uL (2.0-8.3); Neutrophils Percent Auto 56.3 % (45-73); Platelet Count 194 X10*3/uL (160-400); Red Blood Count 3.51 X10*6/uL (4.20-5.50); Red Cell Distribution Width 12.6 % (11.0-16.0); Retic HGB Equivalent 33.2 pg (30.0-35.0); Reticulocyte Percent 1.1 % (0.5-1.8); Reticulocytes Absolute 0.039 X10*6/uL (0.026-0.095); White Blood Count 6.4 X10*3/uL (4.8-10.8)
[2020-10-15 12:22] LABS: Iron 61 mcg/dL (30-160); Percent Iron Saturation 21 % (15-50); Total Iron Binding Capacity 285 mcg/dL (228-428); Unsaturated Iron Binding 224 ug/dL
[2020-10-18 07:41] LABS: Prot Elec - Albumin 3.9 g/dL (3.8-4.8); Prot Elec - Alpha1 0.3 g/dL (0.2-0.3); Prot Elec - Alpha2 0.8 g/dL (0.5-0.9); Prot Elec - Beta 1 0.4 g/dL (0.4-0.6); Prot Elec - Beta 2 0.4 g/dL (0.2-0.5); Prot Elec - Gamma 0.8 g/dL (0.8-1.7); Prot Elec - Total Protein 6.6 g/dL (6.1-8.1)
[2020-10-18 15:52] LABS: IgA 285 mg/dL (70-320); IgG 882 mg/dL (600-1540); IgM 37 mg/dL (50-300)
[2020-11-15 15:23] VITALS: BP 199/84; PULSE 81; RESP 14; TEMP 36.4; O2SAT 98; BMI 34.2
--- NOTE | 2020-11-15 15:29 | P.PNHO_ITS ---
Medical Summary - Medical Summary Date of Service: 11/15/20 Chief complaint: Scheduled follow-up Medical Summary: Diagnosis: Normocytic anemia Normal iron studies, vitamin B12 and folic acid levels in 2020. No chronic kidney disease or liver problems noted. No evidence of hemolysis. Interval History Interval history: Patient is here in follow-up. She is doing very well and has no complaints at all today. She is here to discuss results of blood work from her last visit. She is not on any new medications and has had no problems since her last visit. [facility] Medical History: Medical History (Last Reviewed 11/14/20 @ 11:39 by Rip Kimball) Anemia Asthma Axillary lymphadenopathy Breast mass Diabetes mellitus Dyslipidemia Essential hypertension High cholesterol HTN (hypertension) Lymphadenopathy Family History: Family History (Last Reviewed 11/14/20 @ 11:39 by Rip Kimball) Father No problems noted. Mother No problems noted. Surgical History: Surgical History (Last Reviewed 11/14/20 @ 11:39 by Rip Kimball) History of tonsillectomy History of tubal ligation History of umbilical hernia repair Social History: Social History (Last Reviewed 11/14/20 @ 11:39 by Rip Kimball) Alcohol History: Alcohol intake: current Alcohol History Details: Alcohol intake frequency: holiday/special occasion Alcohol type: hard liquor Tobacco History: Patient Tobacco Use Status: Never used Tobacco Second Hand Smoke Exposure: No Substance Use History: Use of substances other than those prescribed or required for medical reasons : No Home Medications and Allergies Home Medications Medication Instructions Recorded Confirmed Type blood sugar diagnostic #10 ea 06/19/20 10/15/20 History lancets 30 gauge #100 ea 06/19/20 10/15/20 History omeprazole 20 mg capsule,delayed 20 mg PO BID 06/19/20 10/15/20 History release Allergies Allergy/AdvReac Type Severity Reaction Status Date / Time codeine [CODEINE] Allergy Severe SWELLING Verified 09/25/20 15:47 erythromycin base Allergy Severe SWELLING Verified 09/25/20 15:47 [ERYTHROMYCIN BASE] morphine [MORPHINE] Allergy Severe ANAPHYLAXIS Verified 09/25/20 15:47 penicillin V Allergy Severe Swelling Verified 09/25/20 15:47 Eyes simvastatin Allergy Severe Nerve Verified 09/25/20 15:47 Inflammation aspirin [ASPIRIN] Allergy Intermediate chest Verified 09/25/20 15:47 tightness lisinopril [LISINOPRIL] Allergy Intermediate COUGH Verified 09/25/20 15:47 cyclobenzaprine AdvReac Intermediate SOB, dry Verified 09/25/20 15:47 mouth/ throat [employer] Saline Allergy Severe Redness Uncoded 09/25/20 15:47 ZYVA Allergy Severe NERVE Uncoded 09/25/20 15:47 INFLAMMATION Exam Vital signs: Vital Signs Temp 97.6 F 11/15/20 15:23 Pulse 81 11/15/20 15:23 Resp 14 11/15/20 15:23 BP 199/84 H 11/15/20 15:23 Pulse Ox 98 11/15/20 15:23 Intake & Output 11/14/20 11/15/20 11/15/20 18:59 06:59 18:59 Other: Weight 71.8 kg [place] Weight in Grams 07475 Weight 71.8 kg Body Mass Index 34.2 - Constitutional Present: no acute distress - Routine HEENT Exam Head: Present: normal inspection Eye: Present: normal appearance - Routine Neck Exam Absent: lymphadenopathy - Routine Respiratory Exam Present: CTAB - Routine Cardiovascular Exam Cardiovascular: Present: RRR, S1, S2 - Routine Abdominal Exam Present: normal bowel sounds, soft. Absent: organomegaly - Routine Extremities Exam Present: normal inspection. Absent: pedal edema Data - Labs CBC & Chem 7: 11/15/20 15:39 Labs: 10/15/20 10:45 Complete Blood Count Auto Diff Routine IRON PROFILE Routine Immunofixation Pnl, Serum Routine Protein Electrophoresis, Serum Routine Reticulocyte Count Routine Laboratory Last Values WBC 6.4 X10*3/uL (4.8-10.8) 10/15/20 10:45 RBC 3.51 X10*6/uL (4.20-5.50) L 10/15/20 10:45 Hgb 10.5 g/dl (12.0-16.0) L 10/15/20 10:45 Hct 32.6 % (37-47) L 10/15/20 10:45 MCV 92.9 fL (80-98) 10/15/20 10:45 MCH 29.9 pg (27.0-33.0) 10/15/20 10:45 MCHC 32.2 g/dl (31.0-35.0) 10/15/20 10:45 RDW 12.6 % (11.0-16.0) 10/15/20 10:45 Plt Count 194 X10*3/uL (160-400) 10/15/20 10:45 MPV 10.1 fL (9.4-12.3) 10/15/20 10:45 Immature Gran % (Auto) 0.6 % (0.0-0.4) H 10/15/20 10:45 Neut % (Auto) 56.3 % (45-73) 10/15/20 10:45 Lymph % (Auto) 29.6 % (20-40) 10/15/20 10:45 Leake % (Auto) 6.1 % (2-11) 10/15/20 10:45 Eos % (Auto) 7.1 % (0-4) H 10/15/20 10:45 Baso % (Auto) 0.3 % (0-2) 10/15/20 10:45 Lymph # (Auto) 1.9 X10*3/uL (1.2-4.9) 10/15/20 10:45 Leake # (Auto) 0.4 X10*3/uL (0.1-1.2) 10/15/20 10:45 Eos # (Auto) 0.5 X10*3/uL (0.0-0.4) H 10/15/20 10:45 Baso # (Auto) 0.0 X10*3/uL (0.0-0.2) 10/15/20 10:45 Abs Immat Gran (auto) 0.04 X10*3/uL (0.00-0.03) H 10/15/20 10:45 Absolute Neuts (auto) 3.6 X10*3/uL (2.0-8.3) 10/15/20 10:45 Absolute Nucleated RBC 0.000 X10*3/uL (0.0-0.012) 10/15/20 10:45 Nucleated RBC % (auto) 0.0 /100WBC (0.0-0.2) 10/15/20 10:45 Absolute Retic 0.039 X10*6/uL (0.026-0.095) 10/15/20 10:45 Percent Retic 1.1 % (0.5-1.8) 10/15/20 10:45 Immature Retic Fraction 11.1 % (3.0-15.9) 10/15/20 10:45 Retic Hgb Equivalent 33.2 pg (30.0-35.0) 10/15/20 10:45 Iron 61 mcg/dL (30-160) 10/15/20 10:45 TIBC 285 mcg/dL (228-428) 10/15/20 10:45 % Saturation 21 % (15-50) 10/15/20 10:45 Unsat Iron Binding 224 ug/dL 10/15/20 10:45 Total Protein (PEP) 6.6 g/dL (6.1-8.1) 10/15/20 10:45 Albumin (PEP) 3.9 g/dL (3.8-4.8) 10/15/20 10:45 Lhxso-6-Fpxbvdywc 0.3 g/dL (0.2-0.3) 10/15/20 10:45 Nuldv-3-Nwubmnuhu 0.8 g/dL (0.5-0.9) 10/15/20 10:45 Ledv-8-Oaxfcuwo 0.4 g/dL (0.4-0.6) 10/15/20 10:45 Arxf-6-Fymmstia 0.4 g/dL (0.2-0.5) 10/15/20 10:45 Gamma Globulins 0.8 g/dL (0.8-1.7) 10/15/20 10:45 Abnorm Protein Band 1 TNP 10/15/20 10:45 Abnorm Protein Band 2 TNP 10/15/20 10:45 Abnorm Protein Band 3 TNP 10/15/20 10:45 PEP Interpretation SEE NOTE 10/15/20 10:45 IgG Total 882 mg/dL (600-1540) 10/15/20 10:45 IgA Total 285 mg/dL (70-320) 10/15/20 10:45 IgM 37 mg/dL (50-300) L 10/15/20 10:45 LORENZO Interpretation SEE NOTE 10/15/20 10:45 Progress Note: A/P (1) Anemia Status: Acute Assessment and plan: 1. This is a 74-year-old woman with chronic normocytic anemia. She has had intermittent normocytic anemia dating back to 1994. No evidence of hematinic deficiencies, kidney disease, liver disease or hemolysis. She is not on any medications that can cause anemia. Hematological workup was negative. Since she is completely asymptomatic, she will be closely monitored for now. I discussed performing a bone marrow aspiration/biopsy if her blood counts fall further. Follow-up in 3 months. - Time Spent With Patient Time Spent with Patient (in minutes): 15
[2020-11-15 15:47] LABS: MANUAL DIFF FLAG NO
[2020-11-15 15:49] LABS: Basophils Percent Auto 0.3 % (0-2); Eosinophils Absolute Auto 0.4 X10*3/uL (0.0-0.4); Eosinophils Percent Auto 4.8 % (0-4); Hematocrit 32.2 % (37-47); Hemoglobin 10.5 g/dl (12.0-16.0); Imm Gran Abs Auto 0.02 X10*3/uL (0.00-0.03); Imm Gran Pct Auto 0.3 % (0.0-0.4); Immature Retic Fraction 12.6 % (3.0-15.9); Lymphocytes Percent Auto 26.4 % (20-40); Mean Corpuscular HGB Conc 32.6 g/dl (31.0-35.0); Mean Corpuscular Hemoglobin 29.7 pg (27.0-33.0); Mean Corpuscular Volume 91.2 fL (80-98); Mean Platelet Volume 9.4 fL (9.4-12.3); Monocytes Absolute Auto 0.5 X10*3/uL (0.1-1.2); Monocytes Percent Auto 6.2 % (2-11); Neutrophils Absolute Auto 4.6 X10*3/uL (2.0-8.3); Platelet Count 184 X10*3/uL (160-400); Red Blood Count 3.53 X10*6/uL (4.20-5.50); Red Cell Distribution Width 12.4 % (11.0-16.0); Retic HGB Equivalent 34.7 pg (30.0-35.0); Reticulocytes Absolute 0.036 X10*6/uL (0.026-0.095); White Blood Count 7.5 X10*3/uL (4.8-10.8)
--- NOTE | 2020-11-15 16:10 | MHC.HEMONCMA ---
Patient came in for a follow up, states that she is doing well. Clinical summary was reviewed and updated. Patient had labs and will return in 3 months for a follow up.
[2020-11-20 05:26] LABS: Haptoglobin 146 mg/dL (43-212)
== END | disposition home or self-care (01) ==
LOC: HO.ONC 10-15 09:19
PROVIDERS: PCP Internal Medicine; Referring Provider Internal Medicine; Visit Provider Internal Medicine
DX: D64.9 Anemia, unspecified (principal)
CPT/HCPCS: 36415; 82784; 83010; 83540; 84155; 84165; 85025; 85045; 86334; 99202; 99213

== ENCOUNTER 2024-01-21 11:00 | Outpatient (RCR) | payer OTHER, SELFPAY ==
--- NOTE | 2023-12-17 15:48 | MHC.PT.EP ---
[facility] [place] Office [place] Office [place] Office [address] Janice Cox [address] [phone] F: [phone] F: [phone] F: [phone] F: [phone] Physical Therapy Plan of Care Date of Evaluation: 12/17/23 Date of Surgery: N/A Diagnosis: L calcific tendonitis (RL) Assessment: 78yo female presents to PT with referring dx of L calcific shoulder tendonitis. Signs/sx are consistent with cervical radiculopathy vs. ulnar neuropathy vs. TOS. pt's symptoms provoked w/ peripheral nerve exam and improved w/ cervical distraction indicating potential double crush syndrome. Pt is notably guarded in cervical musculature and apprehensive with cervical/shoulder motion. She demonstrates limitations in cervical and L shoulder ROM, postural awareness, and extensibility of periscapular/cervical musculature. Pt is a good candidate for skilled PT because of her motivation to improve, typical progression of her condition, and modifiable nature of her impairments. Pt would benefit from an individualized periscapular/cervical/glenohumeral strengthening program, stretching limiting cervical musculature, modalities for pain management, postural re-education, and functional task training. Pt is of moderate complexity due to comorbidities, evolving issues with apprehension, and potential for cervical and/or peripheral nerve involvement. Will continue to treat or refer as appropriate. Frequency and Duration: The patient will be seen 2x/wk for 6 wks Short Term Goals: pt will be I w/ HEP to promote self-management of condition. pt will demo proper sitting posture w/ lumbar roll to promote neutral spine w/ seated ADLs. Long-Term Goals: pt will report statistically significant improvement in self-reported outcome measure, SPADI, to promote return to PLOF. pt will improve L shoulder abduction AROM by at least 15 degrees to promote ease in reaching for cooking activities. Treatment Plan: Modalities to reduce pain, spasms and effusion. Manual therapy to restore motion and function. Therapeutic exercise to improve strength and flexibility. Neuromuscular re-education for posture and balance. Therapeutic activities to return to functional activities of daily living. Electronically signed by: Mari Dsouza PT, DPT Please sign and return to therapist. Thank you for your referral.
--- NOTE | 2024-01-21 11:53 | MHC.PT.DC ---
[facility] [place] Office [place] Office [place] Office [address] Janice Cox [address] [phone] F: [phone] F: [phone] F: [phone] F: [phone] Physical Therapy Discharge Report Diagnosis: L calcific tendonitis (RL) Date of Surgery: N/A Date of Evaluation: 12/17/23 Date of Discharge: 01/21/24 Treatments to Date: 9 Cancellations to Date: 0 No Shows to Date: 0 Discharge Status: Achieved Goals Improved Function Independent with HEP Discharge Summary: Despite new onset of pain, pt expressed she is independent with HEP and able to self-manage her condition. Educated on importance of compliance with strength and postural stabilization program for maintenance. Achieved goals targeted toward functional improvements for independence in ADL/IADL's. Pt is now discharged from this PT plan of care. Electronically signed by: Jesus Morris, PT, DPT Please sign and return to therapist. Thank you for your referral.
== END 2024-01-21 11:54 | disposition home or self-care (01) ==
LOC: HO.PT 11:00
PROVIDERS: PCP Internal Medicine; Visit Provider Physician Assistant
DX: G56.22 Lesion of ulnar nerve, left upper limb (principal); R20.0 Anesthesia of skin; R20.2 Paresthesia of skin; M75.32 Calcific tendinitis of left shoulder
CPT/HCPCS: 97110; 97112; 97140; 97162; 97164; 97530

== ENCOUNTER 2024-02-01 09:50 | Outpatient (AMB) | payer OTHER, SELFPAY ==
--- NOTE | 2024-02-01 09:57 | MHC.OFFVIS ---
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 Required: No Information Interpreted: non-clinical & clinical Operator Helper: Operator Helper Present (Shereen Meng CASTRO) Accompanied by: Self / Same As Patient Allergies codeine [CODEINE] Allergy (Severe, Verified 02/01/24 10:05) SWELLING doxycycline Allergy (Severe, Verified 02/01/24 10:05) nauseas erythromycin base [ERYTHROMYCIN BASE] Allergy (Severe, Verified 02/01/24 10:05) SWELLING morphine [MORPHINE] Allergy (Severe, Verified 02/01/24 10:05) ANAPHYLAXIS penicillin V Allergy (Severe, Verified 02/01/24 10:05) Swelling Eyes simvastatin Allergy (Severe, Verified 02/01/24 10:05) Nerve Inflammation aspirin [ASPIRIN] Allergy (Intermediate, Verified 02/01/24 10:05) chest tightness lisinopril [LISINOPRIL] Allergy (Intermediate, Verified 02/01/24 10:05) COUGH cyclobenzaprine Adverse Reaction (Intermediate, Verified 02/01/24 10:05) SOB, dry mouth/ throat [employer] Saline Allergy (Severe, Uncoded 02/01/24 10:05) Redness ZYVA Allergy (Severe, Uncoded 02/01/24 10:05) NERVE INFLAMMATION Post menopausal: Yes HPI Comments Details: Presenting for annual exam. No complaints. Last Pap/HPV was many years ago no history of abnormal Pap smear last 25 years Last Mammogram was BI-RADS 1 in 11/23 Last Colonoscopy was done in 09/22, the recommendation was to repeat in 3 years according to the patient Last DEXA scan was in 10/22 [facility] Medical History HTN (hypertension) Coronary artery calcification seen on CAT scan Chronic cough Muscle tear CKD (chronic kidney disease) Pure hypercholesterolemia Postmenopausal Microalbuminuria Effusion, right knee GERD (gastroesophageal reflux disease) Right knee pain Anemia Axillary lymphadenopathy Breast mass Essential hypertension Dyslipidemia Lymphadenopathy Asthma High cholesterol Diabetes mellitus Surgical History History of esophagogastroduodenoscopy (EGD) Hx of colonoscopy History of tubal ligation History of umbilical hernia repair History of tonsillectomy Family History Father No problems noted. Mother No problems noted. Social History Housing: Apartment Are you a primary career coach to a significant other at home: No Do you presently have visiting nurse or other home services: No Alcohol intake: never Patient Tobacco Use Status: Never used Tobacco e-Cigarette/Vaping Use: Never Used Second Hand Smoke Exposure: No service: No Current occupational status: disabled Current occupation: rt handed Cognitive needs: No Hearing needs: No Vision needs: Yes (Glasses) Female Reproductive History Menstrual control method: permanent sterilization Total pregnancies: 4 Full term: 3 Number of Living Children: 3 Date of Mammogram: 11/03/23 Review of Systems Const All systems reviewed & are unremarkable except as noted in HPI and below Card Reports as per HPI Resp Reports as per HPI GI Reports as per HPI and Reports no additional complaints Reports as per HPI Physical Exam Vital Signs: Last Vital Signs BP 130/70 02/01/24 10:00 BMI result Body Mass Index 33.8 Const General: cooperative, healthy appearing and comfortable Chest Chest palpation & inspection: normal inspection of the chest and normal palpation of entire chest wall Breast/axilla inspection: normal inspection of the breasts and normal inspection of the axillae Breast/axilla palpation: normal palpation of the breasts, normal palpation of the axillae and no axillary lymphadenopathy Resp Effort & Inspection: normal respiratory effort Auscultation: clear to auscultation bilaterally Percussion: percussion normal Cardio Palpation: normal PMI Rate: regular rate Rhythm: regular rhythm Heart sounds: no murmurs and no rubs Peripheral pulses: Peripheral pulses 2+ throughout GI Inspection: Yes normal to inspection Palpation (GI): Soft to palpation, nontender, no guarding, not rigid and No hepatosplenomegaly present Percussion: Yes normal to percussion Auscultation: normal bowel sounds Rectal Exam - Female: deferred General: Yes bladder normal to palpation External Female Exam: No lesion Speculum Exam - Vagina: normal appearance of the vagina, normal palpation, normal vaginal discharge and not erythematous Speculum Exam - Cervix: normal appearance of the cervix and normal palpation Bimanual exam- vagina & uterus: normal bimanual exam, normal palpation, uterine size normal, bladder normal to palpation, consistency normal and normal palpation Bimanual Exam- Adnexa, other: normal adnexae, no masses and no tenderness Assessment & Plan Assessment & Plan (1) Well woman exam: Code(s): Z01.419 - Encounter for gynecological examination (general) (routine) without abnormal findings Category: Medical Plan: Co testing not indicated since the patient 's age is above 65 with no history of abnormal Pap smears last 25 years. Counseled the patient about the recommended dietary allowance of 1200 mg of Calcium & 800 IU of vitamin D. Instructions given the patient to schedule next screening Mammogram in 11/24. Will order DEXA scan . The patient was instructed to perform monthly self-breast exams and to schedule a 2 week DEXA scan follow-up appointment and an annual exam in a year; All questions answered and the patient verbalized understanding. Orders: Orders XR DEXA axial skeleton Today Z78.0 - Asymptomatic menopausal state Coding Level of Care Code Est Pt Prev Care >65y(41245) Diagnoses Well woman exam Z01.419
[2024-02-01 10:00] VITALS: BP 130/70; BMI 33.8
== END 2024-02-01 12:05 | disposition home or self-care (01) ==
PROVIDERS: PCP Internal Medicine; Visit Provider Obstetrics & Gynecology
DX: Z01.419 Encounter for gynecological examination (general) (routine) without abnormal findings (principal)
CPT/HCPCS: 99397

== ENCOUNTER → 2024-02-01 09:50 | Outpatient (BNVA) | payer OTHER, SELFPAY | PROVIDERS: PCP Internal Medicine; Visit Provider Obstetrics & Gynecology | DX: Z01.419 Encounter for gynecological examination (general) (routine) without abnormal findings (principal); Z78.0 Asymptomatic menopausal state | CPT/HCPCS: 99397 ==

== ENCOUNTER 2024-02-03 10:17 | Outpatient (AMB) | payer OTHER, SELFPAY ==
[2024-02-03 10:20] VITALS: BMI 33.8
--- NOTE | 2024-02-03 10:20 | MHC.OFFVIS ---
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 Mata for bilateral hand pain and left trigger thumb that began around October,. 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 Patient also states she is not able to make a full first with her right hand. She is also experiencing pain on the right middle finger and right small finger. Patient states pain is worse when lifting. Has not tried braces, steroid injections, or PT,/OT for her hands. Denies any prior injuries or surgeries. She had an EMG done years ago for her back and the left leg. Patient is unsure on having a steroid injection for her thumb. Allergies codeine [CODEINE] Allergy (Severe, Verified 02/01/24 10:05) SWELLING doxycycline Allergy (Severe, Verified 02/01/24 10:05) nauseas erythromycin base [ERYTHROMYCIN BASE] Allergy (Severe, Verified 02/01/24 10:05) SWELLING morphine [MORPHINE] Allergy (Severe, Verified 02/01/24 10:05) ANAPHYLAXIS penicillin V Allergy (Severe, Verified 02/01/24 10:05) Swelling Eyes simvastatin Allergy (Severe, Verified 02/01/24 10:05) Nerve Inflammation aspirin [ASPIRIN] Allergy (Intermediate, Verified 02/01/24 10:05) chest tightness lisinopril [LISINOPRIL] Allergy (Intermediate, Verified 02/01/24 10:05) COUGH cyclobenzaprine Adverse Reaction (Intermediate, Verified 02/01/24 10:05) SOB, dry mouth/ throat [employer] Saline Allergy (Severe, Uncoded 02/01/24 10:05) Redness ZYVA Allergy (Severe, Uncoded 02/01/24 10:05) NERVE INFLAMMATION HPI Comments Details: In October was having left shoulder pain. She had gone to ED to rule out cardiac. I think she saw Pain Management. Had PT. Also had left 4th and 5th digits thought to be cubital tunnel, though no EMG. Shoulder is better. Still numb on those fingers. Left thumb clicks. 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 No OT yet. [facility] Medical History HTN (hypertension) Coronary artery calcification seen on CAT scan Chronic cough Muscle tear CKD (chronic kidney disease) Pure hypercholesterolemia Postmenopausal Microalbuminuria Effusion, right knee GERD (gastroesophageal reflux disease) Right knee pain Anemia Axillary lymphadenopathy Breast mass Essential hypertension Dyslipidemia Lymphadenopathy Asthma High cholesterol Diabetes mellitus Surgical History History of esophagogastroduodenoscopy (EGD) Hx of colonoscopy History of tubal ligation History of umbilical hernia repair History of tonsillectomy Family History Father No problems noted. Mother No problems noted. Social History Housing: Apartment Are you a primary after school caregiver to a significant other at home: No Do you presently have visiting nurse or other home services: No Alcohol intake: never Patient Tobacco Use Status: Never used Tobacco e-Cigarette/Vaping Use: Never Used Second Hand Smoke Exposure: No service: No Current occupational status: disabled Current occupation: rt handed Cognitive needs: No Hearing needs: No Vision needs: Yes (Glasses) Review of Systems Const All systems reviewed & are unremarkable except as noted in HPI and below Physical Exam Vital Signs: BMI result Body Mass Index 33.8 Constitutional: Patient appears to be in no acute distress, well nourished and well developed. MSK: Swelling right 2nd to 4th digits. No trigger finger. 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 No atrophy noted. Aron test negative. Carpal compression test positive bilateral. Tinel sign positive left elbow. Tender on bilateral CMC joints. Strength is 5/5 in all muscle groups tested. No increased tone noted. Neurological: Neurologic examination of the upper and lower extremities was nonfocal with intact sensation, muscle stretch reflexes and without focal motor deficits . Alvarenga?s negative bilaterally. Gait is non-antalgic without loss of balance. Results Reviewed Results Reviewed: Ordering Physician: Lita Ahmadi MD Date of Service: 12/31/23 Procedure(s): XR hand RT 2V Accession Number(s): [id number] cc: Lita Ahmadi MD~ EXAMINATION: X-RAY BILATERAL HANDS CLINICAL INFORMATION: Pain in bilateral hands. COMPARISON: None available. TECHNIQUE: 3 views of each hand. FINDINGS: Left hand: Narrowing of the radiocarpal space. Amorphous calcifications in the triangular fibrocartilage. Moderate degenerative changes in the first carpometacarpal joint with joint space narrowing and hypertrophic change. Punctate calcification in the soft tissues adjacent to the base of the second digit proximal phalanx. Deformity of the distal tuft of the fifth digit of indeterminate etiology, possibly related to prior trauma. Degenerative changes in scattered IP joints, most notable in the second and third digit DIP joints with hypertrophic change and joint space narrowing. Right hand: Narrowing of the radiocarpal space. Amorphous calcifications in the triangular fibrocartilage. Moderate degenerative changes in the first carpometacarpal joint with joint space narrowing and hypertrophic change. Amorphous calcifications adjacent to the third metacarpophalangeal joint. Mild degenerative changes in the second and third metacarpophalangeal joints. Advanced degenerative changes in the first metacarpophalangeal joint. Degenerative changes in scattered IP joints, most notable in the second DIP joint with hypertrophic change and joint space narrowing. XR/XR hand RT 2V IMPRESSION: 1. Degenerative changes in the bilateral hands as detailed above. 2. Deformity of the distal tuft of the left fifth digit of indeterminate etiology, possibly related to prior trauma. Correlation with clinical history and exam recommended to determine further management. Electronically signed by: Katy Koo MD 01/19/2024 01:46 PM EDT RP I reviewed records from the following: PCP, pain management Assessment & Plan Assessment & Plan (1) Arthritis of carpometacarpal (CMC) joint of both thumbs: Code(s): M18.0 - Bilateral primary osteoarthritis of first carpometacarpal joints Category: Medical (2) Degenerative joint disease of hand: Code(s): M19.049 - Primary osteoarthritis, unspecified hand Category: Medical Qualifiers: Osteoarthritis type: primary Laterality: bilateral Qualified Code(s): M19.041 - Primary osteoarthritis, right hand; M19.042 - Primary osteoarthritis, left hand (3) Ulnar neuropathy at elbow of left upper extremity: Code(s): G56.22 - Lesion of ulnar nerve, left upper limb Category: Medical (4) Numbness and tingling in both hands: Code(s): R20.0 - Anesthesia of skin; R20.2 - Paresthesia of skin Category: Medical Plan Bilateral hand pain in the setting of osteoarthritis most likely. Possible left ulnar neuropathy at the elbow. Rule out Carpal Tunnel Syndrome. Start OT. Referral placed with instructions. Schedule EMG bilateral upper extremities. Considering referral to Dr. Clark hand surgery. Assessment and plan discussed with patient, and patient was agreeable. All questions were answered thoroughly. Adore Noble MD, ZACH Board Certified, [place] Board [employer] Physical Medicine and Rehabilitation (ABPMR) Board Certified, [place] Board of Electrodiagnostic Medicine (ABEM) Orders: Orders OT Evaluation and Treatment Today G56.22 - Lesion of ulnar nerve, left upper limb, M18.0 - Bilateral primary osteoarthritis of first carpometacarpal joints, M19.049 - Primary osteoarthritis, unspecified hand, R20.0 - Anesthesia of skin, R20.2 - Paresthesia of skin NE electromyogram (EMG) Today G56.22 - Lesion of ulnar nerve, left upper limb, R20.0 - Anesthesia of skin, R20.2 - Paresthesia of skin NE nerve conduction velocity Today G56.22 - Lesion of ulnar nerve, left upper limb, R20.0 - Anesthesia of skin, R20.2 - Paresthesia of skin Coding Level of Care Code New Pt Level 4 (78311) Diagnoses Arthritis of carpometacarpal (CMC) joint of both thumbs M18.0 Primary osteoarthritis of both hands M19.041; M19.042 Osteoarthritis type: primary Laterality: bilateral Ulnar neuropathy at elbow of left upper extremity G56.22 Numbness and tingling in both hands R20.0; R20.2
== END 2024-02-03 10:53 | disposition home or self-care (01) ==
PROVIDERS: PCP Internal Medicine; Visit Provider Physical Medicine & Rehabilitation
DX: M18.0 Bilateral primary osteoarthritis of first carpometacarpal joints (principal); G56.22 Lesion of ulnar nerve, left upper limb
CPT/HCPCS: 99204

== ENCOUNTER → 2024-02-03 10:17 | Outpatient (BNVA) | payer OTHER, SELFPAY | PROVIDERS: PCP Internal Medicine; Visit Provider Physical Medicine & Rehabilitation | DX: M18.0 Bilateral primary osteoarthritis of first carpometacarpal joints (principal); M19.041 Primary osteoarthritis, right hand; M19.042 Primary osteoarthritis, left hand; G56.22 Lesion of ulnar nerve, left upper limb; R20.0 Anesthesia of skin; R20.2 Paresthesia of skin | CPT/HCPCS: 99202 ==

== ENCOUNTER 2024-02-18 11:08 | Outpatient (REF) | payer OTHER, SELFPAY ==
--- NOTE | ~2024-02-18 | MM_ITS ---
EXAMINATION: BONE DENSITOMETRY CLINICAL INDICATION: Asymptomatic menopausal state. COMPARISON: Previous BD dated 10/21/2021 and baseline BD dated 07/10/2008. TECHNIQUE: Using a [employer]ient DXA System (software version: 13.1) manufactured by [employer], dual-energy x-ray absorptiometry was performed of the lumbar spine and left hip. The images are of good technical quality. Summary results are attached. FINDINGS: AP SPINE L1-L4: Current: BMD 1.058 g/cm2, Z-score 0.5, T-score -1.0, normal, 0.0% no change from previous, 2.8% decrease from baseline (<5% change is not significant). Prior: BMD 1.058 g/cm2. Baseline: BMD 1.089 g/cm2. LEFT FEMUR, NECK: Current: BMD 0.850 g/cm2, Z-score 0.5, T-score -1.3, osteopenia. Prior: BMD 0.873 g/cm2. Baseline: BMD 1.025 g/cm2. LEFT FEMUR, TOTAL: Current: BMD 1.006 g/cm2, Z-score 1.7, T-score 0.0, normal, 5.6% decrease from previous, 15.0% decrease from baseline (<5% change is not significant). Prior: BMD 1.066 g/cm2. Baseline: BMD 1.183 g/cm2. IDENTIFIED RISK FACTORS: Chronic glucocorticoids. Menopause. HISTORY OF FRACTURE: None listed. MEDICATIONS: Calcium supplement and/or multivitamin. Vitamin D. MM/XR DEXA axial skeleton IMPRESSION: 1. DIAGNOSIS: Osteopenia based on the lowest T-score value of -1.3 in the femoral neck applying World Health Organization criteria. 2. 10-YEAR FRACTURE RISK PREDICTION, FRAX: Major osteoporotic fracture (clinical spine, forearm, hip or shoulder) 10.3%. Hip fracture 2.3%. 3. Treatment Recommendations: NOF guidelines recommend consideration for treatment in postmenopausal women and men age 50 and older presenting with the following: -A hip or vertebral (clinical or morphometric) fracture. -T-score less than or equal to -2.5 at the femoral neck or spine after appropriate evaluation to exclude secondary causes. -Low bone mass at the hip or spine and a 10-year fracture probability by FRAX of greater than or equal to 3% for hip fracture or greater than or equal to 20% for major osteoporotic fracture based on the [place] adapted WHO algorithm. 4. Other Recommendations: All treatment decisions require clinical judgment and consideration of individual patient factors, including patient preferences, comorbidities, previous drug use, risk factors not captured in the FRAX model (e.g. frailty, falls, vitamin D deficiency, increased bone turnover, interval significant decline in bone density) and possible under or overestimation of fracture risk by FRAX. Additional medical evaluation for secondary cause of low bone mineral density may be appropriate. FUTURE SCAN RECOMMENDATION: People with diagnosed cases of osteoporosis or at high risk for fracture should have regular bone mineral density tests. For patients eligible for Medicare, routine testing is allowed once every 2 years. The testing frequency can be increased to one year for patients who have rapidly progressing disease, those who are receiving or discontinuing medical therapy to restore bone mass, or have additional risk factors. Electronically signed by: Cely Boykin MD 02/21/2024 09:58 AM EDT
== END 2024-02-18 11:09 | disposition home or self-care (01) ==
LOC: HO.MAMMO 11:08
PROVIDERS: PCP Internal Medicine; Visit Provider Obstetrics & Gynecology
DX: Z13.820 Encounter for screening for osteoporosis (principal); Z78.0 Asymptomatic menopausal state
CPT/HCPCS: 77080

== ENCOUNTER 2024-03-14 10:21 | Outpatient (RCR) | payer OTHER, SELFPAY ==
--- NOTE | 2024-02-15 12:39 | MHC.OT.EP ---
[address] [phone] Occupational Therapy Plan of Care Patient Name: Jocelyn Guevara Date of Evaluation: 02/15/24 Diagnosis: Pain Location: B hands and wrists Pain Score: 5 Pain Scale Used: Numeric (0 - 10) Aggravating Factors: increased use of hands Alleviating Factors: Rest Assessment: Pt is a 78 yr. old R hand dominant female who reports in the past few mos. pain in her B hands and thumbs. She also reports triggering of her R 3rd digit and paresthesia of her B hands. She denies splinting her hands. Pt has wasting of her thenar eminence (R) hand, and triggering of the 3rd D (pt given an oval 8 to trial). Pt has (+) tinels in B hands , and (+) grind tests B thumbs. 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 Thank you once again for your referral.
== END 2024-08-24 08:50 | disposition home or self-care (01) ==
LOC: HO.OT 10:21
PROVIDERS: PCP Internal Medicine; Visit Provider Physical Medicine & Rehabilitation
DX: M18.0 Bilateral primary osteoarthritis of first carpometacarpal joints (principal); G56.22 Lesion of ulnar nerve, left upper limb; M19.042 Primary osteoarthritis, left hand
CPT/HCPCS: 29125; 97035; 97140; 97166; 97535; 97760

== ENCOUNTER 2024-03-15 09:42 | Outpatient (REF) | payer OTHER, SELFPAY ==
--- NOTE | 2024-03-15 09:45 | EMG_ITS ---
Chief complaint: Today she says right hand is more painful with numbness on right 2nd and 5th digits. Left hand also numb on left 1st and 5th digits. Reason for referral: Evaluate for Carpal Tunnel Syndrome versus ulnar neuropathy Procedure done: Bilateral upper extremities NCS/EMG Precautions and/or limitations: None The limb temperature was monitored continuously and remained between 32-36 degrees C during the performance of the NCS. Ulnar motor NCS was performed with moderate elbow flexion between 70-90 degrees, with across-elbow distance of 10 cm. Nerve Conduction Studies Anti Sensory Summary Table ?Stim Site NR Onset (ms) Norm Onset (ms) Peak (ms) Norm Peak (ms) O-P Amp (?V) Norm O-P Amp Site1 Site2 Delta-0 (ms) Dist (cm) Hipolito (m/s) Norm Hipolito (m/s) Left Median Anti Sensory (2nd Digit) Wrist ? 4.4 5.6 <3.6 14.2 >10 Wrist 2nd Digit 4.4 14.0 32 Right Median Anti Sensory (2nd Digit) Wrist ? 2.0 3.5 <3.6 12.0 >10 Wrist 2nd Digit 2.0 14.0 70 Right Radial Anti Sensory (Thumb) Forearm ? 1.7 2.4 <3.1 9.8 Forearm Thumb 1.7 0.0 Left Ulnar Anti Sensory (5th Digit) Wrist ? 2.7 3.6 <3.7 20.9 >15.0 Wrist 5th Digit 2.7 14.0 52 Right Ulnar Anti Sensory (5th Digit) Wrist ? 0.9 3.5 <3.7 21.6 >15.0 Wrist 5th Digit 0.9 14.0 156 Motor Summary Table ?Stim Site NR Onset (ms) Norm Onset (ms) O-P Amp (mV) Norm O-P Amp iAmp (mV) Amp (1st) (%) Site1 Site2 Delta-0 (ms) Dist (cm) Hipolito (m/s) Norm Hipolito (m/s) Left Median Motor (Abd Poll Brev) Wrist ? 6.6 <3.9 1.6 >4.5 1.8 100.0 Elbow Wrist 4.2 17.0 40 >45 Elbow ? 10.8 0.6 0.8 37.5 Right Median Motor (Abd Poll Brev) Wrist ? 3.8 <3.9 6.6 >4.5 7.9 100.0 Elbow Wrist 3.2 17.0 53 >45 Elbow ? 7.0 6.3 7.7 95.5 Left Ulnar Motor (Abd Dig Minimi) Wrist ? 3.0 <3.0 5.6 >5 7.5 100.0 B Elbow Wrist 2.7 13.5 50 >45 B Elbow ? 5.7 5.7 7.6 101.8 A Elbow B Elbow 1.8 10.0 56 >45 A Elbow ? 7.5 5.5 7.5 98.2 Right Ulnar Motor (Abd Dig Minimi) Wrist ? 3.0 <3.0 10.4 >5 12.6 100.0 B Elbow Wrist 2.8 17.0 61 >45 B Elbow ? 5.8 8.8 11.1 84.6 A Elbow B Elbow 1.7 10.0 59 >45 A Elbow ? 7.5 7.6 9.8 73.1 EMG ?Side Muscle Nerve Root Ins Act Fibs Psw Amp Dur Poly Recrt Int Pat Comment Right 1stDorInt Ulnar C8-T1 Nml Nml Nml Nml Nml 0 Nml Complete Right FlexCarRad Median C6-7 Nml Nml Nml Nml Nml 0 Nml Complete Right Biceps Musculocut C5-6 Nml Nml Nml Nml Nml 0 Nml Complete Right Triceps Radial C6-7-8 Nml Nml Nml Nml Nml 0 Nml Complete Right Deltoid Axillary C5-6 Nml Nml Nml Nml Nml 0 Nml Complete Left 1stDorInt Ulnar C8-T1 Nml Nml Nml Nml Nml 0 Nml Complete Left FlexCarRad Median C6-7 Nml Nml Nml Nml Nml 0 Nml Complete Left Biceps Musculocut C5-6 Nml Nml Nml Nml Nml 0 Nml Complete Left Triceps Radial C6-7-8 Nml Nml Nml Nml Nml 0 Nml Complete Left Deltoid Axillary C5-6 Nml Nml Nml Nml Nml 0 Nml Complete FINDINGS: Left median motor nerve showed prolonged distal latency, small amplitude and slow conduction velocity. Left median sensory nerve showed prolonged peak latency. All other nerves tested were within normal. Concentric needle EMG was performed in selected muscles of the bilateral upper extremities. Study did not reveal signs of electric abnormalities as shown in the table above. IMPRESSION: 1. This is an abnormal study. 2. There is electrodiagnostic evidence for left moderate-severe median neuropathy at the wrist, consistent with carpal tunnel syndrome. 3. There is no electrodiagnostic evidence for ulnar neuropathy, brachial plexopathy, or cervical radiculopathy. CLINICAL COMMENT: Study above did not show signs of Carpal Tunnel Syndrome on right side although she complains of more pain on right side. Referring patient to Dr. Clark, hand surgery, for surgical options. Thank you for your kind referral. Adore Noble MD, AZCH Board Certified, [place] [employer] and Rehabilitation (ABPMR) Board Certified, [place] [employer] of Electrodiagnostic Medicine (ABEM) CODING: MTDD
== END 2024-03-15 09:43 | disposition home or self-care (01) ==
LOC: HO.NEURO 09:42
PROVIDERS: PCP Internal Medicine; Referring Provider Nurse Practitioner Family; Visit Provider Physical Medicine & Rehabilitation
DX: R20.0 Anesthesia of skin (principal); R20.2 Paresthesia of skin; G56.22 Lesion of ulnar nerve, left upper limb
CPT/HCPCS: 95886; 95911

== ENCOUNTER → 2024-03-15 09:45 | Outpatient (BNV) | payer OTHER, SELFPAY | PROVIDERS: PCP Internal Medicine; Referring Provider Nurse Practitioner Family; Visit Provider Physical Medicine & Rehabilitation | DX: R20.0 Anesthesia of skin (principal); R20.2 Paresthesia of skin; G56.02 Carpal tunnel syndrome, left upper limb | CPT/HCPCS: 95886; 95911 ==

== ENCOUNTER 2024-03-16 16:09 | Outpatient (AMB) | payer OTHER, SELFPAY ==
[2024-03-16 16:17] VITALS: BP 160/62; BMI 33.5
--- NOTE | 2024-03-16 16:17 | MHC.PC.OV ---
Vital Signs 03/16/24 16:17 03/16/24 17:13 Height 4 ft 7 in Weight 144 lb BMI 33.5 BP 160/62 H 160/65 H Blood Pressure Location Lt brachial Lt brachial Position Sitting Sitting Intake Visit Reasons: left hand swelling/bruising Intake Note: Patient here c/o right hand pain, swelling, bruising Live Source Operator Required: No Accompanied by: Self / Same As Patient Allergies codeine [CODEINE] Allergy (Severe, Verified 03/16/24 16:36) SWELLING doxycycline Allergy (Severe, Verified 03/16/24 16:36) nauseas erythromycin base [ERYTHROMYCIN BASE] Allergy (Severe, Verified 03/16/24 16:36) SWELLING morphine [MORPHINE] Allergy (Severe, Verified 03/16/24 16:36) ANAPHYLAXIS penicillin V Allergy (Severe, Verified 03/16/24 16:36) Swelling Eyes simvastatin Allergy (Severe, Verified 03/16/24 16:36) Nerve Inflammation aspirin [ASPIRIN] Allergy (Intermediate, Verified 03/16/24 16:36) chest tightness lisinopril [LISINOPRIL] Allergy (Intermediate, Verified 03/16/24 16:36) COUGH cyclobenzaprine Adverse Reaction (Intermediate, Verified 03/16/24 16:36) SOB, dry mouth/ throat [employer] Saline Allergy (Severe, Uncoded 03/16/24 16:36) Redness ZYVA Allergy (Severe, Uncoded 03/16/24 16:36) NERVE INFLAMMATION Medication List - Last Reconciled 03/16/24 by Lita Flores MD acetaminophen 500 mg PO BID PRN 30 days albuterol sulfate 90 mcg/actuation 2 inhalations inhalation Q6H PRN 30 days amlodipine 10 mg PO DAILY 90 days blood sugar diagnostic (Triumfant Verio test strips) 1 strip miscellaneous DAILY 90 days cholecalciferol (vitamin D3) 50 mcg PO DAILY 90 days clotrimazole-betamethasone 1-0.05 % 1 appl topical BID 5 days ezetimibe 10 mg PO DAILY famotidine 20 mg PO BID PRN gabapentin 300 mg PO Q8H 30 days glipizide 10 mg (2 x 5 mg) PO BID hydralazine 25 mg PO TID 90 days lancets (Triumfant Delica Plus Lancet) 30 gauge miscellaneous DAILY 90 days lidocaine 5% 1 appl topical BEDTIME PRN 2 weeks lidocaine HCl 4% (Aspercreme (lidocaine HCl)) 1 appl topical BID PRN losartan 25 mg PO DAILY 90 days meclizine 25 mg PO TID PRN 30 days montelukast 10 mg PO DAILY multivitamin (Daily Multi-Vitamin tablet) 1 tab PO QAM 30 days multivitamin with folic acid 400 mcg (Daily-Yulissa (with folic acid)) 1 tab PO DAILY omeprazole 20 mg PO BID 30 days rosuvastatin 40 mg PO DAILY 90 days terconazole 0.8% 1 appful vaginal BEDTIME 3 days Tobacco use date assessed: 07/15/23 Fall risk assessment: No Falls in past year Last assessed Fall Risk: 03/16/24 Dental Screening Dental Screen Date: 12/30/23 HPI HPI Comments History of Present Illness Details This is a 78-year-old female with diabetes mellitus type 2, hypertension and chronic kidney disease stage 3 that comes today complaining of bilateral hand pain more prominent in the right and some numbness in both hands. She has been in occupational therapy for awhile now. Nerve conduction study shows left carpal tunnel syndrome and will see ortho next week. I order diclofenac gel to see if it helps with the pain. She said she sleeps with wrist brace bilateral. She has tried Tylenol and NSAIDs with no significant relief. A1c within goal. Blood pressure borderline normal to elevated and will be recheck in 3 weeks by nurse navigator. Last GFR was 51 which was improved. No chest pain or shortness on breath. [facility] Medical History HTN (hypertension) Coronary artery calcification seen on CAT scan Chronic cough Muscle tear CKD (chronic kidney disease) Pure hypercholesterolemia Postmenopausal Microalbuminuria Effusion, right knee GERD (gastroesophageal reflux disease) Right knee pain Anemia Axillary lymphadenopathy Breast mass Essential hypertension Dyslipidemia Lymphadenopathy Asthma High cholesterol Diabetes mellitus Surgical History History of esophagogastroduodenoscopy (EGD) Hx of colonoscopy History of tubal ligation History of umbilical hernia repair History of tonsillectomy Family History Father No problems noted. Mother No problems noted. Social History Housing: Apartment Are you a primary care administrative tech to a significant other at home: No Do you presently have visiting nurse or other home services: No Alcohol intake: never Patient Tobacco Use Status: Never used Tobacco e-Cigarette/Vaping Use: Never Used Second Hand Smoke Exposure: No service: No Current occupational status: disabled Current occupation: rt handed Cognitive needs: No Hearing needs: No Vision needs: Yes (Glasses) Questionnaire Thrive Questionnaire Date Thrive assessed: 07/15/23 VU-7 AMB Questionnaire VU-7 Date VU - 7 assessed: 07/15/23 Source: Developed by Drs. Ezequiel Diaz, Gaby Hwang, Antoine Guerrero and colleagues, with an educational mildred from [email or web address]. Review of Systems Const All systems reviewed & are unremarkable except as noted in HPI and below Card Denies chest pain at rest, Denies chest pain with activity, Denies edema, Denies irregular heart rhythm, Denies claudication, Denies dyspnea, Denies dyspnea on exertion, Denies orthopnea, Denies paroxysmal nocturnal dyspnea and Denies slow heart rate Resp Denies cough, Denies dyspnea and Denies dyspnea on exertion Physical exam (Primary Care) Vital Signs: Last Vital Signs BP 160/62 H 03/16/24 16:17 Care Plan Goal for BP management: Recheck blood pressure with nurse navigator in 3 weeks. BMI result Body Mass Index 33.5 BMI Assessment/Plan discussion: High BMI High, discussed plan: lifestyle, weight reduction, dietary and physical activity Tobacco/Smoking Status: Tobacco use Status Tobacco use date assessed 07/15/23 03/16/24 16:21 Patient Tobacco Use Status Never used Tobacco 03/16/24 16:21 e-Cigarette/Vaping Use Never Used 03/16/24 16:21 Thrive Assessment: Date of Thrive Assessment Date Thrive assessed 07/15/23 03/16/24 16:21 Resp Effort & Inspection: normal respiratory effort Auscultation: clear to auscultation bilaterally Cardio Jugular venous distension: no JVD Rate: regular rate Rhythm: regular rhythm Heart sounds: S1 normal heart sound present and S2 normal heart sound present Extrem General: Yes full ROM Office Procedures Flu Questionnaire Does the patient have a severe egg allergy?: No Results AMB Hemoglobin A1c AMB Hemoglobin A1c 6.3 % Last Edit by CASTRO Oneill on 03/16/24 16:31 Immunizations Fluarix Triv [id number] (PF) 45 mcg (15 mcg x 3)/0.5 mL IM syringe Performing Provider: Lita Flores MD [facility] Documented (not given) by: CASTRO Oneill on 03/16/24 16:29 Reason Not Given: Patient Refused Results Reviewed Results Reviewed: Laboratory Last Values Hgb A1c (Clinic) 6.3 % (4.0-6.0) H 03/16/24 16:12 Coding Level of Care Code Est Pt Level 4 (01001) Complex EM visit Add On G2211 Diagnoses Carpal tunnel syndrome of left wrist G56.02 Stage 3a chronic kidney disease N18.31 Chronic kidney disease stage 3 subtype: stage 3a (GFR 45-59) Type 2 diabetes mellitus with hyperglycemia, without long-term current use of insulin E11.65 Diabetes mellitus type: type 2 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 (2) CKD (chronic kidney disease) stage 3, GFR 30-59 ml/min: Code(s): N18.30 - Chronic kidney disease, stage 3 unspecified Category: Medical Qualifiers: Chronic kidney disease stage 3 subtype: stage 3a (GFR 45-59) Qualified Code(s): N18.31 - Chronic kidney disease, stage 3a Plan: Avoid NSAIDs. Keep blood pressure less than 130/80. (3) Diabetes mellitus: Code(s): E11.9 - Type 2 diabetes mellitus without complications Category: Medical Qualifiers: Diabetes mellitus type: type 2 Diabetes mellitus termite renewal inspector insulin use: without mcfp use Diabetes mellitus complication status: with hyperglycemia Qualified Code(s): E11.65 - Type 2 diabetes mellitus with hyperglycemia Plan: Continue glipizide. A1c goal is equal or less than 7%. (4) Essential hypertension: Code(s): I10 - Essential (primary) hypertension Category: Medical Plan: Continue amlodipine and hydralazine. Blood pressure goal is equal or less than 130/80. Recheck blood pressure with nurse navigator in 3 weeks. Orders: Orders AMB Hemoglobin A1c 03/16/24 E11.65 - Type 2 diabetes mellitus with hyperglycemia Influenza [id number] Immunization 03/16/24 Z23 - Encounter for immunization Medications: New diclofenac sodium 1% (Aleve (diclofenac)) apply to single elbow, wrist or hand; for hand includes palm/fingers/back of hand 2 grams topical QID 30 days 100 grams 0RF
[2024-03-16 17:13] VITALS: BP 160/65
== END 2024-03-16 16:47 | disposition home or self-care (01) ==
PROVIDERS: PCP Internal Medicine; Visit Provider Internal Medicine
DX: G56.02 Carpal tunnel syndrome, left upper limb (principal); N18.31 Chronic kidney disease, stage 3a; E11.65 Type 2 diabetes mellitus with hyperglycemia; I10 Essential (primary) hypertension

== ENCOUNTER → 2024-03-16 16:09 | Outpatient (BNVA) | payer OTHER, SELFPAY | PROVIDERS: PCP Internal Medicine; Visit Provider Internal Medicine | DX: G56.02 Carpal tunnel syndrome, left upper limb (principal); I12.9 Hypertensive chronic kidney disease with stage 1 through stage 4 chronic kidney disease, or unspecified chronic kidney disease; E11.22 Type 2 diabetes mellitus with diabetic chronic kidney disease; N18.31 Chronic kidney disease, stage 3a; E11.65 Type 2 diabetes mellitus with hyperglycemia | CPT/HCPCS: 83036; 90471; 99212 ==

== ENCOUNTER 2024-03-23 10:16 | Outpatient (AMB) | payer OTHER, SELFPAY ==
[2024-03-23 10:20] VITALS: BP 156/78
--- NOTE | 2024-03-23 10:20 | A.OFFVIS_ITS ---
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: Trench Pipe Layer Present (Kassidy) Accompanied by: Self / Same As Patient Allergies codeine [CODEINE] Allergy (Severe, Verified 03/23/24 10:21) SWELLING doxycycline Allergy (Severe, Verified 03/23/24 10:21) nauseas erythromycin base [ERYTHROMYCIN BASE] Allergy (Severe, Verified 03/23/24 10:21) SWELLING morphine [MORPHINE] Allergy (Severe, Verified 03/23/24 10:21) ANAPHYLAXIS penicillin V Allergy (Severe, Verified 03/23/24 10:21) Swelling Eyes simvastatin Allergy (Severe, Verified 03/23/24 10:21) Nerve Inflammation aspirin [ASPIRIN] Allergy (Intermediate, Verified 03/23/24 10:21) chest tightness lisinopril [LISINOPRIL] Allergy (Intermediate, Verified 03/23/24 10:21) COUGH cyclobenzaprine Adverse Reaction (Intermediate, Verified 03/23/24 10:21) SOB, dry mouth/ throat [employer] Saline Allergy (Severe, Uncoded 03/16/24 16:36) Redness ZYVA Allergy (Severe, Uncoded 03/16/24 16:36) NERVE INFLAMMATION HPI Comments Details: The patient is presenting for follow up regarding DEXA scan results. T score @ spine and femoral Neck respectively were=-1.0 /-1.3 and 10 year FRAX risk = 10.3/2.3% for severe osteoporosis and fracture. [facility] Medical History HTN (hypertension) Coronary artery calcification seen on CAT scan Chronic cough Muscle tear CKD (chronic kidney disease) Pure hypercholesterolemia Postmenopausal Microalbuminuria Effusion, right knee GERD (gastroesophageal reflux disease) Right knee pain Anemia Axillary lymphadenopathy Breast mass Essential hypertension Dyslipidemia Lymphadenopathy Asthma High cholesterol Diabetes mellitus Surgical History History of esophagogastroduodenoscopy (EGD) Hx of colonoscopy History of tubal ligation History of umbilical hernia repair History of tonsillectomy Family History Father No problems noted. Mother No problems noted. Social History Housing: Apartment Are you a primary memory care program resident to a significant other at home: No Do you presently have visiting nurse or other home services: No Alcohol intake: never Patient Tobacco Use Status: Never used Tobacco e-Cigarette/Vaping Use: Never Used Second Hand Smoke Exposure: No service: No Current occupational status: disabled Current occupation: rt handed Cognitive needs: No Hearing needs: No Vision needs: Yes (Glasses) Review of Systems Const All systems reviewed & are unremarkable except as noted in HPI and below Reports as per HPI and Reports no additional complaints GI Reports no additional complaints Reports no additional complaints Physical Exam Vital Signs: Last Vital Signs BP 156/78 H 03/23/24 10:20 Assessment & Plan Assessment & Plan (1) Osteopenia: Code(s): M85.80 - Other specified disorders of bone density and structure, unspecified site Category: Medical Plan: Discussed with the patient the DEXA results and FRAX risk. FRAX risk and T score showed no evidence of osteoporosis. Discussed with the patient all the options for osteoporosis prevention including lifestyle modifications including Ca+D supplements 1200 mg po qd/800 MIU, Weight bearing exercises and proteine supplements. The patient verbalized understanding and agreed plan will repeat DEXA in 2 years. Coding Level of Care Code Est Pt Level 3 (50992) Diagnoses Osteopenia M85.80
== END 2024-03-23 10:49 | disposition home or self-care (01) ==
LOC: HO.HWS 10:16
PROVIDERS: PCP Internal Medicine; Visit Provider Obstetrics & Gynecology
DX: M85.80 Other specified disorders of bone density and structure, unspecified site (principal)
CPT/HCPCS: 99213

== ENCOUNTER → 2024-03-23 10:16 | Outpatient (BNVA) | payer OTHER, SELFPAY | PROVIDERS: PCP Internal Medicine; Visit Provider Obstetrics & Gynecology | DX: M85.80 Other specified disorders of bone density and structure, unspecified site (principal) | CPT/HCPCS: 99212 ==

== ENCOUNTER 2024-04-07 09:56 | Outpatient (AMB) | payer OTHER, SELFPAY ==
--- NOTE | 2024-04-07 10:19 | MHC.OFFVIS ---
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 EMG was done on 03/15/2024. She reports numbness and tingling in her right middle finger, right small finger, left small finger, and left thumb. She expresses right is greater than left. She has a hard lump on the palm of her right hand under middle finger that causes her pain when she attempts to make a closed fist. She says she has tried OT however they discontinued treatment due to bruising on her hand. She has tried Tylenol but found no relief. Allergies codeine [CODEINE] Allergy (Severe, Verified 04/07/24 10:29) SWELLING doxycycline Allergy (Severe, Verified 04/07/24 10:29) nauseas erythromycin base [ERYTHROMYCIN BASE] Allergy (Severe, Verified 04/07/24 10:29) SWELLING morphine [MORPHINE] Allergy (Severe, Verified 04/07/24 10:29) ANAPHYLAXIS penicillin V Allergy (Severe, Verified 04/07/24 10:29) Swelling Eyes simvastatin Allergy (Severe, Verified 04/07/24 10:29) Nerve Inflammation aspirin [ASPIRIN] Allergy (Intermediate, Verified 04/07/24 10:29) chest tightness lisinopril [LISINOPRIL] Allergy (Intermediate, Verified 04/07/24 10:29) COUGH cyclobenzaprine Adverse Reaction (Intermediate, Verified 04/07/24 10:29) SOB, dry mouth/ throat [employer] Saline Allergy (Severe, Uncoded 04/07/24 10:29) Redness ZYVA Allergy (Severe, Uncoded 04/07/24 10:29) NERVE INFLAMMATION HPI HPI 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 The patient states that she finds that her right middle finger locks and catches and is associated with significant pain. Patient states that she did have an EMG and nerve conduction study done to assess the numbness and tingling of her hands, but she is unsure what the findings were. Patient states that she does find the locking and catching of her right hand more bothersome the numbness or tingling of either hand. Patient also requests a referral to occupational therapy for range of motion and strengthening of her hands, as she feels her hands have diminished range of motion. No other acute complaints or concerns at this time. [facility] Medical History HTN (hypertension) Coronary artery calcification seen on CAT scan Chronic cough Muscle tear CKD (chronic kidney disease) Pure hypercholesterolemia Postmenopausal Microalbuminuria Effusion, right knee GERD (gastroesophageal reflux disease) Right knee pain Anemia Axillary lymphadenopathy Breast mass Essential hypertension Dyslipidemia Lymphadenopathy Asthma High cholesterol Diabetes mellitus Surgical History History of esophagogastroduodenoscopy (EGD) Hx of colonoscopy History of tubal ligation History of umbilical hernia repair History of tonsillectomy Family History Father No problems noted. Mother No problems noted. Social History Housing: Apartment Are you a primary urgent care nurse practitioner to a significant other at home: No Do you presently have visiting nurse or other home services: No Alcohol intake: never Patient Tobacco Use Status: Never used Tobacco e-Cigarette/Vaping Use: Never Used Second Hand Smoke Exposure: No service: No Current occupational status: disabled Current occupation: rt handed Cognitive needs: No Hearing needs: No Vision needs: Yes (Glasses) Physical Exam Extrem Other: Patient is alert, oriented, and in no acute distress. Neuro: Normal sensation of the tips of all digits of the bilateral mirna at this time Vascular: Cap refill brisk Pain: Patient reports tenderness to palpation of the A1 tremayne of the right middle finger Patient also reports pain with observed locking and catching of the right middle finger Pain with range of motion testing of the entire right hand ROM: Patient is able to make a closed fist and extend all digits of the right hand fully with encouragement Patient is able to make a closed fist and extend all digits of the left hand fully and without difficulty There is visible and palpable locking and catching of the right middle finger in flexion Skin: No lacerations or abrasions. General: No ecchymosis, erythema, or evidence of infection. Psych: Appears grossly normal Affect normal Attitude cooperative Assessment & Plan Assessment & Plan (1) Carpal tunnel syndrome of left wrist: Code(s): G56.02 - Carpal tunnel syndrome, left upper limb Category: Medical (2) Trigger finger, right middle finger: Code(s): M65.331 - Trigger finger, right middle finger Category: Medical (3) Numbness and tingling of right hand: Code(s): R20.0 - Anesthesia of skin; R20.2 - Paresthesia of skin Category: Medical Plan 1. Trigger finger, right middle finger I educated the patient about the condition. I discussed both operative and nonoperative treatment options. The patient would like to proceed with surgery. The risks and benefits of operative treatment were discussed with the patient and the patient wishes to proceed with surgery. These risks include, but are not limited to, risk of damage to blood vessels, nerves, tendons, infection, recurrence, incomplete relief of preoperative symptoms, persistent pain, possible need for further surgery, and the risks associated with regional blocks and/or anesthesia. Plan is to take the patient to the operating room at some point in the next few weeks for the following procedures: Right middle finger trigger release under local anesthesia All of the preoperative paperwork including the consent was discussed today. All of the patient's questions were answered in the clinic today. The patient understands that they will be in contact with our surgical instrument technician to discuss scheduling their procedure. Patient denies diabetes, blood thinners, asthma, heart issues, lung issues, kidney issues, or current smoking. 2. Carpal tunnel syndrome, left Symptoms intermittent, daily, worse at night Patient states she would like to have surgery performed on her trigger finger 1st, as she finds this significantly more bothersome and painful Patient is educated that if she is recovering well from her right-sided surgery at evaluation postoperatively, we can get the left carpal tunnel signed up at that time Patient was amenable to this plan 3. Numbness and tingling of right hand Negative EMG Patient is educated that if she continues to have numbness and tingling in the hand in 6 months, we can repeat the EMG to see if any carpal or cubital tunnel syndromes were missed with 1st EMG Patient was amenable to this plan 4. stiffness of right hand At this time, patient was referred to occupational therapy for range of motion and strengthening of the right hand in the setting of stiffness Orders: Orders OT Evaluation and Treatment Today G56.22 - Lesion of ulnar nerve, left upper limb, M18.0 - Bilateral primary osteoarthritis of first carpometacarpal joints, M19.049 - Primary osteoarthritis, unspecified hand, R20.0 - Anesthesia of skin, R20.2 - Paresthesia of skin Coding Level of Care Code New Pt Level 4 (12517) Diagnoses Carpal tunnel syndrome of left wrist G56.02 Trigger finger, right middle finger M65.331 Numbness and tingling of right hand R20.0; R20.2
== END 2024-04-07 11:24 | disposition home or self-care (01) ==
PROVIDERS: PCP Internal Medicine
DX: G56.02 Carpal tunnel syndrome, left upper limb (principal); M65.331 Trigger finger, right middle finger; R20.0 Anesthesia of skin; R20.2 Paresthesia of skin
CPT/HCPCS: 99204

== ENCOUNTER → 2024-04-07 09:56 | Outpatient (BNVA) | payer OTHER, SELFPAY | PROVIDERS: PCP Internal Medicine | DX: G56.02 Carpal tunnel syndrome, left upper limb (principal); M65.331 Trigger finger, right middle finger; R20.0 Anesthesia of skin; R20.2 Paresthesia of skin; G56.22 Lesion of ulnar nerve, left upper limb; M81.0 Age-related osteoporosis without current pathological fracture; M25.641 Stiffness of right hand, not elsewhere classified | CPT/HCPCS: 99202 ==

== ENCOUNTER 2024-05-08 11:57 | Outpatient (AMB) | payer OTHER, SELFPAY ==
--- NOTE | 2024-05-08 12:35 | HO.NEPHOV_ITS ---
Vital Signs 05/08/24 12:39 Height 4 ft 7 in Weight 146 lb BMI 33.9 BP 120/60 Blood Pressure Location Rt brachial Position Sitting Pulse 87 Pulse Source Pulse Oximeter Pulse Oximetry (%) 97 Oxygen Delivery Method Room Air Intake Visit Reasons: CKD/ Conf Allergies codeine [CODEINE] Allergy (Severe, Verified 04/07/24 10:29) SWELLING doxycycline Allergy (Severe, Verified 04/07/24 10:29) nauseas erythromycin base [ERYTHROMYCIN BASE] Allergy (Severe, Verified 04/07/24 10:29) SWELLING morphine [MORPHINE] Allergy (Severe, Verified 04/07/24 10:29) ANAPHYLAXIS penicillin V Allergy (Severe, Verified 04/07/24 10:29) Swelling Eyes simvastatin Allergy (Severe, Verified 04/07/24 10:29) Nerve Inflammation aspirin [ASPIRIN] Allergy (Intermediate, Verified 04/07/24 10:29) chest tightness lisinopril [LISINOPRIL] Allergy (Intermediate, Verified 04/07/24 10:29) COUGH cyclobenzaprine Adverse Reaction (Intermediate, Verified 04/07/24 10:29) SOB, dry mouth/ throat [employer] Saline Allergy (Severe, Uncoded 04/07/24 10:29) Redness ZYVA Allergy (Severe, Uncoded 04/07/24 10:29) NERVE INFLAMMATION HPI Comments Details: Jocelyn in the office in follow-up of her chronic kidney disease on a backdrop of diabetes mellitus, hypertension and history of excess nonsteroidal anti- inflammatory medication use. She feels well. Her blood pressure usually has been well controlled. Her A1c has been less than 7. She does not have any chest pain, shortness of breath, hypoglycemia, pedal edema, hematuria, flank pain or orthostatic symptoms. She has mild arthritic pains but avoids NSAIDs. She tries to maintain good hydration [facility] Medical History HTN (hypertension) Coronary artery calcification seen on CAT scan Chronic cough Muscle tear CKD (chronic kidney disease) Pure hypercholesterolemia Postmenopausal Microalbuminuria Effusion, right knee GERD (gastroesophageal reflux disease) Right knee pain Anemia Axillary lymphadenopathy Breast mass Essential hypertension Dyslipidemia Lymphadenopathy Asthma High cholesterol Diabetes mellitus Surgical History History of esophagogastroduodenoscopy (EGD) Hx of colonoscopy History of tubal ligation History of umbilical hernia repair History of tonsillectomy Family History Father No problems noted. Mother No problems noted. Social History Housing: Apartment Are you a primary health care aide to a significant other at home: No Do you presently have visiting nurse or other home services: No Alcohol intake: never Patient Tobacco Use Status: Never used Tobacco e-Cigarette/Vaping Use: Never Used Second Hand Smoke Exposure: No service: No Current occupational status: disabled Current occupation: rt handed Cognitive needs: No Hearing needs: No Vision needs: Yes (Glasses) Review of Systems Const All systems reviewed & are unremarkable except as noted in HPI and below Physical Exam Vital Signs: Last Vital Signs Pulse 87 05/08/24 12:39 BP 160/60 H 05/08/24 12:39 Pulse Ox 97 05/08/24 12:39 Oxygen Delivery Method Room Air 05/08/24 12:39 BMI result Body Mass Index 33.9 Const General: comfortable and no acute distress Orientation/consciousness: patient oriented x3 HEENT Head: Yes normocephalic Mouth: Normal oral and palatal mucosa present Eyes EOM: EOMs intact bilaterally Neck Neck: Yes supple Resp Auscultation: clear to auscultation bilaterally Cardio Jugular venous distension: no JVD Rate: regular rate GI Palpation (GI): Soft to palpation Auscultation: normal bowel sounds General: Yes no CVA tenderness Back/Spine/Pelvis Back: no CVA tenderness Skin General skin exam: no rashes or lesions noted Neuro General: patient oriented x3 and moves all extremities Extrem General: Yes no pedal edema Results Reviewed Nephrology Results: No Data to Display Assessment & Plan Assessment & Plan (1) CKD (chronic kidney disease) stage 3, GFR 30-59 ml/min: Code(s): N18.30 - Chronic kidney disease, stage 3 unspecified Category: Medical Qualifiers: Chronic kidney disease stage 3 subtype: stage 3a (GFR 45-59) Qualified Code(s): N18.31 - Chronic kidney disease, stage 3a (2) HTN (hypertension): Code(s): I10 - Essential (primary) hypertension Category: Medical Qualifiers: Hypertension type: primary hypertension Qualified Code(s): I10 - Essential (primary) hypertension Plan 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 Blood work ordered for follow up. Answered all questions. Further management is pending evolving data Orders: Orders Electrolytes 6 Months I10 - Essential (primary) hypertension, N18.31 - Chronic kidney disease, stage 3a Protein Creatinine Ratio, Ur 6 Months I10 - Essential (primary) hypertension, N18.31 - Chronic kidney disease, stage 3a Creatinine 6 Months I10 - Essential (primary) hypertension, N18.31 - Chronic kidney disease, stage 3a Blood Urea Nitrogen 6 Months I10 - Essential (primary) hypertension, N18.31 - Chronic kidney disease, stage 3a Medications: Discontinued amlodipine Discontinued Reason: Doctor's Order 10 mg PO DAILY 90 days 90 tabs 1RF E11.65 - Type 2 diabetes mellitus with hyperglycemia Coding Level of Care Code Est Pt Level 4 (56543) Diagnoses Stage 3a chronic kidney disease N18.31 Chronic kidney disease stage 3 subtype: stage 3a (GFR 45-59) Primary hypertension I10 Hypertension type: primary hypertension
[2024-05-08 12:39] VITALS: BP 120/60; PULSE 87; O2SAT 97; BMI 33.9
== END 2024-05-08 12:52 | disposition home or self-care (01) ==
PROVIDERS: PCP Internal Medicine; Visit Provider Internal Medicine Nephrology
DX: I12.9 Hypertensive chronic kidney disease with stage 1 through stage 4 chronic kidney disease, or unspecified chronic kidney disease (principal); N18.31 Chronic kidney disease, stage 3a
CPT/HCPCS: 99214

== ENCOUNTER → 2024-05-08 11:57 | Outpatient (BNVA) | payer OTHER, SELFPAY | PROVIDERS: PCP Internal Medicine; Visit Provider Internal Medicine Nephrology | DX: I12.9 Hypertensive chronic kidney disease with stage 1 through stage 4 chronic kidney disease, or unspecified chronic kidney disease (principal); N18.31 Chronic kidney disease, stage 3a | CPT/HCPCS: 99212 ==

== ENCOUNTER 2024-05-29 11:24 | Outpatient (AMB) | payer OTHER, SELFPAY ==
[2024-05-29 11:36] VITALS: BP 186/76; PULSE 77; BMI 33.8
--- NOTE | 2024-05-29 11:36 | MHC.OFFVIS ---
Vital Signs 05/29/24 11:36 Height 4 ft 7 in Weight 145 lb 8.081 oz BMI 33.8 BP 186/76 H Blood Pressure Location Lt brachial Position Sitting Pulse 77 Intake Visit Reasons: H PYLORI - Eufemia Patient Intake Note: Patient in office today in follow up of H pylori. CC: Patient c/o having to run to the bathroom after eating, heartburn and acid reflux sometimes depending on what she eats. 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: No Accompanied by: Self / Same As Patient Allergies codeine [CODEINE] Allergy (Severe, Verified 05/29/24 11:44) SWELLING doxycycline Allergy (Severe, Verified 05/29/24 11:44) nauseas erythromycin base [ERYTHROMYCIN BASE] Allergy (Severe, Verified 05/29/24 11:44) SWELLING morphine [MORPHINE] Allergy (Severe, Verified 05/29/24 11:44) ANAPHYLAXIS penicillin V Allergy (Severe, Verified 05/29/24 11:44) Swelling Eyes simvastatin Allergy (Severe, Verified 05/29/24 11:44) Nerve Inflammation aspirin [ASPIRIN] Allergy (Intermediate, Verified 05/29/24 11:44) chest tightness lisinopril [LISINOPRIL] Allergy (Intermediate, Verified 05/29/24 11:44) COUGH cyclobenzaprine Adverse Reaction (Intermediate, Verified 05/29/24 11:44) SOB, dry mouth/ throat [employer] Saline Allergy (Severe, Uncoded 04/07/24 10:29) Redness ZYVA Allergy (Severe, Uncoded 04/07/24 10:29) NERVE INFLAMMATION HPI Comments Details: 78 yr f here for f/u She had EGD, colo 2022 Endoscopy Findings: schatzki ring gastritis possible barretts hiatal hernia Colonoscopy Findings: polyps internal hemorrhoids diverticular disease bx were pos for H pylori, tubular adenomas INTERIM: she has issues with carpla tunnel no blood in stools has some post prandial diarrhea worse with citrus fruits she never took h pylori treatment, she has allergies to meds EXAM: GENERAL: The patient is well developed and nontoxic. VITAL SIGNS:see workflow HEENT: Nonicteric sclerae, PERRLA, EOMI. Oropharynx clear. Moist mucous membranes. Conjunctivae appear well perfused. No thyroid mass. CHEST: Chest wall is nontender. HEART: Regular rate and rhythm without murmurs. LUNGS: Clear to auscultation bilaterally. ABDOMEN: Soft, positive bowel sounds, nontender, no organomegaly.no flank tenderness SKIN: No rash, no excessive bruising, petechiae, or purpura. NEUROLOGIC: Cranial nerves II-XII intact without motor/sensory deficit. Psych: normal affect A/P: 1/ H pylori gastritis, unable to take treatment PLAN: 1/ quadruple therapy, given zofran for nausea, repeat H pylori breath in 6 weeks after end of treatment PFSH Medical History HTN (hypertension) Coronary artery calcification seen on CAT scan Chronic cough Muscle tear CKD (chronic kidney disease) Pure hypercholesterolemia Postmenopausal Microalbuminuria Effusion, right knee GERD (gastroesophageal reflux disease) Right knee pain Anemia Axillary lymphadenopathy Breast mass Essential hypertension Dyslipidemia Lymphadenopathy Asthma High cholesterol Diabetes mellitus Surgical History History of esophagogastroduodenoscopy (EGD) Hx of colonoscopy History of tubal ligation History of umbilical hernia repair History of tonsillectomy Family History Father No problems noted. Mother No problems noted. Social History Housing: Apartment Are you a primary healthcare facility administrator to a significant other at home: No Do you presently have visiting nurse or other home services: No Alcohol intake: never Patient Tobacco Use Status: Never used Tobacco e-Cigarette/Vaping Use: Never Used Second Hand Smoke Exposure: No service: No Current occupational status: disabled Current occupation: rt handed Cognitive needs: No Hearing needs: No Vision needs: Yes (Glasses) Physical Exam Vital Signs: BMI result Body Mass Index 33.8 Assessment & Plan Assessment & Plan (1) H. pylori infection: Code(s): A04.8 - Other specified bacterial intestinal infections Category: Medical Plan: see above Medications: New metronidazole 500 mg PO TID 14 days 42 tabs 0RF bismuth subsalicylate 2 tabs PO QID 14 days 112 tabs 0RF tetracycline 500 mg PO Q6H 14 days 56 caps 0RF ondansetron 4 mg PO Q8H PRN 60 tabs 0RF nausea and vomiting pantoprazole 20 mg PO BID 2 weeks 28 tabs 0RF Coding Level of Care Code Est Pt Level 3 (20116) Diagnoses H. pylori infection A04.8
--- OUTSIDE RECORDS SUMMARY | 2024-05-29 16:18 | XMS_ITS | Clinical Summary ---
Author Organization [facility] Facility Address [address] [place] [address] Care Team Providers Care Mortician Helper Name Role Phone Lita Ahmadi MD Primary Care Provider [phone] Allergies Active Allergy Reactions Criticality Noted Date Comments Aspirin 11/25/2021 Codeine 11/25/2021 Cyclobenzaprine 11/25/2021 Erythromycin 11/25/2021 Lisinopril 11/25/2021 Morphine 11/25/2021 Penicillins 11/25/2021 Simvastatin 11/25/2021 Actical 11/25/2021 Medications amLODIPine (NORVASC) 5 MG tablet Take 5 mg by mouth 1 (one) time each day Active meclizine (ANTIVERT) 25 MG tablet Take 25 mg by mouth 3 (three) times a day if needed for dizziness Active glipiZIDE (GLUCOTROL) 5 MG tablet Take 5 mg by mouth in the morning and 5 mg in the evening. Take before meals. Active montelukast (SINGULAIR) 10 MG tablet Take 10 mg by mouth every night Active omeprazole (PriLOSEC) [address] capsule Take 20 mg by mouth 1 (one) time each day Do not crush or chew. Active cholecalciferol (VITAMIN D-3) 250 MCG (07592 UT) capsule Take 10,000 Units by mouth 1 (one) time each day Active gabapentin (Neurontin) 100 MG capsule Take 1 capsule (100 mg total) by mouth in the morning and 1 capsule (100 mg total) in the evening. 180 capsule 2 2 Active Farxiga 10 MG tablet TAKE 1 TABLET BY MOUTH 1 (ONE) TIME EACH DAY 90 tablet 2 3 Active hydrALAZINE 25 MG tablet Take 1 tablet by mouth 1 (one) time each day 3 Active rosuvastatin (CRESTOR) 20 MG tablet Take 20 mg by mouth 1 (one) time each day 3 Active ezetimibe (ZETIA) 10 MG tablet Take 10 mg by mouth 1 (one) time each day 3 Active Multiple Vitamin (Daily-Yulissa Multivitamin) tablet Take 1 tablet by mouth 1 (one) time each day 3 Active Active Problems Problem Noted Date Diagnosed Date Anemia, not otherwise specified 11/25/2021 Asthma 11/25/2021 Dyslipidemia 11/25/2021 Essential (primary) hypertension 11/25/2021 Gastroesophageal reflux disease 11/25/2021 Stage 3a chronic kidney disease 11/25/2021 Type 2 diabetes mellitus wit h diabetic chronic kidney disease 11/25/2021 Resolved Problems Problem Noted Date Diagnosed Date Resolved Date Type 1 diabetes mellitus without complication 11/26/19 22 11/25/2021 Family History Relation Status Comments Father Mother Social History Tobacco Use Types Packs/Day Years Used Date Smoking Tobacco: Never Smokeless Tobacco: Never Tobacco Cessation:Counseling Given: Not Answered Alcohol Use Standard Drinks/Week Comments Never 0 (1 standard drink = 0.6 oz pur e alcohol) Comments Unknown Sex and Gender Information Value Date Recorded Sex Assigned at Not on file Legal Sex Female 4:21 PM EDT Gender Identity Not on file Sexual Orientation Not on file Last Filed Vital Signs Vital Sign Reading Time Taken Comments Blood Pressure 128/60 01/06/2023 2:51 PM EDT Pulse 84 01/06/2023 2:51 PM EDT Temperature - - Respiratory Rate - - Oxygen Saturation 98% 02/26/2022 1:50 PM EDT Inhaled Oxygen Concentration - - Weight 67.4 kg (148 lb 9.6 oz) 01/06/2023 2:51 P M EDT Height - - Body Mass Index - - Plan of Treatment Health Maintenance Due Date Last Done Comments Pneumococcal Vaccine: 65+ Ye ars (1 of 2 - PCV) 11/27/1951 Diabetes: Hemoglobin A1C 11/25/2021 Diabetes: Ophthalmology Exam 11/25/2021 Diabetes: Pedal Pulse Checked 11/25/2021 Diabetes: Sensory Foot Exam 11/25/2021 Diabetes: Visual Foot Exam 11/25/2021 Influenza Vaccine (#1) 2024 Hepatitis B Vaccine Aged Out No longe r eligible based on patient's age to complete this topic Insurance [facility] [employer] Care Teams Mortician Helper Relationship Specialty Start Date End Date Lita Ahmadi MD [address] [place], [place] PCP - General Internal Medicine 09/11/21
== END 2024-05-29 11:58 | disposition home or self-care (01) ==
PROVIDERS: PCP Internal Medicine; Visit Provider Internal Medicine Gastroenterology
DX: A04.8 Other specified bacterial intestinal infections (principal)
CPT/HCPCS: 99213

== ENCOUNTER → 2024-05-29 11:24 | Outpatient (BNVA) | payer OTHER, SELFPAY | PROVIDERS: PCP Internal Medicine; Visit Provider Internal Medicine Gastroenterology | DX: K21.9 Gastro-esophageal reflux disease without esophagitis (principal); A04.8 Other specified bacterial intestinal infections | CPT/HCPCS: 99212 ==

== ENCOUNTER 2024-06-09 09:48 | Outpatient (RCR) | payer OTHER, SELFPAY ==
--- NOTE | 2024-05-19 11:54 | MHC.OT.EP ---
[address] [phone] Occupational Therapy Plan of Care Patient Name: Jocelyn Guevara Date of Evaluation: 05/19/24 Diagnosis: B/L Hand Pain Pain Location: Pain through base of left thumb, right middle finger and right small finger with tenderness over A1 pulleys Pain Score: 6 Pain Scale Used: Numeric (0 - 10) Aggravating Factors: Gripping, lifting, sleeping Alleviating Factors: Hot water, cream with glove, Oval 8 splints (only able to wear during the day) Was given nighttime splints - was not wearing Assessment: 78 yo female presents w/ B/L hand pain and tingling. Ortho visit 04/07/24 w/ numbness and tingling in her right middle finger, right small finger, left small finger, and left thumb. She has trialed course of OT prior but was discontinued due to onset of bruising and recommendation to return to provider. She is scheduled for right trigger finger release 07/04/24 (per patient) but now referred back to OT for management of left hand pain and triggering. On assessment today, she reports nighttime numbness in right hand, due to positional changes, and more constant numbness/tingling through left hand. She has pain over left thumb A1 tremayne and CMC pain, and reports locking in thumb with movement. She also has right middle finger triggering, but not observed/tested today in clinic. We have discussed POC and will progress with left thumb splinting for trigger finger and CMC support with cont'd education on joint protection, activity modification and self management with pain and exercises. Frequency and Duration: The patient will be seen 2x/wk for 4 weeks Short Term Goals: Ind w/ orthosis wear (including left thumb spica and oval 8s) Ind w/ self massage to hands Ind w/ HEP for self assisted joint ROM Good follow through w/ joint protection Pin Machine Tender Goals: Pt to report ease w/ nighttime symptoms (ulnar neuropathy) with sleep modifications Pt to report trigger free in left thumb Progress to CMC stabilization program Treatment Plan: Therapeutic Exercise Therapeutic Activity Home Exercise Program Splinting Patient Education ADL Training Paraffin MHP Joint Mobilization Soft Tissue Mobilization Kinesiotaping CMC orthosis and MCP block for trigger thumb Electronically Signed By: Rosa Brian, OTR/L CHT Please Sign and return to therapist. Thank you once again for your referral.
--- NOTE | 2024-06-26 13:55 | MHC.OT.DC ---
[address] [phone] F: [phone] Occupational Therapy Discharge Note Patient Name: Jocelyn Guevara Provider: Daniel Hamilton PA-C Diagnosis: B/L Hand Pain Date of Evaluation: 05/19/24 Date of Discharge: 06/26/24 Treatments to Date: 7 Discharge Status: Achieved Goals Improved Function Independent with HEP Discharge Summary: Jocelyn was referred to OT for B/L hand pain. She has done well w/ course of OT. She is pain free in left hand, minimal triggering at times in left thumb, not fully protecting at this time. We trialed CMC orthosis, unable to tolerate wear and educated on neoprene version for comfort and support. Lower pain in right hand also, but still triggering and planning to undergo surgery for right D3 D5 trigger finger releases. She is Ind w/ home program and self management techniques at this time. We will d/c from OT services, she may return post-op trigger finger release if needed. Electronically Signed By: Rosa Brian OTR/L CHT Reviewed/agree with student documentation: Therapist: Please Sign and return to therapist, thank you for your referral.
== END 2024-06-26 13:56 | disposition home or self-care (01) ==
LOC: HO.OT 09:48
PROVIDERS: PCP Internal Medicine
DX: M18.0 Bilateral primary osteoarthritis of first carpometacarpal joints (principal); G56.22 Lesion of ulnar nerve, left upper limb; M19.042 Primary osteoarthritis, left hand; M19.041 Primary osteoarthritis, right hand
CPT/HCPCS: 29130; 97035; 97110; 97140; 97166; 97760

== ENCOUNTER 2024-07-11 09:16 | Day surgery (SDC) | payer OTHER, SELFPAY ==
[2024-07-11 10:05] VITALS: BP 163/64; PULSE 93; RESP 18; TEMP 36.7; O2SAT 99
--- NOTE | 2024-07-11 10:05 | P.OP_ITS ---
Operative Note Operative Note Date of Service: 07/11/24 Narrative: Operative Note Preop diagnosis: 1. Right middle finger Trigger finger Postop diagnosis: 1. Right middle finger Trigger finger Procedure: 1. Right middle finger A1 tremayne release Surgeon: Roula Clark MD Crm Technical Lead: Daniel BRAVO Anesthesia: local block using 1% lidocaine with epinephrine Findings: No locking or catching after A1 tremayne release EBL: Less than 5 mL Tourniquet time: None Specimens: None Complications: None Disposition: Brought to recovery room in stable condition Plan: Follow-up for 10-14 days for wound check and suture removal Indications: The patient is 78 years old, with a right middle finger trigger finger that has been unresponsive to nonoperative management. The risks and benefits of operative treatment including but not limited to risk of damage to blood vessels, nerves, tendons, infection, persistent pain, persistent symptoms, recurrence or possible need for additional surgery were discussed with the patient and the patient wishes to proceed with surgery. Procedure: Once consent was obtained a local block was performed in the preop area using a combination of 1% lidocaine with epinephrine. The patient was then brought back to the operating suite and placed on the operative table in supine position. The right upper extremity was prepped and draped in a standard surgical fashion. Once assured that we had a good block, a 1.5 cm oblique incision was made centered over the A1 tremayne of the right middle finger . The incision was made through the skin to the subcutaneous tissues using a #15 blade. Careful dissection was made down to the level of the A1 tremayne using tenotomy scissors, with care being taken to protect the nearby neurovascular structures. A longitudinal incision was made in the A1 tremayne 1st using a #15 blade, then using tenotomy scissors under direct visualization. The A1 tremayne was noted to be thickened. Following our A1 tremayne release, we no longer saw any locking or catching of the digit with flexion and extension. Once satisfied with our A1 tremayne release the wound was copiously irrigated with normal saline and hemostasis was obtained with a brief period of local pressure. The skin edges were reapproximated with some 5.0 nylon suture material and a sterile dressing was applied. The patient appears to have tolerated the procedure well and with no complications. All digits were well vascularized at the conclusion of the case.
--- NOTE | 2024-07-11 10:05 | MHC.SHP ---
Pre-Procedural Eval Section A - 24 Hr Update-Section A only Date of Service: 07/11/24 The patient is an INPATIENT: No Changes since office visit: No Cold of Flu in the past 2 weeks, No New Medical Problems, No Changes in Medication and No Patient answered all questions The patient has been examined within 24 hours of the surgical procedure. The History & Physical has been completed within 30 days and I have reviewed it.: Yes Section B - Complete if H&P > 30 days Chief Complaint: Trigger finger, right middle finger Allergies: Allergies Allergy/AdvReac Type Severity Reaction Status Date / Time codeine [CODEINE] Allergy Severe SWELLING Verified 05/29/24 11:44 doxycycline Allergy Severe nauseas Verified 05/29/24 11:44 erythromycin base Allergy Severe SWELLING Verified 05/29/24 11:44 [ERYTHROMYCIN BASE] morphine [MORPHINE] Allergy Severe ANAPHYLAXIS Verified 05/29/24 11:44 penicillin V Allergy Severe Swelling Verified 05/29/24 11:44 Eyes simvastatin Allergy Severe Nerve Verified 05/29/24 11:44 Inflammation aspirin [ASPIRIN] Allergy Intermediate chest Verified 05/29/24 11:44 tightness lisinopril [LISINOPRIL] Allergy Intermediate COUGH Verified 05/29/24 11:44 cyclobenzaprine AdvReac Intermediate SOB, dry Verified 05/29/24 11:44 mouth/ throat [employer] Saline Allergy Severe Redness Uncoded 04/07/24 10:29 ZYVA Allergy Severe NERVE Uncoded 04/07/24 10:29 INFLAMMATION Plan Diagnosis/Plan: Unchanged I have reviewed the history and physical and performed a pertinent physical examination on my patient. No changes have occurred unless specified. Time Spent With Patient Time: Total time managing care of this patient today ____ minutes.
[2024-07-11 10:18] VITALS: BMI 30.2
[2024-07-11 11:03] VITALS: BP 164/72; PULSE 84; RESP 17; TEMP 37.1; O2SAT 98
--- NOTE | 2024-07-11 11:05 | PC.NURSE ---
instant cap refill, fingers pink and warm, moves all fingers, sensation intact all digits except middle finger
== END 2024-07-11 11:16 | disposition home or self-care (01) ==
PROVIDERS: PCP Internal Medicine; Visit Provider Orthopaedic Surgery
PROC: (CPT 26055; principal; 2024-07-11 12:00)
DX: M65.331 Trigger finger, right middle finger (principal); R20.0 Anesthesia of skin; R20.2 Paresthesia of skin; E78.00 Pure hypercholesterolemia, unspecified; D64.9 Anemia, unspecified; J45.909 Unspecified asthma, uncomplicated; I12.9 Hypertensive chronic kidney disease with stage 1 through stage 4 chronic kidney disease, or unspecified chronic kidney disease; E11.22 Type 2 diabetes mellitus with diabetic chronic kidney disease; N18.9 Chronic kidney disease, unspecified; Z79.84 Long term (current) use of oral hypoglycemic drugs; Z79.899 Other long term (current) drug therapy; Z88.0 Allergy status to penicillin; Z88.1 Allergy status to other antibiotic agents; Z88.5 Allergy status to narcotic agent; Z88.6 Allergy status to analgesic agent; Z88.8 Allergy status to other drugs, medicaments and biological substances; Z98.890 Other specified postprocedural states
CPT/HCPCS: 26055; J0171; J2003

== ENCOUNTER → 2024-07-11 09:16 | Outpatient (BNV) | payer OTHER, SELFPAY | PROVIDERS: PCP Internal Medicine; Visit Provider Orthopaedic Surgery | DX: M65.331 Trigger finger, right middle finger (principal) | CPT/HCPCS: 26055 ==

== ENCOUNTER 2024-07-24 10:46 | Outpatient (AMB) | payer OTHER, SELFPAY ==
[2024-07-24 10:56] VITALS: BP 136/64; PULSE 82; O2SAT 99; BMI 33.3
--- NOTE | 2024-07-24 10:56 | A.OFFVIS_ITS ---
Vital Signs 07/24/24 10:56 Height 4 ft 7 in Weight 143 lb 4.807 oz BMI 33.3 BP 136/64 Blood Pressure Location Lt brachial Position Sitting Pulse 82 Pulse Source Pulse Oximeter Pulse Oximetry (%) 99 Oxygen Delivery Method Room Air Intake Visit Reasons: COPD Allergies codeine [CODEINE] Allergy (Severe, Verified 07/24/24 11:01) SWELLING doxycycline Allergy (Severe, Verified 07/24/24 11:01) nauseas erythromycin base [ERYTHROMYCIN BASE] Allergy (Severe, Verified 07/24/24 11:01) SWELLING morphine [MORPHINE] Allergy (Severe, Verified 07/24/24 11:01) ANAPHYLAXIS penicillin V Allergy (Severe, Verified 07/24/24 11:01) Swelling Eyes simvastatin Allergy (Severe, Verified 07/24/24 11:01) Nerve Inflammation aspirin [ASPIRIN] Allergy (Intermediate, Verified 07/24/24 11:01) chest tightness lisinopril [LISINOPRIL] Allergy (Intermediate, Verified 07/24/24 11:01) COUGH cyclobenzaprine Adverse Reaction (Intermediate, Verified 07/24/24 11:01) SOB, dry mouth/ throat [employer] Saline Allergy (Severe, Uncoded 07/24/24 11:01) Redness ZYVA Allergy (Severe, Uncoded 07/24/24 11:01) NERVE INFLAMMATION HPI Comments Details: The patient is a 78-year-old woman with a known history of asthma who apparently started developing significant neck pain. She initially went to her primary care doctor and ultimately had to go to the ER because the neck pain became so severe. She did undergo a CT scan of the neck while at the ER. Demonstrates significant degenerative disc disease in addition to significant neck spasms. She was given medications and she was set up with physical therapy. In the meantime she also had a CT scan of the chest that demonstrated multiple pulmonary nodules measuring from 1 mm to 5 mm in size. Some are calcified and some noncalcified. In addition to that she did have some axillary lymph nodes. I did ask her about mammograms and she has had abnormalities before requiring ultrasounds of her breast. Never had cancer. She was supposed to have a mammogram sometime back in the spring because of the pandemic it never happened. At this point will try to set her up to get back to her original plan to get a mammogram specially because of the lymphadenopathy. Patient also has asthma. She does take Singulair with good effect. Usually the change of seasons around spring and winter she started developing more symptoms. I will make sure she has a rescue inhaler available. 01/19/2023 the patient is here for a pulmonary follow-up visit. He has been a while since we last spoke. The patient had been under fairly well and that she developed COVID beginning of the year. After that she started developing a cough. The cough is nonproductive in nature moderate severe. Has not improved. Denies any chest tightness or wheezing. She denies any weight loss or night sweats. She denies any hemoptysis. She her allergies seem to be well controlled with Singulair. She also has a rescue inhaler. She has not had to use it. She also has a nebulizer that she has not used. The patient did have a CT scan of the chest back in 2020 demonstrating pulmonary nodules. The patient should indeed have a repeat CT scan to ensure the stability of the pulmonary nodules for least [address] scan does not show any evidence of any progression then she is down with any more serial CT scans. The patient will trial the Tessalon Perles. She understands that the not covered by the insurance but I will give her good Rx card and we did look at different pharmacies that would provide her with a prescription for low cost. [facility] If the patient's cough is not better she can always call the office for further evaluation. Otherwise follow-up in 6 months. However, her CT scan is abnormal I will call her to come in at earlier time. 07/19/2023 the patient is here for pulmonary follow-up visit. Overall the patient has been doing better. Her cough is overall better. She responded well to the singular and also the benzonates as needed. Her last CT scan of the chest was back in January 2023 which I personally reviewed. It appears that her pulmonary nodules have been stable now for some time and therefore does not need an additional testing at this time. The patient has had to use any respiratory therapy. She does have an albuterol inhaler as needed. Therefore, will go ahead and continue with the Tessalon Perles and she can take the Singulair seasonally specially now going to the spring season. She has any worsening issues she will call the office otherwise will follow-up in a year's time. 07/24/2024 the patient is here for a pulmonary follow-up visit. Overall she is doing better now. Back in October she was sick with respiratory illness. She did have a chest x-ray which I personally reviewed without any acute disease. Although they did mention some atelectasis at the left base although very minimal. She was treated with a course of antibiotics and also kept taking her inhaler. Her symptoms did improve. Has not had to use her inhalers since then. Is only a rescue short-acting beta agonist. She continues with Singulair. She still responds well to the Tessalon Perles as needed. Will make sure she has them available. We again reviewed her CT scan of the chest last done in 2022 with a calcified nodular density consistent with a granuloma that is been stable and no additional follow-up warranted. Therefore, will plan to follow-up in 12 months. If she has any issues prior to this she will call for an earlier assessment. [facility] Medical History HTN (hypertension) Coronary artery calcification seen on CAT scan Chronic cough Muscle tear CKD (chronic kidney disease) Pure hypercholesterolemia Postmenopausal Microalbuminuria Effusion, right knee GERD (gastroesophageal reflux disease) Right knee pain Anemia Axillary lymphadenopathy Breast mass Essential hypertension Dyslipidemia Lymphadenopathy Asthma High cholesterol Diabetes mellitus Surgical History History of esophagogastroduodenoscopy (EGD) Hx of colonoscopy History of tubal ligation History of umbilical hernia repair History of tonsillectomy Family History Father No problems noted. Mother No problems noted. Social History Housing: Apartment Are you a primary career development coordinator/teacher to a significant other at home: No Do you presently have visiting nurse or other home services: No Alcohol intake: never Patient Tobacco Use Status: Never used Tobacco e-Cigarette/Vaping Use: Never Used Second Hand Smoke Exposure: No service: No Current occupational status: disabled Current occupation: rt handed Cognitive needs: No Hearing needs: No Vision needs: Yes (Glasses) Review of Systems Const Reports daytime sleepiness and Denies night sweats ENT Denies change in voice, Denies lip swelling, Denies mouth pain, Reports nasal congestion, Reports nasal discharge and Denies tongue swelling Card Denies chest pain Resp Reports cough GI Denies abdominal pain Musc Reports arthralgias, Reports joint swelling and Reports limited range of motion Neuro Denies Neuro-related abnormal movements Psych Denies no additional complaints Gilberto/Lymph Denies easy bleeding and Denies lymphadenopathy Aller/Immun Denies lip swelling and Denies tongue swelling Physical Exam Vital Signs: Last Vital Signs Pulse 82 07/24/24 10:56 BP 136/64 07/24/24 10:56 Pulse Ox 99 07/24/24 10:56 Oxygen Delivery Method Room Air 07/24/24 10:56 BMI result Body Mass Index 33.3 Const General: alert Neck Neck: Yes normal visual inspection, Yes full ROM and Yes no lymphadenopathy Chest Chest palpation & inspection: normal inspection of the chest Resp Effort & Inspection: normal respiratory effort Auscultation: clear to auscultation bilaterally Cardio Rate: regular rate Rhythm: regular rhythm Heart sounds: S1 normal heart sound present and S2 normal heart sound present GI Palpation (GI): Soft to palpation and nontender Auscultation: normal bowel sounds Skin General skin exam: rashes and/or lesions noted Assessment & Plan Assessment & Plan (1) Pulmonary nodule: Code(s): R91.1 - Solitary pulmonary nodule Category: Medical (2) Asthma: Code(s): J45.909 - Unspecified asthma, uncomplicated Category: Medical Qualifiers: Asthma complication type: uncomplicated Asthma persistence: intermi ttent Asthma severity: mild Qualified Code(s): J45.20 - Mild intermittent asthma, uncomplicated (3) Chronic cough: Comment: Aggravated by covid 19 Code(s): R05.3 - Chronic cough Category: Medical (4) Coronary artery calcification seen on CAT scan: Code(s): I25.10 - Atherosclerotic heart disease of [place] coronary artery without angina pectoris Category: Medical Plan Continue RIAN as needed continue singulair Benzonate as needed for cough, provided GoodRx card CT chest stable nodules, no further serial F/U F/U 12 months Medications: New benzonatate 200 mg PO BID PRN 60 caps 5RF cough 30 days Coding Level of Care Code Est Pt Level 4 (55409) Diagnoses Pulmonary nodule R91.1 Mild intermittent asthma without complication J45.20 Asthma complication type: uncomplicated Asthma persistence: intermittent Asthma severity: mild Chronic cough R05.3 Coronary artery calcification seen on CAT scan I25.10 Time Spent (min) 16
== END 2024-07-24 11:49 | disposition home or self-care (01) ==
LOC: HO.HPS 10:46
PROVIDERS: PCP Internal Medicine; Visit Provider Hospitalist
DX: R91.1 Solitary pulmonary nodule (principal); J45.20 Mild intermittent asthma, uncomplicated; R05.3 Chronic cough; I25.10 Atherosclerotic heart disease of native coronary artery without angina pectoris
CPT/HCPCS: 99214

== ENCOUNTER → 2024-07-24 10:46 | Outpatient (BNVA) | payer OTHER, SELFPAY | PROVIDERS: PCP Internal Medicine; Visit Provider Hospitalist | DX: J45.20 Mild intermittent asthma, uncomplicated (principal); R05.3 Chronic cough; R91.1 Solitary pulmonary nodule; I25.10 Atherosclerotic heart disease of native coronary artery without angina pectoris | CPT/HCPCS: 99212 ==

== ENCOUNTER 2024-07-25 10:19 | Outpatient (AMB) | payer OTHER, SELFPAY ==
--- NOTE | 2024-07-25 10:29 | A.OFFPC_ITS ---
Vital Signs 07/25/24 10:30 Height 4 ft 7 in Weight 144 lb BMI 33.5 BP 136/72 Blood Pressure Location Lt brachial Position Sitting Intake Visit Reasons: Annual Exam Intake Note: Patient here for a physical exam Operations Coordinator Required: Yes Operations Coordinator Language: Chief Nursing Officer Name: Lita Flores MD Information Interpreted: non-clinical & clinical Accompanied by: Self / Same As Patient Allergies codeine [CODEINE] Allergy (Severe, Verified 07/25/24 10:42) SWELLING doxycycline Allergy (Severe, Verified 07/25/24 10:42) nauseas erythromycin base [ERYTHROMYCIN BASE] Allergy (Severe, Verified 07/25/24 10:42) SWELLING morphine [MORPHINE] Allergy (Severe, Verified 07/25/24 10:42) ANAPHYLAXIS penicillin V Allergy (Severe, Verified 07/25/24 10:42) Swelling Eyes simvastatin Allergy (Severe, Verified 07/25/24 10:42) Nerve Inflammation aspirin [ASPIRIN] Allergy (Intermediate, Verified 07/25/24 10:42) chest tightness lisinopril [LISINOPRIL] Allergy (Intermediate, Verified 07/25/24 10:42) COUGH cyclobenzaprine Adverse Reaction (Intermediate, Verified 07/25/24 10:42) SOB, dry mouth/ throat [employer] Saline Allergy (Severe, Uncoded 07/25/24 10:42) Redness ZYVA Allergy (Severe, Uncoded 07/25/24 10:42) NERVE INFLAMMATION Medication List - Last Reconciled 07/25/24 by Lita Flores MD acetaminophen 500 mg PO BID PRN 30 days albuterol sulfate 90 mcg/actuation 2 inhalations inhalation Q6H PRN 30 days benzonatate 200 mg PO BID PRN 30 days blood sugar diagnostic (Clew Verio test strips) 1 strip miscellaneous DAILY 90 days cholecalciferol (vitamin D3) 50 mcg PO DAILY 90 days clotrimazole-betamethasone 1-0.05 % 1 appl topical BID 5 days diclofenac sodium 1% (Aleve (diclofenac)) 2 grams topical QID 30 days ezetimibe 10 mg PO DAILY famotidine 20 mg PO BID PRN gabapentin 300 mg PO Q8H 30 days glipizide 10 mg (2 x 5 mg) PO BID hydralazine 25 mg PO TID 90 days lancets (OneTouch Delica Plus Lancet) 30 gauge miscellaneous DAILY 90 days lidocaine 5% 1 appl topical BEDTIME PRN 2 weeks lidocaine HCl 4% (Aspercreme (lidocaine HCl)) 1 appl topical BID PRN losartan 25 mg PO DAILY 90 days meclizine 25 mg PO TID PRN 30 days metronidazole 500 mg PO TID 14 days montelukast 10 mg PO DAILY multivitamin with folic acid 400 mcg (Daily-Yulissa (with folic acid)) 1 tab PO DAILY 90 days omeprazole 20 mg PO BID 30 days ondansetron 4 mg PO Q8H PRN oxycodone-acetaminophen 5-325 mg 1 tab PO Q6H PRN pantoprazole 20 mg PO BID 2 weeks rosuvastatin 40 mg PO DAILY 90 days terconazole 0.8% 1 appful vaginal BEDTIME 3 days tetracycline 500 mg PO Q6H 14 days Tobacco use date assessed: 07/25/24 Fall risk assessment: No Falls in past year Last assessed Fall Risk: 07/25/24 Dental Screening Dental Screen Date: 07/25/24 Did you have a dental visit in the last 12 months?: No Did you have a dental problem in the last 6 months where you did not have access to dental care?: No Was dental information given to patient?: Patient has dentist HPI HPI Comments History of Present Illness Details The patient is a 78-year-old female presenting for her annual physical examination and administration of the pneumonia vaccine. She is currently without an active pneumonia immunization, missing since her 65-year benchmark, highlighting a gap in her preventative care. The patient manages osteopenia through calcium and vitamin D supplementation but expresses concern over the lack of follow-up post-densitometry, which showed loss of bone density. A colonoscopy in 2022 identified adenomatobular polyps, requiring surveillance with a scheduled repeat procedure in 2025. She reports ongoing recovery from recent carpal tunnel surgery, experiencing persistent hand immobility issues, and sleep disruption due to discomfort. Her compliance with routine mammography is noted. In terms of chronic conditions, her hypertension and diabetes are under management, reflected in today's A1c value of 6%. She encounters challenges with hemoglobin levels and is committed to follow-up evaluations and adherence to her cardiovascular disease prevention regimen. - Pneumonia vaccine administration plann ed for today. - Calcium and vitamin D supplementation for osteopenia. - Regular mammography, with last conduct ed the previous year. - Follow-up colonoscopy scheduled for 20 26 for surveillance of adenomatobular polyps. - LDL cholesterol monitoring, with a goa l of under 70. - Hemoglobin levels to be rechecked due to past low readings. - A1c control, noted as 6% today. [facility] Medical History HTN (hypertension) Coronary artery calcification seen on CAT scan Chronic cough Muscle tear CKD (chronic kidney disease) Pure hypercholesterolemia Postmenopausal Microalbuminuria Effusion, right knee GERD (gastroesophageal reflux disease) Right knee pain Anemia Axillary lymphadenopathy Breast mass Essential hypertension Dyslipidemia Lymphadenopathy Asthma High cholesterol Diabetes mellitus Surgical History History of carpal tunnel surgery History of esophagogastroduodenoscopy (EGD) Hx of colonoscopy History of tubal ligation History of umbilical hernia repair History of tonsillectomy Family History Father No problems noted. Mother No problems noted. Social History Housing: Apartment Are you a primary career services coordinator to a significant other at home: No Do you presently have visiting nurse or other home services: No Alcohol intake: never Patient Tobacco Use Status: Never used Tobacco e-Cigarette/Vaping Use: Never Used Second Hand Smoke Exposure: No service: No Current occupational status: disabled Current occupation: rt handed Cognitive needs: No Hearing needs: No Vision needs: Yes (Glasses) Questionnaire PHQ-9 Over the last 2 weeks, how often have you been bothered by any of the following problems? 1. Little interest or pleasure in doing things: not at all 2. Feeling down, depressed, or hopeless: not at all 3. Trouble falling or staying asleep, or sleeping too much: not at all 4. Feeling tired or having little energy: not at all 5. Poor appetite or overeating: not at all 6. Feeling bad about yourself - or that you are a failure or have let yourself or your family down: not at all 7. Trouble concentrating on things, such as reading the newspaper or watching television: not at all 8. Moving or speaking so slowly that other people could have noticed. Or the opposite - being so fidgety or restless that you have been moving around a lot more than usual: not at all 9. Thoughts that you would be better off or of hurting yourself in some way: not at all Total score: 0 Depression Screening Interpretation: Negative Depression Screening Done: Yes 61448 - PHQ-9 Billing: Yes Source: Developed by Drs. Ezequiel Diaz, Gaby Hwang, Antoine Guerrero and colleagues, with an educational mildred from [employer]. Thrive Questionnaire Date Thrive assessed: 07/25/24 I am a: Patient What is your living situation today?: I have a steady place to live Within the past 12 months, did the food you bought not last and you didn't have the money to get more?: Never true Within the past 12 months, did you worry whether your food would run out before you got money to buy more?: Never true Do you have trouble paying for medicines?: No Do you have trouble getting transportation to medical appointments?: No Do you have trouble paying your heating and electricity bill?: No Do you have trouble taking care of your child, family member or friend?: No Do you have trouble with day-to-day activities such as bathing, preparing meals, shopping, managing finances, etc.?: No Are you currently unemployed and looking for a job?: No Are you interested in more education?: No Please select the resources that you would like help with: None Currently or been in a relationship where the following occur: No concerns reported THRIVE Score: 0 AUDIT C Alcohol Use Questionnaire (AUDIT-C) 1. How often do you have a drink containing alcohol?: Never Total Score: 0 Score Reviewed/Action Taken: No VU-7 AMB Questionnaire VU-7 Date VU - 7 assessed: 07/25/24 Feeling nervous, anxious, or on edge: 0 = Not at all Not being able to stop or control worryin = Not at all Worrying too much about different things: 0 = Not at all Trouble relaxin = Not at all Being so restless that it is hard to sit still: 0 = Not at all Becoming easily annoyed or irritable: 0 = Not at all Feeling afraid as if something awful might happen: 0 = Not at all Total VU-7 score (0-4 normal; 5-9 mild; 10-14 moderate; 15-21 severe): 0 Source: Developed by Drs. Ezequiel Diaz, Gaby Hwang, Antoine Guerrero and colleagues, with an educational mildred from [employer]. VU-7 Assessment Billing VU-7 Assessment Tool: VU-7 Assessment 67280 Review of Systems Const All systems reviewed & are unremarkable except as noted in HPI and below Card Denies chest pain at rest, Denies chest pain with activity, Denies edema, Denies irregular heart rhythm, Denies claudication, Denies dyspnea, Denies dyspnea on exertion, Denies orthopnea, Denies paroxysmal nocturnal dyspnea and Denies slow heart rate Resp Denies cough, Denies dyspnea and Denies dyspnea on exertion GI Denies abdominal pain, Denies change in bowel habits, Denies excessive flatus, Denies nausea and Denies vomiting Neuro Denies lack of coordination Physical exam (Primary Care) Vital Signs: Last Vital Signs BP 136/72 07/25/24 10:30 BMI result Body Mass Index 33.5 BMI Assessment/Plan discussion: High BMI High, discussed plan: lifestyle, weight reduction, dietary and physical activity Tobacco/Smoking Status: Tobacco use Status Tobacco use date assessed 07/25/24 07/25/24 10:40 Patient Tobacco Use Status Never used Tobacco 07/25/24 10:40 e-Cigarette/Vaping Use Never Used 07/25/24 10:40 PHQ-9: PHQ-9 Score PHQ-9: Total score 0 07/25/24 10:57 Depression Screening Interpretation: Negative Thrive Assessment: Date of Thrive Assessment Date Thrive assessed 07/25/24 07/25/24 10:40 Currently or been in a relationship where the following occur: No concerns reported [facility] Head: Yes normal to inspection, Yes normocephalic and Yes atraumatic Ears: external ears normal Eyes General: appearance normal, both eyes and all related structures Eyelids: Yes eyelids normal Conjunctivae: conjunctivae normal Neck Neck: Yes normal visual inspection and Yes supple Resp Effort & Inspection: normal respiratory effort Auscultation: clear to auscultation bilaterally Cardio Jugular venous distension: no JVD Rate: regular rate Rhythm: regular rhythm Heart sounds: S1 normal heart sound present and S2 normal heart sound present GI Inspection: Yes normal to inspection Palpation (GI): Soft to palpation and nontender Auscultation: normal bowel sounds Skin General skin exam: no rashes or lesions noted Neuro General: no focal motor deficits Extrem General: Yes full ROM Psych Appearance: grossly normal Results AMB Hemoglobin A1c AMB Hemoglobin A1c 6.0 % Last Edit by CASTRO Oneill on 07/25/24 10:4 1 Immunizations pneumoc 20-brayden conj-dip cr(PF) 0.5 mL IM syringe Performing Provider: Lita Flores MD [facility] Administered by: CASTRO Oneill on 07/25/24 10:59 Dose Route Admin Location Dispensed Lot Number Expiration Date [facility] Manager Business Planning 0.5 mL IM Left Deltoid 0.5 mL [id number] 08/31/25 1592-2418-44 [employer] VIS Given Date VIS Provided VIS Publication Date 07/25/24 Single Vaccine 21 Eligibility Eligibility Date Funding Source Not [facility] Eligible 07/25/24 Private Results Reviewed Results Reviewed: Laboratory Last Values Hgb A1c (Clinic) 6.0 % (4.0-6.0) 07/25/24 10:28 Coding Level of Care Code Est Pt Prev Care >65y(41926) Diagnoses Physical exam Z00.00 Type 2 diabetes mellitus with hyperglycemia, without long-term current use of insulin E11.65 Diabetes mellitus complication status: with hyperglycemia Diabetes mellitus adjunct faculty for medical terminology insulin use: without fdc use Diabetes mellitus type: type 2 Additional Codes VU-7 Assessment Billing - VU-7 Assessment Tool: VU-7 Assessment 00027 ([id number]) PHQ-9 - 46805 - PHQ-9 Billing: Yes ([id number]) Time Spent (min) 31 Assessment & Plan Assessment & Plan (1) Physical exam: Code(s): Z00.00 - Encounter for general adult medical examination without abnormal findings Category: Social Hx (2) Diabetes mellitus: Code(s): E11.9 - Type 2 diabetes mellitus without complications Category: Medical Qualifiers: Diabetes mellitus complication status: with hyperglycemia Diabetes mellitus adjunct faculty for medical terminology insulin use: without adjunct faculty for medical terminology use Diabetes mellitus type: type 2 Qualified Code(s): E11.65 - Type 2 diabetes mellitus with hyperglycemia Plan Today, a pneumonia vaccine will be administered to ensure she receives proper immunization beyond age 65, filling an existing gap in her care. Osteopenia continues to be managed via calcium and vitamin D, with plans to ensure communication on past densitometry results. I discussed her hand functionality and postoperative carpal tunnel care, emphasizing daily exercises to improve mobility. Scheduled follow-up procedures include colonoscopy surveillance for 2025 to check on her polyp history. We will conduct cholesterol and hemoglobin evaluations to ascertain both cardiovascular risk and anemia control, with special attention to maintaining her current A1c level. Patient was informed and verbally consented to the use of an ambient scribe for clinic note documentation during this visit. I discussed with the patient the administration of the pneumonia vaccine, addressing her concerns about potential side effects by reassuring her of its mild nature, distinct from flu vaccine reactions. We covered her management strategy for osteopenia, reinforcing the need for ongoing supplementation and future densitometry reviews. For carpal tunnel syndrome, we reviewed her postoperative progress, agreeing on stepwise hand activity to facilitate improvement. I explained the importance of routine colonoscopies to her colorectal health, due to prior polyp findings. Our diabetes conversation highlighted the significance of her impressive A1c level. The patient expressed understanding and consent to the proposed health maintenance activities, including cholesterol goal-setting and follow-up lab assessments. Orders: Orders IRON PROFILE Today D64.9 - Anemia, unspecified Vitamin D 25-OH Total Today E55.9 - Vitamin D deficiency, unspecified Lipid Panel Today E78.5 - Hyperlipidemia, unspecified AMB Hemoglobin A1c Today E11.65 - Type 2 diabetes mellitus with hyperglycemia Complete Blood Count Auto Diff Today D64.9 - Anemia, unspecified Microalbumin, Random (w Creat) Today R80.9 - Proteinuria, unspecified [facility]. Panel Fast Today N18.31 - Chronic kidney disease, stage 3a Pneumococcal 20 Immunization Today Z23 - Encounter for immunization Patient Instructions: - Proceed with the pneumonia vaccine today. - Continue calcium and vitamin D supplements as directed. - Perform regular hand exercises as prescribed for carpal tunnel recovery. - Plan to attend follow-up appointments for necessary laboratory tests assessing cholesterol and hemoglobin. - Adhere to the current diabetes management plan maintaining an A1c goal of 6%. - Prepare for the scheduled colonoscopy in 2025. - Monitor for any unexpected side effects post-vaccination.
[2024-07-25 10:30] VITALS: BP 136/72; BMI 33.5
--- OUTSIDE RECORDS SUMMARY | 2024-07-25 12:25 | XMS_ITS | Clinical Summary ---
Author Organization [facility] Address [address] [place] [address] Care Team Providers Care Carbon Cleaner Name Role Phone Lita Ahmadi MD Primary Care Provider [phone] Allergies Active Allergy Reactions Criticality Noted Date [...] chew. Active cholecalciferol (VITAMIN D-3) 250 MCG (16807 UT) capsule Take 10,000 Units by mouth [...] [facility]ALTH MEDIC[facility] Care Teams Carbon Cleaner Relationship Specialty Start Date End Date Lita Ahmadi MD [address] [place], [place] PCP - General Internal Medicine 09/11/21
== END 2024-07-25 11:25 | disposition home or self-care (01) ==
LOC: HO.HMCH 10:20
PROVIDERS: PCP Internal Medicine; Visit Provider Internal Medicine
DX: Z00.00 Encounter for general adult medical examination without abnormal findings (principal); E11.65 Type 2 diabetes mellitus with hyperglycemia; Z23 Encounter for immunization

== ENCOUNTER → 2024-07-25 10:19 | Outpatient (BNVA) | payer OTHER, SELFPAY | PROVIDERS: PCP Internal Medicine; Visit Provider Internal Medicine | DX: Z00.00 Encounter for general adult medical examination without abnormal findings (principal); Z23 Encounter for immunization; E11.65 Type 2 diabetes mellitus with hyperglycemia | CPT/HCPCS: 83036; 90471; 90677; 96127; 99397 ==

== ENCOUNTER 2024-07-26 13:16 | Outpatient (AMB) | payer OTHER, SELFPAY ==
--- NOTE | 2024-07-26 13:28 | A.OFFVIS_ITS ---
Vital Signs 07/26/24 13:31 Height 4 ft 7 in Weight 144 lb BMI 33.5 Intake Visit Reasons: PO RT MF trigger 07/11/24 AR Intake Note: Jocelyn is a 78 year old right hand dominant female who presents today for her first post operative appointment s/p right middle finger trigger release 07/11/24. Sutures removed and steri-strips applied. Patient reports that she continues to have pain at the incision site. States her locking and catching has subsided however she has pain with ROM hand exercises. Allergies codeine [CODEINE] Allergy (Severe, Verified 07/26/24 13:31) SWELLING doxycycline Allergy (Severe, Verified 07/26/24 13:31) nauseas erythromycin base [ERYTHROMYCIN BASE] Allergy (Severe, Verified 07/26/24 13:31) SWELLING morphine [MORPHINE] Allergy (Severe, Verified 07/26/24 13:31) ANAPHYLAXIS penicillin V Allergy (Severe, Verified 07/26/24 13:31) Swelling Eyes simvastatin Allergy (Severe, Verified 07/26/24 13:31) Nerve Inflammation aspirin [ASPIRIN] Allergy (Intermediate, Verified 07/26/24 13:31) chest tightness lisinopril [LISINOPRIL] Allergy (Intermediate, Verified 07/26/24 13:31) COUGH cyclobenzaprine Adverse Reaction (Intermediate, Verified 07/26/24 13:31) SOB, dry mouth/ throat [employer] Saline Allergy (Severe, Uncoded 07/26/24 13:31) Redness ZYVA Allergy (Severe, Uncoded 07/26/24 13:31) NERVE INFLAMMATION HPI HPI PO RT MF trigger 07/11/24 AR: Details: Jocelyn is a 78 year old right hand dominant female who presents today for her first post operative appointment s/p right middle finger trigger release 07/11/24. Sutures removed and steri-strips applied. Patient reports that she continues to have pain at the incision site. States her locking and catching has subsided however she has pain with ROM hand exercises. [facility] Medical History HTN (hypertension) Coronary artery calcification seen on CAT scan Chronic cough Muscle tear CKD (chronic kidney disease) Pure hypercholesterolemia Postmenopausal Microalbuminuria Effusion, right knee GERD (gastroesophageal reflux disease) Right knee pain Anemia Axillary lymphadenopathy Breast mass Essential hypertension Dyslipidemia Lymphadenopathy Asthma High cholesterol Diabetes mellitus Surgical History History of carpal tunnel surgery History of esophagogastroduodenoscopy (EGD) Hx of colonoscopy History of tubal ligation History of umbilical hernia repair History of tonsillectomy Family History Father No problems noted. Mother No problems noted. Social History Housing: Apartment Are you a primary care program director to a significant other at home: No Do you presently have visiting nurse or other home services: No Alcohol intake: never Patient Tobacco Use Status: Never used Tobacco e-Cigarette/Vaping Use: Never Used Second Hand Smoke Exposure: No service: No Current occupational status: disabled Current occupation: rt handed Cognitive needs: No Hearing needs: No Vision needs: Yes (Glasses) Review of Systems Const All systems reviewed & are unremarkable except as noted in HPI and below Physical Exam Vital Signs: BMI result Body Mass Index 33.5 Extrem Other: Patient is alert, oriented, and in no acute distress. Neuro: Normal sensation of the tips of all digits of the right hand at this time Vascular: Cap refill brisk Pain: Minimal tenderness to palpation about the incision site over the A1 tremayne of the right middle finger ROM: Patient is able to get close to making a closed fist and extending all digits of the right hand fully Skin: Well approximated and well healing incision site noted over the A1 tremayne of the right middle finger No lacerations or abrasions. General: No ecchymosis, erythema, or evidence of infection. Psych: Appears grossly normal Affect normal Attitude cooperative Assessment & Plan Assessment & Plan (1) Stiffness of right hand joint: Code(s): M25.641 - Stiffness of right hand, not elsewhere classified Category: Medical (2) Trigger finger, right middle finger: Code(s): M65.331 - Trigger finger, right middle finger Category: Medical Plan 1. Status post right middle finger trigger release DOS 07/11/2024 Patient appears to be recovering well postoperatively Patient is educated about the typical recovery course At this time, due to her stiffness, the patient was referred to occupational therapy for range of motion and strengthening of the right hand Patient was amenable to this plan Patient will follow-up as needed with any acute concerns Orders: Orders OT Evaluation and Treatment Today M25.641 - Stiffness of right hand, not elsewhere classified Coding Level of Care Code Global (15109) Diagnoses Stiffness of right hand joint M25.641 Trigger finger, right middle finger M65.331
[2024-07-26 13:31] VITALS: BMI 33.5
--- OUTSIDE RECORDS SUMMARY | 2024-07-26 15:47 | XMS_ITS | Clinical Summary ---
Author Organization [facility] Facility Address [address] [place] [address] Care Team Providers Care Dinkey Press Operator Name Role Phone Lita Ahmadi MD Primary Care Provider [phone] Allergies Active Allergy Reactions Criticality Noted Date [...] chew. Active cholecalciferol (VITAMIN D-3) 250 MCG (45890 UT) capsule Take 10,000 Units by mouth [...] HEALTH MEDICARE [facility] Care Teams Dinkey Press Operator Relationship Specialty Start Date End Date Lita Ahmadi MD [address] [place], [place] PCP - General Internal Medicine 09/11/21
== END 2024-07-26 13:52 | disposition home or self-care (01) ==
LOC: HO.HOS 13:17
PROVIDERS: PCP Internal Medicine
DX: M25.641 Stiffness of right hand, not elsewhere classified (principal); M65.331 Trigger finger, right middle finger
CPT/HCPCS: 99024

== ENCOUNTER → 2024-07-26 13:16 | Outpatient (BNVA) | payer OTHER, SELFPAY | PROVIDERS: PCP Internal Medicine | DX: Z47.89 Encounter for other orthopedic aftercare (principal); M25.641 Stiffness of right hand, not elsewhere classified; Z98.890 Other specified postprocedural states | CPT/HCPCS: 99212 ==

== ENCOUNTER 2024-08-08 14:03 | Outpatient (AMB) | payer OTHER, SELFPAY ==
--- NOTE | 2024-08-08 14:11 | MHC.OFFVIS ---
Vital Signs 08/08/24 14:14 Height 4 ft 7 in Weight 144 lb BMI 33.5 Intake Visit Reasons: PO RT MF trigger 07/11/24 AR Intake Note: Jocelyn is a 78 year old right hand dominant female who presents today for a post operative visit s/p right middle finger A1 tremayne release DOS: 07/11/[address] Roula Clark. On 07/26/24 patient was referred to occupational therapy for ROM and strengthening of the right hand. Patient reports pain around her incision area. She has limited ROM, not able to fully bend her finger fully down to make a closed fist. States she started OT last Wednesday. No numbness or tingling. Allergies codeine [CODEINE] Allergy (Severe, Verified 08/08/24 14:16) SWELLING doxycycline Allergy (Severe, Verified 08/08/24 14:16) nauseas erythromycin base [ERYTHROMYCIN BASE] Allergy (Severe, Verified 08/08/24 14:16) SWELLING morphine [MORPHINE] Allergy (Severe, Verified 08/08/24 14:16) ANAPHYLAXIS penicillin V Allergy (Severe, Verified 08/08/24 14:16) Swelling Eyes simvastatin Allergy (Severe, Verified 08/08/24 14:16) Nerve Inflammation aspirin [ASPIRIN] Allergy (Intermediate, Verified 08/08/24 14:16) chest tightness lisinopril [LISINOPRIL] Allergy (Intermediate, Verified 08/08/24 14:16) COUGH cyclobenzaprine Adverse Reaction (Intermediate, Verified 08/08/24 14:16) SOB, dry mouth/ throat [employer] Saline Allergy (Severe, Uncoded 08/08/24 14:16) Redness ZYVA Allergy (Severe, Uncoded 08/08/24 14:16) NERVE INFLAMMATION HPI HPI PO RT MF trigger 07/11/24 AR: Details: Jocelyn is a 78 year old right hand dominant female who presents today for a post operative visit s/p right middle finger A1 tremayne release DOS: 07/11/[address] Roula Clark. On 07/26/24 patient was referred to occupational therapy for ROM and strengthening of the right hand. Patient reports pain around her incision area. She has limited ROM, not able to fully bend her finger fully down to make a closed fist. States she started OT last Wednesday. No numbness or tingling. [facility] Medical History HTN (hypertension) Coronary artery calcification seen on CAT scan Chronic cough Muscle tear CKD (chronic kidney disease) Pure hypercholesterolemia Postmenopausal Microalbuminuria Effusion, right knee GERD (gastroesophageal reflux disease) Right knee pain Anemia Axillary lymphadenopathy Breast mass Essential hypertension Dyslipidemia Lymphadenopathy Asthma High cholesterol Diabetes mellitus Surgical History History of carpal tunnel surgery History of esophagogastroduodenoscopy (EGD) Hx of colonoscopy History of tubal ligation History of umbilical hernia repair History of tonsillectomy Family History Father No problems noted. Mother No problems noted. Social History Housing: Apartment Are you a primary child care provider to a significant other at home: No Do you presently have visiting nurse or other home services: No Alcohol intake: never Patient Tobacco Use Status: Never used Tobacco e-Cigarette/Vaping Use: Never Used Second Hand Smoke Exposure: No service: No Current occupational status: disabled Current occupation: rt handed Cognitive needs: No Hearing needs: No Vision needs: Yes (Glasses) Review of Systems Const All systems reviewed & are unremarkable except as noted in HPI and below Physical Exam Vital Signs: BMI result Body Mass Index 33.5 Extrem Other: Patient is alert, oriented, and in no acute distress. Neuro: Normal sensation of the tips of all digits of the right hand at this time Vascular: Cap refill brisk Pain: Minimal tenderness to palpation about the incision site over the A1 tremayne of the right middle finger ROM: Patient is able to get close to making a closed fist and extending all digits of the right hand fully Skin: Well approximated and well healing incision site noted over the A1 tremayne of the right middle finger No lacerations or abrasions. General: No ecchymosis, erythema, or evidence of infection. Psych: Appears grossly normal Affect normal Attitude cooperative Assessment & Plan Assessment & Plan (1) Stiffness of right hand joint: Code(s): M25.641 - Stiffness of right hand, not elsewhere classified Category: Medical (2) Trigger finger, right middle finger: Code(s): M65.331 - Trigger finger, right middle finger Category: Medical Plan 1. Status post right middle finger trigger release DOS 07/11/2024 Patient appears to be recovering well postoperatively Patient is educated about the typical recovery course At this time, due to her stiffness, the patient was referred to occupational therapy for range of motion and strengthening of the right hand Patient was amenable to this plan Patient will follow-up as needed with any acute concerns Coding Level of Care Code Global (73132) Diagnoses Stiffness of right hand joint M25.641 Trigger finger, right middle finger M65.331
[2024-08-08 14:14] VITALS: BMI 33.5
--- OUTSIDE RECORDS SUMMARY | 2024-08-08 17:13 | XMS_ITS | Clinical Summary ---
Author Organization [facility] Facility Address [address] [place] [address] Care Team Providers Care Stamp Press Operator Name Role Phone Lita Ahmadi MD Primary Care Provider [phone] Allergies Active Allergy Reactions Criticality Noted Date [...] chew. Active cholecalciferol (VITAMIN D-3) 250 MCG (25276 UT) capsule Take 10,000 Units by mouth [...] Diabetes: Visual Foot Exam 11/25/2021 Influenza Vaccine (Season Ended) 2025 Hepatitis B Vaccine Aged Out No longe r eligible based on patient's age to complete this topic Insurance [facility] [employer] Care Teams Stamp Press Operator Relationship Specialty Start Date End Date Lita Ahmadi MD [address] [place], [place] PCP - General Internal Medicine 09/11/21
== END 2024-08-08 14:30 | disposition home or self-care (01) ==
LOC: HO.HOS 14:04
PROVIDERS: PCP Internal Medicine
DX: M25.641 Stiffness of right hand, not elsewhere classified (principal); M65.331 Trigger finger, right middle finger
CPT/HCPCS: 99024

== ENCOUNTER → 2024-08-08 14:03 | Outpatient (BNVA) | payer OTHER, SELFPAY | PROVIDERS: PCP Internal Medicine | DX: M25.641 Stiffness of right hand, not elsewhere classified (principal); M65.331 Trigger finger, right middle finger | CPT/HCPCS: 99212 ==

== ENCOUNTER 2024-09-01 10:44 | Outpatient (RCR) | payer OTHER, SELFPAY ==
--- NOTE | 2024-08-04 14:31 | MHC.OT.EP ---
[address] [phone] Occupational Therapy Plan of Care Patient Name: Jocelyn Guevara Date of Evaluation: 08/04/24 Diagnosis: Stiffness R hand R MF trigger release 07/11 Pain Location: Pain Score: Pain Scale Used: Aggravating Factors: Alleviating Factors: Assessment: Pt is a 78 yr old R hand dominant female who had trigger finger release surgery of her R MF on 07/11. She reports having the stitches removed 2 weeks ago, and her hand feels stiff and painful . She admits to avoiding use of her R hand due to pain. Pt presents today w/ edema , decreased ROM, and weakness in her R hand and wrist. She would benefit from skilled OT therapy to address these deficits and RPLOF Frequency and Duration: The patient will be seen 2xs a week for 4 weeks Short Term Goals: Pt will be compliant w/ her HEP Pt will report 2 /10 pain w/ use of her R hand Pt will be able to squeeze dynamometer for alumni secretary measurement Production Control Specialist Goals: Pt will make a full composite fist Pt will gain 10lbs of R hand alumni secretary Pt will report RPLOF Treatment Plan: Therapeutic Exercise Therapeutic Activity Home Exercise Program Splinting Neuro Re-ed Patient Education Desensitization/Sensory Re-ed Edema Control ADL Training Ultrasound NMES Iontophoresis Paraffin Fluidotherapy MHP Cold Packs Joint Mobilization Soft Tissue Mobilization Kinesiotaping Electronically Signed By: Avani Hogan OTR/L Please Sign and return to therapist. Thank you once again for your referral.
== END 2024-09-01 11:40 | disposition home or self-care (01) ==
LOC: HO.OT 10:44
PROVIDERS: PCP Internal Medicine
DX: M25.641 Stiffness of right hand, not elsewhere classified (principal)
CPT/HCPCS: 97035; 97110; 97140; 97165; 97535

== ENCOUNTER 2024-10-09 11:38 | Outpatient (AMB) | payer OTHER, SELFPAY ==
--- NOTE | 2024-10-09 11:48 | A.OFFVIS_ITS ---
Vital Signs 10/09/24 11:52 Height 4 ft 11 in Weight 143 lb 4.807 oz BMI 28.9 BP 155/77 H Blood Pressure Location Lt brachial Position Sitting Pulse 77 Intake Visit Reasons: 4/5 mo follow up Intake Note: Jocelyn presents in the office as a 5 month follow up. CC: She states that she is feeling okay and everything is okay. Tax Associate Attorney Required: No Allergies codeine [CODEINE] Allergy (Severe, Verified 10/09/24 11:48) SWELLING doxycycline Allergy (Severe, Verified 10/09/24 11:48) nauseas erythromycin base [ERYTHROMYCIN BASE] Allergy (Severe, Verified 10/09/24 11:48) SWELLING morphine [MORPHINE] Allergy (Severe, Verified 10/09/24 11:48) ANAPHYLAXIS penicillin V Allergy (Severe, Verified 10/09/24 11:48) Swelling Eyes simvastatin Allergy (Severe, Verified 10/09/24 11:48) Nerve Inflammation aspirin [ASPIRIN] Allergy (Intermediate, Verified 10/09/24 11:48) chest tightness lisinopril [LISINOPRIL] Allergy (Intermediate, Verified 10/09/24 11:48) COUGH cyclobenzaprine Adverse Reaction (Intermediate, Verified 10/09/24 11:48) SOB, dry mouth/ throat [employer] Saline Allergy (Severe, Uncoded 10/09/24 11:48) Redness ZYVA Allergy (Severe, Uncoded 10/09/24 11:48) NERVE INFLAMMATION HPI HPI 4/5 mo follow up: Details: 78 yr f here for f/u She had EGD, colo 2022 Endoscopy Findings: schatzki ring gastritis possible barretts hiatal hernia Colonoscopy Findings: polyps internal hemorrhoids diverticular disease bx were pos for H pylori, tubular adenomas INTERIM: she si feeling good she is watching her diet she took quadruple therapy and she thinks it helped no abdominal pain EXAM: GENERAL: The patient is well developed and nontoxic. VITAL SIGNS:see workflow HEENT: Nonicteric sclerae, PERRLA, EOMI. Oropharynx clear. Moist mucous membranes. Conjunctivae appear well perfused. No thyroid mass. CHEST: Chest wall is nontender. HEART: Regular rate and rhythm without murmurs. LUNGS: Clear to auscultation bilaterally. ABDOMEN: Soft, positive bowel sounds, nontender, no organomegaly.no flank tenderness SKIN: No rash, no excessive bruising, petechiae, or purpura. NEUROLOGIC: Cranial nerves II-XII intact without motor/sensory deficit. Psych: normal affect A/P: 1/ H pylori gastritis, finished quadruple therapy, on famotidine PLAN: 1/ stop famotidine and HP breath test on , if still pos for HP then alternative rx regimen 2/ repeat colo 2025 for polyps hx PFSH Medical History HTN (hypertension) Coronary artery calcification seen on CAT scan Chronic cough Muscle tear CKD (chronic kidney disease) Pure hypercholesterolemia Postmenopausal Microalbuminuria Effusion, right knee GERD (gastroesophageal reflux disease) Right knee pain Anemia Axillary lymphadenopathy Breast mass Essential hypertension Dyslipidemia Lymphadenopathy Asthma High cholesterol Diabetes mellitus Surgical History History of carpal tunnel surgery History of esophagogastroduodenoscopy (EGD) Hx of colonoscopy History of tubal ligation History of umbilical hernia repair History of tonsillectomy Family History Father No problems noted. Mother No problems noted. Social History Housing: Apartment Are you a primary certified caregiver to a significant other at home: No Do you presently have visiting nurse or other home services: No Alcohol intake: never Patient Tobacco Use Status: Never used Tobacco e-Cigarette/Vaping Use: Never Used Second Hand Smoke Exposure: No service: No Current occupational status: disabled Current occupation: rt handed Cognitive needs: No Hearing needs: No Vision needs: Yes (Glasses) Physical Exam Vital Signs: Last Vital Signs Pulse 77 10/09/24 11:52 BP 155/77 H 10/09/24 11:52 BMI result Body Mass Index 28.9 Assessment & Plan Assessment & Plan (1) H. pylori infection: Code(s): A04.8 - Other specified bacterial intestinal infections Category: Medical Plan: as above Coding Level of Care Code Est Pt Level 3 (77492) Diagnoses H. pylori infection A04.8
[2024-10-09 11:52] VITALS: BP 155/77; PULSE 77; BMI 28.9
--- OUTSIDE RECORDS SUMMARY | 2024-10-09 13:22 | XMS_ITS | Clinical Summary ---
Author Organization [facility] Facility Address [address] [place] [address] Care Team Providers Care Slip Cover Operator Name Role Phone Lita Ahmadi MD Primary Care Provider [phone] Allergies Active Allergy Reactions Criticality Noted Date [...] chew. Active cholecalciferol (VITAMIN D-3) 250 MCG (02983 UT) capsule Take 10,000 Units by mouth [...] Due Date Last Done Comments Pneumococcal Vaccine: 50+ Ye ars (1 of 2 - PCV) 1964 Diabetes: Hemoglobin A1C 11/25/2021 Diabetes: Ophthalmology Exam 11/25/2021 Diabetes: Pedal Pulse Checked 11/25/2021 Diabetes: Sensory Foot Exam 11/25/2021 Diabetes: Visual Foot Exam 11/25/2021 Influenza Vaccine (Season Ended) 2025 Hepatitis B Vaccine Aged Out No longe r eligible based on patient's age to complete this topic Insurance [facility] Medicare [facility] Medicare Care Teams Slip Cover Operator Relationship Specialty Start Date End Date Lita Ahmadi MD [address] [place] PCP - General Internal Medicine 09/11/21
== END 2024-10-09 12:19 | disposition home or self-care (01) ==
LOC: HO.HGI 11:39
PROVIDERS: PCP Internal Medicine; Visit Provider Internal Medicine Gastroenterology
DX: A04.8 Other specified bacterial intestinal infections (principal)
CPT/HCPCS: 99213

== ENCOUNTER → 2024-10-09 11:38 | Outpatient (BNVA) | payer OTHER, SELFPAY | PROVIDERS: PCP Internal Medicine; Visit Provider Internal Medicine Gastroenterology | DX: A04.8 Other specified bacterial intestinal infections (principal) | CPT/HCPCS: 99212 ==

== ENCOUNTER 2024-10-11 15:44 | Outpatient (AMB) | payer OTHER, SELFPAY ==
--- NOTE | 2024-10-11 15:52 | MHC.PC.OV ---
Vital Signs 10/11/24 15:53 Height 4 ft 7 in Weight 145 lb BMI 33.7 BP 126/56 L Blood Pressure Location Lt brachial Position Sitting Respiration 18 Pulse 83 Pulse Source Pulse Oximeter Temp 98.4 F Temp Source Oral Pulse Oximetry (%) 99 Oxygen Delivery Method Room Air Intake Visit Reasons: bump on LT side of collar bone Towel Hemmer Required: No Accompanied by: Self / Same As Patient Allergies codeine [CODEINE] Allergy (Severe, Verified 10/11/24 16:22) SWELLING doxycycline Allergy (Severe, Verified 10/11/24 16:22) nauseas erythromycin base [ERYTHROMYCIN BASE] Allergy (Severe, Verified 10/11/24 16:22) SWELLING morphine [MORPHINE] Allergy (Severe, Verified 10/11/24 16:22) ANAPHYLAXIS penicillin V Allergy (Severe, Verified 10/11/24 16:22) Swelling Eyes simvastatin Allergy (Severe, Verified 10/11/24 16:22) Nerve Inflammation aspirin [ASPIRIN] Allergy (Intermediate, Verified 10/11/24 16:22) chest tightness lisinopril [LISINOPRIL] Allergy (Intermediate, Verified 10/11/24 16:22) COUGH cyclobenzaprine Adverse Reaction (Intermediate, Verified 10/11/24 16:22) SOB, dry mouth/ throat [employer] Saline Allergy (Severe, Uncoded 10/11/24 16:22) Redness ZYVA Allergy (Severe, Uncoded 10/11/24 16:22) NERVE INFLAMMATION Medication List - Last Reconciled 10/11/24 by BALAJI Kennedy acetaminophen 500 mg PO BID PRN 30 days albuterol sulfate 90 mcg/actuation 2 inhalations inhalation Q6H PRN 30 days benzonatate 200 mg PO BID PRN 30 days blood sugar diagnostic ([employer] Verio test strips) 1 strip miscellaneous DAILY 90 days cholecalciferol (vitamin D3) 50 mcg PO DAILY 90 days clotrimazole-betamethasone 1-0.05 % 1 appl topical BID 5 days diclofenac sodium 1% (Aleve (diclofenac)) 2 grams topical QID 30 days ezetimibe 10 mg PO DAILY famotidine 20 mg PO BID PRN gabapentin 300 mg PO Q8H 30 days glipizide 10 mg (2 x 5 mg) PO BID hydralazine 25 mg PO TID 90 days lancets (OneTouch Delica Plus Lancet) 30 gauge miscellaneous DAILY 90 days lidocaine 5% 1 appl topical BEDTIME PRN 2 weeks losartan 25 mg PO DAILY 90 days meclizine 25 mg PO TID PRN 30 days montelukast 10 mg PO DAILY multivitamin with folic acid 400 mcg (Daily-Yulissa (with folic acid)) 1 tab PO DAILY 90 days ondansetron 4 mg PO Q8H PRN pantoprazole 20 mg PO BID 2 weeks rosuvastatin 40 mg PO DAILY 90 days Tobacco use date assessed: 10/11/24 Fall risk assessment: No Falls in past year Last assessed Fall Risk: 10/11/24 Dental Screening Dental Screen Date: 10/11/24 Did you have a dental visit in the last 12 months?: No Did you have a dental problem in the last 6 months where you did not have access to dental care?: No Was dental information given to patient?: Patient has dentist HPI bump on LT side of collar bone HPI Details Patient is a 78-year-old female that is presenting with complaints left collarbone raised area Reports that she noticed this two weeks ago Her left side of collar bone seems more prominent than the right, and the patient feels like something is pulling in the area whenever she turns her head to the right side. She denies pain to the area. Endorse that couple months ago she felt like it was harder for her to swallow than before, particularly when she eat something heavy like rice or pizza. Denies any changes in her voice or any other symptoms. Denies any issues swallowing liquids. Denies any issue to the area. Denies sob, chest pain, nausea or vomiting. On exam, left side of collarbone is more prominent than right without any s/sx of injury. Consistent with normal bony prominence. [facility] Medical History HTN (hypertension) Coronary artery calcification seen on CAT scan Chronic cough Muscle tear CKD (chronic kidney disease) Pure hypercholesterolemia Postmenopausal Microalbuminuria Effusion, right knee GERD (gastroesophageal reflux disease) Right knee pain Anemia Axillary lymphadenopathy Breast mass Essential hypertension Dyslipidemia Lymphadenopathy Asthma High cholesterol Diabetes mellitus Surgical History History of carpal tunnel surgery History of esophagogastroduodenoscopy (EGD) Hx of colonoscopy History of tubal ligation History of umbilical hernia repair History of tonsillectomy Family History Father No problems noted. Mother No problems noted. Social History Housing: Apartment Are you a primary healthcare management consultant to a significant other at home: No Do you presently have visiting nurse or other home services: No Alcohol intake: never Patient Tobacco Use Status: Never used Tobacco e-Cigarette/Vaping Use: Never Used Second Hand Smoke Exposure: No service: No Current occupational status: disabled Current occupation: rt handed Cognitive needs: No Hearing needs: No Vision needs: Yes (Glasses) Questionnaire PHQ-9 Over the last 2 weeks, how often have you been bothered by any of the following problems? 1. Little interest or pleasure in doing things: more than half the days 2. Feeling down, depressed, or hopeless: more than half the days 3. Trouble falling or staying asleep, or sleeping too much: more than half the days 4. Feeling tired or having little energy: more than half the days 5. Poor appetite or overeating: several days 6. Feeling bad about yourself - or that you are a failure or have let yourself or your family down: not at all 7. Trouble concentrating on things, such as reading the newspaper or watching television: not at all 8. Moving or speaking so slowly that other people could have noticed. Or the opposite - being so fidgety or restless that you have been moving around a lot more than usual: not at all 9. Thoughts that you would be better off or of hurting yourself in some way: not at all Total score: 9 Depression Screening Interpretation: Positive Depression Screening Done: Yes Source: Developed by Drs. Ezequiel Diaz, Gaby Hwang, Antoine Guerrero and colleagues, with an educational mildred from [employer]. Thrive Questionnaire Date Thrive assessed: 10/11/24 I am a: Patient What is your living situation today?: I have a steady place to live Within the past 12 months, did the food you bought not last and you didn't have the money to get more?: Never true Within the past 12 months, did you worry whether your food would run out before you got money to buy more?: Never true Do you have trouble paying for medicines?: No Do you have trouble getting transportation to medical appointments?: No Do you have trouble paying your heating and electricity bill?: No Do you have trouble taking care of your child, family member or friend?: No Do you have trouble with day-to-day activities such as bathing, preparing meals, shopping, managing finances, etc.?: No Are you currently unemployed and looking for a job?: No Are you interested in more education?: No Please select the resources that you would like help with: None Currently or been in a relationship where the following occur: No concerns reported THRIVE Score: 0 AUDIT C Alcohol Use Questionnaire (AUDIT-C) 1. How often do you have a drink containing alcohol?: Never Total Score: 0 Score Reviewed/Action Taken: No VU-7 AMB Questionnaire VU-7 Date VU - 7 assessed: 10/11/24 Feeling nervous, anxious, or on edge: 1 = Several days Not being able to stop or control worryin = Not at all Worrying too much about different things: 0 = Not at all Trouble relaxin = Not at all Being so restless that it is hard to sit still: 0 = Not at all Becoming easily annoyed or irritable: 0 = Not at all Feeling afraid as if something awful might happen: 0 = Not at all Total VU-7 score (0-4 normal; 5-9 mild; 10-14 moderate; 15-21 severe): 1 Source: Developed by Drs. Ezequiel Diaz, Gaby Hwang, Antoine Guerrero and colleagues, with an educational mildred from [employer]. Review of Systems Const Denies headache(s) Eyes Reports no additional complaints ENT Denies vertigo, Denies dizziness, Denies headache(s), Denies hoarseness, Denies neck mass, Denies sore throat, Denies throat swelling and Reports other (left collarbone raised area) Card Denies chest pain, Denies leg edema and Denies lightheadedness Resp Denies cough, Denies hemoptysis and Denies wheezing Musc Denies arthralgias, Denies joint swelling, Denies numbness, Denies tingling and Reports other (left collarbone raised area) Neuro Denies Abnormal speech present, Denies vertigo, Denies dizziness, Denies headache(s), Denies numbness and Denies tingling Psych Denies anxiety, Denies depression and Denies panic attacks Gilberto/Lymph Denies easy bleeding and Denies easy bruising Aller/Immun Denies throat swelling and Denies wheezing Physical exam (Primary Care) Vital Signs: Last Vital Signs Temp 98.4 F 10/11/24 15:53 Pulse 83 10/11/24 15:53 Resp 18 10/11/24 15:53 BP 126/56 L 10/11/24 15:53 Pulse Ox 99 10/11/24 15:53 Oxygen Delivery Method Room Air 10/11/24 15:53 BMI result Body Mass Index 33.7 Tobacco/Smoking Status: Tobacco use Status Tobacco use date assessed 10/11/24 10/11/24 16:12 Patient Tobacco Use Status Never used Tobacco 10/11/24 15:53 e-Cigarette/Vaping Use Never Used 10/11/24 15:53 PHQ-9: PHQ-9 Score PHQ-9: Total score 9 10/11/24 16:33 Depression Screening Interpretation: Positive Thrive Assessment: Date of Thrive Assessment Date Thrive assessed 10/11/24 10/11/24 16:12 Currently or been in a relationship where the following occur: No concerns reported Const General: healthy appearing, no acute distress, alert and awake Nutritional Appearance: well nourished Orientation/consciousness: oriented to person, oriented to place and oriented to time HENMT Ears: external ears normal General nose exam: Normal external nose present Eyes Conjunctivae: conjunctivae normal Sclerae: sclerae normal Pupils: Equal, round and reactive pupils present Neck Neck: Yes no lymphadenopathy, Yes supple and Yes no JVD Thyroid: Thyroid normal Carotids: no bruits Neck images: 1. left collarbone with increased prominence Resp Effort & Inspection: normal respiratory effort and not tachypneic Auscultation: no crackles, no rales, no rhonchi and no wheezes Cardio Rate: regular rate Rhythm: regular rhythm Heart sounds: no murmurs and normal S1 and S2 Skin General skin exam: no rashes or lesions noted and dry skin Neuro General: oriented to person, oriented to place and oriented to time Cranial nerves: Yes Equal, round and reactive pupils present Speech: No Abnormal speech present Gait exam (Neuro): Normal gait present Motor exam (neuro): no tremor noted Extrem Right upper extremity: full ROM Left upper extremity: full ROM Coding Level of Care Code Est Pt Level 3 (88257) Diagnoses 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
[2024-10-11 15:53] VITALS: BP 126/56; PULSE 83; RESP 18; TEMP 36.9; O2SAT 99; BMI 33.7
--- OUTSIDE RECORDS SUMMARY | 2024-10-11 18:05 | XMS_ITS | Clinical Summary ---
Author Organization [facility] Facility Address [address] [place] [address] Care Team Providers Care Stitcher Set Up Operator Automatic Name Role Phone Lita Ahmadi MD Primary Care Provider [phone] Allergies Active Allergy Reactions Criticality Noted Date [...] chew. Active cholecalciferol (VITAMIN D-3) 250 MCG (11425 UT) capsule Take 10,000 Units by mouth [...] Health Medicare [employer] Medicare Care Teams Stitcher Set Up Operator Automatic Relationship Specialty Start Date End Date Lita Ahmadi MD [address] [place] PCP - General Internal Medicine 09/11/21
== END 2024-10-11 16:47 | disposition home or self-care (01) ==
LOC: HO.HMCH 15:45
PROVIDERS: PCP Internal Medicine
DX: Q74.0 Other congenital malformations of upper limb(s), including shoulder girdle (principal)

== ENCOUNTER → 2024-10-11 15:44 | Outpatient (BNVA) | payer OTHER, SELFPAY | PROVIDERS: PCP Internal Medicine | DX: E11.9 Type 2 diabetes mellitus without complications (principal); Q74.0 Other congenital malformations of upper limb(s), including shoulder girdle | CPT/HCPCS: 96127; 99212 ==

== ENCOUNTER 2024-10-12 09:46 | Outpatient (AMB) | payer OTHER, SELFPAY ==
--- NOTE | 2024-10-12 10:23 | AM.OFFVISNUR ---
Intake Visit Reasons: H. Pylori test Allergies codeine [CODEINE] Allergy (Severe, Verified 10/11/24 16:22) SWELLING doxycycline Allergy (Severe, Verified 10/11/24 16:22) nauseas erythromycin base [ERYTHROMYCIN BASE] Allergy (Severe, Verified 10/11/24 16:22) SWELLING morphine [MORPHINE] Allergy (Severe, Verified 10/11/24 16:22) ANAPHYLAXIS penicillin V Allergy (Severe, Verified 10/11/24 16:22) Swelling Eyes simvastatin Allergy (Severe, Verified 10/11/24 16:22) Nerve Inflammation aspirin [ASPIRIN] Allergy (Intermediate, Verified 10/11/24 16:22) chest tightness lisinopril [LISINOPRIL] Allergy (Intermediate, Verified 10/11/24 16:22) COUGH cyclobenzaprine Adverse Reaction (Intermediate, Verified 10/11/24 16:22) SOB, dry mouth/ throat [employer] Saline Allergy (Severe, Uncoded 10/11/24 16:22) Redness ZYVA Allergy (Severe, Uncoded 10/11/24 16:22) NERVE INFLAMMATION Nursing Note Patient presents for collection of H Pylori breath test. Patient has been fasting for 1 hour (nothing to eat, drink, no chewing gum or smoking) has not taken any antacid medication for at least 2 weeks and has no allergies to artificial sweeteners.?? Assessment & Plan Assessment & Plan (1) H. pylori infection: Code(s): A04.8 - Other specified bacterial intestinal infections Category: Medical Plan Patient presents for collection of H Pylori breath test. Patient has been fasting for 1 hour (nothing to eat, drink, no chewing gum or smoking) has not taken any antacid medication for at least 2 weeks and has no allergies to artificial sweeteners.???This test checks for an overgrowth of bacteria in your stomach. We all have bacteria but some may have more than others. It is treatable. if the test comes back negative there is nothing else to do. If the test result is positive we will treat you with 2 antibiotics and a medication to decrease the acid in your stomach (PPI) for 2 weeks. Two weeks after you have completed the treatment we will retest you to make sure the overgrowth has resolved. Orders: Orders H Pylori Breath Test Today Patient Instructions: Process for specimen collection and reason for testing was explained to the patient. Specimen collection. Patient instructed to take a deep breath and then exhale into the blue bag, filling it up as much as possible. Patient instructed to drink a mixture of water and the artificial sweetener with a straw. A 15 minute wait period was observed. Patient instructed to take a deep breath and then exhale into the pink bag, filling it up as much as possible.?? Coding Level of Care Code Established Pt Est Pt Level 1 (57168) Patient Type Established Medical Decision Making Straight Forward Diagnoses H. pylori infection A04.8
--- OUTSIDE RECORDS SUMMARY | 2024-10-12 10:48 | XMS_ITS | Clinical Summary ---
Author Organization [facility] Facility Address [address] [place] [address] Care Team Providers Care Plant Mechanic Name Role Phone Lita Ahmadi MD Primary Care Provider [phone] Allergies Active Allergy Reactions Criticality Noted Date [...] chew. Active cholecalciferol (VITAMIN D-3) 250 MCG (19258 UT) capsule Take 10,000 Units by mouth [...] Health Medicare [facility] Medicare Care Teams Plant Mechanic Relationship Specialty Start Date End Date Lita Ahmadi MD [address] [place] PCP - General Internal Medicine 09/11/21
== END 2024-10-12 10:23 | disposition home or self-care (01) ==
LOC: HO.HGI 09:47
PROVIDERS: PCP Internal Medicine; Visit Provider Internal Medicine Gastroenterology
DX: A04.8 Other specified bacterial intestinal infections (principal)

== ENCOUNTER 2024-10-12 09:46 | Outpatient (REF) | payer OTHER, SELFPAY ==
--- NOTE | ~2024-10-12 | XR_ITS ---
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 COMPARISON: November 09, 2023. TECHNIQUE: 2 views of the chest were obtained. FINDINGS: No gross consolidation, pleural effusion or pneumothorax. 3 mm calcification, peripheral left upper hemithorax. Cardiomediastinal silhouette size is normal. Calcified plaque thoracic aortic arch. Multilevel thoracic and upper lumbar spondylosis. S-shaped curvature of the cervical thoracic spine. Degenerative changes in the acromioclavicular joints. Degenerative changes in both glenohumeral joints. Vascular clips right upper quadrant abdomen and likely cholecystectomy. XR/XR chest 2V IMPRESSION: 3 mm granuloma, left lung. No acute airspace disease. Atherosclerosis disease. Degenerative changes both shoulders.. Electronically signed by: Bo Galvez MD 10/12/2024 11:35 AM EDT
[2024-10-12 15:30] LABS: H Pylori Breath Test Positive (Negative)
== END 2024-10-12 09:47 | disposition home or self-care (01) ==
LOC: HO.XRAY 09:46
PROVIDERS: Internal Medicine Gastroenterology; PCP Internal Medicine
DX: Q74.0 Other congenital malformations of upper limb(s), including shoulder girdle (principal); J84.10 Pulmonary fibrosis, unspecified; M24.112 Other articular cartilage disorders, left shoulder; M24.111 Other articular cartilage disorders, right shoulder
CPT/HCPCS: 71046; 83013; 99211

== ENCOUNTER → 2024-10-12 10:32 | Outpatient (BNV) | payer OTHER, SELFPAY | PROVIDERS: PCP Internal Medicine; Visit Provider Radiology Diagnostic Radiology | DX: M47.814 Spondylosis without myelopathy or radiculopathy, thoracic region (principal) | CPT/HCPCS: 71046 ==

== ENCOUNTER 2024-10-13 12:58 | Outpatient (AMB) | payer OTHER, SELFPAY ==
--- NOTE | 2024-10-13 13:11 | MHC.OFFVIS ---
Vital Signs 10/13/24 13:17 Height 4 ft 7 in Weight 145 lb BMI 33.7 Handedness Right Intake Visit Reasons: PO RT MF trigger 07/11/24 AR, ROM check Intake Note: Jocelyn is a 78 year old right hand dominant female who presents today for a post operative visit and range of motion check s/p right middle finger A1 tremayne release DOS: 07/11/[address] Roula Clark. Patient reports she had intermittent pain at the base of her right middle finger and on the volar aspect of the left wrist. She has been doing home exercises at home and states she noticed little improvement. Reports continued difficulty with attempting a full closed fist. Denies numbness and tingling. Allergies codeine [CODEINE] Allergy (Severe, Verified 10/11/24 16:22) SWELLING doxycycline Allergy (Severe, Verified 10/11/24 16:22) nauseas erythromycin base [ERYTHROMYCIN BASE] Allergy (Severe, Verified 10/11/24 16:22) SWELLING morphine [MORPHINE] Allergy (Severe, Verified 10/11/24 16:22) ANAPHYLAXIS penicillin V Allergy (Severe, Verified 10/11/24 16:22) Swelling Eyes simvastatin Allergy (Severe, Verified 10/11/24 16:22) Nerve Inflammation aspirin [ASPIRIN] Allergy (Intermediate, Verified 10/11/24 16:22) chest tightness lisinopril [LISINOPRIL] Allergy (Intermediate, Verified 10/11/24 16:22) COUGH cyclobenzaprine Adverse Reaction (Intermediate, Verified 10/11/24 16:22) SOB, dry mouth/ throat [employer] Saline Allergy (Severe, Uncoded 10/11/24 16:22) Redness ZYVA Allergy (Severe, Uncoded 10/11/24 16:22) NERVE INFLAMMATION HPI HPI PO RT MF trigger 07/11/24 AR, ROM check: Details: Jocelyn is a 78 year old right hand dominant female who presents today for a post operative visit and range of motion check s/p right middle finger A1 tremayne release DOS: 07/11/[address] Roula Clark. Patient reports she had intermittent pain at the base of her right middle finger and on the volar aspect of the left wrist. She has been doing home exercises at home and states she noticed significant improvement. Reports continued difficulty with attempting a full closed fist, but states that she is able to make a fist.. Denies numbness and tingling. [facility], [facility] Medical History HTN (hypertension) Coronary artery calcification seen on CAT scan Chronic cough Muscle tear CKD (chronic kidney disease) Pure hypercholesterolemia Postmenopausal Microalbuminuria Effusion, right knee GERD (gastroesophageal reflux disease) Right knee pain Anemia Axillary lymphadenopathy Breast mass Essential hypertension Dyslipidemia Lymphadenopathy Asthma High cholesterol Diabetes mellitus Surgical History History of carpal tunnel surgery History of esophagogastroduodenoscopy (EGD) Hx of colonoscopy History of tubal ligation History of umbilical hernia repair History of tonsillectomy Family History Father No problems noted. Mother No problems noted. Social History Housing: Apartment Are you a primary critical care registered nurse to a significant other at home: No Do you presently have visiting nurse or other home services: No Alcohol intake: never Patient Tobacco Use Status: Never used Tobacco e-Cigarette/Vaping Use: Never Used Second Hand Smoke Exposure: No service: No Current occupational status: disabled Current occupation: rt handed Cognitive needs: No Hearing needs: No Vision needs: Yes (Glasses) Review of Systems Const All systems reviewed & are unremarkable except as noted in HPI and below Physical Exam Vital Signs: BMI result Body Mass Index 33.7 Extrem Other: Patient is alert, oriented, and in no acute distress. Neuro: Normal sensation of the tips of all digits of the right hand at this time Vascular: Cap refill brisk Pain: Minimal tenderness to palpation about the incision site over the A1 tremayne of the right middle finger ROM: Patient is able to make a closed fist and extending all digits of the right hand fully Skin: Well approximated and well healing incision site noted over the A1 tremayne of the right middle finger No lacerations or abrasions. General: No ecchymosis, erythema, or evidence of infection. Psych: Appears grossly normal Affect normal Attitude cooperative Assessment & Plan Assessment & Plan (1) Stiffness of right hand joint: Code(s): M25.641 - Stiffness of right hand, not elsewhere classified Category: Medical (2) Trigger finger, right middle finger: Code(s): M65.331 - Trigger finger, right middle finger Category: Medical Plan 1. Status post right middle finger trigger release DOS 07/11/2024 Patient appears to be recovering well postoperatively Patient is educated about the typical recovery course Patient should continue with her exercises, as they appear to be doing quite well for her. Patient was amenable to this plan Patient will follow-up as needed with any acute concerns Coding Level of Care Code Global (63612) Diagnoses Stiffness of right hand joint M25.641 Trigger finger, right middle finger M65.331
[2024-10-13 13:17] VITALS: BMI 33.7
--- OUTSIDE RECORDS SUMMARY | 2024-10-13 13:24 | XMS_ITS | Clinical Summary ---
Author Organization [facility] Facility Address [address] [place] [address] Care Team Providers Care Sales Designer Name Role Phone Lita Ahmadi MD Primary Care Provider [phone] Allergies Active Allergy Reactions Criticality Noted Date [...] chew. Active cholecalciferol (VITAMIN D-3) 250 MCG (89950 UT) capsule Take 10,000 Units by mouth [...] Health Medicare [facility] Medicare Care Teams Sales Designer Relationship Specialty Start Date End Date Lita Ahmadi MD [address] [place] PCP - General Internal Medicine 09/11/21
== END 2024-10-13 13:41 | disposition home or self-care (01) ==
LOC: HO.HOS 12:59
PROVIDERS: PCP Internal Medicine
DX: M25.641 Stiffness of right hand, not elsewhere classified (principal); M65.331 Trigger finger, right middle finger
CPT/HCPCS: 99213

== ENCOUNTER → 2024-10-13 12:58 | Outpatient (BNVA) | payer OTHER, SELFPAY | PROVIDERS: PCP Internal Medicine | DX: M25.641 Stiffness of right hand, not elsewhere classified (principal); M65.331 Trigger finger, right middle finger; Z98.890 Other specified postprocedural states | CPT/HCPCS: 99212 ==

== ENCOUNTER 2024-11-07 12:33 | Outpatient (REF) | payer OTHER, SELFPAY ==
[2024-11-07 12:52] LABS: MANUAL DIFF FLAG NO
--- OUTSIDE RECORDS SUMMARY | 2024-11-07 13:18 | XMS_ITS | Clinical Summary ---
Author Organization [facility] Facility Address [address] [place] [address] Care Team Providers Care Deposit Refund Clerk Name Role Phone Lita Ahmadi MD Primary Care Provider Allergies Active Allergy Reactions Criticality Noted Date [...] chew. Active cholecalciferol (VITAMIN D-3) 250 MCG (46103 UT) capsule Take 10,000 Units by mouth [...] Visual Foot Exam 11/25/2021 Influenza Vaccine (#1) 2025 Hepatitis B Vaccine Aged Out No longe r eligible based on patient's age to complete this topic Insurance [facility] Medicare [facility] Medicare Care Teams Deposit Refund Clerk Relationship Specialty Start Date End Date Lita Ahmadi MD [address] [place] PCP - General Internal Medicine 09/11/21
--- OUTSIDE RECORDS SUMMARY | 2024-11-07 13:19 | XMS_ITS | Patient Health Record ---
Author Organization [facility] Address [address] [place] [address] Care Team Providers Care Nuclear Physicist Name Role Phone Tobi THOMSON, Maria C Primary Care Provider Ezequiel Simpson Unavailable [phone] Allergies Allergen (clinical drug ingredient) Drug/Non Drug Allergy documented on EMR Reaction Allergy Type Onset Date Status Morphine Sulfate Unknown Drug Allergy Active Erythromycin Unknown Drug Allergy Acti ve Codeine Phosphate Unknown Drug Allergy Active Reason For Referral No Information Medications Medication SIG (Take, Route, Frequency, Duration) Notes Start Date End Date Status Naproxen 500mg prn Activ e Motrin 800mg prn Active Colyte with Flavor Packs 227.1 GM As directed Orally As directed for 1 day(s) 08/10/2013 Active Singulair 20mg prn Activ e PriLOSEC 20 MG 1 capsule Orally prn for 30 day(s) Active Problems Problem Type SNOMED Code ICD Code Onset Dates Problem Status W/U Status Risk Notes Problem emt intermediate current use of non-steroida l anti-inflamm atory drug (situation) (90410136849 9103) Long-term (current) use of nonsteroidal anti-inflammatori es (NSAID) (V58.64) Active confirmed Problem Colon cancer screening (V76.51) Active confirmed Problem Anemia (926001498) Anemia (285.9) Active confirmed Plan Of Treatment Future Test Test Name Order Date COLONOSCOPY 08/10/2013 Insurance Providers Payer Name Payer Address Payer Phone Subscriber Number Group Number Insured Name Patient Relationship to Insured Coverage Start Date Coverage End Date MEDICARE OF [place] [address] [place] [address] [id number] TIANNA MICHAEL Self - patient is the insured MEDICAID OF [facility] [address] [place] [phone] [id number] TIANNA MICHAEL Self - patient is the insured Medical (General) History Medical History History ICD Code Asthma Denies IA,DM,CVA,renal disease Arthritis GERD--uses Prilosec approx. just once pe r week prn Surgical History Surgery Date(Month/Year) tonsillectomy in 1959 [facility] umbilical hernia in 1980 BTL
[2024-11-07 13:55] LABS: Hematocrit 29.3 % (37.0-47.0); Hemoglobin 10.1 g/dl (12.0-16.0); Imm Gran Abs Auto 0.02 X10*3/uL (0.00-0.03); Imm Gran Pct Auto 0.3 % (0.0-0.4); Lymphocytes Absolute Auto 2.0 X10*3/uL (1.2-4.9); Mean Corpuscular HGB Conc 34.5 g/dl (31.0-35.0); Mean Corpuscular Hemoglobin 31.4 pg (27.0-33.0); Mean Corpuscular Volume 91.0 fL (80.0-98.0); NRBC Abs Auto 0.000 X10*3/uL (0.0-0.012); NRBC Pct Auto 0.0 /100WBC (0.0-0.2); Platelet Count 162 X10*3/uL (160-400); Red Blood Count 3.22 X10*6/uL (4.20-5.50); White Blood Count 6.1 X10*3/uL (4.8-10.8)
[2024-11-07 14:25] LABS: Microalbum/Creatinine Ratio Ur 12.6 ug/mg cr (<30)
[2024-11-07 14:26] LABS: Protein/Creatinine Ratio, Ur 0.07 (<0.2); Total Protein Urine Random 21 mg/dL (<12)
[2024-11-07 14:29] LABS: Anion Gap 11 (12-20); Blood Urea Nitrogen 26 mg/dL (9-16); Carbon Dioxide 25 mmol/L (22-29); Chloride 110 mmol/L (96-108); Estimated Glomerular Filt Rate 50; Potassium 4.0 mmol/L (3.3-5.1); Sodium 142 mmol/L (135-145)
[2024-11-07 14:33] LABS: Alanine Aminotransferase 17 U/L (0-31); Albumin Level 4.3 g/dL (3.5-5.0); Alkaline Phosphatase 55 U/L (39-117); Anion Gap 11 (12-20); Aspartate Amino Transferase 24 U/L (5-31); Blood Urea Nitrogen 27 mg/dL (9-16); Calcium 9.1 mg/dL (8.4-10.2); Carbon Dioxide 24 mmol/L (22-29); Chloride 111 mmol/L (96-108); Cholesterol 206 mg/dL (<200); Estimated Glomerular Filt Rate 49; HDL Cholesterol 44 mg/dL (>40); Iron 109 mcg/dL (30-160); Percent Iron Saturation 42 % (15-50); Potassium 4.0 mmol/L (3.3-5.1); Sodium 142 mmol/L (135-145); Total Iron Binding Capacity 260 mcg/dL (228-428); Total Protein 6.8 g/dL (6.5-8.0); Triglycerides 210 mg/dL (<150); Unsaturated Iron Binding 151 ug/dL
== END 2024-11-07 12:34 | disposition home or self-care (01) ==
LOC: HO.LAB 12:33
PROVIDERS: PCP Internal Medicine; Visit Provider Internal Medicine Nephrology
DX: I12.9 Hypertensive chronic kidney disease with stage 1 through stage 4 chronic kidney disease, or unspecified chronic kidney disease (principal); N18.31 Chronic kidney disease, stage 3a; D63.1 Anemia in chronic kidney disease; E55.9 Vitamin D deficiency, unspecified; E78.5 Hyperlipidemia, unspecified; R80.9 Proteinuria, unspecified
CPT/HCPCS: 36415; 80051; 80053; 80061; 82043; 82306; 82565; 82570; 83540; 84156; 84520; 85025

== ENCOUNTER 2024-11-08 11:37 | Outpatient (REF) | payer OTHER, SELFPAY ==
--- OUTSIDE RECORDS SUMMARY | 2024-11-08 12:49 | XMS_ITS | Patient Health Record ---
Author Organization [facility] Address [address] [place] [address] Care Team Providers Care Human Resources Admin Name Role Phone Tobi THOMSON, Maria C Primary Care Provider Ezequiel Simpson Unavailable [phone] Allergies Allergen (clinical drug ingredient) Drug/Non Drug Allergy documented on EMR Reaction Allergy Type Onset Date Status morphine Morphine Sulfate Unknown Drug Allergy Active erythromycin Erythromycin Unknown Drug Allergy A ctive Codeine Phosphate Unknown Drug Allergy Active Reason [...] Problem Status W/U Status Risk Notes Problem terminal gauger current use of non-steroidal anti-inflammat ory drug (situation) (8305192719925 03) Long-term (current) use of nonsteroidal anti-inflammatori es (NSAID) (V58.64) Active confirmed Problem Colon cancer screening (354394426) Colon cancer screening (V76.51) Active confirmed Problem Anemia (471355845) Anemia (285.9) Active confirmed Plan Of Treatment Future Test Test Name Order Date COLONOSCOPY 08/10/2013 Insurance Providers Payer Name Payer Address Payer Phone Subscriber Number Group Number Insured Name Patient Relationship to Insured Coverage Start Date Coverage End Date MEDICARE OF [place] [address] [place] [address] [id number] TIANNA MICHAEL Self - patient is the insured [facility] [address] [place] [phone] [id number] ALEC TIANNA Self - patient is the insured Medical (General) History Medical History History ICD Code Asthma Denies IA,DM,CVA,renal disease Arthritis GERD--uses Prilosec approx. just once pe r week prn Surgical History Surgery Date(Month/Year) tonsillectomy in 1959 CCY umbilical hernia in 1980 BTL
--- OUTSIDE RECORDS SUMMARY | 2024-11-08 12:49 | XMS_ITS | Clinical Summary ---
Author Organization [facility] Facility Address [address] [place] [address] Care Team Providers Care Studio Technician Video Operator Name Role Phone Lita Ahmadi MD Primary Care Provider [phone] Allergies Active Allergy Reactions Criticality Noted Date [...] chew. Active cholecalciferol (VITAMIN D-3) 250 MCG (21304 UT) capsule Take 10,000 Units by mouth [...] Health Medicare [facility] Medicare Care Teams Studio Technician Video Operator Relationship Specialty Start Date End Date Lita Ahmadi MD [address] [place] PCP - General Internal Medicine 09/11/21
== END 2024-11-08 11:38 | disposition home or self-care (01) ==
LOC: HO.MAMMO 11:37
PROVIDERS: PCP Internal Medicine; Visit Provider Internal Medicine
DX: Z12.31 Encounter for screening mammogram for malignant neoplasm of breast (principal)
CPT/HCPCS: 77063; 77067

== ENCOUNTER → 2024-11-08 12:00 | Outpatient (BNV) | payer OTHER, SELFPAY | PROVIDERS: PCP Internal Medicine; Visit Provider Internal Medicine | DX: Z12.31 Encounter for screening mammogram for malignant neoplasm of breast (principal) | CPT/HCPCS: 77063; 77067 ==

== ENCOUNTER 2024-11-10 10:44 | Outpatient (AMB) | payer OTHER, SELFPAY ==
[2024-11-10 10:47] VITALS: BP 120/60; PULSE 80; O2SAT 97; BMI 33.7
--- NOTE | 2024-11-10 10:47 | HO.NEPHOV_ITS ---
Vital Signs 11/10/24 10:47 Height 4 ft 7 in Weight 145 lb BMI 33.7 BP 120/60 Blood Pressure Location Rt brachial Position Sitting Pulse 80 Pulse Source Pulse Oximeter Pulse Oximetry (%) 97 Oxygen Delivery Method Room Air Intake Visit Reasons: 6 mnts f/u-Conf Office Nurse Required: No Accompanied by: Self / Same As Patient Allergies codeine (CODEINE) Allergy (Severe, Verified 11/10/24 10:49) SWELLING doxycycline Allergy (Severe, Verified 11/10/24 10:49) nauseas erythromycin base (ERYTHROMYCIN BASE) Allergy (Severe, Verified 11/10/24 10:49) SWELLING morphine (MORPHINE) Allergy (Severe, Verified 11/10/24 10:49) ANAPHYLAXIS penicillin V Allergy (Severe, Verified 11/10/24 10:49) Swelling Eyes simvastatin Allergy (Severe, Verified 11/10/24 10:49) Nerve Inflammation aspirin (ASPIRIN) Allergy (Intermediate, Verified 11/10/24 10:49) chest tightness lisinopril (LISINOPRIL) Allergy (Intermediate, Verified 11/10/24 10:49) COUGH cyclobenzaprine Adverse Reaction (Intermediate, Verified 11/10/24 10:49) SOB, dry mouth/ throat [employer] Saline Allergy (Severe, Uncoded 10/11/24 16:22) Redness ZYVA Allergy (Severe, Uncoded 10/11/24 16:22) NERVE INFLAMMATION HPI Comments Details: Jocelyn in the office in follow-up of her chronic kidney disease on a backdrop of diabetes mellitus, hypertension and history of excess nonsteroidal anti- inflammatory medication use. She feels well. Her blood pressure usually has been well controlled. Her A1c has been less than 7. She does not have any chest pain, shortness of breath, hypoglycemia, pedal edema, hematuria, flank pain or orthostatic symptoms. She has mild arthritic pains but avoids NSAIDs. She tries to maintain good hydration [facility] Medical History HTN (hypertension) Coronary artery calcification seen on CAT scan Chronic cough Muscle tear CKD (chronic kidney disease) Pure hypercholesterolemia Postmenopausal Microalbuminuria Effusion, right knee GERD (gastroesophageal reflux disease) Right knee pain Anemia Axillary lymphadenopathy Breast mass Essential hypertension Dyslipidemia Lymphadenopathy Asthma High cholesterol Diabetes mellitus Surgical History History of carpal tunnel surgery History of esophagogastroduodenoscopy (EGD) Hx of colonoscopy History of tubal ligation History of umbilical hernia repair History of tonsillectomy Family History Father No problems noted. Mother No problems noted. Social History Housing: Apartment Are you a primary healthcare applications analyst to a significant other at home: No Do you presently have visiting nurse or other home services: No Alcohol intake: never Patient Tobacco Use Status: Never used Tobacco e-Cigarette/Vaping Use: Never Used Second Hand Smoke Exposure: No service: No Current occupational status: disabled Current occupation: rt handed Cognitive needs: No Hearing needs: No Vision needs: Yes (Glasses) Review of Systems Const All systems reviewed & are unremarkable except as noted in HPI and below Physical Exam Vital Signs: Last Vital Signs Pulse 80 11/10/24 10:47 BP 150/60 H 11/10/24 10:47 Pulse Ox 97 11/10/24 10:47 Oxygen Delivery Method Room Air 11/10/24 10:47 BMI result Body Mass Index 33.7 Const General: comfortable and no acute distress Orientation/consciousness: patient oriented x3 HEENT Head: Yes normocephalic Mouth: Normal oral and palatal mucosa present Eyes EOM: EOMs intact bilaterally Neck Neck: Yes supple Resp Auscultation: clear to auscultation bilaterally Cardio Jugular venous distension: no JVD Rate: regular rate GI Palpation (GI): Soft to palpation Auscultation: normal bowel sounds General: Yes no CVA tenderness Back/Spine/Pelvis Back: no CVA tenderness Skin General skin exam: no rashes or lesions noted Neuro General: patient oriented x3 and moves all extremities Extrem General: Yes no pedal edema Results Reviewed Nephrology Results: Hgb, (12.0-16.0) 10.1 g/dl L 11/07/24 WBC, (4.8-10.8) 6.1 X10*3/uL 11/07/24 Plt Count, (160-400) 162 X10*3/uL 11/07/24 Sodium, (135-145) 142 mmol/L 11/07/24 Potassium, (3.3-5.1) 4.0 mmol/L 11/07/24 Chloride, (96-108) 111 mmol/L H 11/07/24 Carbon Dioxide, (22-29) 24 mmol/L 11/07/24 BUN, (9-16) 27 mg/dL H 11/07/24 Creatinine, (0.5-1.4) 1.09 mg/dL 11/07/24 Calcium, (8.4-10.2) 9.1 mg/dL 11/07/24 Urine Creatinine 308.37 mg/dL 11/07/24 Protein/Creatinin Ratio, (<0.2) 0.07 11/07/24 Assessment & Plan Assessment & Plan (1) HTN (hypertension): Code(s): I10 - Essential (primary) hypertension Category: Medical Qualifiers: Hypertension type: primary hypertension Qualified Code(s): I10 - Essential (primary) hypertension (2) CKD (chronic kidney disease) stage 3, GFR 30-59 ml/min: Code(s): N18.30 - Chronic kidney disease, stage 3 unspecified Category: Medical Qualifiers: Chronic kidney disease stage 3 subtype: stage 3a (GFR 45-59) Qualified Code(s): N18.31 - Chronic kidney disease, stage 3a Plan 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 Blood work ordered for follow up. Answered all questions. Further management is pending evolving data Orders: Orders Protein Creatinine Ratio, Ur 6 Months I10 - Essential (primary) hypertension, N18.31 - Chronic kidney disease, stage 3a Electrolytes 6 Months I10 - Essential (primary) hypertension, N18.31 - Chronic kidney disease, stage 3a Creatinine 6 Months I10 - Essential (primary) hypertension, N18.31 - Chronic kidney disease, stage 3a Blood Urea Nitrogen 6 Months I10 - Essential (primary) hypertension, N18.31 - Chronic kidney disease, stage 3a Coding Level of Care Code Est Pt Level 4 (16859) Diagnoses Primary hypertension I10 Hypertension type: primary hypertension Stage 3a chronic kidney disease N18.31 Chronic kidney disease stage 3 subtype: stage 3a (GFR 45-59)
--- OUTSIDE RECORDS SUMMARY | 2024-11-10 11:23 | XMS_ITS | Clinical Summary ---
Author Organization [facility] Facility Address [address] [place] [address] Care Team Providers Care Sports Director Name Role Phone Lita Ahmadi MD Primary Care Provider [phone] Allergies Active Allergy Reactions Criticality Noted Date [...] chew. Active cholecalciferol (VITAMIN D-3) 250 MCG (02536 UT) capsule Take 10,000 Units by mouth [...] Health Medicare [facility] Medicare Care Teams Sports Director Relationship Specialty Start Date End Date Lita Ahmadi MD [address] [place] PCP - General Internal Medicine 09/11/21
--- OUTSIDE RECORDS SUMMARY | 2024-11-10 11:23 | XMS_ITS | Patient Health Record ---
Author Organization [facility] Address [address] [place] [address] Care Team Providers Care Continuous Improvement Consultant Name Role Phone Tobi THOMSON, Maria C Primary Care Provider Ezequiel Simpson Unavailable [phone] Allergies Allergen (clinical drug ingredient) Drug/Non Drug [...] Problem Status W/U Status Risk Notes Problem alf current use of non-steroida l anti-inflamm atory drug (situation) (65494345996 9103) Long-term (current) use of nonsteroidal anti-inflammatori es (NSAID) (V58.64) Active confirmed Problem Colon cancer screening (V76.51) Active confirmed Problem Anemia (097609122) Anemia (285.9) Active confirmed Plan Of Treatment Future Test Test Name Order Date COLONOSCOPY 08/10/2013 Insurance Providers Payer Name Payer Address Payer Phone Subscriber Number Group Number Insured Name Patient Relationship to Insured Coverage Start Date Coverage End Date MEDICARE OF [employer] [address] [place] [address] [id number] TIANNA MICHAEL Self - patient is the insured MEDICAID OF [employer] [address] [place] [phone] [id number] TIANNA MICHAEL Self - patient is the insured Medical (General) History Medical History History ICD Code Asthma Denies [place],DM,CVA,renal disease Arthritis GERD--uses Prilosec approx. just once pe r week prn Surgical History Surgery Date(Month/Year) tonsillectomy in 1959 [facility] umbilical hernia in 1980 BTL
== END 2024-11-10 11:06 | disposition home or self-care (01) ==
LOC: HO.HKA 10:44
PROVIDERS: PCP Internal Medicine; Visit Provider Internal Medicine Nephrology
DX: I10 Essential (primary) hypertension (principal); N18.31 Chronic kidney disease, stage 3a
CPT/HCPCS: 99214

== ENCOUNTER → 2024-11-10 10:44 | Outpatient (BNVA) | payer OTHER, SELFPAY | PROVIDERS: PCP Internal Medicine; Visit Provider Internal Medicine Nephrology | DX: I10 Essential (primary) hypertension (principal); N18.31 Chronic kidney disease, stage 3a | CPT/HCPCS: 99212 ==

== ENCOUNTER 2024-12-06 11:22 | Outpatient (AMB) | payer OTHER, SELFPAY ==
[2024-12-06 11:23] VITALS: BP 166/60; PULSE 77; O2SAT 98; BMI 29.4
--- NOTE | 2024-12-06 11:23 | MHC.OFFVIS ---
Vital Signs 12/06/24 11:23 Height 4 ft 11 in Weight 145 lb 8.081 oz BMI 29.4 BP 166/60 H Blood Pressure Location Lt brachial Position Sitting Pulse 77 Pulse Source Pulse Oximeter Pulse Oximetry (%) 98 Oxygen Delivery Method Room Air Intake Visit Reasons: copd Accompanied by: Self / Same As Patient Allergies codeine (CODEINE) Allergy (Severe, Verified 12/06/24 11:26) SWELLING doxycycline Allergy (Severe, Verified 12/06/24 11:26) nauseas erythromycin base (ERYTHROMYCIN BASE) Allergy (Severe, Verified 12/06/24 11:26) SWELLING morphine (MORPHINE) Allergy (Severe, Verified 12/06/24 11:26) ANAPHYLAXIS penicillin V Allergy (Severe, Verified 12/06/24 11:26) Swelling Eyes simvastatin Allergy (Severe, Verified 12/06/24 11:26) Nerve Inflammation aspirin (ASPIRIN) Allergy (Intermediate, Verified 12/06/24 11:26) chest tightness lisinopril (LISINOPRIL) Allergy (Intermediate, Verified 12/06/24 11:26) COUGH cyclobenzaprine Adverse Reaction (Intermediate, Verified 12/06/24 11:26) SOB, dry mouth/ throat [employer] Saline Allergy (Severe, Uncoded 10/11/24 16:22) Redness ZYVA Allergy (Severe, Uncoded 10/11/24 16:22) NERVE INFLAMMATION HPI Comments Details: The patient is a 79-year-old woman with a known history of asthma who apparently started developing significant neck pain. She initially went to her primary care doctor and ultimately had to go to the ER because the neck pain became so severe. She did undergo a CT scan of the neck while at the ER. Demonstrates significant degenerative disc disease in addition to significant neck spasms. She was given medications and she was set up with physical therapy. In the meantime she also had a CT scan of the chest that demonstrated multiple pulmonary nodules measuring from 1 mm to 5 mm in size. Some are calcified and some noncalcified. In addition to that she did have some axillary lymph nodes. I did ask her about mammograms and she has had abnormalities before requiring ultrasounds of her breast. Never had cancer. She was supposed to have a mammogram sometime back in the spring because of the pandemic it never happened. At this point will try to set her up to get back to her original plan to get a mammogram specially because of the lymphadenopathy. Patient also has asthma. She does take Singulair with good effect. Usually the change of seasons around spring and winter she started developing more symptoms. I will make sure she has a rescue inhaler available. 01/19/2023 the patient is here for a pulmonary follow-up visit. He has been a while since we last spoke. The patient had been under fairly well and that she developed COVID beginning of the year. After that she started developing a cough. The cough is nonproductive in nature moderate severe. Has not improved. Denies any chest tightness or wheezing. She denies any weight loss or night sweats. She denies any hemoptysis. She her allergies seem to be well controlled with Singulair. She also has a rescue inhaler. She has not had to use it. She also has a nebulizer that she has not used. The patient did have a CT scan of the chest back in 2020 demonstrating pulmonary nodules. The patient should indeed have a repeat CT scan to ensure the stability of the pulmonary nodules for least [address] scan does not show any evidence of any progression then she is down with any more serial CT scans. The patient will trial the Tessalon Perles. She understands that the not covered by the insurance but I will give her good Rx card and we did look at different pharmacies that would provide her with a prescription for low cost. [facility] If the patient's cough is not better she can always call the office for further evaluation. Otherwise follow-up in 6 months. However, her CT scan is abnormal I will call her to come in at earlier time. 07/19/2023 the patient is here for pulmonary follow-up visit. Overall the patient has been doing better. Her cough is overall better. She responded well to the singular and also the benzonates as needed. Her last CT scan of the chest was back in January 2023 which I personally reviewed. It appears that her pulmonary nodules have been stable now for some time and therefore does not need an additional testing at this time. The patient has had to use any respiratory therapy. She does have an albuterol inhaler as needed. Therefore, will go ahead and continue with the Tessalon Perles and she can take the Singulair seasonally specially now going to the spring season. She has any worsening issues she will call the office otherwise will follow-up in a year's time. 07/24/2024 the patient is here for a pulmonary follow-up visit. Overall she is doing better now. Back in October she was sick with respiratory illness. She did have a chest x-ray which I personally reviewed without any acute disease. Although they did mention some atelectasis at the left base although very minimal. She was treated with a course of antibiotics and also kept taking her inhaler. Her symptoms did improve. Has not had to use her inhalers since then. Is only a rescue short-acting beta agonist. She continues with Singulair. She still responds well to the Tessalon Perles as needed. Will make sure she has them available. We again reviewed her CT scan of the chest last done in 2022 with a calcified nodular density consistent with a granuloma that is been stable and no additional follow-up warranted. Therefore, will plan to follow-up in 12 months. If she has any issues prior to this she will call for an earlier assessment. 12/06/2024 the patient is here for pulmonary follow-up visit. Overall she is concerned because she had an x-ray back in October and she was called about a pulmonary nodule noted on the x-ray. It was on the left hemithorax. The patient does have a history of cancer in the family and therefore this caused significant amount of stress. We did review previous imaging studies. The patient has had nodules in the past and she had been followed up with CT scans. Her CAT scan was last done in 2022 without any changes. I think it will be reasonable to do 1 more now to make sure that the nodular abnormality in order on the x-ray is of no concern. If the CAT scan is stable I did reassure the patient she did not need any additional therapies. From a respiratory status the patient is doing well. Denies any complaints. Will plan to follow-up in a year's time. If she has any issues prior to this she will call. If her CAT scans abnormal I will let her know want to talk about different diagnostic interventions. [facility] Medical History HTN (hypertension) Coronary artery calcification seen on CAT scan Chronic cough Muscle tear CKD (chronic kidney disease) Pure hypercholesterolemia Postmenopausal Microalbuminuria Effusion, right knee GERD (gastroesophageal reflux disease) Right knee pain Anemia Axillary lymphadenopathy Breast mass Essential hypertension Dyslipidemia Lymphadenopathy Asthma High cholesterol Diabetes mellitus Surgical History History of carpal tunnel surgery History of esophagogastroduodenoscopy (EGD) Hx of colonoscopy History of tubal ligation History of umbilical hernia repair History of tonsillectomy Family History Father No problems noted. Mother No problems noted. Social History Housing: Apartment Are you a primary coronary care unit nurse to a significant other at home: No Do you presently have visiting nurse or other home services: No Alcohol intake: never Patient Tobacco Use Status: Never used Tobacco e-Cigarette/Vaping Use: Never Used Second Hand Smoke Exposure: No service: No Current occupational status: disabled Current occupation: rt handed Cognitive needs: No Hearing needs: No Vision needs: Yes (Glasses) Review of Systems Const Reports daytime sleepiness and Denies night sweats ENT Denies change in voice, Denies lip swelling, Denies mouth pain, Reports nasal congestion, Reports nasal discharge and Denies tongue swelling Card Denies chest pain Resp Reports cough GI Denies abdominal pain Musc Reports arthralgias, Reports joint swelling and Reports limited range of motion Neuro Denies Neuro-related abnormal movements Psych Denies no additional complaints Gilberto/Lymph Denies easy bleeding and Denies lymphadenopathy Aller/Immun Denies lip swelling and Denies tongue swelling Physical Exam Vital Signs: Last Vital Signs Pulse 77 12/06/24 11:23 BP 166/60 H 12/06/24 11:23 Pulse Ox 98 12/06/24 11:23 Oxygen Delivery Method Room Air 12/06/24 11:23 BMI result Body Mass Index 29.4 Const General: comfortable and no acute distress Orientation/consciousness: patient oriented x3 HEENT Head: Yes normocephalic Mouth: Normal oral and palatal mucosa present Eyes EOM: EOMs intact bilaterally Neck Neck: Yes supple Resp Auscultation: clear to auscultation bilaterally Cardio Jugular venous distension: no JVD Rate: regular rate GI Palpation (GI): Soft to palpation Auscultation: normal bowel sounds General: Yes no CVA tenderness Back/Spine/Pelvis Back: no CVA tenderness Skin General skin exam: no rashes or lesions noted Neuro General: patient oriented x3 and moves all extremities Extrem General: Yes no pedal edema Assessment & Plan Assessment & Plan (1) Pulmonary nodule: Code(s): R91.1 - Solitary pulmonary nodule Category: Medical (2) Asthma: Code(s): J45.909 - Unspecified asthma, uncomplicated Category: Medical Qualifiers: Asthma complication type: uncomplicated Asthma persistence: intermittent Asthma severity: mild Qualified Code(s): J45.20 - Mild intermittent asthma, uncomplicated (3) Chronic cough: Comment: Aggravated by covid 19 Code(s): R05.3 - Chronic cough Category: Medical (4) Coronary artery calcification seen on CAT scan: Code(s): I25.10 - Atherosclerotic heart disease of [place] coronary artery without angina pectoris Category: Medical Plan Continue RIAN as needed continue singulair Benzonate as needed for cough, provided GoodRx card CT chest F/U 12 months Orders: Orders CT chest wo IV con Today R05.3 - Chronic cough, R91.1 - Solitary pulmonary nodule Coding Level of Care Code Est Pt Level 4 (79215) Diagnoses Pulmonary nodule R91.1 Mild intermittent asthma without complication J45.20 Asthma complication type: uncomplicated Asthma persistence: intermittent Asthma severity: mild Chronic cough R05.3 Coronary artery calcification seen on CAT scan I25.10 Time Spent (min) 16
--- OUTSIDE RECORDS SUMMARY | 2024-12-06 12:08 | XMS_ITS | Patient Health Record ---
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 of non-steroidal anti-inflammat ory drug (situation) ([id number] 03) Long-term (current) use of nonsteroidal anti-inflammatori es (NSAID) (V58.64) Active confirmed Problem Colon cancer screening (973727695) Colon cancer screening (V76.51) Active confirmed Problem Anemia (170624339) Anemia (285.9) Active confirmed Plan Of Treatment Future Test Test Name Order Date COLONOSCOPY 08/10/2013 Insurance Providers Payer Name Payer Address Payer Phone Subscriber Number Group Number Insured Name Patient Relationship to Insured Coverage Start Date Coverage End Date MEDICARE OF [employer] [address] [id number] TIANNA MICHAEL Self - patient is the insured [facility] [address] [place] [id number] ALEC TIANNA Self - patient is the insured Medical (General) History Medical History History ICD Code Asthma Denies ID,DM,CVA,renal disease Arthritis GERD--uses Prilosec approx. just once pe r week prn Surgical History Surgery Date(Month/Year) tonsillectomy in 1959 CCY umbilical hernia in 1980 BTL
--- OUTSIDE RECORDS SUMMARY | 2024-12-06 12:08 | XMS_ITS | Clinical Summary ---
Author Organization [facility] Address [address] [place] [address], [place] [address] Care Team Providers Care Palm Gatherer Name Role Phone Lita Ahmadi MD Primary Care Provider [phone] Allergies Active Allergy Reactions Criticality Noted Date [...] chew. Active cholecalciferol (VITAMIN D-3) 250 MCG (58193 [place]) capsule Take 10,000 Units by mouth [...] Health Medicare [facility] Medicare Care Teams Palm Gatherer Relationship Specialty Start Date End Date Lita Ahmadi MD [address] [place], [place] PCP - General Internal Medicine 09/11/21
== END 2024-12-06 12:01 | disposition home or self-care (01) ==
LOC: HO.HPS 11:23
PROVIDERS: PCP Internal Medicine; Visit Provider Hospitalist
DX: R91.1 Solitary pulmonary nodule (principal); J45.20 Mild intermittent asthma, uncomplicated; R05.3 Chronic cough; I25.10 Atherosclerotic heart disease of native coronary artery without angina pectoris
CPT/HCPCS: 99214

== ENCOUNTER → 2024-12-06 11:22 | Outpatient (BNVA) | payer OTHER, SELFPAY | PROVIDERS: PCP Internal Medicine; Visit Provider Hospitalist | DX: R91.1 Solitary pulmonary nodule (principal); J45.20 Mild intermittent asthma, uncomplicated; R05.3 Chronic cough; I25.10 Atherosclerotic heart disease of native coronary artery without angina pectoris | CPT/HCPCS: 99212 ==

== ENCOUNTER 2024-12-07 10:43 | Outpatient (AMB) | payer OTHER, SELFPAY ==
--- NOTE | 2024-12-07 10:50 | MHC.PC.OV ---
Vital Signs 12/07/24 10:51 Height 4 ft 7 in Weight 145 lb BMI 33.7 BP 146/62 H Blood Pressure Location Lt brachial Position Sitting Intake Visit Reasons: 4 Months f/u Intake Note: Patient here for a 4 month follow up, c/o left side back pain radiating down leg Telecom Analyst Required: No Accompanied by: Self / Same As Patient Allergies codeine (CODEINE) Allergy (Severe, Verified 12/07/24 10:56) SWELLING doxycycline Allergy (Severe, Verified 12/07/24 10:56) nauseas erythromycin base (ERYTHROMYCIN BASE) Allergy (Severe, Verified 12/07/24 10:56) SWELLING morphine (MORPHINE) Allergy (Severe, Verified 12/07/24 10:56) ANAPHYLAXIS penicillin V Allergy (Severe, Verified 12/07/24 10:56) Swelling Eyes simvastatin Allergy (Severe, Verified 12/07/24 10:56) Nerve Inflammation aspirin (ASPIRIN) Allergy (Intermediate, Verified 12/07/24 10:56) chest tightness lisinopril (LISINOPRIL) Allergy (Intermediate, Verified 12/07/24 10:56) COUGH cyclobenzaprine Adverse Reaction (Intermediate, Verified 12/07/24 10:56) SOB, dry mouth/ throat [employer] Saline Allergy (Severe, Uncoded 12/07/24 10:56) Redness ZYVA Allergy (Severe, Uncoded 12/07/24 10:56) NERVE INFLAMMATION Medication List - Last Reconciled 12/07/24 by Lita Flores MD acetaminophen 500 mg PO BID PRN 30 days albuterol sulfate 90 mcg/actuation 2 inhalations inhalation Q6H PRN 30 days blood sugar diagnostic ([employer] test strips) 1 strip miscellaneous DAILY 90 days cholecalciferol (vitamin D3) 50 mcg PO DAILY 90 days clotrimazole-betamethasone 1-0.05 % 1 appl topical BID 5 days diclofenac sodium 1% (Aleve (diclofenac)) 2 grams topical QID 30 days ezetimibe 10 mg PO DAILY famotidine 20 mg PO BID PRN gabapentin 300 mg PO Q8H 30 days glipizide 10 mg (2 x 5 mg) PO BID hydralazine 25 mg PO TID 90 days lancets ([place] Delica Plus Lancet) 30 gauge miscellaneous DAILY 90 days lidocaine 5% 1 appl topical BEDTIME PRN 2 weeks losartan 25 mg PO DAILY 90 days meclizine 25 mg PO TID PRN 30 days montelukast 10 mg PO DAILY multivitamin with folic acid 400 mcg (Daily-Yulissa (with folic acid)) 1 tab PO DAILY 90 days ondansetron 4 mg PO Q8H PRN pantoprazole 20 mg PO BID 2 weeks rosuvastatin 40 mg PO DAILY 90 days Tobacco use date assessed: 10/11/24 Dental Screening Dental Screen Date: 10/11/24 HPI HPI Comments History of Present Illness Details The patient is a 79-year-old female presenting with management of diabetes, hypertension, and hyperlipidemia, as well as addressing leg pain. The patient's diabetes is currently well-controlled with an HbA1c of 6.1%. Her blood pressure has shown improvement, although it remains slightly elevated. The patient reports experiencing leg pain that starts in the back and radiates downwards. She has been prescribed gabapentin, which will be increased, and tramadol for short-term relief. No fever, bowel or bladder incontinence. The pain started 3 days ago. The patient has a history of hyperlipidemia, with a recent LDL cholesterol level of 120 mg/dL. She is currently taking rosuvastatin and ezetimibe for cholesterol management. She has chronic kidney disease with a GFR of 50 from last month which has been stable. This is stage III. The patient has multiple medication allergies, including codeine, doxycycline, erythromycin, penicillin, simvastatin, aspirin, lisinopril, and oxcarbazepine. She also experiences gastrointestinal discomfort, for which she takes famotidine and pantoprazole. [facility] Medical History (Updated 12/07/24 @ 11:09 by Lita Flores MD) HTN (hypertension) Coronary artery calcification seen on CAT scan Chronic cough Muscle tear CKD (chronic kidney disease) Pure hypercholesterolemia Postmenopausal Microalbuminuria Effusion, right knee GERD (gastroesophageal reflux disease) Right knee pain Anemia Axillary lymphadenopathy Breast mass Essential hypertension Dyslipidemia Lymphadenopathy Asthma High cholesterol Diabetes mellitus Surgical History History of carpal tunnel surgery History of esophagogastroduodenoscopy (EGD) Hx of colonoscopy History of tubal ligation History of umbilical hernia repair History of tonsillectomy Family History Father No problems noted. Mother No problems noted. Social History Housing: Apartment Are you a primary child care counselor to a significant other at home: No Do you presently have visiting nurse or other home services: No Alcohol intake: never Patient Tobacco Use Status: Never used Tobacco e-Cigarette/Vaping Use: Never Used Second Hand Smoke Exposure: No service: No Current occupational status: disabled Current occupation: rt handed Cognitive needs: No Hearing needs: No Vision needs: Yes (Glasses) Questionnaire PHQ-9 Over the last 2 weeks, how often have you been bothered by any of the following problems? 4. Feeling tired or having little energy: not at all 5. Poor appetite or overeating: not at all 6. Feeling bad about yourself - or that you are a failure or have let yourself or your family down: not at all 7. Trouble concentrating on things, such as reading the newspaper or watching television: not at all 8. Moving or speaking so slowly that other people could have noticed. Or the opposite - being so fidgety or restless that you have been moving around a lot more than usual: not at all 9. Thoughts that you would be better off or of hurting yourself in some way: not at all Source: Developed by Drs. Ezequiel Diaz, Antoine Chiu and colleagues, with an educational mildred from [employer]. Thrive Questionnaire Date Thrive assessed: 10/11/24 VU-7 AMB Questionnaire VU-7 Date VU - 7 assessed: 10/11/24 Source: Developed by Drs. Ezequiel Diaz, Antoine Chiu and colleagues, with an educational mildred from [employer]. Review of Systems Const All systems reviewed & are unremarkable except as noted in HPI and below Card Denies chest pain at rest, Denies chest pain with activity, Denies edema, Denies irregular heart rhythm, Denies claudication, Denies dyspnea, Denies dyspnea on exertion, Denies orthopnea, Denies paroxysmal nocturnal dyspnea and Denies slow heart rate Resp Denies cough, Denies dyspnea and Denies dyspnea on exertion Musc Reports back pain, Reports numbness and Reports radiating pain into limb Neuro Reports numbness Physical exam (Primary Care) Vital Signs: Last Vital Signs BP 146/62 H 12/07/24 10:51 BMI result Body Mass Index 33.7 BMI Assessment/Plan discussion: High BMI High, discussed plan: lifestyle, weight reduction, dietary and physical activity Tobacco/Smoking Status: Tobacco use Status Tobacco use date assessed 10/11/24 12/07/24 10:54 Patient Tobacco Use Status Never used Tobacco 12/07/24 10:54 e-Cigarette/Vaping Use Never Used 12/07/24 10:54 Thrive Assessment: Date of Thrive Assessment Date Thrive assessed 10/11/24 12/07/24 10:54 Resp Effort & Inspection: normal respiratory effort Auscultation: clear to auscultation bilaterally Cardio Jugular venous distension: no JVD Rate: regular rate Rhythm: regular rhythm Heart sounds: S1 normal heart sound present and S2 normal heart sound present Back/Spine/Pelvis Thoracic/Lumbar Spine: straight leg raise positive left at 30 degrees Extrem General: Yes full ROM Results AMB Hemoglobin A1c AMB Hemoglobin A1c 6.1 % Last Edit by CASTRO Oneill on 12/07/24 10:56 Coding Level of Care Code Est Pt Level 4 (60596) Complex EM visit Add On G2211 Diagnoses Essential hypertension I10 Pure hypercholesterolemia E78.00 Type 2 diabetes mellitus with hyperglycemia, without long-term current use of insulin E11.65 Diabetes mellitus type: type 2 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 mellitus termite control service representative insulin use: without termite control service representative use Diabetes mellitus complication status: with hyperglycemia Stage 3a chronic kidney disease N18.31 Chronic kidney disease stage 3 subtype: stage 3a (GFR 45-59) Left sided sciatica M54.32 Time Spent (min) 23 Assessment & Plan Assessment & Plan (1) Essential hypertension: Code(s): I10 - Essential (primary) hypertension Category: Medical (2) Pure hypercholesterolemia: Code(s): E78.00 - Pure hypercholesterolemia, unspecified Category: Medical (3) Diabetes mellitus: Code(s): E11.9 - Type 2 diabetes mellitus without complications Category: Medical Qualifiers: Diabetes mellitus type: type 2 Diabetes mellitus halfway insulin use: without termite control service representative use Diabetes mellitus complication status: with hyperglycemia Qualified Code(s): E11.65 - Type 2 diabetes mellitus with hyperglycemia (4) CKD (chronic kidney disease) stage 3, GFR 30-59 ml/min: Code(s): N18.30 - Chronic kidney disease, stage 3 unspecified Category: Medical Qualifiers: Chronic kidney disease stage 3 subtype: stage 3a (GFR 45-59) Qualified Code(s): N18.31 - Chronic kidney disease, stage 3a (5) Left sided sciatica: Code(s): M54.32 - Sciatica, left side Category: Medical Plan The management plan includes maintaining current diabetes control with regular monitoring of HbA1c levels. Blood pressure management will continue with current medications, and adjustments will be made as necessary to achieve optimal control. For hyperlipidemia, the patient will continue taking rosuvastatin and ezetimibe, with follow-up lipid panels to monitor efficacy. Leg pain management includes increasing the dose of gabapentin and using tramadol for short-term relief. The patient is advised to take medications with food to minimize gastrointestinal discomfort. She will be monitored for any adverse effects from the medications. Preventative care includes ensuring vaccinations are up to date, with a recent pneumococcal vaccine administered. Patient was informed and verbally consented to the use of an ambient scribe for clinic note documentation during this visit. Orders: Orders AMB Hemoglobin A1c Today E11.65 - Type 2 diabetes mellitus with hyperglycemia Medications: New gabapentin 400 mg PO TID 90 caps 2RF 30 days tramadol 50 mg PO BID PRN 60 tabs 0RF pain 30 days Discontinued gabapentin Discontinued Reason: Patient Completed Course 300 mg PO Q8H 30 days 90 caps 1RF pain G56.22 - Lesion of ulnar nerve, left upper limb, R20.0 - Anesthesia of skin, R20.2 - Paresthesia of skin
[2024-12-07 10:51] VITALS: BP 146/62; BMI 33.7
--- OUTSIDE RECORDS SUMMARY | 2024-12-07 11:24 | XMS_ITS | Patient Health Record ---
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 continuous churn current use of non-steroidal anti-inflammat ory drug (situation) (9285295513535 03) Long-term (current) use of nonsteroidal anti-inflammatori es (NSAID) (V58.64) Active confirmed Problem Colon cancer screening (367948121) Colon cancer screening (V76.51) Active confirmed Problem Anemia (001668861) Anemia (285.9) Active confirmed Plan Of Treatment Future Test Test Name Order Date COLONOSCOPY 08/10/2013 Insurance Providers Payer Name Payer Address Payer Phone Subscriber Number Group Number Insured Name Patient Relationship to Insured Coverage Start Date Coverage End Date MEDICARE OF [employer] [place] [address] [address] [id number] TIANNA MICHAEL Self - patient is the insured [facility]ICAID OF [facility] [address] [place] [phone] [id number] ALEC TIANNA Self - patient is the insured Medical (General) History Medical History History ICD Code Asthma Denies [place],DM,CVA,renal disease Arthritis GERD--uses Prilosec approx. just once pe r week prn Surgical History Surgery Date(Month/Year) tonsillectomy in 1959 CCY umbilical hernia in 1980 BTL
--- OUTSIDE RECORDS SUMMARY | 2024-12-07 11:24 | XMS_ITS | Clinical Summary ---
Author Organization [facility] Address [address] [place] [address], [place] [address] Care Team Providers Care Traffic Investigator Name Role Phone Lita Ahmadi MD Primary Care Provider [phone] Allergies Active Allergy Reactions Criticality Noted Date [...] chew. Active cholecalciferol (VITAMIN D-3) 250 MCG (09859 UT) capsule Take 10,000 Units by mouth [...] Health Medicare [facility] Medicare Care Teams Traffic Investigator Relationship Specialty Start Date End Date Lita Ahmadi MD [address] [place], [place] PCP - General Internal Medicine 09/11/21
== END 2024-12-07 11:08 | disposition home or self-care (01) ==
LOC: HO.HMCH 10:43
PROVIDERS: PCP Internal Medicine; Visit Provider Internal Medicine
DX: I10 Essential (primary) hypertension (principal); E78.00 Pure hypercholesterolemia, unspecified; E11.65 Type 2 diabetes mellitus with hyperglycemia; N18.31 Chronic kidney disease, stage 3a; M54.32 Sciatica, left side

== ENCOUNTER → 2024-12-07 10:43 | Outpatient (BNVA) | payer OTHER, SELFPAY | PROVIDERS: PCP Internal Medicine; Visit Provider Internal Medicine | DX: I12.9 Hypertensive chronic kidney disease with stage 1 through stage 4 chronic kidney disease, or unspecified chronic kidney disease (principal); E11.22 Type 2 diabetes mellitus with diabetic chronic kidney disease; E11.65 Type 2 diabetes mellitus with hyperglycemia; N18.31 Chronic kidney disease, stage 3a; E78.00 Pure hypercholesterolemia, unspecified; M54.32 Sciatica, left side; G56.22 Lesion of ulnar nerve, left upper limb; R20.0 Anesthesia of skin; R20.2 Paresthesia of skin | CPT/HCPCS: 83036; 99212 ==

== ENCOUNTER 2025-04-09 09:55 | Outpatient (AMB) | payer OTHER, SELFPAY ==
[2025-04-09 09:57] VITALS: BP 167/70; PULSE 78; BMI 32.5
--- NOTE | 2025-04-09 09:57 | A.OFFVIS_ITS ---
Vital Signs 04/09/25 09:57 Height 4 ft 7 in Weight 140 lb BMI 32.5 BP 167/70 H Blood Pressure Location Lt brachial Position Sitting Pulse 78 Intake Visit Reasons: 6 mo f/u Intake Note: Jocelyn presents in the office as a 6 month follow up. CC: she states since taking omeprazole she notices a difference. Heading And Priming Operator Required: No Allergies codeine (CODEINE) Allergy (Severe, Verified 04/09/25 10:01) SWELLING doxycycline Allergy (Severe, Verified 04/09/25 10:01) nauseas erythromycin base (ERYTHROMYCIN BASE) Allergy (Severe, Verified 04/09/25 10:01) SWELLING morphine (MORPHINE) Allergy (Severe, Verified 04/09/25 10:01) ANAPHYLAXIS penicillin V Allergy (Severe, Verified 04/09/25 10:01) Swelling Eyes simvastatin Allergy (Severe, Verified 04/09/25 10:01) Nerve Inflammation aspirin (ASPIRIN) Allergy (Intermediate, Verified 04/09/25 10:01) chest tightness lisinopril (LISINOPRIL) Allergy (Intermediate, Verified 04/09/25 10:01) COUGH cyclobenzaprine Adverse Reaction (Intermediate, Verified 04/09/25 10:01) SOB, dry mouth/ throat [employer] Saline Allergy (Severe, Uncoded 04/09/25 10:01) Redness ZYVA Allergy (Severe, Uncoded 04/09/25 10:01) NERVE INFLAMMATION HPI HPI 6 mo f/u: Details: 79 yr f here for f/u She had EGD, colo 2022 Endoscopy Findings: schatzki ring gastritis possible barretts hiatal hernia Colonoscopy Findings: polyps internal hemorrhoids diverticular disease bx were pos for H pylori, tubular adenomas INTERIM: she si feeling good she is watching her diet she denies abdominal pain, no n/v no constipation or diarrhea EXAM: GENERAL: The patient is well developed and nontoxic. VITAL SIGNS:see workflow HEENT: Nonicteric sclerae, PERRLA, EOMI. Oropharynx clear. Moist mucous membranes. Conjunctivae appear well perfused. No thyroid mass. CHEST: Chest wall is nontender. HEART: Regular rate and rhythm without murmurs. LUNGS: Clear to auscultation bilaterally. ABDOMEN: Soft, positive bowel sounds, nontender, no organomegaly.no flank tenderness SKIN: No rash, no excessive bruising, petechiae, or purpura. NEUROLOGIC: Cranial nerves II-XII intact without motor/sensory deficit. Psych: normal affect A/P: 1/ H pylori gastritis, finished quadruple therapy, on famotidine -- HP still pos but has PCN allergy PLAN: 1/ EGD for HP C/S 2/ repeat colo 2025 for polyps hx PFSH Medical History HTN (hypertension) Coronary artery calcification seen on CAT scan Chronic cough Muscle tear CKD (chronic kidney disease) Pure hypercholesterolemia Postmenopausal Microalbuminuria Effusion, right knee GERD (gastroesophageal reflux disease) Right knee pain Anemia Axillary lymphadenopathy Breast mass Essential hypertension Dyslipidemia Lymphadenopathy Asthma High cholesterol Diabetes mellitus Surgical History History of carpal tunnel surgery History of esophagogastroduodenoscopy (EGD) Hx of colonoscopy History of tubal ligation History of umbilical hernia repair History of tonsillectomy Family History Father No problems noted. Mother No problems noted. Social History Housing: Apartment Are you a primary career coordinator to a significant other at home: No Do you presently have visiting nurse or other home services: No Alcohol intake: never Patient Tobacco Use Status: Never used Tobacco e-Cigarette/Vaping Use: Never Used Second Hand Smoke Exposure: No service: No Current occupational status: disabled Current occupation: rt handed Cognitive needs: No Hearing needs: No Vision needs: Yes (Glasses) Physical Exam Vital Signs: Last Vital Signs Pulse 78 04/09/25 09:57 BP 167/70 H 04/09/25 09:57 BMI result Body Mass Index 32.5 Assessment & Plan Assessment & Plan (1) History of adenomatous polyp of colon: Comment: In 2013 adenoma- Code(s): Z86.010 - Personal history of colon polyps Category: Medical Plan: as above (2) H. pylori infection: Code(s): A04.8 - Other specified bacterial intestinal infections Category: Medical Plan: as above Orders: Referrals GI Procedure Notification A04.8 - Other specified bacterial intestinal infect ions, Z86.010 - Personal history of colon polyps Medications: New sodium,potassium,mag sulfates 17.5-3.13-1.6 gram (Suprep Bowel Prep Kit) DILUTE; drink 1/2 at 6-8 pm and half at 11 PM- 1AM 354 mL 0RF Refilled ondansetron 4 mg PO Q8H PRN 10 tabs 0RF nausea and vomiting Coding Level of Care Code Est Pt Level 3 (64531) Diagnoses History of adenomatous polyp of colon Z86.010 H. pylori infection A04.8
== END 2025-04-09 10:16 | disposition home or self-care (01) ==
LOC: HO.HGI 09:56
PROVIDERS: PCP Internal Medicine; Visit Provider Internal Medicine Gastroenterology
DX: Z86.0100 Personal history of colon polyps, unspecified (principal); A04.8 Other specified bacterial intestinal infections
CPT/HCPCS: 99213

== ENCOUNTER → 2025-04-09 09:55 | Outpatient (BNVA) | payer OTHER, SELFPAY | PROVIDERS: PCP Internal Medicine; Visit Provider Internal Medicine Gastroenterology | DX: A04.8 Other specified bacterial intestinal infections (principal); Z86.0100 Personal history of colon polyps, unspecified; Z79.899 Other long term (current) drug therapy | CPT/HCPCS: 99212 ==

== ENCOUNTER 2025-04-18 10:29 | Outpatient (AMB) | payer OTHER, SELFPAY ==
--- NOTE | 2025-04-18 10:37 | A.OFFPC_ITS ---
Vital Signs 04/18/25 10:39 Height 4 ft 7 in Weight 143 lb 4 oz BMI 33.3 BP 142/68 H Blood Pressure Location Lt brachial Position Sitting Pulse 86 Pulse Source Pulse Oximeter Temp 97.1 F Temp Source Temporal Artery Scan Pulse Oximetry (%) 96 Oxygen Delivery Method Room Air Intake Visit Reasons: dm Intake Note: Patient is here to follow up on DM. Orthopaedic General Required: No Knockdown Worker: Not Required per policy Accompanied by: Self / Same As Patient Allergies codeine (CODEINE) Allergy (Severe, Verified 04/18/25 11:03) SWELLING doxycycline Allergy (Severe, Verified 04/18/25 11:03) nauseas erythromycin base (ERYTHROMYCIN BASE) Allergy (Severe, Verified 04/18/25 11:03) SWELLING morphine (MORPHINE) Allergy (Severe, Verified 04/18/25 11:03) ANAPHYLAXIS penicillin V Allergy (Severe, Verified 04/18/25 11:03) Swelling Eyes simvastatin Allergy (Severe, Verified 04/18/25 11:03) Nerve Inflammation aspirin (ASPIRIN) Allergy (Intermediate, Verified 04/18/25 11:03) chest tightness lisinopril (LISINOPRIL) Allergy (Intermediate, Verified 04/18/25 11:03) COUGH cyclobenzaprine Adverse Reaction (Intermediate, Verified 04/18/25 11:03) SOB, dry mouth/ throat [employer] Saline Allergy (Severe, Uncoded 04/18/25 11:03) Redness ZYVA Allergy (Severe, Uncoded 04/18/25 11:03) NERVE INFLAMMATION Medication List - Last Reconciled 04/18/25 by Lita Flores MD acetaminophen 500 mg PO BID PRN 30 days albuterol sulfate 90 mcg/actuation 2 inhalations inhalation Q6H PRN 30 days blood sugar diagnostic ([facility] test strips) 1 strip miscellaneous DAILY 90 days cholecalciferol (vitamin D3) 50 mcg PO DAILY 90 days clotrimazole-betamethasone 1-0.05 % 1 appl topical BID 5 days diclofenac sodium 1% (Aleve (diclofenac)) 2 grams topical QID 30 days ezetimibe 10 mg PO DAILY famotidine 20 mg PO BID PRN gabapentin 400 mg PO TID 30 days glipizide 10 mg (2 x 5 mg) PO BID hydralazine 25 mg PO TID 90 days lancets ([employer] Delica Plus Lancet) 30 gauge miscellaneous DAILY 90 days lidocaine 5% 1 appl topical BEDTIME PRN 2 weeks losartan 25 mg PO DAILY 90 days meclizine 25 mg PO TID PRN 30 days montelukast 10 mg PO DAILY multivitamin (Daily-Yulissa tablet) 1 tab PO DAILY multivitamin with folic acid 400 mcg (Daily-Yulissa (with folic acid)) 1 tab PO DAILY 90 days omeprazole 20 mg PO BID ondansetron 4 mg PO Q8H PRN rosuvastatin 40 mg PO DAILY 90 days sodium,potassium,mag sulfates 17.5-3.13-1.6 gram (Suprep Bowel Prep Kit) DILUTE; drink 1/2 at 6-8 pm and half at 11 PM- 1AM tramadol 50 mg PO BID PRN 30 days Tobacco use date assessed: 04/18/25 Fall risk assessment: No Falls in past year Last assessed Fall Risk: 04/18/25 Dental Screening Dental Screen Date: 10/11/24 HPI HPI Comments History of Present Illness Details The patient is a 79 year old female presenting for evaluation of a cough and congestion, as well as management of chronic conditions. Her symptoms of a dry, bothersome cough and nasal congestion started approximately two days ago and have been disturbing her sleep. She denies fever or known sick contacts, although her granddaughter was recently ill and isolated from her. The patient reports that her leg pain from neuropathy has not improved with gabapentin, even after the dose was increased to 400 mg three times daily. Review of laboratory results from today shows an A1c of 6.4, an LDL cholesterol of 120, and a GFR of 50, which is consistent with stage 3 chronic kidney disease and has been stable for years. Her liver function was normal at that time. Her immunizations are up to date, including flu, tetanus, and pneumonia vaccines. [facility] Medical History (Updated 04/18/25 @ 12:13 by Lita Flores MD) HTN (hypertension) Coronary artery calcification seen on CAT scan Chronic cough Muscle tear CKD (chronic kidney disease) Pure hypercholesterolemia Postmenopausal Microalbuminuria Effusion, right knee GERD (gastroesophageal reflux disease) Right knee pain Anemia Axillary lymphadenopathy Breast mass Essential hypertension Dyslipidemia Lymphadenopathy Asthma High cholesterol Diabetes mellitus Surgical History History of carpal tunnel surgery History of esophagogastroduodenoscopy (EGD) Hx of colonoscopy History of tubal ligation History of umbilical hernia repair History of tonsillectomy Family History Father No problems noted. Mother No problems noted. Social History Housing: Apartment Are you a primary dog day care attendant to a significant other at home: No Do you presently have visiting nurse or other home services: No Alcohol intake: never Patient Tobacco Use Status: Never used Tobacco e-Cigarette/Vaping Use: Never Used Second Hand Smoke Exposure: No service: No Current occupational status: disabled Current occupation: rt handed Cognitive needs: No Hearing needs: No Vision needs: Yes (Glasses) Questionnaire Thrive Questionnaire Date Thrive assessed: 10/11/24 VU-7 AMB Questionnaire VU-7 Date VU - 7 assessed: 10/11/24 Source: Developed by Drs. Ezequiel Diaz, Gaby Hwang, Antoine Guerrero and colleagues, with an educational mildred from [employer]. Review of Systems Const All systems reviewed & are unremarkable except as noted in HPI and below Card Denies chest pain at rest, Denies chest pain with activity, Denies edema, Denies irregular heart rhythm, Denies claudication, Denies dyspnea, Denies dyspnea on exertion, Denies orthopnea, Denies paroxysmal nocturnal dyspnea and Denies slow heart rate Resp Denies cough, Denies dyspnea and Denies dyspnea on exertion Physical exam (Primary Care) Vital Signs: Last Vital Signs Temp 97.1 F 04/18/25 10:39 Pulse 86 04/18/25 10:39 BP 142/68 H 04/18/25 10:39 Pulse Ox 96 04/18/25 10:39 Oxygen Delivery Method Room Air 04/18/25 10:39 BMI result Body Mass Index 33.3 BMI Assessment/Plan discussion: High BMI High, discussed plan: lifestyle, weight reduction, dietary and physical activity Tobacco/Smoking Status: Tobacco use Status Tobacco use date assessed 04/18/25 04/18/25 10:44 Patient Tobacco Use Status Never used Tobacco 04/18/25 10:44 e-Cigarette/Vaping Use Never Used 04/18/25 10:44 Thrive Assessment: Date of Thrive Assessment Date Thrive assessed 10/11/24 04/18/25 10:44 Resp Effort & Inspection: normal respiratory effort Auscultation: clear to auscultation bilaterally Cardio Jugular venous distension: no JVD Rate: regular rate Rhythm: regular rhythm Heart sounds: S1 normal heart sound present and S2 normal heart sound present Extrem General: Yes full ROM Results AMB Hemoglobin A1c AMB Hemoglobin A1c 6.4 % Last Edit by CASTRO Hector on 04/18/25 10:55 Results Reviewed Results Reviewed: Laboratory Last Values Hgb A1c (Clinic) 6.4 % (4.0-6.0) H 04/18/25 10:36 Coding Level of Care Code Add On Preventative Visit Only Diagnoses Stage 3a chronic kidney disease N18.31 Chronic kidney disease stage 3 subtype: stage 3a (GFR 45-59) Type 2 diabetes mellitus with hyperglycemia, without long-term current use of insulin E11.65 Diabetes mellitus type: type 2 Diabetes mellitus care home insulin use: without care home use Diabetes mellitus complication status: with hyperglycemia Pure hypercholesterolemia E78.00 URI (upper respiratory infection) J06.9 Time Spent (min) 23 Assessment & Plan Assessment & Plan (1) CKD (chronic kidney disease) stage 3, GFR 30-59 ml/min: Code(s): N18.30 - Chronic kidney disease, stage 3 unspecified Category: Medical Qualifiers: Chronic kidney disease stage 3 subtype: stage 3a (GFR 45-59) Qualified Code(s): N18.31 - Chronic kidney disease, stage 3a (2) Diabetes mellitus: Code(s): E11.9 - Type 2 diabetes mellitus without complications Category: Medical Qualifiers: Diabetes mellitus type: type 2 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 Acute Upper Respiratory Infection The patient presents with a two-day history of a dry cough and nasal congestion. To evaluate for potential etiologies, a combined rapid test for COVID-19, influenza, and RSV will be ordered, along with a chest X-ray. 2. Hypertension The patient's hypertension will be addressed by increasing the daily dose of losartan from 25 mg to 50 mg. 3. Neuropathic Pain Given that gabapentin is not providing adequate relief for her leg pain, a trial of tramadol will be considered as an alternative. 4. Hyperlipidemia The patient's LDL cholesterol was elevated at 120 on her last labs in October. She will continue her current medications, including rosuvastatin 40 mg and ezetimibe 10 mg. Repeat lab work will be deferred until her next follow-up appointment. 5. Diabetes mellitus type 2 The patient's most recent A1c was 6.4, which is within the target goal of less than 7. Monitoring will continue, with labs to be ordered before the next visit in four months. 6. Chronic Kidney Disease, Stage 3 The patient has a history of stage 3 CKD with a stable GFR of 50. Renal function will be monitored with labs ordered for her next follow-up appointment. 7. Health Maintenance The patient is up to date on her vaccinations, including flu, tetanus, and pneumonia. A follow-up visit is scheduled for four months from now, with lab work to be completed before the appointment. Orders: Orders XR chest 2V Today J06.9 - Acute upper respiratory infection, unspecified Comprehensive [place]. Panel Fast 4 Months I10 - Essential (primary) hypertension Vitamin B12 and Folate 4 Months E53.8 - Deficiency of other specified B group vitamins Vitamin D 25-OH Total 4 Months E55.9 - Vitamin D deficiency, unspecified AMB Hemoglobin A1c Today E11.65 - Type 2 diabetes mellitus with hyperglycemia SARS-CoV2/FLU/RSV Today R09.89 - Other specified symptoms and signs involving the circulatory and respiratory systems Lipid Panel 4 Months E78.5 - Hyperlipidemia, unspecified Microalbumin, Random (w Creat) 4 Months R80.9 - Proteinuria, unspecified Medications: New losartan 50 mg PO DAILY 90 tabs 0RF 90 days azithromycin Take 2 tabs the first day then 1 tab the next 4 day 250 mg PO DAILY 6 tabs 0RF 5 days Discontinued losartan Discontinued Reason: Patient Completed Course 25 mg PO DAILY 90 days 90 tabs 1RF
[2025-04-18 10:39] VITALS: BP 142/68; PULSE 86; TEMP 36.2; O2SAT 96; BMI 33.3
--- OUTSIDE RECORDS SUMMARY | 2025-04-18 13:06 | XMS_ITS | Patient Health Record ---
Author Organization [facility] Address [address] [place] [address] Care Team Providers Care Disability Insurance Claim Examiner Name Role Phone Tobi THOMSON, Maria C Primary Care Provider Ezequiel Simpson Unavailable [phone] Allergies Allergen (clinical drug ingredient) Drug/Non Drug Allergy documented on EMR Reaction Allergy Type Onset Date Status Codeine Phosphate Unknown Drug Allergy Active erythromycin Erythromycin Unknown Drug Allergy A ctive morphine Morphine Sulfate Unknown Drug Allergy Active Reason For Referral No Information Medications Medication SIG (Take, Route, Frequency, Duration) Notes Start Date End Date Status Naproxen 500mg prn Activ e Motrin 800mg prn Active Colyte with Flavor Packs 227.1 GM Solution Reconstituted As directed Orally As directed; Duration: 1 day(s) 08/10/2013 Active Singulair 20mg prn Activ e PriLOSEC 20 MG Capsule Delayed Release 1 capsule Orally prn; Duration: 30 day(s) Active Social History Social History Additional Details Category Social Info Options Details Miscellaneous: Marital status: single 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 [employer] Section Notes: Nonsmoker; no significant al cohol Problems Problem Type SNOMED Code ICD Code Onset Dates Problem Status W/U Status Risk Notes Problem [facility]P current use of non-steroidal anti-inflammat ory drug (situation) (3621110280547 03) Long-term (current) use of nonsteroidal anti-inflammatori es (NSAID) (V58.64) Active confirmed Problem Colon cancer screening (424271110) Colon cancer screening (V76.51) Active confirmed Problem Anemia (553352722) Anemia (285.9) Active confirmed Plan Of Treatment Future Test Test Name Order Date COLONOSCOPY 08/10/2013 Insurance Providers Payer Name Payer Address Payer Phone Subscriber Number Group Number Insured Name Patient Relationship to Insured Coverage Start Date Coverage End Date MEDICARE OF [place] [address] [place] [id number] [phone] [id number] TIANNA MICHAEL Self - patient is the insured [facility]ID OF [facility] [address] [place] [phone] [id number] TIANNA MICHAEL Self - patient is the insured Medical (General) History Medical History History ICD Code Asthma Denies [place],DM,CVA,renal disease Arthritis GERD--uses Prilosec approx. just once pe r week prn Surgical History Surgery Date(Month/Year) tonsillectomy in 1959 CCY umbilical hernia in 1980 BTL
== END 2025-04-18 11:15 | disposition home or self-care (01) ==
LOC: HO.HMCH 10:30
PROVIDERS: PCP Internal Medicine; Visit Provider Internal Medicine
DX: N18.31 Chronic kidney disease, stage 3a (principal); E11.65 Type 2 diabetes mellitus with hyperglycemia; E78.00 Pure hypercholesterolemia, unspecified; J06.9 Acute upper respiratory infection, unspecified

== ENCOUNTER 2025-04-18 10:29 | Outpatient (REF) | payer OTHER, SELFPAY ==
--- NOTE | ~2025-04-18 | XR_ITS ---
EXAMINATION: XR CHEST CLINICAL INFORMATION: J06.9 - Acute upper respiratory infection, unspecified COMPARISON: 10/12/2024. TECHNIQUE: 2 views of the chest were obtained. FINDINGS: The cardiac, hilar, and mediastinal contours are normal. Aortic mural calcifications. The lungs are clear bilaterally. There is no pneumothorax or pleural effusion. There is no focal osseous or soft tissue abnormality. There are degenerative changes of both shoulder joints and throughout the spine. XR/XR chest 2V IMPRESSION: No active pulmonary disease. No change from 10/12/2024. Electronically signed by: Puneet Jj MD 04/18/2025 12:23 PM [facility] [place]
[2025-04-18 11:53] LABS: MANUAL DIFF FLAG NO
[2025-04-18 12:35] LABS: Hematocrit 32.0 % (37.0-47.0); Hemoglobin 10.1 g/dl (12.0-16.0); Imm Gran Abs Auto 0.02 X10*3/uL (0.00-0.03); Imm Gran Pct Auto 0.3 % (0.0-0.4); Lymphocytes Absolute Auto 1.6 X10*3/uL (1.2-4.9); Mean Corpuscular HGB Conc 31.6 g/dl (31.0-35.0); Mean Corpuscular Hemoglobin 30.1 pg (27.0-33.0); Mean Corpuscular Volume 95.5 fL (80.0-98.0); NRBC Abs Auto 0.000 X10*3/uL (0.0-0.012); NRBC Pct Auto 0.0 /100WBC (0.0-0.2); Platelet Count 149 X10*3/uL (160-400); Red Blood Count 3.35 X10*6/uL (4.20-5.50); White Blood Count 7.0 X10*3/uL (4.8-10.8)
[2025-04-18 12:44] LABS: Resp Syncy Virus RNA Qual PCR NEGATIVE (Negative); SARS COV2 PCR INHOUSE POSITIVE (Negative)
[2025-04-18 13:09] LABS: Alanine Aminotransferase 19 U/L (0-31); Albumin Level 3.9 g/dL (3.5-5.0); Alkaline Phosphatase 54 U/L (39-117); Anion Gap 14 (12-20); Aspartate Amino Transferase 30 U/L (5-31); Blood Urea Nitrogen 16 mg/dL (9-16); Calcium 8.8 mg/dL (8.4-10.2); Carbon Dioxide 25 mmol/L (22-29); Chloride 109 mmol/L (96-108); Cholesterol 179 mg/dL (<200); Estimated Glomerular Filt Rate 49; HDL Cholesterol 48 mg/dL (>40); Iron 35 mcg/dL (30-160); Percent Iron Saturation 17 % (15-50); Potassium 3.8 mmol/L (3.3-5.1); Sodium 144 mmol/L (135-145); Total Iron Binding Capacity 210 mcg/dL (228-428); Total Protein 6.4 g/dL (6.5-8.0); Triglycerides 148 mg/dL (<150); Unsaturated Iron Binding 175 ug/dL
[2025-04-18 13:33] LABS: Microalbum/Creatinine Ratio Ur 8.5 ug/mg cr (<30)
[2025-04-18 13:34] LABS: Folate 14.3 ng/mL (> or = 4.0); Vitamin B12 445 pg/mL (200-900)
== END 2025-04-18 10:30 | disposition home or self-care (01) ==
LOC: HO.LAB 10:29
PROVIDERS: PCP Internal Medicine; Visit Provider Internal Medicine
DX: E53.8 Deficiency of other specified B group vitamins (principal); E11.65 Type 2 diabetes mellitus with hyperglycemia; E11.22 Type 2 diabetes mellitus with diabetic chronic kidney disease; N18.31 Chronic kidney disease, stage 3a; E78.00 Pure hypercholesterolemia, unspecified; E55.9 Vitamin D deficiency, unspecified; R09.89 Other specified symptoms and signs involving the circulatory and respiratory systems; J06.9 Acute upper respiratory infection, unspecified; E78.5 Hyperlipidemia, unspecified; R80.9 Proteinuria, unspecified; M54.32 Sciatica, left side; D64.9 Anemia, unspecified
CPT/HCPCS: 71046; 80053; 80061; 82043; 82306; 82570; 82607; 82746; 83036; 83540; 85025; 87637; 99212

== ENCOUNTER → 2025-04-18 12:04 | Outpatient (BNV) | payer OTHER, SELFPAY | PROVIDERS: PCP Internal Medicine; Visit Provider Radiology Diagnostic Radiology | DX: J06.9 Acute upper respiratory infection, unspecified (principal) | CPT/HCPCS: 71046 ==

== ENCOUNTER 2025-04-21 07:59 | Outpatient (REF) | payer OTHER, SELFPAY ==
--- NOTE | ~2025-04-21 | CT_ITS ---
CLINICAL HISTORY: R91.1 - Solitary pulmonary nodule CT chest without contrast Comparison: Chest x-ray dated 04/18/2025 Findings: The heart is normal size. The visualized thyroid and mediastinum are unremarkable. 2 mm nodule in the right upper lobe on series 9, image 207. A few small calcified left lower lobe lung granulomas. Small branching opacities involving a portion of the right middle lobe due to bronchiolitis. Otherwise no evidence of lung nodule. No lung infiltrate. Mild right lung scarring/atelectasis. Cholecystectomy. Bilateral fat containing uncomplicated Bochdalek's hernias. Chondrocalcinosis/labral calcifications +/-intra-articular bodies at level of the glenohumeral joints bilaterally. Chondrocalcinosis at level of the sternoclavicular joints. Multilevel interspinous ligament calcifications at level of the thoracic spine. Findings suggestive of calcium deposition disease. IMPRESSION: 2 mm nodule in the right upper lobe. Finding could be re-evaluated with chest CT in 1 year in a high-risk patient. Small branching opacities involving a portion of the right middle lobe due to bronchiolitis. Chondrocalcinosis/labral calcifications +/-intra-articular bodies at level of the glenohumeral joints bilaterally. Chondrocalcinosis at level of the sternoclavicular joints. Multilevel interspinous ligament calcifications at level of the thoracic spine. Findings suggestive of calcium deposition disease. This document has been electronically signed by: Love Noel MD on 04/23/2025 10:37:02
--- OUTSIDE RECORDS SUMMARY | 2025-04-21 08:02 | XMS_ITS | Patient Health Record ---
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; no significant al cohol Problems Problem Type SNOMED Code ICD Code Onset Dates Problem Status W/U Status Risk Notes Problem [facility] current use of non-steroidal anti-inflammat ory drug (situation) (8499625628117 03) Long-term (current) use of nonsteroidal anti-inflammatori es (NSAID) (V58.64) Active confirmed Problem Colon cancer screening (069294787) Colon cancer screening (V76.51) Active confirmed Problem Anemia (637523862) Anemia (285.9) Active confirmed Plan Of Treatment Future Test Test Name Order Date COLONOSCOPY 08/10/2013 Insurance Providers Payer Name Payer Address Payer Phone Subscriber Number Group Number Insured Name Patient Relationship to Insured Coverage Start Date Coverage End Date MEDICARE OF [place] [address] [place] [id number] TIANNA MICHAEL Self - patient is the insured [facility]ID [id number] [address] [place] [phone] [id number] TIANNA MICHAEL Self - patient is the insured Medical (General) History Medical History History ICD Code Asthma Denies [place],DM,CVA,renal disease Arthritis GERD--uses Prilosec approx. just once pe r week prn Surgical History Surgery Date(Month/Year) tonsillectomy in 1959 CCY umbilical hernia in 1980 BTL
--- OUTSIDE RECORDS SUMMARY | 2025-04-21 08:02 | XMS_ITS | Clinical Summary ---
Author Organization [facility] Address [address] [place] [address], [place] [address] Care Team Providers Care Explosives Worker Name Role Phone Lita Ahmadi MD Primary Care Provider [phone] Allergies Active Allergy Reactions Criticality Noted Date [...] chew. Active cholecalciferol (VITAMIN D-3) 250 MCG (11876 UT) capsule Take 10,000 Units by mouth [...] Health Medicare [facility] Medicare Care Teams Explosives Worker Relationship Specialty Start Date End Date Lita Ahmadi MD [address] [place], [place] PCP - General Internal Medicine 09/11/21
== END 2025-04-21 08:00 | disposition home or self-care (01) ==
LOC: HO.CT 07:59
PROVIDERS: PCP Internal Medicine; Visit Provider Hospitalist
DX: R91.1 Solitary pulmonary nodule (principal); R05.3 Chronic cough
CPT/HCPCS: 71250

== ENCOUNTER → 2025-04-21 08:01 | Outpatient (BNV) | payer OTHER, SELFPAY | PROVIDERS: PCP Internal Medicine; Visit Provider Radiology Diagnostic Radiology | DX: R91.8 Other nonspecific abnormal finding of lung field (principal) | CPT/HCPCS: 71250 ==